=== PATIENT | female | born 1995 | race Hispanic/Latino ===

== ENCOUNTER 2020-10-30 10:54 | Outpatient (CLI) | payer OTHER, SELFPAY ==
--- NOTE | ~2020-10-30 | US_ITS ---
US OB <= 14 weeks fetus DATE: 10/30/2020 11:35 INDICATION: Gestational age determination TECHNIQUE: Real-time imaging and Doppler analysis COMPARISON: None FINDINGS: Uterus measures 9.8 cm height, 8.9 cm anteroposterior 9.4 cm transverse dimension. Intrauterine gestational sac is identified. pole is detected. There is movement. he art rate of 144 bpm. [place]-rump length averages 5.65 cm, consistent with 12 weeks 2 days +/- 1 week 1 day estimated gestat ional age; KASSANDRA: 05/12/2021, compared to 05/13/2021 by LMP. There are 2 fluid collections subjacent to the gestational sac, measuring up to 5 x 3.5 x 9 mm and 4 mm x 19 x 23 mm maximal dimension, consistent with subchorionic hematomas. Posterior placenta. Right ovary 2.4 x 1.0 x 2.4 cm. Left ovary 4.8 x 2.5 x 3.9 cm, with a 3.1 cm left ovarian cyst. No pelvic mass or abnormal pelvic fluid collection is evident. IMPRESSION: 2 subchorionic hematomas Estimated gestational age is 12 weeks 2 days +/- 1 week 1 day; KASSANDRA: 05/12/2021 Reviewed, dictated and finalized at [facility]. Reviewed, dictated and finalized at [facility].
== END 2020-10-30 10:55 | disposition home or self-care (01) ==
LOC: ANHIMG 11:03
PROVIDERS: PCP Obstetrics & Gynecology; Visit Provider Obstetrics & Gynecology
DX: Z34.91 Encounter for supervision of normal pregnancy, unspecified, first trimester (principal); Z3A.12 12 weeks gestation of pregnancy
CPT/HCPCS: 76801

== ENCOUNTER 2020-12-05 15:32 | Outpatient (CLI) | payer OTHER, SELFPAY ==
--- NOTE | ~2020-12-05 | US_ITS ---
EXAMINATION: US OB follow up DATE: 12/05/2020 16:03 INDICATION: Supervision of normal . Evaluate growth. TECHNIQUE: Real-time transabdominal obstetric ultrasound. FINDINGS: Comparison ultrasound dated 10/30/2020 There is a single living fetus in vertex presentation. The placenta is fundal without placenta previ a. Along the posterior margin of the placenta there is a heterogeneous hypoechoic area with internal vascularity. cardiac activity and movement is noted with a heart rate of 161 beats per minute. T he amniotic fluid volume is subjectively normal. The following biometric data were obtained: BPD: 36mm corresponds to gestational age 17 weeks 0 days. Head circumference: 135mm corresponds to gestational age 17 weeks 0 days. Abdominal circumference: 112mm corresponds to gestational age 17 weeks 0 days. Femur length: 22mm corresponds to gestational age 16 weeks 5 days. Estimated weight: 172grams +/- 26grams, 20th percentile IMPRESSION: 1. Single living intrauterine in vertex presentation with an estimated gestational age of 17 weeks 3 days by inititial ultrasound. Appropriate interval growth. 2. Heterogeneous hypoechoic area along the posterior margin of the placenta with associated vasculari ty. Considerations include focal myometrial contraction and chorioangioma. Recommend attention to thi s structure on follow-up examination. Reviewed, dictated and finalized at location [facility]. IMPRESSION: 1. Single living intrauterine in vertex presentation with an estimat ed gestational age of 17 weeks 3 days by inititial ultrasound. Appropriate int erval growth. 2. Heterogeneous hypoechoic area along the posterior margin of the placenta wit h associated vascularity. Considerations include focal myometrial contraction a nd chorioangioma. Recommend attention to this structure on follow-up examdanyel farnsworth
== END 2020-12-05 15:33 | disposition home or self-care (01) ==
PROVIDERS: PCP Obstetrics & Gynecology; Visit Provider Obstetrics & Gynecology
DX: Z36.89 Encounter for other specified antenatal screening (principal); Z3A.17 17 weeks gestation of pregnancy
CPT/HCPCS: 76816

== ENCOUNTER 2021-01-11 11:08 | Outpatient (CLI) | payer OTHER, SELFPAY ==
--- NOTE | ~2021-01-11 | US_ITS ---
EXAMINATION: US OB follow up DATE: 01/11/2021 11:46 INDICATION: Routine care, second trimester TECHNIQUE: Real-time ultrasound of the pelvis was performed. The interpreting radiologist was not pre sent for the study. COMPARISON: 12/05/2020 FINDINGS: There is a single living fetus in breech presentation. The placenta is posterior. car diac activity and movement are noted. heart rate is 144 beats per minute (bpm). The amnio tic fluid index is subjectively normal. The following biometric data were obtained: Biparietal diameter (BPD): 5.2 cm; head circumference (HC): 19.4 cm; abdominal circumference (AC): 16 .8 cm; femur length (FL): 3.5 cm. These measurements are concordant. Estimated weight is 437 g +/- 65 g, which correlates with the 9th percentile when 05/13/2021 is u sed as estimated date of delivery. As single measurements, these parameters are each equal to the following estimated gestational ages w ith ranges of +/- 2 standard deviations: BPD: 31 weeks 6 days +/- 1 weeks 5 days. HC: 21 weeks 4 days +/- 1 weeks 3 days. AC: 21 weeks 6 days +/- 2 weeks 0 days. FL: 21 weeks 2 days +/- 1 weeks 6 days. estimated gestational age based solely on measurements from this exam is 21 weeks 5 days +/- 1 weeks 4 days. IMPRESSION: 1. Single living fetus in breech presentation. 2. Estimated weight is 437 g +/- 65 g, which correlates with the 9th percentile when 05/13/2021 i s used as estimated date of delivery. Reviewed, dictated and finalized at location [facility]. IMPRESSION: 1. Single living fetus in breech presentation. 2. Estimated weight is 437 g +/- 65 g, which correlates with the 9th perc entile when 05/13/2021 is used as estimated date of delivery.
== END 2021-01-11 11:09 | disposition home or self-care (01) ==
LOC: ANHIMG 11:09
PROVIDERS: PCP Obstetrics & Gynecology; Visit Provider Obstetrics & Gynecology
DX: O41.92X1 Disorder of amniotic fluid and membranes, unspecified, second trimester, fetus 1 (principal); Z3A.21 21 weeks gestation of pregnancy
CPT/HCPCS: 76816

== ENCOUNTER 2021-04-01 08:34 | Outpatient (RCR) | payer OTHER, SELFPAY ==
[2021-03-25 09:28] VITALS: BP 108/72; PULSE 100
[2021-03-28 09:44] VITALS: BP 100/64; PULSE 91
--- NOTE | ~2021-04-01 | US_ITS ---
EXAMINATION: US OB BPP wo non-stress EXAM DATE: 04/01/2021 09:34 INDICATION: IUGR. 3rd trimester. TECHNIQUE: Pelvic obstetrical transabdominal sonogram was performed by a technologist. There are mu ltiple grayscale and Doppler images available for interpretation. Comparison is made to prior examina tion from 03/25/2021. FINDINGS: There is a single fetus identified in vertex presentation with a heart rate of 152 beats pe r minute. The placenta is located in the posterior position. There is no sonographic evidence of ret roplacental hemorrhage identified. BIOPHYSICAL PROFILE (performed by the technologist) breathing (30 sec sustained breathing in 30 minutes): 2 out of 2 movement (3 gross body movements in 30 minutes): 2 out of 2 tone (one episode of xfnmajz-stxwvrhkv-hptwzom limb movement): 2 out of 2 Amniotic fluid pocket (2 cm): 2 out of 2 Total score: 8 out of 8 IMPRESSION: 1. Single fetus with heart rate of 152 bpm. 2. Normal biophysical profile score of 8 out of 8. Reviewed, dictated and finalized at location [facility]. MILLER OPERATOR
--- NOTE | ~2021-04-01 | US_ITS ---
EXAMINATION: 1. US OB BPP wo non-stress 2. US umbilical doppler DATE: 03/25/2021 10:22 INDICATION: growth restriction. Third trimester. TECHNIQUE: Real-time pelvic ultrasound was performed. COMPARISON: Ultrasound 01/11/2021 FINDINGS: There is a single living fetus in vertex presentation. The placenta is posterior. heart rate i s 159 beats per minute (bpm). The amniotic fluid volume is subjectively normal. Biophysical profile performed by the technologist: breathing (30 sec sustained breathing in 30 minutes): 2 out of 2 movement (3 gross body movements in 30 minutes): 2 out of 2 tone (one episode of qimlafw-dtfzxtlty-ohwvsqu limb movement): 2 out of 2 Amniotic fluid pocket (2 cm): 2 out of 2 Total score: 8 out of 8 Umbilical artery pulsed Doppler demonstrates a peak systolic to end-diastolic velocity ratio (S/D rat io) of 3.4 (5th percentile = 2.11, 95th percentile = 3.67). IMPRESSION: 1. Single living fetus in vertex presentation. 2. Biophysical profile 8 out of 8. 3. Normal umbilical artery Doppler. Reviewed, dictated and finalized at location A. NEERING AND OPERATIONS DIRECTOR IMPRESSION: 1. Single living fetus in vertex presentation. 2. Biophysical profile 8 out of 8. 3. Normal umbilical artery Doppler.
[2021-04-01 09:53] VITALS: BP 99/63; PULSE 89
== END 2021-06-16 20:39 | disposition home or self-care (01) ==
LOC: ANHOBOP 08:34
PROVIDERS: Visit Provider Obstetrics & Gynecology
DX: O36.5990 Maternal care for other known or suspected poor fetal growth, unspecified trimester, not applicable or unspecified (principal); Z3A.33 33 weeks gestation of pregnancy; Z3A.34 34 weeks gestation of pregnancy
CPT/HCPCS: 59025; 76819; 76820

== ENCOUNTER 2025-02-27 13:16 | Observation (INO) | payer OTHER, SELFPAY ==
[2025-02-27] VITALS (13 sets, daily range): BP systolic 113–124; BP diastolic 72–87; PULSE 79–92; RESP 13–22; TEMP 36.2–36.4; O2SAT 98–100; BMI 32.1
--- NOTE | ~2025-02-27 | XR_ITS ---
EXAMINATION: XR chest 2V, 02/27/2025 15:25 CDT HISTORY: chest pain COMPARISON: No comparisons available. Technique: 2 views obtained. Findings: The lungs are clear, no effusion. No pneumothorax. Heart is normal size. Mediastinal and hilar contours are within normal limits. Bony thorax no acute abnormality. Impression: No acute cardiopulmonary abnormality. Reviewed, dictated and finalized at location P. Impression: No acute cardiopulmonary abnormality.
--- NOTE | ~2025-02-27 | MR_ITS ---
EXAMINATION: MR MRCP wo/w con/w 3D wo ind DATE: 02/28/2025 16:26 INDICATION: Choledocholithiasis. Abdominal pain. TECHNIQUE: Magnetic resonance imaging (MRI) of the abdomen was performed with 14 mL MultiHance intravenous contrast. Sequences included coronal T2-weighted FS FSE, coronal T2-weighted FSE, axial T1-weighted LAVA, coronal FS FIESTA, axial dual-echo T1-weighted SPGR, coronal lava-FLEX, sagittal T2-weighted FSE, axial T2-weighted FSE, and axial DWI. Thick-slab T2-weighted FSE images were obtained for magnetic resonance cholangiopancreatography (MRCP). Maximum intensity projection 3-D reconstructions of the volumetric data were created by the technologist. Postcontrast sequences included coronal LAVA-flex and time course of axial T1-weighted LAVA. COMPARISON: CT 02/27/2025 FINDINGS: ABDOMEN MRI: There is mild intrahepatic biliary duct dilatation. There are gallstones in the gallbladder, which is normal in size. The spleen, pancreas, adrenal glands, and kidneys are normal. There are no dilated loops of bowel. There are no pathologically enlarged lymph nodes. There is no free intrap eritoneal fluid. ABDOMEN MRCP: The common duct is dilated to 9 mm. There are stones and sludge in the common duct. IMPRESSION: 1. Choledocholithiasis with mild intrahepatic and extrahepatic biliary duct dilatation. 2. Cholelithiasis. Reviewed, dictated and finalized at location E. IMPRESSION: 1. Choledocholithiasis with mild intrahepatic and extrahepatic biliary duct dil atation. 2. Cholelithiasis.
--- NOTE | ~2025-02-27 | CT_ITS ---
Dianelys Dueñas EXAMINATION: CT abdomen pelvis w con COMPARISON: None HISTORY: chest/epigastric abd pain, elevated LFTs TECHNIQUE: Axial images were obtained through the abdomen, pelvis post administration of IV contrast. Oral contrast was also administered. Coronal reconstruction images were obtained from the axial views. CT scan performed using dose optimization techniques including the following automated exposure control; adjustment of mA and/or kV; use of iterative reconstruction technique. Automatic exposure control was used to reduce radiation dose. Permanent radiation dose record is archived to PACS. FINDINGS: CT abdomen: LUNG BASES: The lung bases are clear. The visualized portions of the heart and pericardium are unremarkable. LIVER: Mild hepatic steatosis. Portal vein patent. No intrahepatic biliary duct dilatation. SPLEEN: Unremarkable. KIDNEYS: Right Kidney: Unremarkable. No calculi. No hydronephrosis. Left Kidney: Unremarkable. No calculi. No hydronephrosis ADRENAL GLANDS: Unremarkable. PANCREAS: Unremarkable. GALLBLADDER/BILIARY: Cholelithiasis. STOMACH AND ESOPHAGUS: Visualized stomach and esophagus within normal limits. BOWEL/MESENTERY: No colitis or diverticulitis. Moderate fecal content large bowel. Appendix normal. Mesentery normal. No dilated small bowel loops. ADENOPATHY/RETROPERITONEUM: No lymphadenopathy. AORTA/VASCULATURE: Normal caliber aorta. FREE FLUID OR FREE AIR: No free fluid.. CT pelvis: SOLID ORGANS/REPRODUCTIVE: Unremarkable. BLADDER: Circumferential thickening of the bladder wall consistent with mild probable cystitis. OSSEOUS STRUCTURES: No acute osseous abnormality.No suspicious lesions. OVERLYING SOFT TISSUES: Unremarkable. IMPRESSION: 1. Cholelithiasis. 2. Mild cystitis. Reviewed, dictated and finalized at location P.
--- NOTE | ~2025-02-27 | US_ITS ---
US abdomen limited Indication: epigastric abd pain/chest pain, elevated LFTs Comparison: None Technique: Biswas-scale and color Doppler images were obtained. Findings: LIVER: Liver measures 14.9 cm. . GALLBLADDER/BILIARY: There is cholelithiasis with wall thickening CBD 8 mm. Butler sign negative. PANCREAS: Pancreas and duodenum bowel gas. Right Kidney: Right kidney 10.5 x 4.9 x 4.6 cm, normal. Impression: 1. Dilated CBD. Correlate with LFTs. MRCP suggested to further evaluate. 2. Cholelithiasis. No evidence of acute cholecystitis Reviewed, dictated and finalized at location P. Impression: 1. Dilated CBD. Correlate with LFTs. MRCP suggested to further evaluate. 2. Cholelithiasis. No evidence of acute cholecystitis
--- NOTE | ~2025-02-27 | XR_ITS ---
EXAMINATION: XR ERCP DATE: 03/01/2025 12:34 INDICATION: Unsuccessful ERCP TECHNIQUE: 3 fluoroscopic spot fluoroscopic images of the right upper quadrant were obtained during attempted endoscopic retrograde cholangiopancreatography (ERCP) performed by Dr. Hernandez. Radiologist was not present for the imaging or procedure. The amount of fluoroscopy time used during this procedure was 1.2 minutes. Total DAP was 3.124 mGycm^2. COMPARISON: MRI/MRCP dated 02/28/2025 FINDINGS: Images demonstrate tiny cannula extending medially from the distal tip of an endoscope projecting over the right upper quadrant in the expected region of the ampulla. IMPRESSION: 1. Fluoroscopy utilized during reported unsuccessful attempted ERCP. See procedure note note for additional details. Reviewed, dictated and finalized at location A. IMPRESSION: 1. Fluoroscopy utilized during reported unsuccessful attempted ERCP. See proced ure note note for additional details.
--- OUTSIDE RECORDS SUMMARY | 2025-02-27 13:18 | XMS_ITS | Clinical Summary ---
Author Organization [facility] Address [address] [place] [address] Care Team Providers Care Esol Instructor Name Role Phone Candelario Walsham Primary Care Provid er Allergies No known active allergies Medications vit [id number] weiss 27mg iron- 800 mcg-250 mg capsule Take 1 tablet by mouth daily Active docusate sodium (COLACE) 100 mg capsuleIndicati ons:constipatio n,Stool Softener Take 1 capsule (100 mg total) by mouth 2 (two) times a day as needed for constipation 20 capsule 1 Active ibuprofen (ADVIL,MOTRIN) 600 mg tabletIndicatio ns:Cramps Take 1 tablet (600 mg total) by mouth every 6 (six) hours as needed for pain 60 tablet 1 Active acetaminophen (TYLENOL) 500 mg tablet Take 1 tablet (500 mg total) by mouth every 6 (six) hours as needed for pain 30 tablet 1 Active Active Problems Problem Noted Date Diagnosed Date Term 05/05/2021 Social History Tobacco Use Types Packs/Day Years Used Date Smoking Tobacco: Never Smokeless Tobacco: Never AUDIT-C Answer Date Recorded Q1: How often do you have a drink containing alc ohol? Never 05/05/2021 Q2: How many drinks containi ng alcohol do you have on a typical day when you are drinking? Patient declined 05/05/2021 Q3: How often do you have si x or more drinks on one occasion? Never 05/05/2021 [place] Depression Scale Answer Date Recorded [place] Depression Scale Total 4 05/06/2021 The thought of harming myself has occurred to me . Never 05/06/2021 Personal Safety Answer Date Recorded Getting School Help Needed Not on file 07/13 Comments No Sex and Gender Information Value Date Recorded Sex Assigned at Not on file Legal Sex Female 7:54 AM OUTLET MANAGER Gender Identity Not on file Sexual Orientation Not on file Obstetrics History Para Term AB IAB SAB Ectopic Multiple Livin g Live Births 5 4 4 1 1 0 4 1 Date Outcome GA Total Labor Labor/2nd/3rd Weight Sex Type Anes PTL Windy A1 A5 Name Clin Term Term Term SAB 021 Term 39w 0d 0h 46m 0h 42m/0h 01m/0h 03m 2.7 kg (5 lb 15.2 oz) F Vag-S pont Epidur al N Livin g 9 9 JOSEPH NTERA MIREZ ,GIRL MATTHEW IA Iam forbes ck, Candelario armas, DO Complications:Other (Comment ) Delivery Location:[facility] Main [facility] ([facility]) Last Filed Vital Signs Vital Sign Reading Time Taken Comments Blood Pressure 118/80 05/06/2021 4:14 PM OUTLET MANAGER Pulse 78 05/06/2021 4:14 PM OUTLET MANAGER Temperature 36.9 C (98.4 F) 05/06/2021 4:14 PM OUTLET MANAGER Respiratory Rate 18 05/06/2021 4:14 PM OUTLET MANAGER Oxygen Saturation 97% 05/06/2021 4:14 PM OUTLET MANAGER Inhaled Oxygen Concentration - - Weight 60.8 kg (134 lb) 05/05/2021 8:38 AM OUTLET MANAGER Height - - Body Mass Index - - Plan of Treatment Not on file Insurance [facility] Advance Directives For more information, please contact: [phone] * Full Code (Latest Code Status on File) Date Activated Date Inactivated Comments 05/05/2021 7:30 PM 05/06/2021 9:11 PM * Full Code Date Activated Date Inactivated Comments 05/05/2021 8:22 AM 05/05/2021 7:30 PM Full CPR i n case of cardiopulmonary arrest Care Teams Esol Instructor Relationship Specialty Start Date End Date Candelario Walsh DO [address] [place] [id number] PCP - General Obstetrics and Gynecology 05/05/21
--- OUTSIDE RECORDS SUMMARY | 2025-02-27 13:19 | XMS_ITS | Data Portability ---
Author Organization [facility]ER[facility] Address [address] [facility] [place] [address] Care Team Providers Care Guest Experience Manager Name Role Phone FLORENCE WATKINS Tail Puller Assessment No assessment recorded. Plan of Treatment Reminders Order Date Submit Date Provider Last Modified By Organization Details Last Modified Time Details Appointments None recorded. Lab test, urine 2024 025 [email or web address] In-Office Order, Internal Use Only DO Not Attach Compendium DO Not Attach Compendium, Do Not Delete/merge, [id number] 10:41:58 CBC w/ auto diff 2024 025 [email or web address] [facility], [address] [place] [address], [facility] [address], [place], [address], 5 14:40:18 culture, urine 2024 025 GENESIS [facility], [address] [place] [address], [facility] [address], [place], [address], 5 15:11:20 hemoglobi n (Hb) electroph oresis, blood 2024 025 [email or web address] [facility], [address] [place] [address], [address], [place], [address], 14:40:38 HIV 1 + 2, meaningfu l use set 2024 025 [email or web address] [facility], [address], [place], [address], 5 14:41:07 CFTR mutation, blood or tissue 2024 025 GENESIS [facility], [address], [address], [place], [address], 5 19:10:20 aneuploid y risk and X & Y analysis, chromosom e specific circulati ng cell free (CCF) DNA, maternal serum 2024 025 GENESIS Samaniego, [address], [address], [place], [address], 5 19:08:43 abo group + rh type, blood 2024 025 mio [facility], [address], [address], [place], [address], 5 14:40:51 drug screen, 5 drugs, urine 2024 025 [facility], [address] [place] [address], [address], [address], 5 14:39:57 rubella IgG Ab, quant immunoass ay, serum or plasma 2024 025 mio [facility]hncol[facility], [address], [place], [address], 5 14:40:58 RPR (rapid plasma reagin), serum 2024 025 mio [facility], [address], [place], [address], 5 14:41:22 varicella zoster virus IgG Ab, QL, IA, serum 2024 025 [email or web address] [facility], [address], [place], [address], 5 14:41:16 vaginal pathogens panel, RAJAN+probe , vaginal fluid 2024 025 [facility], [address], [place], [address], 5 14:40:09 hepatitis panel (A+B+C), acute, serum 2024 025 [email or web address] [facility], [address], [place], [address], 5 14:40:46 cytology report, thin prep, smear or scraping, cervical or vaginal 2024 025 [facility], [address] [facility], [address], [place], [address], 5 15:22:20 urinalysi s, dipstick 2024 025 In-Office Order, Internal Use Only DO Not Attach Compendium DO Not Attach Compendium, Do Not Delete/merge, [id number] 15:30:57 Referral maternal & medicine referral - Trisomy 18 2024 025 [email or web address] [facility], [address], [address], [place], [address], 5 09:24:44 Procedures None recorded. Surgeries None recorded. Imaging US, obstetric , 1st trimester 2024 025 Kenny Hunt (Radiology), [address], [place], [address], 5 16:33:38 Medication Orders Nexplanon 68 mg subdermal implant 2024 025 [email or web address] [facility], [address] [facility], [address], 11:59:33 Patient TargetsNo targets recorded. Patient Instructions Encounter Date Encounter Id Patient Instructions Last Modified By Organization Details Last Modified Time 06/09/2024 [id number] A healthy lifestyle: care instructions Not available 06/09/2024 15:25:07 06/16/2024 [id number] A healthy lifestyle: care instructions [email or web address] Not available 06/16/2024 09:44:57 --Discussed with Dr. Sonya beal Not available 06/16/2024 16:08:20 12/01/2024 [id number] grief (actual/anticipat ed): care instructions [email or web address] Not available 12/01/2024 11:59:33 12/14/2024 [id number] A healthy lifestyle: care instructions [email or web address] Not available 12/14/2024 10:41:58 --Discussed with Dr. Sonya beal Not available 12/14/2024 12:00:54 01/19/2025 [id number] grief (actual/anticipat ed): care instructions [email or web address] Not available 01/19/2025 16:18:00 A healthy lifestyle: care instructions [email or web address] Not available 01/19/2025 16:18:[address] Sonya beal Not available 01/20/2025 12:22:55 Reason for Referral Maternal & Medicine [facility] for Chromosome abnormality screening Trisomy 18 Referring Physician: Aleksandr Garcia, Family Medicine, Encounter Date: 06/16/2024 Results Created Date Observation Date Name Description Value Unit Range Abnormal Flag Note LastModifiedBy Organization Detail LastModifiedTime 05/19/1905/19/2024 pregn augustus test, urine HCG positi ve Not Available In-Office Order Internal Use Only DO Not Attach Compendium DO Not Attach Compendium, Do Not Delete/merge, [id number] 05/19/2024 11:54:38 06/09/19 25 06/11/2024 URINE CULTU RE, ROUTI NE urine culture, routine FINAL REPORT Not Available [facility] ([facility]) [address] [facility], [place], [address], 06/11/2024 15:11:20 06/09/19 25 06/11/2024 URINE CULTU RE, ROUTI NE result 1 GERMAN Motta Mixed uroge nital lise 10,00 0-25, 000 colon y formi ng units per mL Not Available [facility] ([facility]) [address] [place], [address], 06/11/2024 15:11:20 06/09/19 25 06/12/2024 IGP, RFX APTIM A HPV ASCU diagnosis: GERMAN Motta NEGAT PEYTON FOR INTRA EPITH ELIAL LESIO N OR LESLEY MNEDEZ . Not Available [facility] ([facility]) [address] [place], [address], 06/12/2024 15:22:20 06/09/19 25 06/12/2024 IGP, RFX APTIM A HPV ASCU specimen adequacy: GERMAN Motta Satis facto ry for evalu ation . Endoc ervic al and/o r squam ous metap lasti c cells (endo cervi ayden compo nent) are prese nt. Not Available [facility] ([facility]) [address] [place], [address], 06/12/2024 15:22:20 06/09/19 25 06/12/2024 IGP, RFX APTIM A HPV ASCU clinician provided ICD10: GERMAN Motta Z34.9 1 Not Available [facility] ([facility]) [address] [place], [address], 06/12/2024 15:22:20 06/09/19 25 06/12/2024 IGP, RFX APTIM A HPV ASCU performed by: GERMAN James er, Cytot karen motta (ASCP ) Not Available [facility] ([facility]) [address] [place], [address], 06/12/2024 15:22:20 06/09/19 25 06/12/2024 IGP, RFX APTIM A HPV ASCU . . Not Available [facility] ([facility]) [address] [place], [address], 06/12/2024 15:22:20 06/09/19 25 06/12/2024 IGP, RFX APTIM A HPV ASCU note: COMMEN T The Pap smear is a scree hetal test desig kyler to aid in the detec tion of adelita ligna nt and malig nant condi tions of the uteri ne cervi x. It is not a diagn ostic proce dure and shoul d not be used as the sole means of detec ting cervi ayden cance r. Both false -posi tive and false -nega tive repor ts do occur . Not Available [facility] ([facility]) [address] [facility], [place], [address], 06/12/2024 15:22:20 06/09/19 25 06/12/2024 IGP, RFX APTIM A HPV ASCU test methodology: COMMEN T This liqui d based ThinP rep(R ) pap test was scree kyler with the use of an image guide odalis armas. Not Available [facility] ([facility]) [address] [place], [address], 06/12/2024 15:22:20 06/09/19 25 06/12/2024 IGP, RFX APTIM A HPV ASCU . COMMEN T The HPV DNA refle x crite reagan were not met with this speci men resul t there fore, no HPV testi ng was perfo rmed. Not Available [facility] ([facility]) [address] [place], [address], 06/12/2024 15:22:20 06/09/19 25 06/13/2024 MATER NIT21 PLUS CORE gestation SINGLE TON Not Available [facility] ([facility]) [address] [place], [address], 06/13/2024 19:08:42 06/09/19 25 06/13/2024 MATER NIT21 PLUS CORE fraction 13% Not Available [facility] ([facility]) [address] [place], [address], 06/13/2024 19:08:42 06/09/19 25 06/13/2024 MATER NIT21 PLUS CORE gestational age > or = 9W: YES Not Available [facility] ([facility]) [address] [place], [address], 06/13/2024 19:08:42 06/09/19 25 06/13/2024 MATER NIT21 PLUS CORE test result POSITI VE abnormal Triso my 18 Not Available [facility] ([facility]) [address] [place], [address], 06/13/2024 19:08:42 06/09/19 25 06/13/2024 MATER NIT21 PLUS 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 Randy ic couns eling , confi rmato ry diagn ostic testi ng, and clini ayden corre latio n are recom puma d. Not Available [facility] ([facility]) [address] [place], [address], 06/13/2024 19:08:42 06/09/19 25 06/13/2024 MATER NIT21 PLUS CORE approved by GERMAN ruano MD, Direc tor, Seque nom Labor atori es Not Available [facility] ([facility]) [address] [place], [address], 06/13/2024 19:08:42 06/09/19 25 06/13/2024 MATER NIT21 PLUS CORE trisomy 21 (down syndrome) NEGATI VE Not Available [facility] ([facility]) [address] [facility] [place], [address], 06/13/2024 19:08:42 06/09/19 25 06/13/2024 MATER NIT21 PLUS CORE trisomy 18 (padilla syndrome) SEE BELOW: abnormal Posit peyton T18 PPV*: 14.7% Not Available [facility] ([facility]) [address] [place], [address], 06/13/2024 19:08:42 06/09/19 25 06/13/2024 MATER NIT21 PLUS CORE trisomy 13 (patau syndrome) NEGATI VE Not Available [facility] ([facility]) [address] [place], [address], 06/13/2024 19:08:42 06/09/19 25 06/13/2024 MATER NIT21 PLUS CORE sex COMMEN T Consi stent with Femal e Not Available [facility] ([facility]) [address] [facility], [place], [address], 06/13/2024 19:08:42 06/09/19 25 06/13/2024 MATER NIT21 PLUS CORE negative predictive value NOTE The Negat peyton Predi ctive Value (NPV) for triso my 21, 18, and 13 is great er than 99%. The NPV for SCA and ESS canno t be calcu lated as SCA and ESS are only repor marie when an abnor malit y is detec marie. Not Available [facility] ([facility]) [address] [facility], [place], [address], 06/13/2024 19:08:42 06/09/19 25 06/13/2024 MATER NIT21 PLUS CORE positive predictive value NOTE * Posit peyton Predi ctive Value (PPV) estim ates the proba bilit y that a pregn augustus with a posit peyton test resul t is in fact an affec marie pregn augustus. The PPV for this patie nt was calcu lated only using mater nal age and gesta jami l age[1 ], test perfo rmanc e[2] and the stand ken PPV formu la. For a more accur ate and indiv idual ized PPV calcu latio n, inclu de addit ional clini ayden infor matio n from the patie nt's clini ayden histo ry (whic h may inclu de serum scree n resul ts, perso nal/f amily histo ry, ultra sound findi ngs, etc.) , and refer to the table below . A Prior i Risk (1:10 ); PPV (96.5 %) TRISO MY 18 A Prior i Risk (1:20 ); PPV (92.9 %) TRISO MY 18 A Prior i Risk (1:30 ); PPV (89.6 %) TRISO MY 18 A Prior i Risk (1:40 ); PPV (86.5 %) TRISO MY 18 A Prior i Risk (1:50 ); PPV (83.6 %) TRISO MY 18 A Prior i Risk (1:10 0); PPV (71.6 %) TRISO MY 18 A Prior i Risk (1:20 0); PPV (55.7 %) TRISO MY 18 A Prior i Risk (1:30 0); PPV (45.5 %) TRISO MY 18 A Prior i Risk (1:40 0); PPV (38.5 %) TRISO MY 18 A Prior i Risk (1:50 0); PPV (33.4 %) TRISO MY 18 A Prior i Risk (1:10 00); PPV (20.0 %) TRISO MY 18 A Prior i Risk (1:15 00); PPV (14.3 %) TRISO MY 18 A Prior i Risk (1:20 00); PPV (11.1 %) TRISO MY 18 A Prior i Risk (1:25 00); PPV (9.1% ) TRISO MY 18 A Prior i Risk (1:30 00); PPV (7.7% ) TRISO MY 18 A Prior i Risk (1:50 00); PPV (4.8% ) TRISO MY 18 Not Available [facility] ([facility]) [address] [facility], [place], [address], 06/13/2024 19:08:42 06/09/1906/13/2024 MATER NIT21 PLUS CORE about the test COMMEN T The Mater niT(R ) 21 PLUS labor atory -deve loped test (LDT) rose zes circu latin g cell- free DNA from a mater nal blood sampl e. This test is used for scree hetal purpo ses and not diagn ostic . Clini ayden corre latio n is recom puma d. Valid ation data on twin pregn ancie s is limit ed and the abili ty of this test to detec t aneup loidy in highe r multi ple gesta tions has not yet been valid ated. Not Available [facility] ([facility]) [address] [facility], [place], [address], 06/13/2024 19:08:42 06/09/1906/13/2024 MATER NIT21 PLUS CORE test method COMMEN T See Notes Circu latin g cell- free DNA was purif ied from the plasm a compo nent of mater nal blood . The extra cted DNA was then conve rted into a [employer] DNA jaky ry for aneup loidy rose sis of chrom osome s 21, 18, and 13 via next gener ation seque ncing .[3] Optio nal findi ngs based on the test order inclu de sex chrom osome aneup loidy (SCA) [2], and enhan trista seque ncing serie s (ESS) [4], which will only be repor marie on as an addit ional findi ng when an abnor malit y is detec marie. SCA testi ng inclu jackie infor matio n on X and Y repre senta tion, while ESS testi ng inclu jackie delet ions in selec marie regio ns (22q, 15q, 11q, 8q, 5p, 4p, 1p) and triso my of chrom osome s 16 and 22. Not Available [facility] ([facility]) [address] [facility], [place], [address], 06/13/2024 19:08:42 06/09/19 25 06/13/2024 MATER NIT21 PLUS CORE performance COMMEN T The perfo rmanc e zee cteri stics of the Mater niT(R ) 21 PLUS labor atory -deve loped test (LDT) have been deter mined in a clini ayden valid ation study with pregn ant women at incre ased risk for chrom osoma l aneup loidy .[2-5 ] Not Available [facility] ([facility]) [address] [facility], [place], [address], 06/13/2024 19:08:42 06/09/19 25 06/13/2024 MATER NIT21 PLUS CORE performance characterist ics NOTE ----- ----- ----- ----- ----- ----- ----- ----- ----- ----- ----- ---- ! Sex ! Accur acy: 99.4% ! !---- ----- ----- ----- ----- ----- ----- ----- ----- ----- ----- ---! ! Gabriela n (radha young d syndr ome) ! Est. Sens# ! Est. Spec ! !---- ----- ----- ----- ----- ----- ----- ----- ----- ----- ----- ---! ! Sabrina pleitez 21 (Estela Syndr ome) ! 99.1% ! 99.9% ! !---- ----- ----- ----- ----- ----- ----- ----- ----- ----- ----- ---! ! Sabrina pleitez 18 (Mateo martinez Syndr ome) ! >99.9 % ! 99.6% ! !---- ----- ----- ----- ----- ----- ----- ----- ----- ----- ----- ---! ! Triso my 13 (Pata u Syndr ome) ! 91.7% ! 99.7% ! !---- ----- ----- ----- ----- ----- ----- ----- ----- ----- ----- ---! ! Sex Chrom osome Aneup mare es## ! 96.2% ! 99.7% ! !---- ----- ----- ----- ----- ----- ----- ----- ----- ----- ----- ---! * As repor marie in ISCA datab ase nstd3 7 [http [email or web address] [email or web address].nc [email or web address] .[email or web address] .gov/ dbvar /stud ies/n std37 / ] # Estim ated Sensi tivit y. Sensi tivit y estim ated acros s the obser heriberto size distr ibuti on of each syndr ome [per ISCA datab ase nstd3 7] and acros s the range of fract ions obser heriberto in routi ne clini ayden NIPT. Actua l sensi tivit y can also be influ enced by other facto rs such as the size of the event , total seque nce count s, ampli ficat ion bias, or seque nce bias. ## Singl eton gesta tion only. Not Available [facility] ([facility]) [address] [facility], [place], [address], 06/13/2024 19:08:42 06/09/19 25 06/13/2024 MATER NIT21 PLUS CORE limitations of the test COMMEN T While the resul ts of these tests are highl y relia ble, disco rdant resul ts, inclu ding inacc urate sex predi ction , may occur due to place ntal, mater nal, or mosai cism or neopl asm; vanis desirae twin; prior mater nal organ trans plant ; or other cause s. These tests are scree hetal tests and not diagn ostic ; they do not repla ce the accur acy and preci katy of prena bob diagn osis with CVS or amnio cente sis. A patie nt with a posit peyton test resul t shoul d be refer red for randy ic couns eling and offer ed invas peyton prena bob diagn osis for confi rmati on of test resul ts.[6 ] The resul ts of this testi ng, inclu ding the benef its and limit ation s, shoul d be discu ssed with a quali fied healt hcare provi marla. Pregn augustus manag ement decis ions, inclu ding termi natio n of the pregn augustus, shoul d not be based on the resul ts of these tests alone . The healt hcare provi marla is respo nsibl e for the use of this infor matio n in the manag ement of their patie nt. Sex chrom osoma l aneup loidi es are not repor table for known multi ple gesta tions . A negat peyton resul t does not ensur e an unaff ected pregn augustus nor does it exclu de the possi bilit y of other chrom osoma l abnor malit ies or defec ts which are not a part of these tests . An uninf ormat peyton resul t may be repor marie, the cause s of which may inclu de, but are not limit ed to, insuf ficie nt seque ncing cover age, noise or artif acts in the regio n, ampli ficat ion or seque ncing bias, or insuf ficie nt fract ion. These tests are not inten ded to ident radha pregn ancie s at risk for neura l tube defec ts or ventr al wall defec ts. Testi ng for whole chrom osome abnor malit ies (incl uding sex chrom osome s) and for subch romos omal abnor malit ies could lead to the poten tial disco very of both and mater nal genom ic abnor malit ies that could have major , minor , or no, clini ayden signi fican ce. Evalu ating the signi fican ce of a posit peyton or a non-r eport able resul t may invol ve both invas peyton testi ng and addit ional studi es on the mothe r. Such inves tigat ions may lead to a diagn osis of mater nal chrom osoma l or subch romos omal abnor malit ies, which on occas ion may be assoc iated with benig n or malig nant mater nal neopl asms. These tests may not accur ately ident radha tripl oidy, christina trista rearr angem ents, or the preci se locat ion of subch romos omal dupli catio ns or delet ions; these may be detec marie by prena bob diagn osis with CVS or amnio cente sis. The abili ty to repor t resul ts may be impac marie by mater nal BMI, mater nal weigh t, mater nal syste andreina lupus eryth emato cuca (SLE) and/o r by certa in pharm aceut ical agent s such as low molec ular weigh t hepar in (for examp le: Loven ox(R) , Xapar in(R) , Clexa ne(R) and Fragm in(R) ). Not Available [facility] ([facility]) [address] [facility], [place], [address], 06/13/2024 19:08:42 06/09/19 25 06/13/2024 MATER NIT21 PLUS CORE note COMMEN T See Notes [facility] is a subsi diary of Labor atory Corpo ratio n of Emil Chowi ngs, using the brand AlertMe. This test was devel oped and its perfo rmanc e zee cteri stics deter mined by [employer]. It has not been clear ed or appro heriberto by the Food and Drug Admin istra tion. This labor atory is certi fied under the Clini ayden Labor atory Impro vemen t Amend ments (CLIA ) as quali fied to perfo rm high compl exity clini ayden labor atory testi ng and accre dited by the Colle ge of [employer] can Patho logis ts (CAP) . Not Available [facility] ([facility]) [address] [facility], [place], [address], 06/13/2024 19:08:42 06/09/1906/13/2024 MATER NIT21 PLUS CORE references COMMEN T 1. Ofelia GRIFFIN, et al. Diag. 1994; 10(6) :356- 367. 2. Mae kaur AR, et al. Prena t Diag. 2013; 33(6) :591- 597. 3. Aubrey MEDINA, et al. Randy Med. 2012; 14(3) :296- 305. 4. Byron C, et al. Clin Chem. 2015 Aug;6 1(4): 608-6 16. 5. Aubrey MEDINA, et al. Randy Med. 2011; 13(11 ):913 -920. 6. [facility]G/ [facility] Pract ice Bulle tin No. 226, Feb 2020. Not Available [facility] ([facility]) [address] [place], [address], 06/13/2024 19:08:42 06/09/1906/13/2024 MATER NIT21 PLUS CORE pdf . Not Available [facility] ([facility]) [address] [place], [address], 06/13/2024 19:08:42 06/09/1906/10/2024 HGB FRACT IONAT ION CASCA DE HGB F 0.0 % 0.0-2. 0 Not Available [facility] ([facility]) [address] [facility], [place], [address], 06/19/2024 19:10:16 06/09/1906/10/2024 HGB FRACT IONAT ION CASCA DE HGB A 97.4 % 96.4-9 8.8 Not Available [facility] ([facility]) [address] [place], [address], 06/19/2024 19:10:16 06/09/19 25 06/10/2024 HGB FRACT IONAT ION CASCA DE HGB A2 2.6 % 1.8-3. 2 Not Available [facility] ([facility]) [address] [facility], [place], [address], 06/19/2024 19:10:16 06/09/1906/10/2024 HGB FRACT IONAT ION CASCA DE HGB S 0.0 % 0.0 Not Available [facility] ([facility]) [address] [facility], [place], [address], 06/19/2024 19:10:16 06/09/1906/10/2024 HGB FRACT IONAT ION CASCA DE interpretati on: COMMEN T Portia l hemog lobin prese nt; no hemog lobin varia nt or beta thala ssemi a ident ified . Note: Alpha thala ssemi a may not be detec marie by the Hgb Fract ionat ion [place] panel . If alpha thala ssemi a is suspe cted, [facility] offer s Alpha -Thal assem ia DNA Rose sis (#[id number]). Not Available [facility] ([facility]) [address] [facility], [place], [address], 06/19/2024 19:10:16 06/09/1906/10/2024 ACUTE HEPAT ITIS hep A Ab, IgM NEGATI VE negati ve A negat peyton anti- HAV IgM resul t sugge sts no recen t or curre nt HAV infec tion. Not Available [facility] ([facility]) [address] [facility], [place], [address], 06/19/2024 19:10:17 06/09/1906/10/2024 ACUTE HEPAT ITIS HBsAg screen NEGATI VE negati ve Not Available [facility] ([facility]) [address] [facility], [place], [address], 06/19/2024 19:10:17 06/09/1906/10/2024 ACUTE HEPAT ITIS hep B core Ab, IgM NEGATI VE negati ve Not Available [facility] ([facility]) [address] [facility], [place], [address], 06/19/2024 19:10:17 06/09/19 25 06/10/2024 ACUTE HEPAT ITIS HCV Ab NON REACTI VE nonrea ctive Not Available [facility] ([facility]) [address] [facility], [place], [address], 06/19/2024 19:10:17 06/09/19 25 06/10/2024 INTER PRETA TION: interpretati on: Commen t Not infec marie with HCV unles s early or acute infec tion is suspe cted (whic h may be delay ed in an immun ocomp romis ed indiv idual ), or other evide nce exist s to indic ate HCV infec tion. Not Available [facility] ([facility]) [address] [facility], [place], [address], 06/19/2024 19:10:18 06/09/19 25 06/11/2024 NUSWA B VAGIN ITIS PLUS (VG+) atopobium vaginae LOW - 0 score Not Available [facility] ([facility]) [address] [facility], [place], [address], 06/19/2024 19:10:19 06/09/19 25 06/11/2024 NUSWA B VAGIN ITIS PLUS (VG+) bvab 2 LOW - 0 score Not Available [facility] ([facility]) [address] [place], [address], 06/19/2024 19:10:19 06/09/19 25 06/11/2024 NUSWA B VAGIN ITIS PLUS (VG+) megasphaera 1 LOW - 0 score Calcu late total score by candace g the 3 indiv idual bacte rial vagin osis (BV) marke r score s toget her. Total score is inter prete d as follo ws: Total score 0-1: Indic ates the absen ce of BV. Total score 2: Indet ermin ate for BV. Addit ional clini ayden data shoul d be evalu ated to estab luis a diagn osis. Total score 3-6: Indic ates the prese nce of BV. Not Available [facility] ([facility]) [address] [facility], [place], [address], 06/19/2024 19:10:19 06/09/19 25 06/12/2024 NUA B VAGIN ITIS PLUS (VG+) vale albicans, RAJAN NEGATI VE negati ve Not Available [facility] ([facility]) [address] [facility], [place], [address], 06/19/2024 19:10:19 06/09/1906/12/2024 NUA B VAGIN ITIS PLUS (VG+) vale glabrata, RAJAN POSITI VE negati ve abnormal Publi shed data demon strat e that up to 65% of Devi da glabr emanuel ident ified in cases of vagin al devi diasi s have decre ased susce ptibi lity to fluco nazol e. Not Available [facility] ([facility]) [address] [facility], [place], [address], 06/19/2024 19:10:19 06/09/1906/12/2024 NUA B VAGIN ITIS PLUS (VG+) trich vag by RAJAN NEGATI VE negati ve Not Available [facility] ([facility]) [address] [place], [address], 06/19/2024 19:10:19 06/09/1906/12/2024 NUSWA B VAGIN ITIS PLUS (VG+) chlamydia trachomatis, RAJAN NEGATI VE negati ve Not Available [facility] ([facility]) [address] [place], [address], 06/19/2024 19:10:19 06/09/19 25 06/12/2024 NUSWA B VAGIN ITIS PLUS (VG+) neisseria gonorrhoeae, RAJAN NEGATI VE negati ve Not Available [facility] ([facility]) [address] [facility], [place], [address], 06/19/2024 19:10:19 06/09/19 25 06/19/2024 CYSTI C FIBRO SIS, 97 VARIA NTS ethnicity COMMEN T Not Provi ded Not Available [facility] ([facility]) [address] [facility], [place], [address], 06/19/2024 19:10:20 06/09/19 25 06/19/2024 CYSTI C FIBRO SIS, 97 VARIA NTS specimen type COMMEN T Whole Blood Not Available [facility] ([facility]) [address] [facility], [place], [address], 06/19/2024 19:10:20 06/09/19 25 06/19/2024 CYSTI C FIBRO SIS, 97 VARIA NTS indication COMMEN T Kym er Test / Scree hetal Not Available [facility] ([facility]) [address] [facility], [place], [address], 06/19/2024 19:10:20 06/09/19 25 06/19/2024 CYSTI C FIBRO SIS, 97 VARIA NTS result: COMMEN T NEGAT PEYTON Not Available [facility] ([facility]) [address] [facility], [place], [address], 06/19/2024 19:10:20 06/09/19 25 06/19/2024 CYSTI C FIBRO SIS, 97 VARIA NTS interpretati on COMMEN T Negat peyton Resul ts Disor ders (Gene ) Resul t Inter preta tion Cysti c fibro sis NEGAT PEYTON This resul t reduc es, (CFTR ) but does not NM_00 0492. 4 elimi toro, the risk to be a kym er. Risk: At reduc ed risk for an affec marie pregn augustus. For ethni c-spe cific risk ignacio ions see Infor su n Table . Not Available [facility] ([facility]) [address] [facility], [place], [address], 06/19/2024 19:10:20 06/09/1906/19/2024 CYSTI C FIBRO SIS, 97 VARIA NTS recommendati ons COMMEN T If the above resul t is posit peyton, randy ic couns germánng is recom puma d to discu ss the poten tial clini ayden and/o r repro ducti ve impli catio ns, as well as recom menda tions for testi ng famil y membe rs and, when appli cable , this indiv idual 's partn er. Randy ic couns elinarendra servi lance are avail able. To acces s [facility] Randy ic Couns darvin murray e visit [email or web address] :[email or web address] orp.c om/ge netic -coun juan g or call [phone] -CA LLS ([phone]). Not Available [facility] ([facility]) [address] [facility], [place], [address], 06/19/2024 19:10:20 06/09/19 25 06/19/2024 CYSTI C FIBRO SIS, 97 VARIA NTS additional clinicalinfo rmation COMMEN T Cysti c fibro sis (CF) is an autos omal reces sive disor marla with varia ble sever ity and age at onset . Signs and sympt oms of class ic CF may inclu de eleva marie sweat chlor mattie level s, progr essiv e lung disea se, pancr eatic insuf ficie ncy, and male infer tilit y. Sympt oms of mild CF may inclu de pancr eatic suffi cienc y. Sympt oms of CFTR- relat ed disor ders may inclu de pancr eatit is, bronc hiect asis, and isola marie male infer tilit y due to conge nital absen ce of the vas defer ens (CBAV D). Treat ment is dieta ry and suppo rtive . Genot ype-t arget ed thera pies may be avail able for some indiv idual s. In sever ronaldo affec marie indiv idual s, lung trans plant ation may be indic ated. (PMID :[id number]) . Not Available [facility] ([facility]) [address] [facility], [place], [address], 06/19/2024 19:10:20 06/09/19 25 06/19/2024 CYSTI C FIBRO SIS, 97 VARIA NTS comments COMMEN T This inter preta tion is based on the clini ayden infor matio n provi ded and the curre nt under stand ing of the molec ular randy ics of the disor marla(s ) teste d. Infor matio n about the disor marla(s ) teste d is avail able at [email or web address] :[email or web address] om. Not Available [facility] ([facility]) [address] [facility], [place], [address], 06/19/2024 19:10:20 06/09/19 25 06/19/2024 CYSTI C FIBRO SIS, 97 VARIA NTS methods/limi tations COMMEN T Next- gener ation Seque ncing (NGS) : Genom ic regio ns of inter est in the CFTR gene are selec marie using the [employer] ience (R) hybri dizat ion captu re metho d and seque nced via the [employer](R ) NGS platf orm. Seque ncing reads are align ed to the human genom e refer ence GRCh3 7/hg1 9 build . Regio ns of inter est inclu de genom ic regio ns encom passi ng targe marie varia nts. Rose tical sensi tivit y is estim ated to be >99% for singl e nucle otide varia nts and small inser tions /walker tions . Varia nt detec tion is perfo rmed by TERRY Sanderson [facility] [employer] and in-ho use algor ithms . Confi rmato ry testi ng is done by Andrew bacon seque ncing . Varia nts are speci fied using the numbe ring and nomen clatu re recom puma d by the Human Genom e Varia tion Socie ty (HGVS , http: //www .hgvs .org/ ). Varia nt class ifica tion and confi rmati on are consi stent with ACMG stand ards and guide lines (Rich ards, PMID: [id number] 868; Elsy, PMID: 48103 774). Rose sis is restr icted to 97 targe marie CF varia nts, liste d below . c.54- 5940_ 273+1 0250d el21k b, c.178 G>T (p.Gl u60*) , c.223 C> T (p.Ar g75*) , c.254 G>A (p.Gl y85Gl u), c.262 _263d elTT (p.Le u88Il efs*2 2), c.273 +1G>A , c.273 +3A>C , c.274 -1G>A , c.274 G>T (p.Gl u92*) , c.313 Shyam (p.Il e105S erfs* 2), c.325 _327d elins G (p.Ty r109G lyfs* 4), c.349 C>T (p.Ar g117C ys), c.350 G>A (p.Ar g117H is), c.366 T>A (p.Ty r122* ), c.442 Shyam (p.Il e148L eufs* 5), c.489 +1G>T , c.531 delT (p.Il e177M etfs* 12), c.532 G>A (p.Gl y178A rg), c.579 +1G&g t;T, c.579 +5G>A , c.580 -1G>T , c.617 T>G (p.Le u206T rp), c.803 Shyam (p.As n268I lefs* 17), c.805 _806d elAT (p.Il e269P rofs* 4), c.935 _937d elTCT (p.Ph e312d el), c.948 delT (p.Ph e316L eufs* 12), c.988 G>T (p.Gl y330* ), c.100 0C>T (p.Ar g334T rp), c.101 3C>T (p.Th r338I le), c.104 0G>A (p.Ar g347H is), c.104 0G>C (p.Ar g347P ro), c.105 5G>A (p.Ar g352G ln), c.[10 75C>A ;1079 C>A] (p.[G ln359 Brenda;T hr360 Brenda]) , c.115 5_115 6dupT A (p.As n386I lefs* 3), c.136 4C>A (p.Al a455G shade), c.143 8G>T (p.Gl y480C ys), c.147 7C>T (p.Gl n493* ), c.151 9_152 1delA TC (p.Il e507d el), c.152 1_152 3delC TT (p.Ph e508d el), c.154 5_154 6delT A (p.Ty r515* ), c.155 8G>T (p.Va l520P he), c.157 2C>A (p.Cy s524* ), c.158 5-1G> A, c.162 4G>T (p.Gl y542* ), c.164 6G>A (p.Se r549A sn), c.164 7T>G (p.Se r549A rg), c.165 2G>A (p.Gl y551A sp), c.165 4C>T (p.Gl n552* ), c.165 7C>T (p.Ar g553* ), c.167 5G>A (p.Al a559T hr), c.167 9G>C (p.Ar g560T hr), c.168 0-1G> A, c.172 1C>A (p.Pr o574H is), c.176 6+1G> A, c.176 6+5G> T, c.182 0_190 3del8 4 (p.Me t607_ Gln63 4del) , c.191 1delG (p.Gl n637H isfs* 26), c.192 3_193 1deli nsA (p.Se r641A rgfs* 5), c.197 3_198 5deli nsAGA AA (p.Ar g658L ysfs* 4), c.197 6delA (p.As n659I lefs* 4), c.201 2delT (p.Le u671* ), c.205 1_205 2deli nsG (p.Ly s684S erfs* 38), c.205 2delA (p.Ly s684A snfs* 38), c.205 2dupA (p.Gl n685T hrfs* 4), c.212 5C>T (p.Ar g709* ), c.212 8A>T (p.Ly s710* ), c.217 5dupA (p.Gl u726A rgfs* 4), c.229 0C>T (p.Ar g764* ), c.265 7+5G> A, c.266 8C>T (p.Gl n890* ), c.273 7_273 8insG (p.Ty r913* ), c.298 8G>A (p.Gl n996= ), c.298 8+1G> A, c.303 9delC (p.Ty r1014 Thrfs *9), c.306 7_307 2delA TAGTG (p.Il e1023 _Val1 024de l), c.319 6C>T (p.Ar g1066 Cys), c.326 6G>A (p.Tr p1089 *), c.327 6C>A (p.Ty r1092 *), c.327 6C>G (p.Ty r1092 *), c.330 2T>A (p.Me t1101 Brenda), c.345 4G>C (p.As p1152 His), c.347 2C>T (p.Ar g1158 *), c.348 4C>T (p.Ar g1162 *), c.352 8delC (p.Ly s1177 Serfs *15), c.353 6_353 9delC CAA (p.Th r1179 Asnfs *12), c.358 7C>G (p.Se r1196 *), c.361 1G>A (p.Tr p1204 *), c.365 9delC (p.Th r1220 Lysfs *8), c.371 2C>T (p.Gl n1238 *), c.371 8-247 7C>T, c.374 4delA (p.Ly s1250 Argfs *9), c.375 2G>A (p.Se r1251 Asn), c.376 4C>A (p.Se r1255 *), c.377 3dupT (p.Le u1258 Phefs *7), c.384 6G>A (p.Tr p1282 *), c.388 9dupT (p.Se r1297 Phefs *5), c.390 9C>G (p.As n1303 Brenda) Limit ation s: Techn ologi es used do not detec t germl ine mosai cism and do not rule out the prese nce of large chrom osoma l aberr ation s inclu ding rearr angem ents and gene fusio ns, or varia nts in regio ns or genes not inclu ded in this test, or possi ble inter /intr ageni c inter actio ns betwe en varia nts, or repea t expan sions . Varia nt class ifica tion and/o r inter preta tion may more e over time if more infor matio n becom es avail able. False posit peyton or false negat peyton resul ts may occur for reaso ns that inclu de: rare randy ic varia nts, sex chrom osome abnor malit ies, pseud ogene inter feren ce, blood trans fusio ns, bone marro w trans plant ation , somat ic or tissu e-spe cific mosai cism, misla beled sampl es, or laurie eous repre senta tion of famil y relat ionsh ips. This test was devel oped and its perfo rmanc e zee cteri stics deter mined by [employer]. It has not been clear ed or appro heriberto by the Food and Drug Admin istra tion. Not Available [facility] ([facility]) [address] [facility], [place], [address], 06/19/2024 19:10:20 06/09/1906/19/2024 CYSTI C FIBRO SIS, 97 VARIA NTS information table COMMEN T Cysti c fibro sis, 97 varia nts, risk reduc tions for indiv idual s with no famil y histo ry Popul ation Detec tion rate Pre-t est Post- test kym er kym er risk risk with negat peyton resul t Ashke nazi 97% 1 in 24 1 in 767 Jewis h 55% 1 in 94 1 in 208 Ameri can Black 81% 1 in 61 1 in 316 Hispa shital 78% 1 in 58 1 in 260 White 93% 1 in 25 1 in 343 Mixed or For couns eling other ethni c purpo ses, backg round consi marla using the ethni c backg round with the most conse rvati ve risk estim ates. Not Available [facility] ([facility]) [address] [facility], [place], [address], 06/19/2024 19:10:20 06/09/1906/19/2024 CYSTI C FIBRO SIS, 97 VARIA NTS references COMMEN T Sherry baker JL, Astazar ry C, Cutti ng GR et al. CFTR varia nt testi ng: a techn ical stand ken of the [employer] Medic al Randy ics and Genom ics ([employer] ). Randy Med 22, 5868 (2020 ). PMID: 45843 922 Jim T, Balta milton SG, Inocente spence BA, et al. Cysti c Fibro sis and Conge nital Absen ce of the Vas Defer ens. 2000 [Upda marie 2016Jun 14]. In: Jamie MP, Justin wade HH, Viky RA, et al., nina vásquez. Aleida villafuerte(R) [Inte rnet] . PMID: 43624 428 Not Available [facility] ([facility]) [address] [facility], [place], [address], 06/19/2024 19:10:20 06/09/19 25 06/19/2024 CYSTI C FIBRO SIS, 97 VARIA NTS director review/relea se COMMEN T [place] nent Type Perfo rmed At Labor atory Direc tor Techn ical Labor atory Ester Barrettnavdeep , compo nent, Corpo ratio n of , PhD proce ssing [facility], [address] [employer] [employer] , [place], [address] Techn ical Labor atory Miryamnavdeep Nenanavdeep , compo nent, Corpo ratio n of , PhD rose sis eri vt, [address] [employer] , [place], [address] Profphyllis sims al Labor atory Osman zhang compo nent Corpo ratio n of Vandana ferguson, , [facility], [address] [facility] , [place], [place], Elect jacintadinora oconnor relea sed by Osman Navarro, PhD, [facility] Not Available [facility] ([facility]) [address] [facility], [place], [address], 06/19/2024 19:10:20 06/09/19 25 06/19/2024 CYSTI C FIBRO SIS, 97 VARIA NTS pdf . Not Available [facility] ([facility]) [address] [facility], [place], [address], 06/19/2024 19:10:20 06/09/19 25 06/09/2024 [id number] 2 5 DRUG- SCR drug screen comment: COMMEN T This rose sis is perfo rmed by immun oassa y. Posit peyton findi ngs are uncon firme d rose tical test resul ts; if resul ts do not suppo rt expec marie clini ayden findi ng, confi rmati on by an alter toro fernandez y is recom puma dRenetta Patie nt metab olic varia bles, speci fic drug chemi stry, and speci men zee cteri stics can affec t test outco me. Techn ical consu ltati on is avail able at elissa mora @[facility] orp.c om, or call toll free [phone]. Not Available [facility] ([facility]) [address] [place], [address], 06/19/2024 19:10:22 06/09/19 25 06/10/2024 [id number] 2 5 DRUG- SCR amphetamines , urine NEGATI VE NG/mL cutoff =1000 Amphe tamin e test inclu jackie Amphe tamin e and Metha mphet amine . Not Available [facility] ([facility]) [address] [place], [address], 06/19/2024 19:10:22 06/09/19 25 06/10/2024 [id number] 2 5 DRUG- SCR cannabinoid NEGATI VE NG/mL cutoff =50 Not Available [facility] ([facility]) [address] [place], [address], 06/19/2024 19:10:22 06/09/19 25 06/10/2024 [id number] 2 5 DRUG- SCR cocaine (metab.) NEGATI VE NG/mL cutoff =300 Not Available [facility] ([facility]) [address] [place], [address], 06/19/2024 19:10:22 06/09/19 25 06/10/2024 11055 2 5 DRUG- SCR opiates NEGATI VE NG/mL cutoff =300 Opiat e test inclu jackie Codei ne, Morph ine, Wikieup morph one, Wikieup codon e. Not Available [facility] ([facility]) [address] [place], [address], 06/19/2024 19:10:22 06/09/19 25 06/10/2024 [id number] 2 5 DRUG- SCR phencyclidin e NEGATI VE NG/mL cutoff =25 Not Available [facility] ([facility]) [address] [facility], [place], [address], 06/19/2024 19:10:22 06/09/19 25 06/10/2024 CBC WITH DIFFE RENTI AL/PL ATELE T WBC 8.1 x10e3 /uL 3.4-10 .8 Not Available [facility] ([facility]) [address] [facility], [place], [address], 06/19/2024 19:10:23 06/09/19 25 06/10/2024 CBC WITH DIFFE RENTI AL/PL ATELE T RBC 3.91 x10e6 /uL 3.77-5 .28 Not Available [facility] ([facility]) [address] [facility], [place], [address], 06/19/2024 19:10:23 06/09/1906/10/2024 CBC WITH DIFFE RENTI AL/PL ATELE T hemoglobin 12.7 g/dL 11.1-1 5.9 Not Available [facility] ([facility]) [address] [facility], [place], [address], 06/19/2024 19:10:23 06/09/19 25 06/10/2024 CBC WITH DIFFE RENTI AL/PL ATELE T hematocrit 37.6 % 34.0-4 6.6 Not Available [facility] ([facility]) [address] [facility], [place], [address], 06/19/2024 19:10:23 06/09/1906/10/2024 CBC WITH DIFFE RENTI AL/PL ATELE T MCV 96 fL 79-97 Not Available [facility] ([facility]) [address] [facility], [place], [address], 06/19/2024 19:10:23 06/09/1906/10/2024 CBC WITH DIFFE RENTI AL/PL ATELE T MCH 32.5 pg 26.6-3 3.0 Not Available [facility] ([facility]) [address] [place], [address], 06/19/2024 19:10:23 06/09/19 25 06/10/2024 CBC WITH DIFFE RENTI AL/PL ATELE T MCHC 33.8 g/dL 31.5-3 5.7 Not Available [facility] ([facility]) [address] [facility], [place], [address], 06/19/2024 19:10:23 06/09/19 25 06/10/2024 CBC WITH DIFFE RENTI AL/PL ATELE T RDW 12.9 % 11.7-1 5.4 Not Available [facility] ([facility]) [address] [facility], [place], [address], 06/19/2024 19:10:23 06/09/19 25 06/10/2024 CBC WITH DIFFE RENTI AL/PL ATELE T platelets 300 x10e3 /uL 150-45 0 Not Available [facility] ([facility]) [address] [facility], [place], [address], 06/19/2024 19:10:23 06/09/19 25 06/10/2024 CBC WITH DIFFE RENTI AL/PL ATELE T neutrophils 62 % notest ab. Not Available [facility] ([facility]) [address] [facility], [place], [address], 06/19/2024 19:10:23 06/09/19 25 06/10/2024 CBC WITH DIFFE RENTI AL/PL ATELE T lymphs 28 % notest ab. Not Available [facility] ([facility]) [address] [facility], [place], [address], 06/19/2024 19:10:23 06/09/19 25 06/10/2024 CBC WITH DIFFE RENTI AL/PL ATELE T monocytes 8 % notest ab. Not Available [facility] ([facility]) [address] [facility], [place], [address], 06/19/2024 19:10:23 06/09/19 25 06/10/2024 CBC WITH DIFFE RENTI AL/PL ATELE T eos 2 % notest ab. Not Available [facility] ([facility]) [address] [facility], [place], [address], 06/19/2024 19:10:23 06/09/1906/10/2024 CBC WITH DIFFE RENTI AL/PL ATELE T basos 0 % notest ab. Not Available [facility] ([facility]) [address] [facility], [place], [address], 06/19/2024 19:10:23 06/09/1906/10/2024 CBC WITH DIFFE RENTI AL/PL ATELE T neutrophils (absolute) 5.0 x10e3 /uL 1.4-7. 0 Not Available [facility] ([facility]) [address] [facility], [place], [address], 06/19/2024 19:10:23 06/09/1906/10/2024 CBC WITH DIFFE RENTI AL/PL ATELE T lymphs (absolute) 2.3 x10e3 /uL 0.7-3. 1 Not Available [facility] ([facility]) [address] [place], [address], 06/19/2024 19:10:23 06/09/1906/10/2024 CBC WITH DIFFE RENTI AL/PL ATELE T monocytes(ab solute) 0.6 x10e3 /uL 0.1-0. 9 Not Available [facility] ([facility]) [address] [place], [address], 06/19/2024 19:10:23 06/09/1906/10/2024 CBC WITH DIFFE RENTI AL/PL ATELE T eos (absolute) 0.2 x10e3 /uL 0.0-0. 4 Not Available [facility] ([facility]) [address] [facility], [place], [address], 06/19/2024 19:10:23 06/09/1906/10/2024 CBC WITH DIFFE RENTI AL/PL ATELE T baso (absolute) 0.0 x10e3 /uL 0.0-0. 2 Not Available [facility] ([facility]) [address] [facility], [place], [address], 06/19/2024 19:10:23 06/09/19 25 06/10/2024 CBC WITH DIFFE RENTI AL/PL ATELE T immature granulocytes 0 % notest ab. Not Available [facility] ([facility]) [address] [facility], [place], [address], 06/19/2024 19:10:23 06/09/1906/10/2024 CBC WITH DIFFE RENTI AL/PL ATELE T immature grans (abs) 0.0 x10e3 /uL 0.0-0. 1 Not Available [facility] ([facility]) [address] [facility], [place], [address], 06/19/2024 19:10:23 06/09/1906/10/2024 ABO GROUP ING AND RHO(D ) TYPIN G ABO grouping O Not Available [facility] ([facility]) [address] [facility], [place], [address], 06/19/2024 19:10:24 06/09/19 25 06/10/2024 ABO GROUP ING AND RHO(D ) TYPIN G Rh factor POSITI VE Pleas e note: Prior recor ds for this patie nt's ABO / Rh type are not avail able for addit ional verif icati on. Not Available [facility] ([facility]) [address] [facility], [place], [address], 06/19/2024 19:10:24 06/09/1906/10/2024 RPR RPR NON REACTI VE nonrea ctive Not Available [facility] ([facility]) [address] [facility], [place], [address], 06/19/2024 19:10:25 06/09/19 25 06/10/2024 RUBEL LA ANTIB ODIES , IGG rubella antibodies, IgG 7.25 index immune >0.99 Non-i mmune <0.90 Equiv ocal 0.90 - 0.99 Immun e >0.99 Not Available [facility] ([facility]) [address] [facility], [place], [address], 06/19/2024 19:10:26 06/09/1906/10/2024 HIV AB/P2 4 AG WITH REFLE X HIV Ab/P24 Ag screen NON REACTI VE nonrea ctive HIV-1 /HIV- 2 antib odies and HIV-1 p24 antig en were NOT detec marie. There is no labor atory evide nce of HIV infec tion. HIV Negat peyton Not Available [facility] ([facility]) [address] [facility], [place], [address], 06/19/2024 19:10:27 06/09/19 25 06/10/2024 VARIC JESUS- ZOSTE R V AB, IGG varicella zoster IgG REACTI VE nonrea ctive Ple ase note refer ence inter tarsha more e A React peyton resul t is consi dered evide nce of immun ity to VZV. React peyton indic ates that VZV IgG was detec marie consi stent with previ ous infec tion and/o r vacci natio n. A Non React peyton resul t indic ates that VZV IgG was not detec marie sugge sting that immun ity has not been acqui red. Not Available [facility] ([facility]) [address] [facility], [place], [address], 06/19/2024 19:10:28 06/09/1906/09/2024 urina lysis , dipst ick Leukocytes Negati ve Not Available In-Office Order Internal Use Only DO Not Attach Compendium DO Not Attach Compendium, Do Not Delete/merge, [id number] 06/09/2024 15:14:36 06/09/1906/09/2024 urina lysis , dipst ick Nitrite negati ve Not Available In-Office Order Internal Use Only DO Not Attach Compendium DO Not Attach Compendium, Do Not Delete/merge, 06/09/2024 15:14:36 06/09/1906/09/2024 urina lysis , dipst ick Urobilinogen .2 Not Available In-Of fice Order Internal Use Only DO Not Attach Compendium DO Not Attach Compendium, Do Not Delete/merge, 06/09/2024 15:14:36 06/09/1906/09/2024 urina lysis , dipst ick Protein Negati ve Not Available In-Office Order Internal Use Only DO Not Attach Compendium DO Not Attach Compendium, Do Not Delete/merge, 06/09/2024 15:14:36 06/09/1906/09/2024 urina lysis , dipst ick pH 6.0 Not Available In-Office Order Internal Use Only DO Not Attach Compendium DO Not Attach Compendium, Do Not Delete/merge, 06/09/2024 15:14:36 06/09/1906/09/2024 urina lysis , dipst ick Blood Negati ve Not Available In-Office Order Internal Use Only DO Not Attach Compendium DO Not Attach Compendium, Do Not Delete/merge, 06/09/2024 15:14:36 06/09/1906/09/2024 urina lysis , dipst ick Specific [place] 1.020 Not Available In-Off ice Order Internal Use Only DO Not Attach Compendium DO Not Attach Compendium, Do Not Delete/merge, 06/09/2024 15:14:36 06/09/1906/09/2024 urina lysis , dipst ick Ketone Negati ve Not Available In-Office Order Internal Use Only DO Not Attach Compendium DO Not Attach Compendium, Do Not Delete/merge, 06/09/2024 15:14:36 06/09/1906/09/2024 urina lysis , dipst ick Bilirubin Negati ve Not Available In-Office Order Internal Use Only DO Not Attach Compendium DO Not Attach Compendium, Do Not Delete/merge, 06/09/2025 15:14:36 06/09/19 25 06/09/2024 urina lysis , dipst ick Glucose Negati ve Not Available In-Office Order Internal Use Only DO Not Attach Compendium DO Not Attach Compendium, Do Not Delete/merge, [id number] 06/09/2024 15:14:36 06/09/19 25 06/09/2024 urina lysis , dipst ick Appearance Clear Not Available In-Offi ce Order Internal Use Only DO Not Attach Compendium DO Not Attach Compendium, Do Not Delete/merge, [id number] 06/09/2024 15:14:36 06/09/1906/09/2024 urina lysis , dipst ick Color Yellow Not Available In-Office Order Internal Use Only DO Not Attach Compendium DO Not Attach Compendium, Do Not Delete/merge, [id number] 06/09/2024 15:14:36 08/04/1908/03/2024 Urina lysis dipst ick panel - Urine by Autom ated test strip color of urine Yellow text: straw, yellow , dark yellow , light yellow Not Available Not Available 12/01/2024 04:22:12 08/04/19 25 08/03/2024 Urina lysis dipst ick panel - Urine by Autom ated test strip clarity of urine Clear text: clear Not Available Not Available 12/01/2024 04:22:12 08/04/19 25 08/03/2024 Urina lysis dipst ick panel - Urine by Autom ated test strip pH of urine by test strip 7 pH low: 5pHhig h: 8pH Not Available Not Available 12/01/2024 04:22:12 08/04/19 25 08/03/2024 Urina lysis dipst ick panel - Urine by Autom ated test strip protein [presence] in urine by test strip Negati ve text: negati ve Not Available Not Available 12/01/2024 04:22:12 08/04/19 25 08/03/2024 Urina lysis dipst ick panel - Urine by Autom ated test strip hemoglobin [presence] in urine by test strip Negati ve text: negati ve Not Available Not Available 12/01/2024 04:22:12 08/04/1908/03/2024 Urina lysis dipst ick panel - Urine by Autom ated test strip leukocyte esterase [presence] in urine by test strip Negati ve text: negati ve Not Available Not Available 12/01/2024 04:22:12 08/04/19 25 08/03/2024 Urina lysis dipst ick panel - Urine by Autom ated test strip nitrite [presence] in urine by test strip Negati ve text: negati ve Not Available Not Available 12/01/2024 04:22:12 08/04/19 25 08/03/2024 Urina lysis dipst ick panel - Urine by Autom ated test strip glucose [presence] in urine by test strip Negati ve text: negati ve Not Available Not Available 12/01/2024 04:22:12 08/04/1908/03/2024 Urina lysis dipst ick panel - Urine by Autom ated test strip ketones [presence] in urine by test strip Negati ve text: negati ve Not Available Not Available 12/01/2024 04:22:12 08/04/1908/03/2024 Urina lysis dipst ick panel - Urine by Autom ated test strip bilirubin.to bob [presence] in urine by test strip Negati ve text: negati ve Not Available Not Available 12/01/2024 04:22:12 08/04/1908/03/2024 Urina lysis dipst ick panel - Urine by Autom ated test strip urobilinogen [units/volum e] in urine by test strip 0.2 eu/dL low: 0.1eu/ dLhigh : 1eu/dL Not Available Not Available 12/01/2024 04:22:12 08/04/19 25 08/03/2024 Urina lysis dipst ick panel - Urine by Autom ated test strip interpretati on and review of laboratory results Normal Not Available Not Available 11/11 04:22:12 08/04/19 25 08/03/2024 Urina lysis dipst ick panel - Urine by Autom ated test strip color of urine Yellow text: straw, yellow , dark yellow , light yellow Color UA POCT Yello w Straw , Yello w, Dark Yello w, Light Yello w 08/03 12:03 PM CDT [facility] Not Available Not Available 08/10/2024 12:33:10 08/04/19 25 08/03/2024 Urina lysis dipst ick panel - Urine by Autom ated test strip clarity of urine Clear text: clear Senait ty UA POCT Clear Clear 08/03 12:03 PM CDT [facility] Not Available Not Available 08/10/2024 12:33:10 08/04/19 25 08/03/2024 Urina lysis dipst ick panel - Urine by Autom ated test strip urinalysis dipstick panel - urine by automated test strip 1.015 low: 1.005h igh: 1.03 Speci fic Gravi ty UA POCT 1.015 1.005 - 1.030 08/03 12:03 PM CDT [facility] Not Available Not Available 08/10/2024 12:33:10 08/04/19 25 08/03/2024 Urina lysis dipst ick panel - Urine by Autom ated test strip pH of urine by test strip 7 pH low: 5pHhig h: 8pH pH UA POCT 7.0 5.0 - 8.0 pH 08/03 12:03 PM CDT [facility] Not Available Not Available 08/10/2024 12:33:10 08/04/19 25 08/03/2024 Urina lysis dipst ick panel - Urine by Autom ated test strip protein [presence] in urine by test strip Negati ve text: negati ve Prote in UA POCT Negat [place] Negat [place] 08/03 12:03 PM CDT [facility] Not Available Not Available 08/10/2024 12:33:10 08/04/19 25 08/03/2024 Urina lysis dipst ick panel - Urine by Autom ated test strip hemoglobin [presence] in urine by test strip Negati ve text: negati ve Blood UA POCT Negat [place] Negat [place] 08/03 12:03 PM CDT [facility] Not Available Not Available 08/10/2024 12:33:10 08/04/19 25 08/03/2024 Urina lysis dipst ick panel - Urine by Autom ated test strip leukocyte esterase [presence] in urine by test strip Negati ve text: negati ve Leuko cyte UA POCT Negat [place] Negat [place] 08/03 12:03 PM CDT [facility] Not Available Not Available 08/10/2024 12:33:10 08/04/19 25 08/03/2024 Urina lysis dipst ick panel - Urine by Autom ated test strip nitrite [presence] in urine by test strip Negati ve text: negati ve Nitri te UA POCT Negat [place] Negat [place] 08/03 12:03 PM CDT [facility] Not Available Not Available 08/10/2024 12:33:10 08/04/19 25 08/03/2024 Urina lysis dipst ick panel - Urine by Autom ated test strip glucose [presence] in urine by test strip Negati ve text: negati ve Gluco se UA POCT Negat [place] Negat [place] 08/03 12:03 PM CDT [facility] Not Available Not Available 08/10/2024 12:33:10 08/04/19 25 08/03/2024 Urina lysis dipst ick panel - Urine by Autom ated test strip ketones [presence] in urine by test strip Negati ve text: negati ve [place] e UA POCT Negat [place] Negat [place] 08/03 12:03 PM CDT [facility] Not Available Not Available 08/10/2024 12:33:10 08/04/19 25 08/03/2024 Urina lysis dipst ick panel - Urine by Autom ated test strip bilirubin.to bob [presence] in urine by test strip Negati ve text: negati ve Bilir ubin UA POCT Negat [place] Negat [place] 08/03 12:03 PM CDT [facility] Not Available Not Available 08/10/2024 12:33:10 08/04/19 25 08/03/2024 Urina lysis dipst ick panel - Urine by Autom ated test strip urobilinogen [units/volum e] in urine by test strip 0.2 eu/dL low: 0.1eu/ dLhigh : 1eu/dL Urobi linog en UA POCT 0.2 0.1 - 1.0 EU/dL 08/03 12:03 PM CDT [facility] Not Available Not Available 08/10/2024 12:33:10 08/04/19 25 08/03/2024 Urina lysis dipst ick panel - Urine by Autom ated test strip interpretati on and review of laboratory results Normal Not Available Not Available 07/13 12:33:10 08/25/19 25 08/24/2024 CBC W Auto Diffe renti al panel - Blood leukocytes [#/volume] in blood by automated count 8.3 text: 4.0 - 10.7 x10e9/ L Not Available Not Available 10/12/2024 15:22:31 08/25/19 25 08/24/2024 CBC W Auto Diffe renti al panel - Blood erythrocytes [#/volume] in blood by automated count 3.95 text: 3.90 - 5.20 x10e12 /L Not Available Not Available 10/12/2024 15:22:31 08/25/19 25 08/24/2024 CBC W Auto Diffe renti al panel - Blood hemoglobin [mass/volume ] in blood 13.1 g/dL low: 11.9g/ dLhigh : 15.8g/ dL Not Available Not Available 10/12/2024 15:22:31 08/25/19 25 08/24/2024 CBC W Auto Diffe renti al panel - Blood hematocrit [volume fraction] of blood by automated count 38.8 % low: 34.8%h igh: 46.1% Not Available Not Available 10/12/2024 15:22:31 08/25/19 25 08/24/2024 CBC W Auto Diffe renti al panel - Blood MCV [entitic mean volume] in red blood cells by automated count 98.2 fL low: 80fLhi gh: 98fL high Not Available Not Available 10/12/2024 15:22:31 08/25/19 25 08/24/2024 CBC W Auto Diffe renti al panel - Blood MCH [entitic mass] by automated count 33.2 pg low: 26.7pg high: 33.6pg Not Available Not Available 10/12/2024 15:22:31 08/25/19 25 08/24/2024 CBC W Auto Diffe renti al panel - Blood MCHC [entitic mass/volume] in red blood cells by automated count 33.8 g/dL low: 31.7g/ dLhigh : 36.3g/ dL Not Available Not Available 10/12/2024 15:22:31 08/25/19 25 08/24/2024 CBC W Auto Diffe renti al panel - Blood erythrocyte [distwidth] in red blood cells by automated count 12.5 % low: 11.3%h igh: 14.8% Not Available Not Available 10/12/2024 15:22:31 08/25/19 25 08/24/2024 CBC W Auto Diffe renti al panel - Blood platelets [#/volume] in blood by automated count 258 text: 150 - 420 x10e9/ L Not Available Not Available 10/12/2024 15:22:31 08/25/19 25 08/24/2024 CBC W Auto Diffe renti al panel - Blood platelet [entitic mean volume] in blood by automated count 10.5 fL low: 7.8fLh igh: 11.4fL Not Available Not Available 10/12/2024 15:22:31 08/25/19 25 08/24/2024 CBC W Auto Diffe renti al panel - Blood neutrophils/ leukocytes in blood by automated count 48.7 % low: 41%hig h: 74% Not Available Not Available 10/12/2024 15:22:31 08/25/19 25 08/24/2024 CBC W Auto Diffe renti al panel - Blood lymphocytes/ leukocytes in blood by automated count 39.9 % low: 17%hig h: 47% Not Available Not Available 10/12/2024 15:22:31 08/25/19 25 08/24/2024 CBC W Auto Diffe renti al panel - Blood monocytes/le ukocytes in blood by automated count 8.7 % low: 3%high : 11% Not Available Not Available 10/12/2024 15:22:31 08/25/19 25 08/24/2024 CBC W Auto Diffe renti al panel - Blood eosinophils/ leukocytes in blood by automated count 2.1 % low: 0%high : 7% Not Available Not Available 10/12/2024 15:22:31 08/25/19 25 08/24/2024 CBC W Auto Diffe renti al panel - Blood basophils/le ukocytes in blood by automated count 0.2 % low: 0%high : 1.6% Not Available Not Available 10/12/2024 15:22:31 08/25/19 25 08/24/2024 CBC W Auto Diffe renti al panel - Blood immature granulocytes /leukocytes in blood by automated count 0.4 % low: 0%high : 1% Not Available Not Available 10/12/2024 15:22:31 08/25/19 25 08/24/2024 CBC W Auto Diffe renti al panel - Blood neutrophils [#/volume] in blood by automated count 4.04 text: 1.60 - 7.50 x10e9/ L Not Available Not Available 10/12/2024 15:22:31 08/25/19 25 08/24/2024 CBC W Auto Diffe renti al panel - Blood lymphocytes [#/volume] in blood by automated count 3.31 text: 1.00 - 4.40 x10e9/ L Not Available Not Available 10/12/2024 15:22:31 08/25/19 25 08/24/2024 CBC W Auto Diffe renti al panel - Blood monocytes [#/volume] in blood by automated count 0.72 text: 0.15 - 1.00 x10e9/ L Not Available Not Available 10/12/2024 15:22:31 08/25/19 25 08/24/2024 CBC W Auto Diffe renti al panel - Blood eosinophils [#/volume] in blood 0.17 text: 0.00 - 0.60 x10e9/ L Not Available Not Available 10/12/2024 15:22:31 08/25/19 25 08/24/2024 CBC W Auto Diffe renti al panel - Blood basophils [#/volume] in blood by automated count 0.02 text: 0.00 - 0.13 x10e9/ L Not Available Not Available 10/12/2024 15:22:31 08/25/19 25 08/24/2024 CBC W Auto Diffe renti al panel - Blood interpretati on and review of laboratory results Abnorm al Not Available Not Available 15:22:31 08/25/19 25 08/24/2024 Prote in/Cr eatin ine [Mass Ratio ] in Urine protein [mass/volume ] in 24 hour urine 11.7 mg/dL high: 11.9mg /dL Not Available Not Available 10/12/2024 15:22:31 08/25/19 25 08/24/2024 Prote in/Cr eatin ine [Mass Ratio ] in Urine creatinine [mass/volume ] in urine 50.4 mg/dL Not Available Not Available 0 10/12/2024 15:22:31 08/25/19 25 08/24/2024 Prote in/Cr eatin ine [Mass Ratio ] in Urine protein/crea tinine [mass ratio] in urine 0.23 Not Available Not Available 06/2024 15:22:31 08/25/19 25 08/24/2024 [facility] [place] metab olic 1999 panel - Serum or Plasm a glucose [mass/volume ] in serum or plasma 81 mg/dL low: 70mg/d Lhigh: 99mg/d L Not Available Not Available 10/12/2024 15:22:31 08/25/19 25 08/24/2024 [facility] [place] metab olic 1999 panel - Serum or Plasm a sodium [moles/volum e] in serum or plasma 136 mmol/ L low: 136mmo l/Lhig h: 145mmo l/L Not Available Not Available 10/12/2024 15:22:31 08/25/19 25 08/24/2024 [facility] [place] metab olic 1999 panel - Serum or Plasm a potassium [moles/volum e] in serum or plasma 3.7 mmol/ L low: 3.5mmo l/Lhig h: 5.1mmo l/L Not Available Not Available 10/12/2024 15:22:31 08/25/19 25 08/24/2024 [facility] [place] metab olic 1999 panel - Serum or Plasm a chloride [moles/volum e] in serum or plasma 109 mmol/ L low: 98mmol /Lhigh : 107mmo l/L high Not Available Not Available 10/12/2024 15:22:31 08/25/19 25 08/24/2024 [facility] [place] [employer] [facility] 1999 panel - Serum or Plasm a carbon dioxide, total [moles/volum e] in serum or plasma 20 mmol/ L low: 22mmol /Lhigh : 29mmol /L low Not Available Not Available 10/12/2024 15:22:31 08/25/19 25 08/24/2024 [facility] [place] [facility] 1999 panel - Serum or Plasm a calcium [mass/volume ] in serum or plasma 9.1 mg/dL low: 8.4mg/ dLhigh : 10.4mg /dL Not Available Not Available 10/12/2024 15:22:31 08/25/19 25 08/24/2024 [facility] [place] [facility] panel - Serum or Plasm a anion gap in blood by calculation 7 mmol/ L low: 6mmol/ Lhigh: 16mmol /L Not Available Not Available 10/12/2024 15:22:31 08/25/19 25 08/24/2024 [facility] [place] [facility] 1999 panel - Serum or Plasm a urea nitrogen [mass/volume ] in serum or plasma 7 mg/dL low: 5.3mg/ dLhigh : 18.7mg /dL Not Available Not Available 10/12/2024 15:22:31 08/25/19 25 08/24/2024 [facility] [place] [id number] panel - Serum or Plasm a creatinine [mass/volume ] in serum or plasma 0.54 mg/dL low: 0.57mg /dLhig h: 1.11mg /dL low Not Available Not Available 10/12/2024 15:22:31 08/25/19 25 08/24/2024 [facility] [place] [facility] 1999 panel - Serum or Plasm a alkaline phosphatase [enzymatic activity/vol ume] in serum or plasma 141 U/L low: 40U/Lh igh: 150U/L Not Available Not Available 10/12/2024 15:22:31 08/25/19 25 08/24/2024 [facility] [place] [address] panel - Serum or Plasm a alanine aminotransfe rase [enzymatic activity/vol ume] in serum or plasma 64 U/L low: 6U/Lhi gh: 57U/L high Not Available Not Available 10/12/2024 15:22:31 08/25/19 25 08/24/2024 [facility] [place] metab olic 1999 panel - Serum or Plasm a aspartate aminotransfe rase [enzymatic activity/vol ume] in serum or plasma 47 U/L low: 10U/Lh igh: 48U/L Not Available Not Available 10/12/2024 15:22:31 08/25/19 25 08/24/2024 [facility] [place] metab olic 1999 panel - Serum or Plasm a protein [mass/volume ] in serum or plasma 7.4 text: 6.4 - 8.3 gm/dL Not Available Not Available 10/12/2024 15:22:31 08/25/19 25 08/24/2024 [facility] [place] metab olic 2000 panel - Serum or Plasm a albumin [mass/volume ] in serum or plasma 3.1 text: 3.4 - 5.0 gm/dL low Not Available Not Available 10/12/2024 15:22:31 08/25/19 25 08/24/2024 [facility] [place] metab [facility]lic 2000 panel - Serum or Plasm a bilirubin.to bob [mass/volume ] in serum or plasma 0.3 mg/dL low: 0.2mg/ dLhigh : 1.2mg/ dL Not Available Not Available 10/12/2024 15:22:31 08/25/19 25 08/24/2024 [facility] [place] metab olic 2000 panel - Serum or Plasm a glomerular filtration rate [volume rate/area] in serum, plasma or blood by creatinine-b ased formula (CKD-epi 2020)/1.73 sq M text: >=90 mL/min /1.73 m2 Not Available Not Available 10/12/2024 15:22:31 08/25/19 25 08/24/2024 [facility] [place] metab olic 2000 panel - Serum or Plasm a interpretati on and review of laboratory results Abnorm al Not Available Not Available 15:22:31 08/25/19 25 08/24/2024 Urina lysis dipst ick panel - Urine by Autom ated test strip color of urine Yellow text: straw, yellow , dark yellow , light yellow Not Available Not Available 12/01/2024 04:22:12 08/25/19 25 08/24/2024 Urina lysis dipst ick panel - Urine by Autom ated test strip clarity of urine Clear text: clear Not Available Not Available 12/01/2024 04:22:12 08/25/19 25 08/24/2024 Urina lysis dipst ick panel - Urine by Autom ated test strip pH of urine by test strip 6.5 pH low: 5pHhig h: 8pH Not Available Not Available 12/01/2024 04:22:12 08/25/19 25 08/24/2024 Urina lysis dipst ick panel - Urine by Autom ated test strip protein [presence] in urine by test strip Negati ve text: negati ve Not Available Not Available 12/01/2024 04:22:12 08/25/19 25 08/24/2024 Urina lysis dipst ick panel - Urine by Autom ated test strip hemoglobin [presence] in urine by test strip Negati ve text: negati ve Not Available Not Available 12/01/2024 04:22:12 08/25/19 25 08/24/2024 Urina lysis dipst ick panel - Urine by Autom ated test strip leukocyte esterase [presence] in urine by test strip Negati ve text: negati ve Not Available Not Available 12/01/2024 04:22:12 08/25/19 25 08/24/2024 Urina lysis dipst ick panel - Urine by Autom ated test strip nitrite [presence] in urine by test strip Negati ve text: negati ve Not Available Not Available 12/01/2024 04:22:12 08/25/19 25 08/24/2024 Urina lysis dipst ick panel - Urine by Autom ated test strip glucose [presence] in urine by test strip Negati ve text: negati ve Not Available Not Available 12/01/2024 04:22:12 08/25/19 25 08/24/2024 Urina lysis dipst ick panel - Urine by Autom ated test strip ketones [presence] in urine by test strip Negati ve text: negati ve Not Available Not Available 12/01/2024 04:22:12 08/25/19 25 08/24/2024 Urina lysis dipst ick panel - Urine by Autom ated test strip bilirubin.to bob [presence] in urine by test strip Negati ve text: negati ve Not Available Not Available 12/01/2024 04:22:12 08/25/1908/24/2024 Urina lysis dipst ick panel - Urine by Autom ated test strip urobilinogen [units/volum e] in urine by test strip 0.2 eu/dL low: 0.1eu/ dLhigh : 1eu/dL Not Available Not Available 12/01/2024 04:22:12 08/25/19 25 08/24/2024 Urina lysis dipst ick panel - Urine by Autom ated test strip interpretati on and review of laboratory results Normal Not Available Not Available 11/11 04:22:12 08/25/1908/24/2024 Urina lysis dipst ick panel - Urine by Autom ated test strip color of urine Yellow text: straw, yellow , dark yellow , light yellow Not Available Not Available 10/12/2024 15:22:31 08/25/1908/24/2024 Urina lysis dipst ick panel - Urine by Autom ated test strip clarity of urine Clear text: clear Not Available Not Available 10/12/2024 15:22:31 08/25/1908/24/2024 Urina lysis dipst ick panel - Urine by Autom ated test strip urinalysis dipstick panel - urine by automated test strip 1.02 low: 1.005h igh: 1.03 Not Available Not Available 10/12/2024 15:22:31 08/25/1908/24/2024 Urina lysis dipst ick panel - Urine by Autom ated test strip pH of urine by test strip 6.5 pH low: 5pHhig h: 8pH Not Available Not Available 10/12/2024 15:22:31 08/25/19 25 08/24/2024 Urina lysis dipst ick panel - Urine by Autom ated test strip protein [presence] in urine by test strip Negati ve text: negati ve Not Available Not Available 10/12/2024 15:22:31 08/25/19 25 08/24/2024 Urina lysis dipst ick panel - Urine by Autom ated test strip hemoglobin [presence] in urine by test strip Negati ve text: negati ve Not Available Not Available 10/12/2024 15:22:31 08/25/19 25 08/24/2024 Urina lysis dipst ick panel - Urine by Autom ated test strip leukocyte esterase [presence] in urine by test strip Negati ve text: negati ve Not Available Not Available 10/12/2024 15:22:31 08/25/19 25 08/24/2024 Urina lysis dipst ick panel - Urine by Autom ated test strip nitrite [presence] in urine by test strip Negati ve text: negati ve Not Available Not Available 10/12/2024 15:22:31 08/25/19 25 08/24/2024 Urina lysis dipst ick panel - Urine by Autom ated test strip glucose [presence] in urine by test strip Negati ve text: negati ve Not Available Not Available 10/12/2024 15:22:31 08/25/19 25 08/24/2024 Urina lysis dipst ick panel - Urine by Autom ated test strip ketones [presence] in urine by test strip Negati ve text: negati ve Not Available Not Available 10/12/2024 15:22:31 08/25/19 25 08/24/2024 Urina lysis dipst ick panel - Urine by Autom ated test strip bilirubin.to bob [presence] in urine by test strip Negati ve text: negati ve Not Available Not Available 10/12/2024 15:22:31 08/25/19 25 08/24/2024 Urina lysis dipst ick panel - Urine by Autom ated test strip urobilinogen [units/volum e] in urine by test strip 0.2 eu/dL low: 0.1eu/ dLhigh : 1eu/dL Not Available Not Available 10/12/2024 15:22:31 08/25/19 25 08/24/2024 Urina lysis dipst ick panel - Urine by Autom ated test strip interpretati on and review of laboratory results Normal Not Available Not Available 06/2024 15:22:31 09/08/19 25 09/07/2024 [facility] [place] [facility] 2000 panel - Serum or Plasm a glucose [mass/volume ] in serum or plasma 82 mg/dL low: 70mg/d Lhigh: 99mg/d L Not Available Not Available 10/12/2024 15:22:58 09/08/19 25 09/07/2024 [facility] [employer] [place] [employer] olic 1999 panel - Serum or Plasm a sodium [moles/volum e] in serum or plasma 136 mmol/ L low: 136mmo l/Lhig h: 145mmo l/L Not Available Not Available 10/12/2024 15:22:58 09/08/19 25 09/07/2024 [facility] [place] [facility] panel - Serum or Plasm a potassium [moles/volum e] in serum or plasma 4 mmol/ L low: 3.5mmo l/Lhig h: 5.1mmo l/L Not Available Not Available 10/12/2024 15:22:58 09/08/19 25 09/07/2024 [facility] [employer] [place] metab olic 1999 panel - Serum or Plasm a chloride [moles/volum e] in serum or plasma 111 mmol/ L low: 98mmol /Lhigh : 107mmo l/L high Not Available Not Available 10/12/2024 15:22:58 09/08/19 25 09/07/2024 [facility] [employer] [place] [employer] ic 1999 panel - Serum or Plasm a carbon dioxide, total [moles/volum e] in serum or plasma 19 mmol/ L low: 22mmol /Lhigh : 29mmol /L low Not Available Not Available 10/12/2024 15:22:58 09/08/19 25 09/07/2024 [facility] [place] [employer] olic 1999 panel - Serum or Plasm a calcium [mass/volume ] in serum or plasma 8.7 mg/dL low: 8.4mg/ dLhigh : 10.4mg /dL Not Available Not Available 10/12/2024 15:22:58 09/08/19 25 09/07/2024 [facility] [employer] [place] [employer] olic 1999 panel - Serum or Plasm a anion gap in blood by calculation 6 mmol/ L low: 6mmol/ Lhigh: 16mmol /L Not Available Not Available 10/12/2024 15:22:58 09/08/19 25 09/07/2024 [facility] [employer] [place] [employer] olic 1999 panel - Serum or Plasm a urea nitrogen [mass/volume ] in serum or plasma 9 mg/dL low: 5.3mg/ dLhigh : 18.7mg /dL Not Available Not Available 10/12/2024 15:22:58 09/08/19 25 09/07/2024 [facility] [place] [facility] 1999 panel - Serum or Plasm a creatinine [mass/volume ] in serum or plasma 0.57 mg/dL low: 0.57mg /dLhig h: 1.11mg /dL Not Available Not Available 10/12/2024 15:22:58 09/08/19 25 09/07/2024 [facility] [place] [facility] 1999 panel - Serum or Plasm a alkaline phosphatase [enzymatic activity/vol ume] in serum or plasma 176 U/L low: 40U/Lh igh: 150U/L high Not Available Not Available 10/12/2024 15:22:58 09/08/19 25 09/07/2024 [facility] - Serum or Plasm a alanine aminotransfe rase [enzymatic activity/vol ume] in serum or plasma 51 U/L low: 6U/Lhi gh: 57U/L Not Available Not Available 10/12/2024 15:22:58 09/08/19 25 09/07/2024 [facility] [place] [facility] 1999 panel - Serum or Plasm a aspartate aminotransfe rase [enzymatic activity/vol ume] in serum or plasma 36 U/L low: 10U/Lh igh: 48U/L Not Available Not Available 10/12/2024 15:22:58 09/08/19 25 09/07/2024 [facility] [place] [facility] 1999 panel - Serum or Plasm a protein [mass/volume ] in serum or plasma 7.2 text: 6.4 - 8.3 gm/dL Not Available Not Available 10/12/2024 15:22:58 09/08/19 25 09/07/2024 [facility] [place] [facility] 1999 panel - Serum or Plasm a albumin [mass/volume ] in serum or plasma 2.9 text: 3.4 - 5.0 gm/dL low Not Available Not Available 10/12/2024 15:22:58 09/08/19 25 09/07/2024 [facility] [place] metab olic 2000 panel - Serum or Plasm a bilirubin.to bob [mass/volume ] in serum or plasma 0.3 mg/dL low: 0.2mg/ dLhigh : 1.2mg/ dL Not Available Not Available 10/12/2024 15:22:58 09/08/19 25 09/07/2024 [facility] [place] metab olic 2000 panel - Serum or Plasm a glomerular filtration rate [volume rate/area] in serum, plasma or blood by creatinine-b ased formula (CKD-epi 2020)/1.73 sq M text: >=90 mL/min /1.73 m2 Not Available Not Available 10/12/2024 15:22:58 09/08/19 25 09/07/2024 [facility] [employer] [place] metab olic 2000 panel - Serum or Plasm a interpretati on and review of laboratory results Abnorm al Not Available Not Available 15:22:58 09/08/19 25 09/07/2024 CBC panel - Blood by Autom ated count leukocytes [#/volume] in blood by automated count 7.6 text: 4.0 - 10.7 x10e9/ L Not Available Not Available 10/12/2024 15:22:58 09/08/19 25 09/07/2024 CBC panel - Blood by Autom ated count erythrocytes [#/volume] in blood by automated count 3.92 text: 3.90 - 5.20 x10e12 /L Not Available Not Available 10/12/2024 15:22:58 09/08/19 25 09/07/2024 CBC panel - Blood by Autom ated count hemoglobin [mass/volume ] in blood 13 g/dL low: 11.9g/ dLhigh : 15.8g/ dL Not Available Not Available 10/12/2024 15:22:58 09/08/19 25 09/07/2024 CBC panel - Blood by Autom ated count hematocrit [volume fraction] of blood by automated count 38 % low: 34.8%h igh: 46.1% Not Available Not Available 10/12/2024 15:22:58 09/08/19 25 09/07/2024 CBC panel - Blood by Autom ated count MCV [entitic mean volume] in red blood cells by automated count 96.9 fL low: 80fLhi gh: 98fL Not Available Not Available 10/12/2024 15:22:58 09/08/19 25 09/07/2024 CBC panel - Blood by Autom ated count MCH [entitic mass] by automated count 33.2 pg low: 26.7pg high: 33.6pg Not Available Not Available 10/12/2024 15:22:58 09/08/19 25 09/07/2024 CBC panel - Blood by Autom ated count MCHC [entitic mass/volume] in red blood cells by automated count 34.2 g/dL low: 31.7g/ dLhigh : 36.3g/ dL Not Available Not Available 10/12/2024 15:22:58 09/08/19 25 09/07/2024 CBC panel - Blood by Autom ated count erythrocyte [distwidth] in red blood cells by automated count 12.9 % low: 11.3%h igh: 14.8% Not Available Not Available 10/12/2024 15:22:58 09/08/19 25 09/07/2024 CBC panel - Blood by Autom ated count platelets [#/volume] in blood by automated count 237 text: 150 - 420 x10e9/ L Not Available Not Available 10/12/2024 15:22:58 09/08/1909/07/2024 CBC panel - Blood by Autom ated count platelet [entitic mean volume] in blood by automated count 10.1 fL low: 7.8fLh igh: 11.4fL Not Available Not Available 10/12/2024 15:22:58 09/08/19 25 09/07/2024 CBC panel - Blood by Autom ated count interpretati on and review of laboratory results Normal Not Available Not Available 06/2024 15:22:58 09/08/19 25 09/07/2024 Prote in/Cr eatin ine [Mass Ratio ] in Urine protein [mass/volume ] in 24 hour urine high: 11.9mg /dL Not Available Not Available 10/12/2024 15:22:57 09/08/19 25 09/07/2024 Prote in/Cr eatin ine [Mass Ratio ] in Urine creatinine [mass/volume ] in urine 27.86 mg/dL Not Available Not Available 0 10/12/2024 15:22:57 04/28/20 25 09/07/2024 Prote in/Cr eatin ine [Mass Ratio ] in Urine protein/crea tinine [mass ratio] in urine Unabl e to calcu late due to limit ed level s of measu rable prote in. Not Available Not Available 10/12/2024 15:22:57 09/08/19 25 09/07/2024 Urina lysis panel - Urine by Autom ated color of urine by auto Colorl ess text: yellow , straw abnormal Not Available Not Available 10/12/2024 15:22:57 09/08/19 25 09/07/2024 Urina lysis panel - Urine by Autom ated clarity in urine by refractometr y automated Clear text: clear Not Available Not Available 10/12/2024 15:22:57 09/08/19 25 09/07/2024 Urina lysis panel - Urine by Autom ated glucose [presence] in urine by test strip Normal text: normal Not Available Not Available 10/12/2024 15:22:57 09/08/19 25 09/07/2024 Urina lysis panel - Urine by Autom ated bilirubin.to bob [presence] in urine by test strip Negati ve text: negati ve Not Available Not Available 10/12/2024 15:22:57 09/08/19 25 09/07/2024 Urina lysis panel - Urine by Autom ated ketones [presence] in urine by automated test strip Negati ve text: negati ve Not Available Not Available 10/12/2024 15:22:57 09/08/19 25 09/07/2024 Urina lysis panel - Urine by Autom ated specific gravity of urine by test strip 1.009 low: 1.005h igh: 1.03 Not Available Not Available 10/12/2024 15:22:57 09/08/19 25 09/07/2024 Urina lysis panel - Urine by Autom ated hemoglobin [presence] in urine by test strip Negati ve text: negati ve Not Available Not Available 10/12/2024 15:22:57 09/08/19 25 09/07/2024 Urina lysis panel - Urine by Autom ated pH of urine by test strip 8 pH low: 5pHhig h: 9pH Not Available Not Available 10/12/2024 15:22:57 09/08/19 25 09/07/2024 Urina lysis panel - Urine by Autom ated protein [presence] in urine by test strip Negati ve text: negati ve Not Available Not Available 10/12/2024 15:22:57 09/08/19 25 09/07/2024 Urina lysis panel - Urine by Autom ated urobilinogen [mass/volume ] in urine by automated test strip Normal text: normal mg/dL Not Available Not Available 10/12/2024 15:22:57 09/08/19 25 09/07/2024 Urina lysis panel - Urine by Autom ated nitrite [presence] in urine by test strip Negati ve text: negati ve Not Available Not Available 10/12/2024 15:22:57 09/08/19 25 09/07/2024 Urina lysis panel - Urine by Autom ated leukocyte esterase [presence] in urine by test strip Negati ve text: negati ve Not Available Not Available 10/12/2024 15:22:57 09/08/19 25 09/07/2024 Urina lysis panel - Urine by Autom ated Unknown Analyte Not Available Not Available 06/2024 15:22:57 09/08/19 25 09/07/2024 Urina lysis panel - Urine by Autom ated interpretati on and review of laboratory results Abnorm al Not Available Not Available 15:22:57 09/08/19 25 09/07/2024 Urina lysis dipst ick panel - Urine by Autom ated test strip color of urine Yellow text: straw, yellow , dark yellow , light yellow Not Available Not Available 12/01/2024 04:22:12 09/08/19 25 09/07/2024 Urina lysis dipst ick panel - Urine by Autom ated test strip clarity of urine Clear text: clear Not Available Not Available 12/01/2024 04:22:12 09/08/19 25 09/07/2024 Urina lysis dipst ick panel - Urine by Autom ated test strip pH of urine by test strip 8.5 pH low: 5pHhig h: 8pH high Not Available Not Available 12/01/2024 04:22:12 09/08/19 25 09/07/2024 Urina lysis dipst ick panel - Urine by Autom ated test strip protein [presence] in urine by test strip Negati ve text: negati ve Not Available Not Available 12/01/2024 04:22:12 09/08/19 25 09/07/2024 Urina lysis dipst ick panel - Urine by Autom ated test strip hemoglobin [presence] in urine by test strip Negati ve text: negati ve Not Available Not Available 12/01/2024 04:22:12 09/08/19 25 09/07/2024 Urina lysis dipst ick panel - Urine by Autom ated test strip leukocyte esterase [presence] in urine by test strip Negati ve text: negati ve Not Available Not Available 12/01/2024 04:22:12 09/08/19 25 09/07/2024 Urina lysis dipst ick panel - Urine by Autom ated test strip nitrite [presence] in urine by test strip Negati ve text: negati ve Not Available Not Available 12/01/2024 04:22:12 09/08/19 25 09/07/2024 Urina lysis dipst ick panel - Urine by Autom ated test strip glucose [presence] in urine by test strip Negati ve text: negati ve Not Available Not Available 12/01/2024 04:22:12 09/08/1909/07/2024 Urina lysis dipst ick panel - Urine by Autom ated test strip ketones [presence] in urine by test strip Negati ve text: negati ve Not Available Not Available 12/01/2024 04:22:12 09/08/1909/07/2024 Urina lysis dipst ick panel - Urine by Autom ated test strip bilirubin.to bbo [presence] in urine by test strip Negati ve text: negati ve Not Available Not Available 12/01/2024 04:22:12 09/08/19 25 09/07/2024 Urina lysis dipst ick panel - Urine by Autom ated test strip urobilinogen [units/volum e] in urine by test strip 0.2 eu/dL low: 0.1eu/ dLhigh : 1eu/dL Not Available Not Available 12/01/2024 04:22:12 09/08/19 25 09/07/2024 Urina lysis dipst ick panel - Urine by Autom ated test strip interpretati on and review of laboratory results Abnorm al Not Available Not Available 04:22:12 09/08/19 25 09/07/2024 Urina lysis dipst ick panel - Urine by Autom ated test strip color of urine Yellow text: straw, yellow , dark yellow , light yellow Not Available Not Available 10/12/2024 15:19:51 09/08/19 25 09/07/2024 Urina lysis dipst ick panel - Urine by Autom ated test strip clarity of urine Clear text: clear Not Available Not Available 10/12/2024 15:19:51 09/08/19 25 09/07/2024 Urina lysis dipst ick panel - Urine by Autom ated test strip urinalysis dipstick panel - urine by automated test strip 1.015 low: 1.005h igh: 1.03 Not Available Not Available 10/12/2024 15:19:51 09/08/19 25 09/07/2024 Urina lysis dipst ick panel - Urine by Autom ated test strip pH of urine by test strip 8.5 pH low: 5pHhig h: 8pH high Not Available Not Available 10/12/2024 15:19:51 09/08/19 25 09/07/2024 Urina lysis dipst ick panel - Urine by Autom ated test strip protein [presence] in urine by test strip Negati ve text: negati ve Not Available Not Available 10/12/2024 15:19:51 09/08/19 25 09/07/2024 Urina lysis dipst ick panel - Urine by Autom ated test strip hemoglobin [presence] in urine by test strip Negati ve text: negati ve Not Available Not Available 10/12/2024 15:19:51 09/08/19 25 09/07/2024 Urina lysis dipst ick panel - Urine by Autom ated test strip leukocyte esterase [presence] in urine by test strip Negati ve text: negati ve Not Available Not Available 10/12/2024 15:19:51 09/08/19 25 09/07/2024 Urina lysis dipst ick panel - Urine by Autom ated test strip nitrite [presence] in urine by test strip Negati ve text: negati ve Not Available Not Available 10/12/2024 15:19:51 09/08/19 25 09/07/2024 Urina lysis dipst ick panel - Urine by Autom ated test strip glucose [presence] in urine by test strip Negati ve text: negati ve Not Available Not Available 10/12/2024 15:19:51 09/08/19 25 09/07/2024 Urina lysis dipst ick panel - Urine by Autom ated test strip ketones [presence] in urine by test strip Negati ve text: negati ve Not Available Not Available 10/12/2024 15:19:51 09/08/19 25 09/07/2024 Urina lysis dipst ick panel - Urine by Autom ated test strip bilirubin.to bob [presence] in urine by test strip Negati ve text: negati ve Not Available Not Available 10/12/2024 15:19:51 09/08/19 25 09/07/2024 Urina lysis dipst ick panel - Urine by Autom ated test strip urobilinogen [units/volum e] in urine by test strip 0.2 eu/dL low: 0.1eu/ dLhigh : 1eu/dL Not Available Not Available 10/12/2024 15:19:51 09/08/19 25 09/07/2024 Urina lysis dipst ick panel - Urine by Autom ated test strip interpretati on and review of laboratory results Abnorm al Not Available Not Available 15:19:51 09/15/19 25 09/14/2024 Prote in/Cr eatin ine [Mass Ratio ] in Urine protein [mass/volume ] in 24 hour urine 12.5 mg/dL high: 11.9mg /dL high Not Available Not Available 10/12/2024 15:24:48 09/15/19 25 09/14/2024 Prote in/Cr eatin ine [Mass Ratio ] in Urine creatinine [mass/volume ] in urine 78.16 mg/dL Not Available Not Available 0 10/12/2024 15:24:48 09/15/19 25 09/14/2024 Prote in/Cr eatin ine [Mass Ratio ] in Urine protein/crea tinine [mass ratio] in urine 0.16 Not Available Not Available 06/2024 15:24:48 09/15/19 25 09/14/2024 Prote in/Cr eatin ine [Mass Ratio ] in Urine interpretati on and review of laboratory results Abnorm al Not Available Not Available 15:24:48 09/15/19 25 09/14/2024 [facility]pr [facility] [employer] [place] [facility] 1999 panel - Serum or Plasm a glucose [mass/volume ] in serum or plasma 105 mg/dL low: 70mg/d Lhigh: 99mg/d L high Not Available Not Available 10/12/2024 15:24:48 09/15/19 25 09/14/2024 Compr [facility] [place] [facility] 1999 panel - Serum or Plasm a sodium [moles/volum e] in serum or plasma 138 mmol/ L low: 136mmo l/Lhig h: 145mmo l/L Not Available Not Available 10/12/2024 15:24:48 09/15/19 25 09/14/2024 [facility]pr [facility] [place] [facility] 1999 panel - Serum or Plasm a potassium [moles/volum e] in serum or plasma 4 mmol/ L low: 3.5mmo l/Lhig h: 5.1mmo l/L Not Available Not Available 10/12/2024 15:24:48 09/15/19 25 09/14/2024 Compr [facility] [place] [facility] 2000 panel - Serum or Plasm a chloride [moles/volum e] in serum or plasma 109 mmol/ L low: 98mmol /Lhigh : 107mmo l/L high Not Available Not Available 10/12/2024 15:24:48 09/15/19 25 09/14/2024 Compr [facility] [place] [facility] 1999 panel - Serum or Plasm a carbon dioxide, total [moles/volum e] in serum or plasma 23 mmol/ L low: 22mmol /Lhigh : 29mmol /L Not Available Not Available 10/12/2024 15:24:48 09/15/19 25 09/14/2024 Compr [facility] [place] [facility] 1999 panel - Serum or Plasm a calcium [mass/volume ] in serum or plasma 9.3 mg/dL low: 8.4mg/ dLhigh : 10.4mg /dL Not Available Not Available 10/12/2024 15:24:48 09/15/19 25 09/14/2024 [facility] [place] [facility] - Serum or Plasm a anion gap in blood by calculation 6 mmol/ L low: 6mmol/ Lhigh: 16mmol /L Not Available Not Available 10/12/2024 15:24:48 09/15/19 25 09/14/2024 [facility] [place] [facility] 1999 panel - Serum or Plasm a urea nitrogen [mass/volume ] in serum or plasma 7 mg/dL low: 5.3mg/ dLhigh : 18.7mg /dL Not Available Not Available 10/12/2024 15:24:48 09/15/19 25 09/14/2024 [facility] [place] [facility] panel - Serum or Plasm a creatinine [mass/volume ] in serum or plasma 0.58 mg/dL low: 0.57mg /dLhig h: 1.11mg /dL Not Available Not Available 10/12/2024 15:24:48 09/15/19 25 09/14/2024 [facility] [place] [facility] 1999 panel - Serum or Plasm a alkaline phosphatase [enzymatic activity/vol ume] in serum or plasma 179 U/L low: 40U/Lh igh: 150U/L high Not Available Not Available 10/12/2024 15:24:48 09/15/19 25 09/14/2024 [facility] [place] [facility] 1999 panel - Serum or Plasm a alanine aminotransfe rase [enzymatic activity/vol ume] in serum or plasma 46 U/L low: 6U/Lhi gh: 57U/L Not Available Not Available 10/12/2024 15:24:48 09/15/19 25 09/14/2024 [facility] [place] [employer] [facility] 1999 panel - Serum or Plasm a aspartate aminotransfe rase [enzymatic activity/vol ume] in serum or plasma 39 U/L low: 10U/Lh igh: 48U/L Not Available Not Available 10/12/2024 15:24:48 09/15/19 25 09/14/2024 [facility] [place] [facility] 1999 panel - Serum or Plasm a protein [mass/volume ] in serum or plasma 7.1 text: 6.4 - 8.3 gm/dL Not Available Not Available 10/12/2024 15:24:48 09/15/19 25 09/14/2024 [facility]pr [facility] [place] [facility] 2000 panel - Serum or Plasm a albumin [mass/volume ] in serum or plasma 2.8 text: 3.4 - 5.0 gm/dL low Not Available Not Available 10/12/2024 15:24:48 09/15/19 25 09/14/2024 [facility]pr [facility] [place] [facility] 2000 panel - Serum or Plasm a bilirubin.to bob [mass/volume ] in serum or plasma 0.4 mg/dL low: 0.2mg/ dLhigh : 1.2mg/ dL Not Available Not Available 10/12/2024 15:24:48 09/15/19 25 09/14/2024 Compr [facility] [place] [facility] 2000 panel - Serum or Plasm a glomerular filtration rate [volume rate/area] in serum, plasma or blood by creatinine-b ased formula (CKD-epi 2020)/1.73 sq M text: >=90 mL/min /1.73 m2 Not Available Not Available 10/12/2024 15:24:48 09/15/19 25 09/14/2024 Compr [facility] [place] [facility] 2000 panel - Serum or Plasm a interpretati on and review of laboratory results Abnorm al Not Available Not Available 15:24:48 09/15/19 25 09/14/2024 CBC W Auto Diffe renti al panel - Blood leukocytes [#/volume] in blood by automated count 7.2 text: 4.0 - 10.7 x10e9/ L Not Available Not Available 10/12/2024 15:24:48 09/15/19 25 09/14/2024 CBC W Auto Diffe renti al panel - Blood erythrocytes [#/volume] in blood by automated count 4.07 text: 3.90 - 5.20 x10e12 /L Not Available Not Available 10/12/2024 15:24:48 09/15/19 25 09/14/2024 CBC W Auto Diffe renti al panel - Blood hemoglobin [mass/volume ] in blood 13.9 g/dL low: 11.9g/ dLhigh : 15.8g/ dL Not Available Not Available 10/12/2024 15:24:48 09/15/19 25 09/14/2024 CBC W Auto Diffe renti al panel - Blood hematocrit [volume fraction] of blood by automated count 40.3 % low: 34.8%h igh: 46.1% Not Available Not Available 10/12/2024 15:24:48 09/15/19 25 09/14/2024 CBC W Auto Diffe renti al panel - Blood MCV [entitic mean volume] in red blood cells by automated count 99 fL low: 80fLhi gh: 98fL high Not Available Not Available 10/12/2024 15:24:48 09/15/19 25 09/14/2024 CBC W Auto Diffe renti al panel - Blood MCH [entitic mass] by automated count 34.2 pg low: 26.7pg high: 33.6pg high Not Available Not Available 10/12/2024 15:24:48 09/15/19 25 09/14/2024 CBC W Auto Diffe renti al panel - Blood MCHC [entitic mass/volume] in red blood cells by automated count 34.5 g/dL low: 31.7g/ dLhigh : 36.3g/ dL Not Available Not Available 10/12/2024 15:24:48 09/15/19 25 09/14/2024 CBC W Auto Diffe renti al panel - Blood erythrocyte [distwidth] in red blood cells by automated count 12.8 % low: 11.3%h igh: 14.8% Not Available Not Available 10/12/2024 15:24:48 09/15/19 25 09/14/2024 CBC W Auto Diffe renti al panel - Blood platelets [#/volume] in blood by automated count 255 text: 150 - 420 x10e9/ L Not Available Not Available 10/12/2024 15:24:48 09/15/19 25 09/14/2024 CBC W Auto Diffe renti al panel - Blood platelet [entitic mean volume] in blood by automated count 10.3 fL low: 7.8fLh igh: 11.4fL Not Available Not Available 10/12/2024 15:24:48 09/15/19 25 09/14/2024 CBC W Auto Diffe renti al panel - Blood neutrophils/ leukocytes in blood by automated count 56.9 % low: 41%hig h: 74% Not Available Not Available 10/12/2024 15:24:48 09/15/19 25 09/14/2024 CBC W Auto Diffe renti al panel - Blood lymphocytes/ leukocytes in blood by automated count 33.3 % low: 17%hig h: 47% Not Available Not Available 10/12/2024 15:24:48 09/15/19 25 09/14/2024 CBC W Auto Diffe renti al panel - Blood monocytes/le ukocytes in blood by automated count 7.7 % low: 3%high : 11% Not Available Not Available 10/12/2024 15:24:48 09/15/19 25 09/14/2024 CBC W Auto Diffe renti al panel - Blood eosinophils/ leukocytes in blood by automated count 1.7 % low: 0%high : 7% Not Available Not Available 10/12/2024 15:24:48 09/15/19 25 09/14/2024 CBC W Auto Diffe renti al panel - Blood basophils/le ukocytes in blood by automated count 0.1 % low: 0%high : 1.6% Not Available Not Available 10/12/2024 15:24:48 09/15/19 25 09/14/2024 CBC W Auto Diffe renti al panel - Blood immature granulocytes /leukocytes in blood by automated count 0.3 % low: 0%high : 1% Not Available Not Available 10/12/2024 15:24:48 09/15/19 25 09/14/2024 CBC W Auto Diffe renti al panel - Blood neutrophils [#/volume] in blood by automated count 4.09 text: 1.60 - 7.50 x10e9/ L Not Available Not Available 10/12/2024 15:24:48 09/15/19 25 09/14/2024 CBC W Auto Diffe renti al panel - Blood lymphocytes [#/volume] in blood by automated count 2.39 text: 1.00 - 4.40 x10e9/ L Not Available Not Available 10/12/2024 15:24:48 09/15/19 25 09/14/2024 CBC W Auto Diffe renti al panel - Blood monocytes [#/volume] in blood by automated count 0.55 text: 0.15 - 1.00 x10e9/ L Not Available Not Available 10/12/2024 15:24:48 09/15/19 25 09/14/2024 CBC W Auto Diffe renti al panel - Blood eosinophils [#/volume] in blood 0.12 text: 0.00 - 0.60 x10e9/ L Not Available Not Available 10/12/2024 15:24:48 09/15/19 25 09/14/2024 CBC W Auto Diffe renti al panel - Blood basophils [#/volume] in blood by automated count 0.01 text: 0.00 - 0.13 x10e9/ L Not Available Not Available 10/12/2024 15:24:48 09/15/19 25 09/14/2024 CBC W Auto Diffe renti al panel - Blood interpretati on and review of laboratory results Abnorm al Not Available Not Available 15:24:48 09/15/19 25 09/14/2024 Urina lysis dipst ick panel - Urine by Autom ated test strip color of urine Yellow text: straw, yellow , dark yellow , light yellow Not Available Not Available 12/01/2024 04:22:12 09/15/19 25 09/14/2024 Urina lysis dipst ick panel - Urine by Autom ated test strip clarity of urine Clear text: clear Not Available Not Available 12/01/2024 04:22:12 09/15/19 25 09/14/2024 Urina lysis dipst ick panel - Urine by Autom ated test strip pH of urine by test strip 6 pH low: 5pHhig h: 8pH Not Available Not Available 12/01/2024 04:22:12 09/15/19 25 09/14/2024 Urina lysis dipst ick panel - Urine by Autom ated test strip protein [presence] in urine by test strip Negati ve text: negati ve Not Available Not Available 12/01/2024 04:22:12 09/15/19 25 09/14/2024 Urina lysis dipst ick panel - Urine by Autom ated test strip hemoglobin [presence] in urine by test strip Trace- intact text: negati ve abnormal Not Available Not Available 12/01/2024 04:22:12 09/15/1909/14/2024 Urina lysis dipst ick panel - Urine by Autom ated test strip leukocyte esterase [presence] in urine by test strip Negati ve text: negati ve Not Available Not Available 12/01/2024 04:22:12 09/15/1909/14/2024 Urina lysis dipst ick panel - Urine by Autom ated test strip nitrite [presence] in urine by test strip Negati ve text: negati ve Not Available Not Available 12/01/2024 04:22:12 09/15/1909/14/2024 Urina lysis dipst ick panel - Urine by Autom ated test strip glucose [presence] in urine by test strip Negati ve text: negati ve Not Available Not Available 12/01/2024 04:22:12 09/15/1909/14/2024 Urina lysis dipst ick panel - Urine by Autom ated test strip ketones [presence] in urine by test strip Negati ve text: negati ve Not Available Not Available 12/01/2024 04:22:12 09/15/1909/14/2024 Urina lysis dipst ick panel - Urine by Autom ated test strip bilirubin.to bob [presence] in urine by test strip Negati ve text: negati ve Not Available Not Available 12/01/2024 04:22:12 09/15/1909/14/2024 Urina lysis dipst ick panel - Urine by Autom ated test strip urobilinogen [units/volum e] in urine by test strip 0.2 eu/dL low: 0.1eu/ dLhigh : 1eu/dL Not Available Not Available 12/01/2024 04:22:12 09/15/1909/14/2024 Urina lysis dipst ick panel - Urine by Autom ated test strip interpretati on and review of laboratory results Abnorm al Not Available Not Available 04:22:12 09/15/1909/14/2024 Urina lysis dipst ick panel - Urine by Autom ated test strip color of urine Yellow text: straw, yellow , dark yellow , light yellow Not Available Not Available 10/12/2024 15:24:48 09/15/1909/14/2024 Urina lysis dipst ick panel - Urine by Autom ated test strip clarity of urine Clear text: clear Not Available Not Available 10/12/2024 15:24:48 09/15/19 25 09/14/2024 Urina lysis dipst ick panel - Urine by Autom ated test strip urinalysis dipstick panel - urine by automated test strip 1.02 low: 1.005h igh: 1.03 Not Available Not Available 10/12/2024 15:24:48 09/15/19 25 09/14/2024 Urina lysis dipst ick panel - Urine by Autom ated test strip pH of urine by test strip 6 pH low: 5pHhig h: 8pH Not Available Not Available 10/12/2024 15:24:48 09/15/19 25 09/14/2024 Urina lysis dipst ick panel - Urine by Autom ated test strip protein [presence] in urine by test strip Negati ve text: negati ve Not Available Not Available 10/12/2024 15:24:48 09/15/19 25 09/14/2024 Urina lysis dipst ick panel - Urine by Autom ated test strip hemoglobin [presence] in urine by test strip Trace- intact text: negati ve abnormal Not Available Not Available 10/12/2024 15:24:48 09/15/19 25 09/14/2024 Urina lysis dipst ick panel - Urine by Autom ated test strip leukocyte esterase [presence] in urine by test strip Negati ve text: negati ve Not Available Not Available 10/12/2024 15:24:48 09/15/19 25 09/14/2024 Urina lysis dipst ick panel - Urine by Autom ated test strip nitrite [presence] in urine by test strip Negati ve text: negati ve Not Available Not Available 10/12/2024 15:24:48 09/15/19 25 09/14/2024 Urina lysis dipst ick panel - Urine by Autom ated test strip glucose [presence] in urine by test strip Negati ve text: negati ve Not Available Not Available 10/12/2024 15:24:48 09/15/19 25 09/14/2024 Urina lysis dipst ick panel - Urine by Autom ated test strip ketones [presence] in urine by test strip Negati ve text: negati ve Not Available Not Available 10/12/2024 15:24:48 09/15/19 25 09/14/2024 Urina lysis dipst ick panel - Urine by Autom ated test strip bilirubin.to bob [presence] in urine by test strip Negati ve text: negati ve Not Available Not Available 10/12/2024 15:24:48 09/15/19 25 09/14/2024 Urina lysis dipst ick panel - Urine by Autom ated test strip urobilinogen [units/volum e] in urine by test strip 0.2 eu/dL low: 0.1eu/ dLhigh : 1eu/dL Not Available Not Available 10/12/2024 15:24:48 09/15/19 25 09/14/2024 Urina lysis dipst ick panel - Urine by Autom ated test strip interpretati on and review of laboratory results Abnorm al Not Available Not Available 15:24:48 09/22/19 25 09/21/2024 [facility]pr [facility] [place] [facility] 2000 panel - Serum or Plasm a glucose [mass/volume ] in serum or plasma 93 mg/dL low: 70mg/d Lhigh: 99mg/d L Not Available Not Available 10/12/2024 15:24:53 09/22/19 25 09/21/2024 Compr [facility] [place] [facility] 2000 panel - Serum or Plasm a sodium [moles/volum e] in serum or plasma 138 mmol/ L low: 136mmo l/Lhig h: 145mmo l/L Not Available Not Available 10/12/2024 15:24:53 09/22/19 25 09/21/2024 Compr [facility] [place] [facility] 2000 panel - Serum or Plasm a potassium [moles/volum e] in serum or plasma 4 mmol/ L low: 3.5mmo l/Lhig h: 5.1mmo l/L Not Available Not Available 10/12/2024 15:24:53 09/22/19 25 09/21/2024 [facility]pr [facility] [place] [facility] 2000 panel - Serum or Plasm a chloride [moles/volum e] in serum or plasma 110 mmol/ L low: 98mmol /Lhigh : 107mmo l/L high Not Available Not Available 10/12/2024 15:24:53 09/22/19 25 09/21/2024 [facility] [place] [facility] panel - Serum or Plasm a carbon dioxide, total [moles/volum e] in serum or plasma 21 mmol/ L low: 22mmol /Lhigh : 29mmol /L low Not Available Not Available 10/12/2024 15:24:53 09/22/19 25 09/21/2024 [facility] [place] [facility] 1999 panel - Serum or Plasm a calcium [mass/volume ] in serum or plasma 8.9 mg/dL low: 8.4mg/ dLhigh : 10.4mg /dL Not Available Not Available 10/12/2024 15:24:53 09/22/19 25 09/21/2024 [facility] [place] [employer] [facility] 1999 panel - Serum or Plasm a anion gap in blood by calculation 7 mmol/ L low: 6mmol/ Lhigh: 16mmol /L Not Available Not Available 10/12/2024 15:24:53 09/22/19 25 09/21/2024 [facility] [place] [employer] [facility] 1999 panel - Serum or Plasm a urea nitrogen [mass/volume ] in serum or plasma 7 mg/dL low: 5.3mg/ dLhigh : 18.7mg /dL Not Available Not Available 10/12/2024 15:24:53 09/22/19 25 [facility]/2024 [facility] [place] [employer] [facility] 1999 panel - Serum or Plasm a creatinine [mass/volume ] in serum or plasma 0.53 mg/dL low: 0.57mg /dLhig h: 1.11mg /dL low Not Available Not Available 10/12/2024 15:24:53 09/22/19 25 09/21/2024 [facility] [place] [facility] 1999 panel - Serum or Plasm a alkaline phosphatase [enzymatic activity/vol ume] in serum or plasma 198 U/L low: 40U/Lh igh: 150U/L high Not Available Not Available 10/12/2024 15:24:53 09/22/19 25 09/21/2024 [facility] [place] [facility] panel - Serum or Plasm a alanine aminotransfe rase [enzymatic activity/vol ume] in serum or plasma 44 U/L low: 6U/Lhi gh: 57U/L Not Available Not Available 10/12/2024 15:24:53 09/22/19 25 09/21/2024 [facility] [place] [facility] [place] 2000 panel - Serum or Plasm a aspartate aminotransfe rase [enzymatic activity/vol ume] in serum or plasma 38 U/L low: 10U/Lh igh: 48U/L Not Available Not Available 10/12/2024 15:24:53 09/22/19 25 09/21/2024 Compr [facility] [place] [facility] 1999 panel - Serum or Plasm a protein [mass/volume ] in serum or plasma 6.8 text: 6.4 - 8.3 gm/dL Not Available Not Available 10/12/2024 15:24:53 09/22/19 25 09/21/2024 [facility]pr [place] [facility] 2000 panel - Serum or Plasm a albumin [mass/volume ] in serum or plasma 2.7 text: 3.4 - 5.0 gm/dL low Not Available Not Available 10/12/2024 15:24:53 09/22/19 25 09/21/2024 [facility]pr [place] [facility] 1999 panel - Serum or Plasm a bilirubin.to bob [mass/volume ] in serum or plasma 0.3 mg/dL low: 0.2mg/ dLhigh : 1.2mg/ dL Not Available Not Available 10/12/2024 15:24:53 09/22/19 25 09/21/2024 Compr [place] [facility] 2000 panel - Serum or Plasm a glomerular filtration rate [volume rate/area] in serum, plasma or blood by creatinine-b ased formula (CKD-epi 2020)/1.73 sq M text: >=90 mL/min /1.73 m2 Not Available Not Available 10/12/2024 15:24:53 09/22/19 25 09/21/2024 [facility]pr [place] [facility] 2000 panel - Serum or Plasm a interpretati on and review of laboratory results Abnorm al Not Available Not Available 15:24:53 09/22/19 25 09/21/2024 Prote in/Cr eatin ine [Mass Ratio ] in Urine protein [mass/volume ] in 24 hour urine 9.3 mg/dL high: 11.9mg /dL Not Available Not Available 10/12/2024 15:24:53 09/22/19 25 09/21/2024 Prote in/Cr eatin ine [Mass Ratio ] in Urine creatinine [mass/volume ] in urine 67.43 mg/dL Not Available Not Available 0 10/12/2024 15:24:53 09/22/19 25 09/21/2024 Prote in/Cr eatin ine [Mass Ratio ] in Urine protein/crea tinine [mass ratio] in urine 0.14 Not Available Not Available 06/2024 15:24:53 09/22/19 25 09/21/2024 CBC panel - Blood by Autom ated count leukocytes [#/volume] in blood by automated count 8.1 text: 4.0 - 10.7 x10e9/ L Not Available Not Available 10/12/2024 15:24:53 09/22/19 25 09/21/2024 CBC panel - Blood by Autom ated count erythrocytes [#/volume] in blood by automated count 3.81 text: 3.90 - 5.20 x10e12 /L low Not Available Not Available 10/12/2024 15:24:53 09/22/19 25 09/21/2024 CBC panel - Blood by Autom ated count hemoglobin [mass/volume ] in blood 13.1 g/dL low: 11.9g/ dLhigh : 15.8g/ dL Not Available Not Available 10/12/2024 15:24:53 09/22/19 25 09/21/2024 CBC panel - Blood by Autom ated count hematocrit [volume fraction] of blood by automated count 38.1 % low: 34.8%h igh: 46.1% Not Available Not Available 10/12/2024 15:24:53 09/22/1909/21/2024 CBC panel - Blood by Autom ated count MCV [entitic mean volume] in red blood cells by automated count 100 fL low: 80fLhi gh: 98fL high Not Available Not Available 10/12/2024 15:24:53 09/22/19 25 09/21/2024 CBC panel - Blood by Autom ated count MCH [entitic mass] by automated count 34.4 pg low: 26.7pg high: 33.6pg high Not Available Not Available 10/12/2024 15:24:53 09/22/19 25 09/21/2024 CBC panel - Blood by Autom ated count MCHC [entitic mass/volume] in red blood cells by automated count 34.4 g/dL low: 31.7g/ dLhigh : 36.3g/ dL Not Available Not Available 10/12/2024 15:24:53 09/22/19 25 09/21/2024 CBC panel - Blood by Autom ated count erythrocyte [distwidth] in red blood cells by automated count 12.8 % low: 11.3%h igh: 14.8% Not Available Not Available 10/12/2024 15:24:53 09/22/19 25 09/21/2024 CBC panel - Blood by Autom ated count platelets [#/volume] in blood by automated count 230 text: 150 - 420 x10e9/ L Not Available Not Available 10/12/2024 15:24:53 09/22/19 25 09/21/2024 CBC panel - Blood by Autom ated count platelet [entitic mean volume] in blood by automated count 10.4 fL low: 7.8fLh igh: 11.4fL Not Available Not Available 10/12/2024 15:24:53 09/22/19 25 09/21/2024 CBC panel - Blood by Autom ated count nucleated erythrocytes /leukocytes [ratio] in blood by automated count 0.2 text: <=0.0 /100 WBC high Not Available Not Available 10/12/2024 15:24:53 09/22/19 25 09/21/2024 CBC panel - Blood by Autom ated count interpretati on and review of laboratory results Abnorm al Not Available Not Available 15:24:53 09/22/19 25 09/21/2024 Urina lysis panel - Urine by Autom ated color of urine by auto Yellow text: yellow , straw Not Available Not Available 10/12/2024 15:24:53 09/22/19 25 09/21/2024 Urina lysis panel - Urine by Autom ated clarity in urine by refractometr y automated Clear text: clear Not Available Not Available 10/12/2024 15:24:53 09/22/19 25 09/21/2024 Urina lysis panel - Urine by Autom ated glucose [presence] in urine by test strip Normal text: normal Not Available Not Available 10/12/2024 15:24:53 09/22/19 25 09/21/2024 Urina lysis panel - Urine by Autom ated bilirubin.to bob [presence] in urine by test strip Negati ve text: negati ve Not Available Not Available 10/12/2024 15:24:53 09/22/19 25 09/21/2024 Urina lysis panel - Urine by Autom ated ketones [presence] in urine by automated test strip Negati ve text: negati ve Not Available Not Available 10/12/2024 15:24:53 09/22/19 25 09/21/2024 Urina lysis panel - Urine by Autom ated specific gravity of urine by test strip 1.012 low: 1.005h igh: 1.03 Not Available Not Available 10/12/2024 15:24:53 09/22/19 25 09/21/2024 Urina lysis panel - Urine by Autom ated hemoglobin [presence] in urine by test strip Negati ve text: negati ve Not Available Not Available 10/12/2024 15:24:53 09/22/19 25 09/21/2024 Urina lysis panel - Urine by Autom ated pH of urine by test strip 6.5 pH low: 5pHhig h: 8pH Not Available Not Available 10/12/2024 15:24:53 09/22/19 25 09/21/2024 Urina lysis panel - Urine by Autom ated protein [presence] in urine by test strip Negati ve text: negati ve Not Available Not Available 10/12/2024 15:24:53 09/22/19 25 09/21/2024 Urina lysis panel - Urine by Autom ated urobilinogen [mass/volume ] in urine by automated test strip Normal text: normal mg/dL Not Available Not Available 10/12/2024 15:24:53 09/22/19 25 09/21/2024 Urina lysis panel - Urine by Autom ated nitrite [presence] in urine by test strip Negati ve text: negati ve Not Available Not Available 10/12/2024 15:24:53 09/22/19 25 09/21/2024 Urina lysis panel - Urine by Autom ated leukocyte esterase [presence] in urine by test strip Negati ve text: negati ve Not Available Not Available 10/12/2024 15:24:53 09/22/19 25 09/21/2024 Urina lysis panel - Urine by Autom ated service comment Cultur e not indica marie Not Available Not Available 15:24:53 09/22/19 25 09/21/2024 Urina lysis panel - Urine by Autom ated Unknown Analyte Not Available Not Available 06/2024 15:24:53 09/22/19 25 09/21/2024 Urina lysis dipst ick panel - Urine by Autom ated test strip color of urine Yellow text: straw, yellow , dark yellow , light yellow Not Available Not Available 12/01/2024 04:22:12 09/22/19 25 09/21/2024 Urina lysis dipst ick panel - Urine by Autom ated test strip clarity of urine Clear text: clear Not Available Not Available 12/01/2024 04:22:12 09/22/19 25 09/21/2024 Urina lysis dipst ick panel - Urine by Autom ated test strip pH of urine by test strip 6.5 pH low: 5pHhig h: 8pH Not Available Not Available 12/01/2024 04:22:12 09/22/19 25 09/21/2024 Urina lysis dipst ick panel - Urine by Autom ated test strip protein [presence] in urine by test strip Negati ve text: negati ve Not Available Not Available 12/01/2024 04:22:12 09/22/19 25 09/21/2024 Urina lysis dipst ick panel - Urine by Autom ated test strip hemoglobin [presence] in urine by test strip Negati ve text: negati ve Not Available Not Available 12/01/2024 04:22:12 09/22/19 25 09/21/2024 Urina lysis dipst ick panel - Urine by Autom ated test strip leukocyte esterase [presence] in urine by test strip Negati ve text: negati ve Not Available Not Available 12/01/2024 04:22:12 09/22/19 09/21/2024 Urina lysis dipst ick panel - Urine by Autom ated test strip nitrite [presence] in urine by test strip Negati ve text: negati ve Not Available Not Available 12/01/2024 04:22:12 09/22/1909/21/2024 Urina lysis dipst ick panel - Urine by Autom ated test strip glucose [presence] in urine by test strip Negati ve text: negati ve Not Available Not Available 12/01/2024 04:22:12 09/22/1909/21/2024 Urina lysis dipst ick panel - Urine by Autom ated test strip ketones [presence] in urine by test strip Negati ve text: negati ve Not Available Not Available 12/01/2024 04:22:12 09/22/1909/21/2024 Urina lysis dipst ick panel - Urine by Autom ated test strip bilirubin.to bob [presence] in urine by test strip Negati ve text: negati ve Not Available Not Available 12/01/2024 04:22:12 09/22/1909/21/2024 Urina lysis dipst ick panel - Urine by Autom ated test strip urobilinogen [units/volum e] in urine by test strip 0.2 eu/dL low: 0.1eu/ dLhigh : 1eu/dL Not Available Not Available 12/01/2024 04:22:12 09/22/1909/21/2024 Urina lysis dipst ick panel - Urine by Autom ated test strip interpretati on and review of laboratory results Normal Not Available Not Available 11/11 04:22:12 09/22/1909/21/2024 Urina lysis dipst ick panel - Urine by Autom ated test strip color of urine Yellow text: straw, yellow , dark yellow , light yellow Not Available Not Available 10/12/2024 15:24:53 09/22/19 25 09/21/2024 Urina lysis dipst ick panel - Urine by Autom ated test strip clarity of urine Clear text: clear Not Available Not Available 10/12/2024 15:24:53 09/22/19 25 09/21/2024 Urina lysis dipst ick panel - Urine by Autom ated test strip urinalysis dipstick panel - urine by automated test strip 1.015 low: 1.005h igh: 1.03 Not Available Not Available 10/12/2024 15:24:53 09/22/19 25 09/21/2024 Urina lysis dipst ick panel - Urine by Autom ated test strip pH of urine by test strip 6.5 pH low: 5pHhig h: 8pH Not Available Not Available 10/12/2024 15:24:53 09/22/19 25 09/21/2024 Urina lysis dipst ick panel - Urine by Autom ated test strip protein [presence] in urine by test strip Negati ve text: negati ve Not Available Not Available 10/12/2024 15:24:53 09/22/19 25 09/21/2024 Urina lysis dipst ick panel - Urine by Autom ated test strip hemoglobin [presence] in urine by test strip Negati ve text: negati ve Not Available Not Available 10/12/2024 15:24:53 09/22/19 25 09/21/2024 Urina lysis dipst ick panel - Urine by Autom ated test strip leukocyte esterase [presence] in urine by test strip Negati ve text: negati ve Not Available Not Available 10/12/2024 15:24:53 09/22/19 25 09/21/2024 Urina lysis dipst ick panel - Urine by Autom ated test strip nitrite [presence] in urine by test strip Negati ve text: negati ve Not Available Not Available 10/12/2024 15:24:53 09/22/19 25 09/21/2024 Urina lysis dipst ick panel - Urine by Autom ated test strip glucose [presence] in urine by test strip Negati ve text: negati ve Not Available Not Available 10/12/2024 15:24:53 09/22/19 25 09/21/2024 Urina lysis dipst ick panel - Urine by Autom ated test strip ketones [presence] in urine by test strip Negati ve text: negati ve Not Available Not Available 10/12/2024 15:24:53 09/22/19 25 09/21/2024 Urina lysis dipst ick panel - Urine by Autom ated test strip bilirubin.to bob [presence] in urine by test strip Negati ve text: negati ve Not Available Not Available 10/12/2024 15:24:53 09/22/19 25 09/21/2024 Urina lysis dipst ick panel - Urine by Autom ated test strip urobilinogen [units/volum e] in urine by test strip 0.2 eu/dL low: 0.1eu/ dLhigh : 1eu/dL Not Available Not Available 10/12/2024 15:24:53 09/22/19 25 09/21/2024 Urina lysis dipst ick panel - Urine by Autom ated test strip interpretati on and review of laboratory results Normal Not Available Not Available 06/2024 15:24:53 09/29/19 25 09/28/2024 Prote in/Cr eatin ine [Mass Ratio ] in Urine protein [mass/volume ] in 24 hour urine high: 11.9mg /dL Not Available Not Available 10/12/2024 15:22:53 09/29/19 25 09/28/2024 Prote in/Cr eatin ine [Mass Ratio ] in Urine creatinine [mass/volume ] in urine 11.64 mg/dL Not Available Not Available 0 10/12/2024 15:22:53 09/29/19 25 09/28/2024 Prote in/Cr eatin ine [Mass Ratio ] in Urine protein/crea tinine [mass ratio] in urine Unabl e to calcu late due to limit ed level s of measu rable prote in. Not Available Not Available 10/12/2024 15:22:53 09/29/19 25 09/28/2024 [facility]pr [facility] [place] [facility] 1999 panel - Serum or Plasm a glucose [mass/volume ] in serum or plasma 74 mg/dL low: 70mg/d Lhigh: 99mg/d L Not Available Not Available 10/12/2024 15:22:53 09/29/19 25 09/28/2024 [facility]pr [facility] [place] [facility] 1999 panel - Serum or Plasm a sodium [moles/volum e] in serum or plasma 135 mmol/ L low: 136mmo l/Lhig h: 145mmo l/L low Not Available Not Available 10/12/2024 15:22:53 09/29/19 25 09/28/2024 [facility] [employer] [place] [employer] 1999 panel - Serum or Plasm a potassium [moles/volum e] in serum or plasma 4 mmol/ L low: 3.5mmo l/Lhig h: 5.1mmo l/L Not Available Not Available 10/12/2024 15:22:53 09/29/19 25 09/28/2024 [facility] [place] [facility]lic 1999 panel - Serum or Plasm a chloride [moles/volum e] in serum or plasma 111 mmol/ L low: 98mmol /Lhigh : 107mmo l/L high Not Available Not Available 10/12/2024 15:22:53 09/29/19 25 09/28/2024 Compr [facility] [place] [facility] 1999 panel - Serum or Plasm a carbon dioxide, total [moles/volum e] in serum or plasma 19 mmol/ L low: 22mmol /Lhigh : 29mmol /L low Not Available Not Available 10/12/2024 15:22:53 09/29/19 25 09/28/2024 [facility] [employer] [place] [employer] olic 1999 panel - Serum or Plasm a calcium [mass/volume ] in serum or plasma 8.7 mg/dL low: 8.4mg/ dLhigh : 10.4mg /dL Not Available Not Available 10/12/2024 15:22:53 09/29/19 25 09/28/2024 [facility] [employer] [place] [employer] olic 1999 panel - Serum or Plasm a anion gap in blood by calculation 5 mmol/ L low: 6mmol/ Lhigh: 16mmol /L low Not Available Not Available 10/12/2024 15:22:53 09/29/19 25 09/28/2024 [facility] [employer] [place] [employer] olic 1999 panel - Serum or Plasm a urea nitrogen [mass/volume ] in serum or plasma 7 mg/dL low: 5.3mg/ dLhigh : 18.7mg /dL Not Available Not Available 10/12/2024 15:22:53 09/29/19 25 09/28/2024 [facility] [employer] [place] [employer] olic 1999 panel - Serum or Plasm a creatinine [mass/volume ] in serum or plasma 0.51 mg/dL low: 0.57mg /dLhig h: 1.11mg /dL low Not Available Not Available 10/12/2024 15:22:53 09/29/19 25 09/28/2024 Compr [place] [place] [facility]lic 1999 panel - Serum or Plasm a alkaline phosphatase [enzymatic activity/vol ume] in serum or plasma 217 U/L low: 40U/Lh igh: 150U/L high Not Available Not Available 10/12/2024 15:22:53 09/29/19 25 09/28/2024 Compr [place] [place] [facility]lic 1999 panel - Serum or Plasm a alanine aminotransfe rase [enzymatic activity/vol ume] in serum or plasma 45 U/L low: 6U/Lhi gh: 57U/L Not Available Not Available 10/12/2024 15:22:53 09/29/19 25 09/28/2024 Compr [place] [facility]lic 2000 panel - Serum or Plasm a aspartate aminotransfe rase [enzymatic activity/vol ume] in serum or plasma 42 U/L low: 10U/Lh igh: 48U/L Not Available Not Available 10/12/2024 15:22:53 09/29/19 25 09/28/2024 Compr [employer] [place] [employer] olic 1999 panel - Serum or Plasm a protein [mass/volume ] in serum or plasma 7 text: 6.4 - 8.3 gm/dL Not Available Not Available 10/12/2024 15:22:53 09/29/19 25 09/28/2024 Compr [employer] [place] [employer] olic 1999 panel - Serum or Plasm a albumin [mass/volume ] in serum or plasma 2.7 text: 3.4 - 5.0 gm/dL low Not Available Not Available 10/12/2024 15:22:53 09/29/19 25 09/28/2024 Compr [employer] [place] [employer] olic 1999 panel - Serum or Plasm a bilirubin.to bob [mass/volume ] in serum or plasma 0.4 mg/dL low: 0.2mg/ dLhigh : 1.2mg/ dL Not Available Not Available 10/12/2024 15:22:53 09/29/19 25 09/28/2024 Compr [place] [employer] olic 2000 panel - Serum or Plasm a glomerular filtration rate [volume rate/area] in serum, plasma or blood by creatinine-b ased formula (CKD-epi 2020)/1.73 sq M text: >=90 mL/min /1.73 m2 Not Available Not Available 10/12/2024 15:22:53 09/29/1909/28/2024 Compr [facility] [facility]lic 2000 panel - Serum or Plasm a interpretati on and review of laboratory results Abnorm al Not Available Not Available 15:22:53 09/29/19 25 09/28/2024 CBC W [employer] [facility] panel - Blood leukocytes [#/volume] in blood by automated count 8.1 text: 4.0 - 10.7 x10e9/ L Not Available Not Available 10/12/2024 15:22:52 09/29/1909/28/2024 CBC W [employer] al panel - Blood erythrocytes [#/volume] in blood by automated count 3.99 text: 3.90 - 5.20 x10e12 /L Not Available Not Available 10/12/2024 15:22:52 09/29/1909/28/2024 CBC W [employer] panel - Blood hemoglobin [mass/volume ] in blood 13.7 g/dL low: 11.9g/ dLhigh : 15.8g/ dL Not Available Not Available 10/12/2024 15:22:52 09/29/1909/28/2024 CBC W [employer] panel - Blood hematocrit [volume fraction] of blood by automated count 39.2 % low: 34.8%h igh: 46.1% Not Available Not Available 10/12/2024 15:22:52 09/29/1909/28/2024 CBC W [employer] panel - Blood MCV [entitic mean volume] in red blood cells by automated count 98.2 fL low: 80fLhi gh: 98fL high Not Available Not Available 10/12/2024 15:22:52 09/29/1909/28/2024 CBC W [employer] panel - Blood MCH [entitic mass] by automated count 34.3 pg low: 26.7pg high: 33.6pg high Not Available Not Available 10/12/2024 15:22:52 09/29/1909/28/2024 CBC W [employer] panel - Blood MCHC [entitic mass/volume] in red blood cells by automated count 34.9 g/dL low: 31.7g/ dLhigh : 36.3g/ dL Not Available Not Available 10/12/2024 15:22:52 09/29/19 25 09/28/2024 CBC W [employer] panel - Blood erythrocyte [distwidth] in red blood cells by automated count 13 % low: 11.3%h igh: 14.8% Not Available Not Available 10/12/2024 15:22:52 09/29/19 25 09/28/2024 CBC W [employer] panel - Blood platelets [#/volume] in blood by automated count 226 text: 150 - 420 x10e9/ L Not Available Not Available 10/12/2024 15:22:52 09/29/19 25 09/28/2024 CBC W [employer] panel - Blood platelet [entitic mean volume] in blood by automated count 10.1 fL low: 7.8fLh igh: 11.4fL Not Available Not Available 10/12/2024 15:22:52 09/29/19 25 09/28/2024 CBC W [employer] panel - Blood neutrophils/ leukocytes in blood by automated count 43.8 % low: 41%hig h: 74% Not Available Not Available 10/12/2024 15:22:52 09/29/19 25 09/28/2024 CBC W [employer] al panel - Blood lymphocytes/ leukocytes in blood by automated count 44.2 % low: 17%hig h: 47% Not Available Not Available 10/12/2024 15:22:52 09/29/19 25 09/28/2024 CBC W [employer] panel - Blood monocytes/le ukocytes in blood by automated count 8.6 % low: 3%high : 11% Not Available Not Available 10/12/2024 15:22:52 09/29/19 25 09/28/2024 CBC W [employer] panel - Blood eosinophils/ leukocytes in blood by automated count 2.7 % low: 0%high : 7% Not Available Not Available 10/12/2024 15:22:52 09/29/19 09/28/2024 CBC W [employer] al panel - Blood basophils/le ukocytes in blood by automated count 0.2 % low: 0%high : 1.6% Not Available Not Available 10/12/2024 15:22:52 09/29/1909/28/2024 CBC W [employer] al panel - Blood immature granulocytes /leukocytes in blood by automated count 0.5 % low: 0%high : 1% Not Available Not Available 10/12/2024 15:22:52 09/29/1909/28/2024 CBC W [employer] al panel - Blood neutrophils [#/volume] in blood by automated count 3.53 text: 1.60 - 7.50 x10e9/ L Not Available Not Available 10/12/2024 15:22:52 09/29/1909/28/2024 CBC W Auto [employer]i al panel - Blood lymphocytes [#/volume] in blood by automated count 3.56 text: 1.00 - 4.40 x10e9/ L Not Available Not Available 10/12/2024 15:22:52 09/29/1909/28/2024 CBC W Auto [employer]iffe [employer]i al panel - Blood monocytes [#/volume] in blood by automated count 0.69 text: 0.15 - 1.00 x10e9/ L Not Available Not Available 10/12/2024 15:22:52 09/29/1909/28/2024 CBC W Auto [employer]iffe [employer]i al panel - Blood eosinophils [#/volume] in blood 0.22 text: 0.00 - 0.60 x10e9/ L Not Available Not Available 10/12/2024 15:22:52 09/29/1909/28/2024 CBC W Auto [employer]iffe [employer]i al panel - Blood basophils [#/volume] in blood by automated count 0.02 text: 0.00 - 0.13 x10e9/ L Not Available Not Available 10/12/2024 15:22:52 09/29/1909/28/2024 CBC W Auto [employer]iffe [employer]i al panel - Blood nucleated erythrocytes /leukocytes [ratio] in blood by automated count 1.5 text: <=0.0 /100 WBC high Not Available Not Available 10/12/2024 15:22:52 09/29/19 25 09/28/2024 CBC W Auto Diffe renti al panel - Blood interpretati on and review of laboratory results Abnorm al Not Available Not Available 15:22:52 09/29/19 25 09/28/2024 Urina lysis dipst ick panel - Urine by Autom ated test strip color of urine Yellow text: straw, yellow , dark yellow , light yellow Not Available Not Available 12/01/2024 04:22:12 09/29/19 25 09/28/2024 Urina lysis dipst ick panel - Urine by Autom ated test strip clarity of urine Clear text: clear Not Available Not Available 12/01/2024 04:22:12 09/29/19 25 09/28/2024 Urina lysis dipst ick panel - Urine by Autom ated test strip pH of urine by test strip 7 pH low: 5pHhig h: 8pH Not Available Not Available 12/01/2024 04:22:12 09/29/19 25 09/28/2024 Urina lysis dipst ick panel - Urine by Autom ated test strip protein [presence] in urine by test strip Negati ve text: negati ve Not Available Not Available 12/01/2024 04:22:12 09/29/1909/28/2024 Urina lysis dipst ick panel - Urine by Autom ated test strip hemoglobin [presence] in urine by test strip Negati ve text: negati ve Not Available Not Available 12/01/2024 04:22:12 09/29/19 25 09/28/2024 Urina lysis dipst ick panel - Urine by Autom ated test strip leukocyte esterase [presence] in urine by test strip Negati ve text: negati ve Not Available Not Available 12/01/2024 04:22:12 09/29/19 25 09/28/2024 Urina lysis dipst ick panel - Urine by Autom ated test strip nitrite [presence] in urine by test strip Negati ve text: negati ve Not Available Not Available 12/01/2024 04:22:12 09/29/19 25 09/28/2024 Urina lysis dipst ick panel - Urine by Autom ated test strip glucose [presence] in urine by test strip Negati ve text: negati ve Not Available Not Available 12/01/2024 04:22:12 09/29/19 25 09/28/2024 Urina lysis dipst ick panel - Urine by Autom ated test strip ketones [presence] in urine by test strip Negati ve text: negati ve Not Available Not Available 12/01/2024 04:22:12 09/29/19 25 09/28/2024 Urina lysis dipst ick panel - Urine by Autom ated test strip bilirubin.to bob [presence] in urine by test strip Negati ve text: negati ve Not Available Not Available 12/01/2024 04:22:12 09/29/19 25 09/28/2024 Urina lysis dipst ick panel - Urine by Autom ated test strip urobilinogen [units/volum e] in urine by test strip 0.2 eu/dL low: 0.1eu/ dLhigh : 1eu/dL Not Available Not Available 12/01/2024 04:22:12 09/29/19 25 09/28/2024 Urina lysis dipst ick panel - Urine by Autom ated test strip interpretati on and review of laboratory results Normal Not Available Not Available 11/11 04:22:12 09/29/19 25 09/28/2024 Urina lysis dipst ick panel - Urine by Autom ated test strip color of urine Yellow text: straw, yellow , dark yellow , light yellow Not Available Not Available 10/12/2024 15:22:48 09/29/19 25 09/28/2024 Urina lysis dipst ick panel - Urine by Autom ated test strip clarity of urine Clear text: clear Not Available Not Available 10/12/2024 15:22:48 09/29/19 25 09/28/2024 Urina lysis dipst ick panel - Urine by Autom ated test strip urinalysis dipstick panel - urine by automated test strip 1.01 low: 1.005h igh: 1.03 Not Available Not Available 10/12/2024 15:22:48 09/29/19 25 09/28/2024 Urina lysis dipst ick panel - Urine by Autom ated test strip pH of urine by test strip 7 pH low: 5pHhig h: 8pH Not Available Not Available 10/12/2024 15:22:48 09/29/19 25 09/28/2024 Urina lysis dipst ick panel - Urine by Autom ated test strip protein [presence] in urine by test strip Negati ve text: negati ve Not Available Not Available 10/12/2024 15:22:48 09/29/19 25 09/28/2024 Urina lysis dipst ick panel - Urine by Autom ated test strip hemoglobin [presence] in urine by test strip Negati ve text: negati ve Not Available Not Available 10/12/2024 15:22:48 09/29/19 25 09/28/2024 Urina lysis dipst ick panel - Urine by Autom ated test strip leukocyte esterase [presence] in urine by test strip Negati ve text: negati ve Not Available Not Available 10/12/2024 15:22:48 09/29/19 25 09/28/2024 Urina lysis dipst ick panel - Urine by Autom ated test strip nitrite [presence] in urine by test strip Negati ve text: negati ve Not Available Not Available 10/12/2024 15:22:48 09/29/19 25 09/28/2024 Urina lysis dipst ick panel - Urine by Autom ated test strip glucose [presence] in urine by test strip Negati ve text: negati ve Not Available Not Available 10/12/2024 15:22:48 09/29/19 25 09/28/2024 Urina lysis dipst ick panel - Urine by Autom ated test strip ketones [presence] in urine by test strip Negati ve text: negati ve Not Available Not Available 10/12/2024 15:22:48 09/29/19 25 09/28/2024 Urina lysis dipst ick panel - Urine by Autom ated test strip bilirubin.to bob [presence] in urine by test strip Negati ve text: negati ve Not Available Not Available 10/12/2024 15:22:48 09/29/19 25 09/28/2024 Urina lysis dipst ick panel - Urine by Autom ated test strip urobilinogen [units/volum e] in urine by test strip 0.2 eu/dL low: 0.1eu/ dLhigh : 1eu/dL Not Available Not Available 10/12/2024 15:22:48 09/29/19 25 09/28/2024 Urina lysis dipst ick panel - Urine by Autom ated test strip interpretati on and review of laboratory results Normal Not Available Not Available 06/2024 15:22:48 10/09/19 25 10/08/2024 Blood type and Indir ect antib rell scree n panel - Blood ABO and Rh group [type] in blood O POS Histo ry check ed. Not Available Not Available 10/12/2024 15:20:01 10/09/19 25 10/08/2024 Blood type and Indir ect antib rell scree n panel - Blood blood group antibody screen [presence] in serum or plasma NEG Not Available Not Available 06/2024 15:20:01 10/09/19 25 10/08/2024 [facility] [place] [facility] 1999 panel - Serum or Plasm a glucose [mass/volume ] in serum or plasma 117 mg/dL low: 70mg/d Lhigh: 99mg/d L high Not Available Not Available 10/12/2024 15:21:46 10/09/19 25 10/08/2024 [facility] [place] [facility] 1999 panel - Serum or Plasm a sodium [moles/volum e] in serum or plasma 135 mmol/ L low: 136mmo l/Lhig h: 145mmo l/L low Not Available Not Available 10/12/2024 15:21:46 10/09/19 25 10/08/2024 [facility] [place] [facility] 1999 panel - Serum or Plasm a potassium [moles/volum e] in serum or plasma 3.8 mmol/ L low: 3.5mmo l/Lhig h: 5.1mmo l/L Not Available Not Available 10/12/2024 15:21:46 10/09/19 25 10/08/2024 [facility] [place] [facility] 1999 panel - Serum or Plasm a chloride [moles/volum e] in serum or plasma 110 mmol/ L low: 98mmol /Lhigh : 107mmo l/L high Not Available Not Available 10/12/2024 15:21:46 10/09/19 25 10/08/2024 [facility] [place] [facility] 1999 panel - Serum or Plasm a carbon dioxide, total [moles/volum e] in serum or plasma 20 mmol/ L low: 22mmol /Lhigh : 29mmol /L low Not Available Not Available 10/12/2024 15:21:46 10/09/19 25 10/08/2024 [facility] [place] [facility] panel - Serum or Plasm a calcium [mass/volume ] in serum or plasma 8.6 mg/dL low: 8.4mg/ dLhigh : 10.4mg /dL Not Available Not Available 10/12/2024 15:21:46 10/09/19 25 10/08/2024 [facility] panel - Serum or Plasm a anion gap in blood by calculation 5 mmol/ L low: 6mmol/ Lhigh: 16mmol /L low Not Available Not Available 10/12/2024 15:21:46 10/09/19 25 10/08/2024 [facility] 1999 panel - Serum or Plasm a urea nitrogen [mass/volume ] in serum or plasma 7 mg/dL low: 5.3mg/ dLhigh : 18.7mg /dL Not Available Not Available 10/12/2024 15:21:46 10/09/19 25 10/08/2024 [place] [id number] panel - Serum or Plasm a creatinine [mass/volume ] in serum or plasma 0.56 mg/dL low: 0.57mg /dLhig h: 1.11mg /dL low Not Available Not Available 10/12/2024 15:21:46 10/09/19 25 10/08/2024 [facility] [place] [id number] panel - Serum or Plasm a alkaline phosphatase [enzymatic activity/vol ume] in serum or plasma 208 U/L low: 40U/Lh igh: 150U/L high Not Available Not Available 10/12/2024 15:21:46 10/09/19 25 10/08/2024 [facility] [place] [id number] panel - Serum or Plasm a alanine aminotransfe rase [enzymatic activity/vol ume] in serum or plasma 32 U/L low: 6U/Lhi gh: 57U/L Not Available Not Available 10/12/2024 15:21:46 10/09/19 25 10/08/2024 [facility] [place] [facility] 1999 panel - Serum or Plasm a aspartate aminotransfe rase [enzymatic activity/vol ume] in serum or plasma 42 U/L low: 10U/Lh igh: 48U/L Not Available Not Available 10/12/2024 15:21:46 10/09/19 25 10/08/2024 [facility] [place] [facility] 1999 panel - Serum or Plasm a protein [mass/volume ] in serum or plasma 6.8 text: 6.4 - 8.3 gm/dL Not Available Not Available 10/12/2024 15:21:46 10/09/19 25 10/08/2024 [facility] [place] [facility] 2000 panel - Serum or Plasm a albumin [mass/volume ] in serum or plasma 2.9 text: 3.1 - 4.5 gm/dL low Not Available Not Available 10/12/2024 15:21:46 10/09/19 25 10/08/2024 [facility] [place] [facility] 1999 panel - Serum or Plasm a bilirubin.to bob [mass/volume ] in serum or plasma 0.3 mg/dL low: 0.2mg/ dLhigh : 1.2mg/ dL Not Available Not Available 10/12/2024 15:21:46 10/09/19 25 10/08/2024 [facility] [place] [facility] 2000 panel - Serum or Plasm a glomerular filtration rate [volume rate/area] in serum, plasma or blood by creatinine-b ased formula (CKD-epi 2020)/1.73 sq M text: >=90 mL/min /1.73 m2 Not Available Not Available 10/12/2024 15:21:46 10/09/19 25 10/08/2024 [facility] [employer] [place] [employer] [facility] 2000 panel - Serum or Plasm a interpretati on and review of laboratory results Abnorm al Not Available Not Available 15:21:46 10/09/19 25 10/08/2024 ABO and Rh group [Type ] in Blood ABO and Rh group [type] in blood O POS Not Available Not Available 06/2024 15:20:01 10/09/19 25 10/08/2024 CBC panel - Blood by Autom ated count leukocytes [#/volume] in blood by automated count 7 text: 4.0 - 10.7 x10e9/ L Not Available Not Available 10/12/2024 15:20:10/09/1910/08/2024 CBC panel - Blood by Autom ated count erythrocytes [#/volume] in blood by automated count 4.1 text: 3.90 - 5.20 x10e12 /L Not Available Not Available 10/12/2024 15:20:10/09/1910/08/2024 CBC panel - Blood by Autom ated count hemoglobin [mass/volume ] in blood 13.7 g/dL low: 11.9g/ dLhigh : 15.8g/ dL Not Available Not Available 10/12/2024 15:20:10/09/1910/08/2024 CBC panel - Blood by Autom ated count hematocrit [volume fraction] of blood by automated count 40.5 % low: 34.8%h igh: 46.1% Not Available Not Available 10/12/2024 15:20:01 10/09/1910/08/2024 CBC panel - Blood by Autom ated count MCV [entitic mean volume] in red blood cells by automated count 98.8 fL low: 80fLhi gh: 98fL high Not Available Not Available 10/12/2024 15:20:01 10/09/1910/08/2024 CBC panel - Blood by Autom ated count MCH [entitic mass] by automated count 33.4 pg low: 26.7pg high: 33.6pg Not Available Not Available 10/12/2024 15:20:01 10/09/1910/08/2024 CBC panel - Blood by Autom ated count MCHC [entitic mass/volume] in red blood cells by automated count 33.8 g/dL low: 31.7g/ dLhigh : 36.3g/ dL Not Available Not Available 10/12/2024 15:20:01 10/09/1910/08/2024 CBC panel - Blood by Autom ated count erythrocyte [distwidth] in red blood cells by automated count 13.2 % low: 11.3%h igh: 14.8% Not Available Not Available 10/12/2024 15:20:01 10/09/1910/08/2024 CBC panel - Blood by Autom ated count platelets [#/volume] in blood by automated count 222 text: 150 - 420 x10e9/ L Not Available Not Available 10/12/2024 15:20:01 10/09/1910/08/2024 CBC panel - Blood by Autom ated count platelet [entitic mean volume] in blood by automated count 10 fL low: 7.8fLh igh: 11.4fL Not Available Not Available 10/12/2024 15:20:01 10/09/1910/08/2024 CBC panel - Blood by Autom ated count interpretati on and review of laboratory results Abnorm al Not Available Not Available 15:20:10/09/1910/08/2024 Gluco se [Mass /volu me] in Serum or Plasm a glucose [mass/volume ] in serum or plasma --1st specimen post xxx challenge 116 mg/dL low: 64mg/d Lhigh: 140mg/ dL Not Available Not Available 10/12/2024 15:20:01 10/09/1910/08/2024 Gluco se [Mass /volu me] in Serum or Plasm a length of time post dose Not Available Not Available 06/2024 15:20:01 10/09/1910/08/2024 Urina lysis panel - Urine by Autom ated color of urine by auto Colorl ess text: yellow , straw abnormal Not Available Not Available 10/12/2024 15:20:01 10/09/1910/08/2024 Urina lysis panel - Urine by Autom ated clarity in urine by refractometr y automated Clear text: clear Not Available Not Available 10/12/2024 15:20:01 10/09/1910/08/2024 Urina lysis panel - Urine by Autom ated glucose [presence] in urine by test strip Normal text: normal Not Available Not Available 10/12/2024 15:20:01 10/09/1910/08/2024 Urina lysis panel - Urine by Autom ated bilirubin.to bob [presence] in urine by test strip Negati ve text: negati ve Not Available Not Available 10/12/2024 15:20:01 10/09/1910/08/2024 Urina lysis panel - Urine by Autom ated ketones [presence] in urine by automated test strip Negati ve text: negati ve Not Available Not Available 10/12/2024 15:20:01 10/09/19 25 10/08/2024 Urina lysis panel - Urine by Autom ated specific gravity of urine by test strip 1.005 low: 1.005h igh: 1.03 Not Available Not Available 10/12/2024 15:20:01 10/09/1910/08/2024 Urina lysis panel - Urine by Autom ated hemoglobin [presence] in urine by test strip Negati ve text: negati ve Not Available Not Available 10/12/2024 15:20:01 10/09/1910/08/2024 Urina lysis panel - Urine by Autom ated pH of urine by test strip 6 pH low: 5pHhig h: 8pH Not Available Not Available 10/12/2024 15:20:01 10/09/1910/08/2024 Urina lysis panel - Urine by Autom ated protein [presence] in urine by test strip Negati ve text: negati ve Not Available Not Available 10/12/2024 15:20:01 10/09/1910/08/2024 Urina lysis panel - Urine by Autom ated urobilinogen [mass/volume ] in urine by automated test strip Normal text: normal mg/dL Not Available Not Available 10/12/2024 15:20:01 10/09/1910/08/2024 Urina lysis panel - Urine by Autom ated nitrite [presence] in urine by test strip Negati ve text: negati ve Not Available Not Available 10/12/2024 15:20:01 10/09/19 25 10/08/2024 Urina lysis panel - Urine by Autom ated leukocyte esterase [presence] in urine by test strip Negati ve text: negati ve Not Available Not Available 10/12/2024 15:20:01 10/09/19 25 10/08/2024 Urina lysis panel - Urine by Autom ated service comment Cultur e not indica marie Not Available Not Available 15:20:01 10/09/19 25 10/08/2024 Urina lysis panel - Urine by Autom ated Unknown Analyte Not Available Not Available 06/2024 15:20:01 10/09/19 25 10/08/2024 Urina lysis panel - Urine by Autom ated interpretati on and review of laboratory results Abnorm al Not Available Not Available 15:20:01 10/09/19 25 10/08/2024 Prote in/Cr eatin ine [Mass Ratio ] in Urine protein [mass/volume ] in 24 hour urine 18.4 mg/dL high: 11.9mg /dL high Not Available Not Available 10/12/2024 15:20:01 10/09/19 25 10/08/2024 Prote in/Cr eatin ine [Mass Ratio ] in Urine creatinine [mass/volume ] in urine 28.5 mg/dL Not Available Not Available 0 10/12/2024 15:20:01 10/09/19 25 10/08/2024 Prote in/Cr eatin ine [Mass Ratio ] in Urine protein/crea tinine [mass ratio] in urine 0.65 Not Available Not Available 06/2024 15:20:01 10/09/19 25 10/08/2024 Prote in/Cr eatin ine [Mass Ratio ] in Urine interpretati on and review of laboratory results Abnorm al Not Available Not Available 15:20:01 10/09/1910/08/2024 Urina lysis dipst ick panel - Urine by Autom ated test strip color of urine Yellow text: straw, yellow , dark yellow , light yellow Not Available Not Available 12/01/2024 04:22:12 10/09/19 25 10/08/2024 Urina lysis dipst ick panel - Urine by Autom ated test strip clarity of urine Clear text: clear Not Available Not Available 12/01/2024 04:22:12 10/09/1910/08/2024 Urina lysis dipst ick panel - Urine by Autom ated test strip pH of urine by test strip 6 pH low: 5pHhig h: 8pH Not Available Not Available 12/01/2024 04:22:12 10/09/19 25 10/08/2024 Urina lysis dipst ick panel - Urine by Autom ated test strip protein [presence] in urine by test strip 1+ text: negati ve abnormal Not Available Not Available 12/01/2024 04:22:12 10/09/19 25 10/08/2024 Urina lysis dipst ick panel - Urine by Autom ated test strip hemoglobin [presence] in urine by test strip Negati ve text: negati ve Not Available Not Available 12/01/2024 04:22:12 10/09/19 25 10/08/2024 Urina lysis dipst ick panel - Urine by Autom ated test strip leukocyte esterase [presence] in urine by test strip Negati ve text: negati ve Not Available Not Available 12/01/2024 04:22:12 10/09/19 25 10/08/2024 Urina lysis dipst ick panel - Urine by Autom ated test strip nitrite [presence] in urine by test strip Negati ve text: negati ve Not Available Not Available 12/01/2024 04:22:12 10/09/19 25 10/08/2024 Urina lysis dipst ick panel - Urine by Autom ated test strip glucose [presence] in urine by test strip Negati ve text: negati ve Not Available Not Available 12/01/2024 04:22:12 10/09/19 25 10/08/2024 Urina lysis dipst ick panel - Urine by Autom ated test strip ketones [presence] in urine by test strip Negati ve text: negati ve Not Available Not Available 12/01/2024 04:22:12 10/09/1910/08/2024 Urina lysis dipst ick panel - Urine by Autom ated test strip bilirubin.to bob [presence] in urine by test strip Negati ve text: negati ve Not Available Not Available 12/01/2024 04:22:12 10/09/19 25 10/08/2024 Urina lysis dipst ick panel - Urine by Autom ated test strip urobilinogen [units/volum e] in urine by test strip 0.2 eu/dL low: 0.1eu/ dLhigh : 1eu/dL Not Available Not Available 12/01/2024 04:22:12 10/09/19 25 10/08/2024 Urina lysis dipst ick panel - Urine by Autom ated test strip interpretati on and review of laboratory results Abnorm al Not Available Not Available 04:22:12 10/09/1910/08/2024 Urina lysis dipst ick panel - Urine by Autom ated test strip color of urine Yellow text: straw, yellow , dark yellow , light yellow Not Available Not Available 10/12/2024 15:19:56 10/09/1910/08/2024 Urina lysis dipst ick panel - Urine by Autom ated test strip clarity of urine Clear text: clear Not Available Not Available 10/12/2024 15:19:56 10/09/19 25 10/08/2024 Urina lysis dipst ick panel - Urine by Autom ated test strip urinalysis dipstick panel - urine by automated test strip 1.015 low: 1.005h igh: 1.03 Not Available Not Available 10/12/2024 15:19:56 10/09/1910/08/2024 Urina lysis dipst ick panel - Urine by Autom ated test strip pH of urine by test strip 6 pH low: 5pHhig h: 8pH Not Available Not Available 10/12/2024 15:19:56 10/09/1910/08/2024 Urina lysis dipst ick panel - Urine by Autom ated test strip protein [presence] in urine by test strip 1+ text: negati ve abnormal Not Available Not Available 10/12/2024 15:19:56 10/09/1910/08/2024 Urina lysis dipst ick panel - Urine by Autom ated test strip hemoglobin [presence] in urine by test strip Negati ve text: negati ve Not Available Not Available 10/12/2024 15:19:56 10/09/1910/08/2024 Urina lysis dipst ick panel - Urine by Autom ated test strip leukocyte esterase [presence] in urine by test strip Negati ve text: negati ve Not Available Not Available 10/12/2024 15:19:56 10/09/19 25 10/08/2024 Urina lysis dipst ick panel - Urine by Autom ated test strip nitrite [presence] in urine by test strip Negati ve text: negati ve Not Available Not Available 10/12/2024 15:19:56 10/09/1910/08/2024 Urina lysis dipst ick panel - Urine by Autom ated test strip glucose [presence] in urine by test strip Negati ve text: negati ve Not Available Not Available 10/12/2024 15:19:56 10/09/19 25 10/08/2024 Urina lysis dipst ick panel - Urine by Autom ated test strip ketones [presence] in urine by test strip Negati ve text: negati ve Not Available Not Available 10/12/2024 15:19:56 10/09/19 25 10/08/2024 Urina lysis dipst ick panel - Urine by Autom ated test strip bilirubin.to bob [presence] in urine by test strip Negati ve text: negati ve Not Available Not Available 10/12/2024 15:19:56 10/09/1910/08/2024 Urina lysis dipst ick panel - Urine by Autom ated test strip urobilinogen [units/volum e] in urine by test strip 0.2 eu/dL low: 0.1eu/ dLhigh : 1eu/dL Not Available Not Available 10/12/2024 15:19:56 10/09/1910/08/2024 Urina lysis dipst ick panel - Urine by Autom ated test strip interpretati on and review of laboratory results Abnorm al Not Available Not Available 15:19:56 10/10/1910/09/2024 Prote in [Mass /time ] in 24 hour Urine volume of 24 hour urine 1280 mL Not Available Not Available 0 10/12/2024 15:20:01 10/10/19 25 10/09/2024 Prote in [Mass /time ] in 24 hour Urine collection duration of urine 24 text: hrs Not Available Not Available 10/12/2024 15:20:01 10/10/19 25 10/09/2024 Prote in [Mass /time ] in 24 hour Urine protein [mass/time] in 24 hour urine 385 text: <300 mg/24H R high Not Available Not Available 10/12/2024 15:20:01 10/10/19 25 10/09/2024 Prote in [Mass /time ] in 24 hour Urine protein [mass/volume ] in 24 hour urine 30.1 mg/dL high: 11.9mg /dL high Not Available Not Available 10/12/2024 15:20:10/10/1910/09/2024 Prote in [Mass /time ] in 24 hour Urine interpretati on and review of laboratory results Abnorm al Not Available Not Available 15:20:10/10/19 25 10/09/2024 CBC W Auto Diffe ana al panel - Blood leukocytes [#/volume] in blood by automated count 7.4 text: 4.0 - 10.7 x10e9/ L Not Available Not Available 10/12/2024 15:20:10/10/19 25 10/09/2024 CBC W Auto Diffe rensally al panel - Blood erythrocytes [#/volume] in blood by automated count 4.08 text: 3.90 - 5.20 x10e12 /L Not Available Not Available 10/12/2024 15:20:01 10/10/1910/09/2024 CBC W Auto Diffe ana burk panel - Blood hemoglobin [mass/volume ] in blood 13.7 g/dL low: 11.9g/ dLhigh : 15.8g/ dL Not Available Not Available 10/12/2024 15:20:10/10/1910/09/2024 CBC W Auto Diffe renti al panel - Blood hematocrit [volume fraction] of blood by automated count 40.6 % low: 34.8%h igh: 46.1% Not Available Not Available 10/12/2024 15:20:01 10/10/1910/09/2024 CBC W Auto Diffe rensally al panel - Blood MCV [entitic mean volume] in red blood cells by automated count 99.5 fL low: 80fLhi gh: 98fL high Not Available Not Available 10/12/2024 15:20:10/10/1910/09/2024 CBC W Auto Diffe renti al panel - Blood MCH [entitic mass] by automated count 33.6 pg low: 26.7pg high: 33.6pg Not Available Not Available 10/12/2024 15:20:01 10/10/1910/09/2024 CBC W Auto Diffe renti al panel - Blood MCHC [entitic mass/volume] in red blood cells by automated count 33.7 g/dL low: 31.7g/ dLhigh : 36.3g/ dL Not Available Not Available 10/12/2024 15:20:01 10/10/19 25 10/09/2024 CBC W Auto Diffe renti al panel - Blood erythrocyte [distwidth] in red blood cells by automated count 13.3 % low: 11.3%h igh: 14.8% Not Available Not Available 10/12/2024 15:20:01 10/10/19 25 10/09/2024 CBC W Auto Diffe renti al panel - Blood platelets [#/volume] in blood by automated count 239 text: 150 - 420 x10e9/ L Not Available Not Available 10/12/2024 15:20:01 10/10/19 25 10/09/2024 CBC W Auto Diffe renti al panel - Blood platelet [entitic mean volume] in blood by automated count 10.8 fL low: 7.8fLh igh: 11.4fL Not Available Not Available 10/12/2024 15:20:01 10/10/19 25 10/09/2024 CBC W Auto Diffe renti al panel - Blood neutrophils/ leukocytes in blood by automated count 43.1 % low: 41%hig h: 74% Not Available Not Available 10/12/2024 15:20:01 10/10/19 25 10/09/2024 CBC W Auto Diffe renti al panel - Blood lymphocytes/ leukocytes in blood by automated count 45.3 % low: 17%hig h: 47% Not Available Not Available 10/12/2024 15:20:01 10/10/19 25 10/09/2024 CBC W Auto Diffe renti al panel - Blood monocytes/le ukocytes in blood by automated count 8 % low: 3%high : 11% Not Available Not Available 10/12/2024 15:20:01 10/10/19 25 10/09/2024 CBC W Auto Diffe renti al panel - Blood eosinophils/ leukocytes in blood by automated count 2.8 % low: 0%high : 7% Not Available Not Available 10/12/2024 15:20:01 10/10/19 25 10/09/2024 CBC W Auto Diffe renti al panel - Blood basophils/le ukocytes in blood by automated count 0.4 % low: 0%high : 1.6% Not Available Not Available 10/12/2024 15:20:01 10/10/1910/09/2024 CBC W Auto Diffe renti al panel - Blood immature granulocytes /leukocytes in blood by automated count 0.4 % low: 0%high : 1% Not Available Not Available 10/12/2024 15:20:01 10/10/1910/09/2024 CBC W Auto Diffe renti al panel - Blood neutrophils [#/volume] in blood by automated count 3.17 text: 1.60 - 7.50 x10e9/ L Not Available Not Available 10/12/2024 15:20:10/10/1910/09/2024 CBC W Auto Diffe renti al panel - Blood lymphocytes [#/volume] in blood by automated count 3.34 text: 1.00 - 4.40 x10e9/ L Not Available Not Available 10/12/2024 15:20:01 10/10/1910/09/2024 CBC W Auto Diffe renti al panel - Blood monocytes [#/volume] in blood by automated count 0.59 text: 0.15 - 1.00 x10e9/ L Not Available Not Available 10/12/2024 15:20:01 10/10/1910/09/2024 CBC W Auto Diffe renti al panel - Blood eosinophils [#/volume] in blood 0.21 text: 0.00 - 0.60 x10e9/ L Not Available Not Available 10/12/2024 15:20:01 10/10/1910/09/2024 CBC W Auto Diffe renti al panel - Blood basophils [#/volume] in blood by automated count 0.03 text: 0.00 - 0.13 x10e9/ L Not Available Not Available 10/12/2024 15:20:01 10/10/1910/09/2024 CBC W Auto Diffe renti al panel - Blood interpretati on and review of laboratory results Abnorm al Not Available Not Available 15:20:01 10/10/1910/09/2024 Compr [facility] [place] [facility] 1999 panel - Serum or Plasm a glucose [mass/volume ] in serum or plasma 83 mg/dL low: 70mg/d Lhigh: 99mg/d L Not Available Not Available 10/12/2024 15:20:01 10/10/19 25 10/09/2024 [facility] [place] [facility] 1999 panel - Serum or Plasm a sodium [moles/volum e] in serum or plasma 135 mmol/ L low: 136mmo l/Lhig h: 145mmo l/L low Not Available Not Available 10/12/2024 15:20:01 10/10/19 25 10/09/2024 [facility] [facility] panel - Serum or Plasm a potassium [moles/volum e] in serum or plasma 4.1 mmol/ L low: 3.5mmo l/Lhig h: 5.1mmo l/L Not Available Not Available 10/12/2024 15:20:01 10/10/19 25 10/09/2024 [facility] [place] [facility] 1999 panel - Serum or Plasm a chloride [moles/volum e] in serum or plasma 111 mmol/ L low: 98mmol /Lhigh : 107mmo l/L high Not Available Not Available 10/12/2024 15:20:01 10/10/19 25 10/09/2024 [facility] [place] [facility] 1999 panel - Serum or Plasm a carbon dioxide, total [moles/volum e] in serum or plasma 20 mmol/ L low: 22mmol /Lhigh : 29mmol /L low Not Available Not Available 10/12/2024 15:20:01 10/10/19 25 10/09/2024 [facility] [place] [facility] 1999 panel - Serum or Plasm a calcium [mass/volume ] in serum or plasma 8.1 mg/dL low: 8.4mg/ dLhigh : 10.4mg /dL low Not Available Not Available 10/12/2024 15:20:01 10/10/19 25 10/09/2024 [facility] [place] [facility] 1999 panel - Serum or Plasm a anion gap in blood by calculation 4 mmol/ L low: 6mmol/ Lhigh: 16mmol /L low Not Available Not Available 10/12/2024 15:20:01 10/10/19 25 10/09/2024 [facility] [employer] [place] [employer] [facility] 1999 panel - Serum or Plasm a urea nitrogen [mass/volume ] in serum or plasma 10 mg/dL low: 5.3mg/ dLhigh : 18.7mg /dL Not Available Not Available 10/12/2024 15:20:01 10/10/19 25 10/09/2024 [facility] [employer] [facility] 1999 panel - Serum or Plasm a creatinine [mass/volume ] in serum or plasma 0.53 mg/dL low: 0.57mg /dLhig h: 1.11mg /dL low Not Available Not Available 10/12/2024 15:20:01 10/10/19 25 10/09/2024 [facility] [employer] [facility] 1999 panel - Serum or Plasm a alkaline phosphatase [enzymatic activity/vol ume] in serum or plasma 221 U/L low: 40U/Lh igh: 150U/L high Not Available Not Available 10/12/2024 15:20:01 10/10/19 25 10/09/2024 [facility] [employer] [facility] 1999 panel - Serum or Plasm a alanine aminotransfe rase [enzymatic activity/vol ume] in serum or plasma 33 U/L low: 6U/Lhi gh: 57U/L Not Available Not Available 10/12/2024 15:20:01 10/10/19 25 10/09/2024 [facility] [employer] [facility] 1999 panel - Serum or Plasm a aspartate aminotransfe rase [enzymatic activity/vol ume] in serum or plasma 36 U/L low: 10U/Lh igh: 48U/L Not Available Not Available 10/12/2024 15:20:01 10/10/19 25 10/09/2024 [facility] [employer] [facility] 1999 panel - Serum or Plasm a protein [mass/volume ] in serum or plasma 6.4 text: 6.4 - 8.3 gm/dL Not Available Not Available 10/12/2024 15:20:01 10/10/19 25 10/09/2024 [facility] [employer] [facility] 1999 panel - Serum or Plasm a albumin [mass/volume ] in serum or plasma 2.7 text: 3.1 - 4.5 gm/dL low Not Available Not Available 10/12/2024 15:20:01 10/10/19 25 10/09/2024 Compr [employer] [place] [facility] 1999 panel - Serum or Plasm a bilirubin.to bob [mass/volume ] in serum or plasma 0.3 mg/dL low: 0.2mg/ dLhigh : 1.2mg/ dL Not Available Not Available 10/12/2024 15:20:01 10/10/19 25 10/09/2024 [facility]pr [facility] [facility] 2000 panel - Serum or Plasm a glomerular filtration rate [volume rate/area] in serum, plasma or blood by creatinine-b ased formula (CKD-epi 2020)/1.73 sq M text: >=90 mL/min /1.73 m2 Not Available Not Available 10/12/2024 15:20:01 10/10/19 25 10/09/2024 Compr [employer] [place] [employer] 2000 panel - Serum or Plasm a interpretati on and review of laboratory results Abnorm al Not Available Not Available 15:20:01 10/14/19 25 10/13/2024 [facility] [employer] [place] [employer] 1999 panel - Serum or Plasm a glucose [mass/volume ] in serum or plasma 74 mg/dL low: 70mg/d Lhigh: 99mg/d L Not Available Not Available 10/28/2024 13:36:46 10/14/19 25 10/13/2024 [facility]pr [facility] [facility] 2000 panel - Serum or Plasm a sodium [moles/volum e] in serum or plasma 136 mmol/ L low: 136mmo l/Lhig h: 145mmo l/L Not Available Not Available 10/28/2024 13:36:46 10/14/19 25 10/13/2024 Compr [facility] [facility] 2000 panel - Serum or Plasm a potassium [moles/volum e] in serum or plasma 4.1 mmol/ L low: 3.5mmo l/Lhig h: 5.1mmo l/L Not Available Not Available 10/28/2024 13:36:46 10/14/19 25 10/13/2024 Compr [facility] [facility] 2000 panel - Serum or Plasm a chloride [moles/volum e] in serum or plasma 110 mmol/ L low: 98mmol /Lhigh : 107mmo l/L high Not Available Not Available 10/28/2024 13:36:46 10/14/19 25 10/13/2024 [facility] [employer] [place] [employer] [facility] 1999 panel - Serum or Plasm a carbon dioxide, total [moles/volum e] in serum or plasma 19 mmol/ L low: 22mmol /Lhigh : 29mmol /L low Not Available Not Available 10/28/2024 13:36:46 10/14/19 25 10/13/2024 [facility] [place] [facility] 1999 panel - Serum or Plasm a calcium [mass/volume ] in serum or plasma 8.4 mg/dL low: 8.4mg/ dLhigh : 10.4mg /dL Not Available Not Available 10/28/2024 13:36:46 10/14/19 25 10/13/2024 [facility] [employer] [facility] 1999 panel - Serum or Plasm a anion gap in blood by calculation 7 mmol/ L low: 6mmol/ Lhigh: 16mmol /L Not Available Not Available 10/28/2024 13:36:46 10/14/19 25 10/13/2024 [facility] [employer] [facility] 1999 panel - Serum or Plasm a urea nitrogen [mass/volume ] in serum or plasma 9 mg/dL low: 5.3mg/ dLhigh : 18.7mg /dL Not Available Not Available 10/28/2024 13:36:46 10/14/19 25 10/13/2024 [facility] [employer] [facility] 1999 panel - Serum or Plasm a creatinine [mass/volume ] in serum or plasma 0.54 mg/dL low: 0.57mg /dLhig h: 1.11mg /dL low Not Available Not Available 10/28/2024 13:36:46 10/14/19 25 10/13/2024 [facility] [employer] [facility] 1999 panel - Serum or Plasm a alkaline phosphatase [enzymatic activity/vol ume] in serum or plasma 214 U/L low: 40U/Lh igh: 150U/L high Not Available Not Available 10/28/2024 13:36:46 10/14/19 25 10/13/2024 [facility] [employer] [place] [facility] [employer] 2000 panel - Serum or Plasm a alanine aminotransfe rase [enzymatic activity/vol ume] in serum or plasma 28 U/L low: 6U/Lhi gh: 57U/L Not Available Not Available 10/28/2024 13:36:46 10/14/19 25 10/13/2024 Compr [place] metab ol 1999 panel - Serum or Plasm a aspartate aminotransfe rase [enzymatic activity/vol ume] in serum or plasma 36 U/L low: 10U/Lh igh: 48U/L Not Available Not Available 10/28/2024 13:36:46 10/14/19 25 10/13/2024 Compr [place] metab [facility] 1999 panel - Serum or Plasm a protein [mass/volume ] in serum or plasma 6.4 text: 6.4 - 8.3 gm/dL Not Available Not Available 10/28/2024 13:36:46 10/14/19 25 10/13/2024 Compr [place] [facility]lic 1999 panel - Serum or Plasm a albumin [mass/volume ] in serum or plasma 2.8 text: 3.1 - 4.5 gm/dL low Not Available Not Available 10/28/2024 13:36:46 10/14/19 25 10/13/2024 Compr [place] metab [facility] 1999 panel - Serum or Plasm a bilirubin.to bob [mass/volume ] in serum or plasma 0.4 mg/dL low: 0.2mg/ dLhigh : 1.2mg/ dL Not Available Not Available 10/28/2024 13:36:46 10/14/19 25 10/13/2024 Compr [place] metab [facility] 2000 panel - Serum or Plasm a glomerular filtration rate [volume rate/area] in serum, plasma or blood by creatinine-b ased formula (CKD-epi 2020)/1.73 sq M text: >=90 mL/min /1.73 m2 Not Available Not Available 10/28/2024 13:36:46 10/14/19 25 10/13/2024 Compr [place] metab ic 2000 panel - Serum or Plasm a interpretati on and review of laboratory results Abnorm al Not Available Not Available 13:36:46 10/14/19 25 10/13/2024 [facility] panel - Blood leukocytes [#/volume] in blood by automated count 7.4 text: 4.0 - 10.7 x10e9/ L Not Available Not Available 10/28/2024 13:36:46 10/14/19 25 10/13/2024 [facility] ana al panel - Blood erythrocytes [#/volume] in blood by automated count 3.84 text: 3.90 - 5.20 x10e12 /L low Not Available Not Available 10/28/2024 13:36:46 10/14/19 25 10/13/2024 [facility] ana al panel - Blood hemoglobin [mass/volume ] in blood 13 g/dL low: 11.9g/ dLhigh : 15.8g/ dL Not Available Not Available 10/28/2024 13:36:46 10/14/19 25 10/13/2024 [facility] ana al panel - Blood hematocrit [volume fraction] of blood by automated count 37.5 % low: 34.8%h igh: 46.1% Not Available Not Available 10/28/2024 13:36:46 10/14/19 25 10/13/2024 [facility]k panel - Blood MCV [entitic mean volume] in red blood cells by automated count 97.7 fL low: 80fLhi gh: 98fL Not Available Not Available 10/28/2024 13:36:46 10/14/19 25 10/13/2024 [facility] ana burk panel - Blood MCH [entitic mass] by automated count 33.9 pg low: 26.7pg high: 33.6pg high Not Available Not Available 10/28/2024 13:36:46 10/14/19 25 10/13/2024 [facility] ana burk panel - Blood MCHC [entitic mass/volume] in red blood cells by automated count 34.7 g/dL low: 31.7g/ dLhigh : 36.3g/ dL Not Available Not Available 10/28/2024 13:36:46 10/14/19 25 10/13/2024 [facility] ana al panel - Blood erythrocyte [distwidth] in red blood cells by automated count 13.2 % low: 11.3%h igh: 14.8% Not Available Not Available 10/28/2024 13:36:46 10/14/19 25 10/13/2024 [facility] panel - Blood platelets [#/volume] in blood by automated count 254 text: 150 - 420 x10e9/ L Not Available Not Available 10/28/2024 13:36:46 10/14/19 25 10/13/2024 [facility] panel - Blood platelet [entitic mean volume] in blood by automated count 10.1 fL low: 7.8fLh igh: 11.4fL Not Available Not Available 10/28/2024 13:36:46 10/14/19 25 10/13/2024 [facility] al panel - Blood neutrophils/ leukocytes in blood by automated count 54.4 % low: 41%hig h: 74% Not Available Not Available 10/28/2024 13:36:46 10/14/19 25 10/13/2024 [facility] al panel - Blood lymphocytes/ leukocytes in blood by automated count 36.1 % low: 17%hig h: 47% Not Available Not Available 10/28/2024 13:36:46 10/14/19 25 10/13/2024 [facility] panel - Blood monocytes/le ukocytes in blood by automated count 7.1 % low: 3%high : 11% Not Available Not Available 10/28/2024 13:36:46 10/14/19 25 10/13/2024 [facility] al panel - Blood eosinophils/ leukocytes in blood by automated count 1.9 % low: 0%high : 7% Not Available Not Available 10/28/2024 13:36:46 10/14/19 25 10/13/2024 [facility] al panel - Blood basophils/le ukocytes in blood by automated count 0.1 % low: 0%high : 1.6% Not Available Not Available 10/28/2024 13:36:46 10/14/19 25 10/13/2024 CBC W [facility] renti al panel - Blood immature granulocytes /leukocytes in blood by automated count 0.4 % low: 0%high : 1% Not Available Not Available 10/28/2024 13:36:46 10/14/19 25 10/13/2024 CBC W [facility] renti al panel - Blood neutrophils [#/volume] in blood by automated count 4.04 text: 1.60 - 7.50 x10e9/ L Not Available Not Available 10/28/2024 13:36:46 10/14/19 25 10/13/2024 CBC W [facility] renti al panel - Blood lymphocytes [#/volume] in blood by automated count 2.68 text: 1.00 - 4.40 x10e9/ L Not Available Not Available 10/28/2024 13:36:46 10/14/19 25 10/13/2024 CBC W [facility]i al panel - Blood monocytes [#/volume] in blood by automated count 0.53 text: 0.15 - 1.00 x10e9/ L Not Available Not Available 10/28/2024 13:36:46 10/14/19 25 10/13/2024 CBC W [facility] renti al panel - Blood eosinophils [#/volume] in blood 0.14 text: 0.00 - 0.60 x10e9/ L Not Available Not Available 10/28/2024 13:36:46 10/14/19 25 10/13/2024 CBC [facility]i al panel - Blood basophils [#/volume] in blood by automated count 0.01 text: 0.00 - 0.13 x10e9/ L Not Available Not Available 10/28/2024 13:36:46 10/14/19 25 10/13/2024 [facility] al panel - Blood interpretati on and review of laboratory results Abnorm al Not Available Not Available 13:36:46 10/14/19 25 10/13/2024 Blood type and Indir ect antib rell scree n panel - Blood ABO and Rh group [type] in blood O POS Histo ry check ed. Not Available Not Available 10/28/2024 13:36:46 10/14/19 25 10/13/2024 Blood type and Indir ect antib rell scree n panel - Blood blood group antibody screen [presence] in serum or plasma NEG Not Available Not Available 10/11 13:36:46 10/15/19 25 10/20/2024 Patho logy study pathology report.secti on heading Surgic al Pathol ogy Report Case: [id number] Author indira Villagomez er: Madison Philippe MD [facility] marie: 2024 11:00 AM Orderi ng Locati on: [facility]E ANTEPA RTUM/M OTHER Receiv ed: 2024 11:14 AM BABY Pathol ogist: Driss Coffman MD Specim en: Placen ta Not Available Not Available 13:36:46 10/15/19 25 10/20/2024 Patho logy study pathology report final diagnosis narrative Placen ta, delive ry - Disrup marie placen bob disc (compl etenes s cannot be confir med) - Villou s matura tion consis tent with gestat ional age, with distal villou s hypopl jac, focal acute villou s edema, and focal avascu lar termin al villi - Circul ating nuclea marie red blood cells - membra katie with no histop atholo gic abnorm ality - Single umbili ayden artery - Margin al cord insert ion Not Available Not Available 13:36:46 10/15/19 25 10/20/2024 Patho logy study pathology report addendum in specimen narrative The placen bob weight is less than 10th percen tile for gestat ional age. Not Available Not Available 13:36:46 10/15/19 25 10/20/2024 Patho logy study pathology report relevant history narrative The shane motta is a 29-yea r-old woman at 28 weeks, 3 days gestat ion. Proced ure: delive ry. Not Available Not Available 13:36:46 10/15/19 25 10/20/2024 Patho logy study pathology report gross observation narrative The specim en is identi fied with the shane motta's name and date of . Receiv ed in formal in, specim en A placen ta is a placen bob disc with attach ed umbili ayden cord and membra katie. The umbili ayden cord is insert ed margin ally at margin , measur ing 22 cm long and 1.1 cm diamet er. The cord is bivasc ular and approp riatel y coiled . The membra katie insert margin ally and are pink-p urple, mildly opaque . The surfac e is blue-p urple with normal vascul ature. The matern al surfac e is disrup marie and appear s incomp lete at the periph luanne. Minima l nonadh erent clot is presen t at the periph luanne but no with no indent ation. The placen bob disc is 105 g, 11.5 x 10.2 x 1.9 cm. Sectio hetal shows red-br own, spongy cut surfac es. Repres entati ve sectio ns submit marie as follow s: A1-umb ilical cord and membra ne roll, A2-A4- placen ta. LJ Not Available Not Available 13:36:46 10/15/19 25 10/20/2024 Patho logy study pathology report microscopic observation narrative other stain Micros copic examin ation substa ntiate s the above diagno sis. Not Available Not Available 13:36:46 10/15/19 25 10/20/2024 Patho logy study pathologist location at [facility] Not Available Not Available 13:36:46 10/15/19 25 10/20/2024 Patho logy study service comment All histoc hemica l and/or immuno histoc hemica l result s are interp reted with contro ls that demons trate approp riate staini ng reacti ons before report ing result s. Note on use of immuno cytoch emistr y reagen ts: This test was develo ped and its perfor feliz charac terist ic determ ined by [facility] , Depart ment of Labora tory Medici ne. It has not been cleare d or approv ed by the [place]. Food and Drug Admini strati on (FDA). The FDA has determ ined that such cleara nce or approv al is not necess dillon. The test is used for clinic al purpos e. It should not be regard ed as invest igatio nal or for resear ch. This labora tory is certif ied to perfor m high comple nataliia gould. The perfor feliz blake ics of the IHC/IS H assays have been valida marie on formal in-fix ed paraff in embedd ed tissue s only. The assays have not been valida marie on decalc ified tissue s. Result s should be interp reted with derrek farnsworth Not Available Not Available 13:36:46 10/15/19 25 10/20/2024 Patho logy study embedded images Not Available Not Available 10/11 13:36:46 10/16/19 25 10/15/2024 CBC W Auto Diffe renti al panel - Blood leukocytes [#/volume] in blood by automated count 8.5 text: 4.0 - 10.7 x10e9/ L Not Available Not Available 10/28/2024 13:36:47 10/16/19 25 10/15/2024 CBC W Auto Diffe renti al panel - Blood erythrocytes [#/volume] in blood by automated count 3.59 text: 3.90 - 5.20 x10e12 /L low Not Available Not Available 10/28/2024 13:36:47 10/16/19 25 10/15/2024 CBC W Auto Diffe renti al panel - Blood hemoglobin [mass/volume ] in blood 12.2 g/dL low: 11.9g/ dLhigh : 15.8g/ dL Not Available Not Available 10/28/2024 13:36:47 10/16/19 25 10/15/2024 CBC W Auto Diffe renti al panel - Blood hematocrit [volume fraction] of blood by automated count 35.8 % low: 34.8%h igh: 46.1% Not Available Not Available 10/28/2024 13:36:47 10/16/19 25 10/15/2024 CBC W Auto Diffe renti al panel - Blood MCV [entitic mean volume] in red blood cells by automated count 99.7 fL low: 80fLhi gh: 98fL high Not Available Not Available 10/28/2024 13:36:47 10/16/19 25 10/15/2024 CBC W Auto Diffe renti al panel - Blood MCH [entitic mass] by automated count 34 pg low: 26.7pg high: 33.6pg high Not Available Not Available 10/28/2024 13:36:47 10/16/19 25 10/15/2024 CBC W Auto [employer]iffe renti al panel - Blood MCHC [entitic mass/volume] in red blood cells by automated count 34.1 g/dL low: 31.7g/ dLhigh : 36.3g/ dL Not Available Not Available 10/28/2024 13:36:47 10/16/19 25 10/15/2024 CBC W Auto [facility]iffe renti al panel - Blood erythrocyte [distwidth] in red blood cells by automated count 13.2 % low: 11.3%h igh: 14.8% Not Available Not Available 10/28/2024 13:36:47 10/16/19 25 10/15/2024 CBC W Auto Diffe renti al panel - Blood platelets [#/volume] in blood by automated count 197 text: 150 - 420 x10e9/ L Not Available Not Available 10/28/2024 13:36:47 10/16/19 25 10/15/2024 CBC W Auto [employer]i al panel - Blood platelet [entitic mean volume] in blood by automated count 10.1 fL low: 7.8fLh igh: 11.4fL Not Available Not Available 10/28/2024 13:36:47 10/16/19 25 10/15/2024 CBC W Auto Diffe renti al panel - Blood neutrophils/ leukocytes in blood by automated count 63.9 % low: 41%hig h: 74% Not Available Not Available 10/28/2024 13:36:47 10/16/19 25 10/15/2024 CBC W Auto Diffe renti al panel - Blood lymphocytes/ leukocytes in blood by automated count 27.2 % low: 17%hig h: 47% Not Available Not Available 10/28/2024 13:36:47 10/16/19 25 10/15/2024 CBC W Auto Diffe renti al panel - Blood monocytes/le ukocytes in blood by automated count 7.7 % low: 3%high : 11% Not Available Not Available 10/28/2024 13:36:47 10/16/19 25 10/15/2024 CBC W Auto Diffe renti al panel - Blood eosinophils/ leukocytes in blood by automated count 0.9 % low: 0%high : 7% Not Available Not Available 10/28/2024 13:36:47 10/16/19 25 10/15/2024 CBC W Auto Diffe renti al panel - Blood basophils/le ukocytes in blood by automated count 0.1 % low: 0%high : 1.6% Not Available Not Available 10/28/2024 13:36:47 10/16/19 25 10/15/2024 CBC W Auto Diffe renti al panel - Blood immature granulocytes /leukocytes in blood by automated count 0.2 % low: 0%high : 1% Not Available Not Available 10/28/2024 13:36:47 10/16/19 25 10/15/2024 CBC W Auto Diffe renti al panel - Blood neutrophils [#/volume] in blood by automated count 5.41 text: 1.60 - 7.50 x10e9/ L Not Available Not Available 10/28/2024 13:36:47 10/16/19 25 10/15/2024 CBC W Auto Diffe renti al panel - Blood lymphocytes [#/volume] in blood by automated count 2.31 text: 1.00 - 4.40 x10e9/ L Not Available Not Available 10/28/2024 13:36:47 10/16/19 25 10/15/2024 CBC W Auto Diffe renti al panel - Blood monocytes [#/volume] in blood by automated count 0.65 text: 0.15 - 1.00 x10e9/ L Not Available Not Available 10/28/2024 13:36:47 10/16/19 25 10/15/2024 CBC W Auto Diffe renti al panel - Blood eosinophils [#/volume] in blood 0.08 text: 0.00 - 0.60 x10e9/ L Not Available Not Available 10/28/2024 13:36:47 10/16/19 25 10/15/2024 CBC W Auto Diffe renti al panel - Blood basophils [#/volume] in blood by automated count 0.01 text: 0.00 - 0.13 x10e9/ L Not Available Not Available 10/28/2024 13:36:47 10/16/19 25 10/15/2024 CBC W Auto Diffe renti al panel - Blood interpretati on and review of laboratory results Abnorm al Not Available Not Available 13:36:47 10/16/1910/15/2024 Magne sium [Mass /volu me] in Serum or Plasm a magnesium [mass/volume ] in serum or plasma 7.2 mg/dL low: 1.6mg/ dLhigh : 2.6mg/ dL critical high Not Available Not Available 10/28/2024 13:36:46 10/16/19 25 10/15/2024 Magne sium [Mass /volu me] in Serum or Plasm a interpretati on and review of laboratory results Abnorm al Not Available Not Available 13:36:46 10/21/1910/20/2024 Patho logy study pathology report final diagnosis narrative e1xydG YxXGVw aWMxMT IwMVxh bnNpXH NwbHRw Z3Bhcl xqZXhw YW5kXG 5veGxh dHRveW VuXGRl ZmYwe1 clr098 dGJse1 xmMCBB cmlhbD t9fXtc Y29sb3 J0Ymwg O31ccG FwZXJ3 MTIyND BccGFw ZXJoMT U4NDBc bWFyZ2 wxODAw XG1hcm dyMTgw MFxtYX JndDE0 NDBcbW FyZ2Ix NDQwXG hlYWRl cnk3Mj BcZm9v dGVyeT cyMFxw YXJkXH BsYWlu XGZzMj BccGFy XGIgUG xhY2Vu dGEsIG RlbGl2 ZXJ5XH BhciAt ICBEaX NydXB0 ZWQgcG xhY2Vu dGFsIG Rpc2Mg KGNvbX BsZXRl bmVzcy BjYW5u b3QgYm UgY29u ZmlybW VkKVxw YXIgLS AgVmls bG91cy BtYXR1 cmF0aW 9uIGNv bnNpc3 RlbnQg d2l0aC BnZXN0 YXRpb2 5hbCBh Z2UsIH dpdGgg ZGlzdG FsIHZp bGxvdX MgaHlw b3BsYX NpYSwg Zm9jYW wgYWN1 dGUgdm lsbG91 cyBlZG VtYSwg YW5kIG ZvY2Fs IGF2YX NjdWxh ciB0ZX JtaW5h bCB2aW xsaVxw YXIgLS AgQ2ly Y3VsYX Rpbmcg bnVjbG VhdGVk IGZldG FsIHJl ZCBibG 9vZCBj ZWxsc1 xwYXIg LSAgRm V0YWwg bWVtYn JhbmVz IHdpdG ggbm8g aGlzdG 9wYXRo b2xvZ2 ljIGFi bm9ybW FsaXR5 XHBhcl xwYXJk IC0gIF Npbmds ZSB1bW JpbGlj YWwgYX J0ZXJ5 XHBhci AtICBN YXJnaW 5hbCBj b3JkIG luc2Vy dGlvbl xwYXJc cGFyfQ == Not Available Not Available 04:22:11 10/21/19 25 10/20/2024 Patho logy study pathology report addendum in specimen narrative e1xydG YxXGVw aWMxMT IwMVxh bnNpXH NwbHRw Z3Bhcl xqZXhw YW5kXG 5veGxh dHRveW VuXGRl ZmYwe1 ccq891 dGJse1 xmMCBB cmlhbD t9fXtc Y29sb3 J0Ymwg O31ccG FwZXJ3 MTIyND BccGFw ZXJoMT U4NDBc bWFyZ2 wxODAw XG1hcm dyMTgw MFxtYX JndDE0 NDBcbW FyZ2Ix NDQwXG hlYWRl cnk3Mj BcZm9v dGVyeT cyMFxw YXJkXH BsYWlu XGZzMj AgVGhl IHBsYW NlbnRh bCB3ZW lnaHQg aXMgbG VzcyB0 aGFuID EwdGgg cGVyY2 VudGls ZSBmb3 IgZ2Vz dGF0aW 9uYWwg YWdlLl xwYXJ9 Not Available Not Available 04:22:11 10/21/19 25 10/20/2024 Patho logy study pathology report relevant history narrative e1xydG YxXGVw aWMxMT IwMVxh bnNpXH NwbHRw Z3Bhcl xqZXhw YW5kXG 5veGxh dHRveW VuXGRl ZmYwe1 woe487 dGJse1 xmMCBB cmlhbD t9fXtc Y29sb3 J0Ymwg O31ccG FwZXJ3 MTIyND BccGFw ZXJoMT U4NDBc bWFyZ2 wxODAw XG1hcm dyMTgw MFxtYX JndDE0 NDBcbW FyZ2Ix NDQwXG hlYWRl cnk3Mj BcZm9v dGVyeT cyMFxw YXJkXH BsYWlu XGZzMj AgVGhl IHBhdG llbnQg aXMgYS AzMC15 ZWFyLW 9sZCB3 b21hbi BhdCAy OCB3ZW Vrcywg MyBkYX lzIGdl c3RhdG lvbi4g IFByb2 NlZHVy ZTogZG VsaXZl cnkuXH Bhcn0= Not Available Not Available 04:22:11 10/21/19 25 10/20/2024 Patho logy study pathology report gross observation narrative e1xydG YxXGVw aWNWMT EyMDJc YW5zaV xzcGx0 cGdwYX JcamV4 cGFuZF xub3hs YXR0b3 llbiAN ClxkZW ZsYW5n MFxkZW ZsYW5n ZmUwXG RlZmYx XHBhcG VydzEy MjQwXH BhcGVy aDE1OD QwXG1h cmdsMT gwMFxt YXJncj E4MDBc bWFyZ3 QxNDQw XG1hcm diMTQ0 MCANCn tcZm9u dHRibH tcZjFc ZmNoYX JzZXQw XGZzd2 lzcyBB cmlhbD t9fQ0K XHNlY3 RkIA0K e1wqXG VwaWNz ZWN0IF xcc2cg XFxpZC A1MTAw MCBcXG RiIE9W UiAiID U2MTE1 ODcyIi A5OTk5 OSBSRV EgNTY2 NDY0MC A5OTk5 OSBcXG 5oIFxc dCAxIF xcZmwg XFxuY3 17XCpc ZXBpY3 NlY3Qg XFxzZy BcXGlk IDUxMD AyIFxc ZGIgT1 ZSICIg NTYxMT U4NzIi IDk5OT k5IE9W UyAiID ExMDkz NjAwNC IgOTk5 OTkgSE 5PIDQ0 MzM2MT Y2MTIg NTQxNj YgXFxu aCBcXH QgMiBc XHNzID MgXFxm bCBcXG 5jfVxw YXJkIA 0KXHBs YWluXG VwaWNO ZXN0RG 9jMSAN ClxsdH JwYXJc c2EzMF xlcGlj WHNhMz AgDQpc bHRyY2 hcZnMy MCBUaG Ugc3Bl Y2ltZW 4gaXMg aWRlbn RpZmll ZCB3aX RoIHRo ZSBwYX RpZW50 J3Mgbm FtZSBh bmQgZG F0ZSBv ZiBiaX J0aC4g IFJlY2 VpdmVk IGluIG Zvcm1h bGluLC BzcGVj aW1lbi BBICIg cGxhY2 VudGEi IGlzIG EgcGxh Y2VudG FsIGRp c2Mgd2 l0aCBh dHRhY2 hlZCB1 bWJpbG ljYWwg Y29yZC BhbmQg bWVtYn JhbmVz LiAgVG hlIHVt YmlsaW NhbCBj b3JkIG lzIGlu c2VydG VkIG1h cmdpbm FsbHkg YXQgbW FyZ2lu LCBtZW FzdXJp bmcgMj IgY20g bG9uZy BhbmQg MS4xIG NtIGRp YW1ldG VyLiAg VGhlIG NvcmQg aXMgYm l2YXNj dWxhci BhbmQg YXBwcm 9wcmlh dGVseS Bjb2ls ZWQuIC BUaGUg bWVtYn JhbmVz IGluc2 VydCBt YXJnaW 5hbGx5 IGFuZC BhcmUg cGluay 1wdXJw bGUsIG 1pbGRs eSBvcG FxdWUu ICBUaG UgZmV0 YWwgc3 VyZmFj ZSBpcy BibHVl LXB1cn BsZSB3 aXRoIG 5vcm1h bCB2YX NjdWxh dHVyZS 4gIFRo ZSBtYX Rlcm5h bCBzdX JmYWNl IGlzIG Rpc3J1 cHRlZC BhbmQg YXBwZW FycyBp bmNvbX BsZXRl IGF0IH RoZSBw ZXJpcG hlcnku ICBNaW 5pbWFs IG5vbm FkaGVy ZW50IG Nsb3Qg aXMgcH Jlc2Vu dCBhdC B0aGUg cGVyaX BoZXJ5 IGJ1dC BubyB3 aXRoIG 5vIGlu ZGVudG F0aW9u LiAgIC BUaGUg cGxhY2 VudGFs IGRpc2 MgaXMg MTA1IG csIDEx LjUgeC AxMC4y IHggMS 45IGNt LiAgU2 VjdGlv bmluZy BzaG93 cyByZW QtYnJv d24sIH Nwb25n eSBjdX Qgc3Vy ZmFjZX MuICBS ZXByZX NlbnRh dGl2ZS BzZWN0 aW9ucy BzdWJt aXR0ZW QgYXMg Zm9sbG 93czog QTFcdT gyMTEg XCc5Nn VtYmls aWNhbC Bjb3Jk IGFuZC BtZW1i cmFuZS Byb2xs LCBBMl x1ODIx MSBcJz k2QTRc dTgyMT EgXCc5 NnBsYW NlbnRh LiAgTE oNClxl cGljTm VzdERv YzB7XG VwaWNz ZWN0ZW 5kfXtc ZXBpY3 NlY3Rl bmR9XH BhciAN ClxwYX JkIA0K XHBsYW luIA0K fQ== Not Available Not Available 04:22:11 10/21/19 25 10/20/2024 Patho logy study pathology report microscopic observation narrative other stain e1xydG YxXGVw aWMxMT IwMVxh bnNpXH NwbHRw Z3Bhcl xqZXhw YW5kXG 5veGxh dHRveW VuXGRl ZmYwe1 uzw820 dGJse1 xmMCBB cmlhbD t9fXtc Y29sb3 J0Ymwg O31ccG FwZXJ3 MTIyND BccGFw ZXJoMT U4NDBc bWFyZ2 wxODAw XG1hcm dyMTgw MFxtYX JndDE0 NDBcbW FyZ2Ix NDQwXG hlYWRl cnk3Mj BcZm9v dGVyeT cyMFxw YXJkXH BsYWlu XGZzMj AgTWlj cm9zY2 9waWMg ZXhhbW luYXRp b24gc3 Vic3Rh bnRpYX RlcyB0 aGUgYW JvdmUg ZGlhZ2 5vc2lz LlxwYX J9 Not Available Not Available 04:22:11 10/21/19 25 10/20/2024 Patho logy study pathologist location at [facility] Not Available Not Available 04:22:11 10/21/19 25 10/20/2024 Patho logy study service comment e1xydG YxXHNz dGVjZj IyMDAw XGFuc2 lcZGVm bGFuZz EwMzNc ZnRuYm pcdWMx XGRlZm Ywe1xm b250dG Jse1xm MCBcZn N3aXNz IEFyaW OeU658 XGYxIF xmc3dp c3MgXG ZjaGFy c2V0MC BBcmlh bDt9fX tcY29s b3J0Ym wgO1xy ZWQyNT VcZ3Jl ZW4yNT VcYmx1 ZTI1NS A7XHJl ZDBcZ3 JlZW4w XGJsdW UwIDt9 e1xzdH lsZXNo ZWV0e1 xmMFxm czIyIE 5vcm1h bDt9e1 xjczEg RGVmYX VsdCBQ YXJhZ3 JhcGgg Rm9udD t9fXtc KlxyZX Z0Ymx7 VW5rbm 93bjt9 fVxwYX Blcncx MjI0MF xwYXBl cmgxNT g0MFxt YXJnbD E4MDBc bWFyZ3 IxODAw XG1hcm d0MTQ0 MFxtYX JnYjE0 NDBcaG VhZGVy eTcyMF utn234 ZXJ5Nz IwXG5v Z3Jvd2 F1dG9m aXRcZG VmdGFi NzIwXG Zvcm1z aGFkZV xub2Zl YXR1cm V0aHJv dHRsZT FcZG50 Ymxuc2 JkYlxm ZXQ0XG FlbmRu b3Rlc1 xhZnRu bnJsY1 xwZ2Jy ZHJoZW FkXHBn YnJkcm Zvb3Rc c2VjdG RccGd3 c3huMT IyNDBc cGdoc3 huMTU4 NDBcZ3 V0dGVy c3huMF xtYXJn bHN4bj E4MDBc bWFyZ3 JzeG4x ODAwXG 1hcmd0 c3huMT Q0MFxt YXJnYn N4bjE0 NDBcaG VhZGVy eTcyMF ezl657 ZXJ5Nz IwXHNi a3BhZ2 VccGdu Y29udF xwZ25k ZWNccG xhaW5c cGxhaW 5cZjBc ZnMyNF xxbFxw bGFpbl xmMVxm czE4XG xhbmcx MDMzXG hpY2hc ZjFcZG JjaFxm MVxsb2 NoXGYx XGZzMT ggQWxs IGhpc3 RvY2hl bWljYW wgYW5k L29yIG ltbXVu b2hpc3 RvY2hl bWljYW wgcmVz dWx0cy BhcmUg aW50ZX JwcmV0 ZWQgd2 l0aCBj b250cm 9scyB0 aGF0IG RlbW9u c3RyYX RlIGFw cHJvcH JpYXRl IHN0YW luaW5n IHJlYW N0aW9u cyBiZW ZvcmUg cmVwb3 J0aW5n IHJlc3 VsdHMu ICBOb3 RlIG9u IHVzZS BvZiBp bW11bm 9jeXRv Y2hlbW lzdHJ5 IHJlYW dlbnRz OiBUaG lzIHRl c3Qgd2 FzIGRl dmVsb3 BlZCBh bmQgaX RzIHBl cmZvcm 1hbmNl IGNoYX JhY3Rl cmlzdG ljIGRl dGVybW luZWQg YnkgU3 QuIE1h cnkncy BIZWFs dGggQ2 VudGVy LCBEZX BhcnRt ZW50IG 9mIExh Ym9yYX Rvcnkg TWVkaW NpbmUu IEl0IG hhcyBu b3QgYm VlbiBj bGVhcm VkIG9y IGFwcH JvdmVk IGJ5IH RoZSBV LlMuIE Zvb2Qg YW5kIE RydWcg QWRtaW 5pc3Ry YXRpb2 4gKEZE QSkuIF RoZSBG REEgaG FzIGRl dGVybW luZWQg dGhhdC BzdWNo IGNsZW FyYW5j ZSBvci BhcHBy b3ZhbC BpcyBu b3Qgbm VjZXNz YXJ5Li BUaGUg dGVzdC BpcyB1 c2VkIG ZvciBj bGluaW NhbCBw dXJwb3 NlLiBJ dCBzaG 91bGQg bm90IG JlIHJl Z2FyZG VkIGFz IGludm VzdGln YXRpb2 5hbCBv ciBmb3 IgcmVz ZWFyY2 guIFRo aXMgbG Fib3Jh dG9yeS BpcyBj ZXJ0aW ZpZWQg dG8gcG VyZm9y bSBoaW doIGNv bXBsZX hpdHkg dGVzdG luZy4g VGhlIH BlcmZv cm1hbm NlIGNo YXJhY3 Rlcmlz dGljcy BvZiB0 aGUgSU hDL0lT SCBhc3 NheXMg aGF2ZS BiZWVu IHZhbG lkYXRl ZCBvbi Bmb3Jt YWxpbi 1maXhl ZCBwYX JhZmZp biBlbW JlZGRl ZCB0aX NzdWVz IG9ubH kuIFRo ZSBhc3 NheXMg aGF2ZS Bub3Qg YmVlbi B2YWxp ZGF0ZW Qgb24g ZGVjYW xjaWZp ZWQgdG lzc3Vl cy4gUm VzdWx0 cyBzaG 91bGQg YmUgaW 50ZXJw cmV0ZW Qgd2l0 aCBjYX V0aW9u LlxwYX J9 Not Available Not Available 04:22:11 11/11/1911/10/2024 Urina lysis panel - Urine by Autom ated color of urine by auto Yellow text: yellow , straw Not Available Not Available 11/17/2024 14:53:19 11/11/19 25 11/10/2024 Urina lysis panel - Urine by Autom ated clarity in urine by refractometr y automated Clear text: clear Not Available Not Available 11/17/2024 14:53:19 11/11/19 25 11/10/2024 Urina lysis panel - Urine by Autom ated glucose [presence] in urine by test strip Normal text: normal Not Available Not Available 11/17/2024 14:53:19 11/11/19 25 11/10/2024 Urina lysis panel - Urine by Autom ated bilirubin.to bob [presence] in urine by test strip Negati ve text: negati ve Not Available Not Available 11/17/2024 14:53:19 11/11/19 25 11/10/2024 Urina lysis panel - Urine by Autom ated ketones [presence] in urine by automated test strip Negati ve text: negati ve Not Available Not Available 11/17/2024 14:53:19 11/11/19 25 11/10/2024 Urina lysis panel - Urine by Autom ated specific gravity of urine by test strip 1.021 low: 1.005h igh: 1.03 Not Available Not Available 11/17/2024 14:53:19 11/11/1911/10/2024 Urina lysis panel - Urine by Autom ated hemoglobin [presence] in urine by test strip Trace text: negati ve abnormal Not Available Not Available 11/17/2024 14:53:19 11/11/19 25 11/10/2024 Urina lysis panel - Urine by Autom ated pH of urine by test strip 5.5 low: 5high: 8 Not Available Not Available 11/17/2024 14:53:19 11/11/19 25 11/10/2024 Urina lysis panel - Urine by Autom ated protein [presence] in urine by test strip Negati ve text: negati ve Not Available Not Available 11/17/2024 14:53:19 11/11/19 25 11/10/2024 Urina lysis panel - Urine by Autom ated urobilinogen [mass/volume ] in urine by automated test strip Normal text: normal mg/dL Not Available Not Available 11/17/2024 14:53:19 11/11/19 25 11/10/2024 Urina lysis panel - Urine by Autom ated nitrite [presence] in urine by test strip Negati ve text: negati ve Not Available Not Available 11/17/2024 14:53:19 11/11/19 25 11/10/2024 Urina lysis panel - Urine by Autom ated leukocyte esterase [presence] in urine by test strip 75 HILTON/uL text: negati ve abnormal Not Available Not Available 11/17/2024 14:53:19 11/11/19 25 11/10/2024 Urina lysis panel - Urine by Autom ated erythrocytes [#/area] in urine sediment by automated count 6-10 text: 0 - 5 # /hpf abnormal Not Available Not Available 11/17/2024 14:53:19 11/11/19 25 11/10/2024 Urina lysis panel - Urine by Autom ated leukocytes [#/area] in urine sediment by automated count 6-10 text: 0 - 5 # /hpf abnormal Not Available Not Available 11/17/2024 14:53:19 11/11/19 25 11/10/2024 Urina lysis panel - Urine by Autom ated bacteria [presence] in urine by automated Trace text: none seen abnormal Not Available Not Available 11/17/2024 14:53:19 11/11/19 25 11/10/2024 Urina lysis panel - Urine by Autom ated epithelial cells.squ[place] us [presence] in urine by automated 6-10 text: 0 - 5 /hpf abnormal Not Available Not Available 11/17/2024 14:53:19 11/11/19 25 11/10/2024 Urina lysis panel - Urine by Autom ated mucus [presence] in urine by automated 1+ text: /lpf Not Available Not Available 11/17/2024 14:53:19 11/11/19 25 11/10/2024 Urina lysis panel - Urine by Autom ated Unknown Analyte Not Available Not Available 12/2024 14:53:19 11/11/19 25 11/10/2024 Urina lysis panel - Urine by Autom ated interpretati on and review of laboratory results Abnorm al Not Available Not Available 14:53:19 11/11/1911/11/2024 Bacte reagan ident ified in Urine by Cultu re bacteria identified in urine by culture 10,000 -50,00 0 CFU/mL urogen ital lise Not Available Not Available 14:53:19 11/25/19 25 11/24/2024 Micro album in/Cr eatin ine [Mass Ratio ] in Urine creatinine [mass/volume ] in urine 48.23 mg/dL Not Available Not Available 0 12/01/2024 04:19:34 11/25/1911/24/2024 Micro album in/Cr eatin ine [Mass Ratio ] in Urine microalbumin [mass/volume ] in urine 1.7 mg/dL Not Available Not Available 0 12/01/2024 04:19:34 11/25/1911/24/2024 Micro album in/Cr eatin ine [Mass Ratio ] in Urine microalbumin /creatinine [mass ratio] in urine 35 mg/g high: 30mg/g high Not Available Not Available 12/01/2024 04:19:34 11/25/19 25 11/24/2024 Micro album in/Cr eatin ine [Mass Ratio ] in Urine interpretati on and review of laboratory results Abnorm al Not Available Not Available 04:19:34 11/25/1911/24/2024 Hemog lobin A1c/H emogl obin. total in Blood hemoglobin A1C/hemoglob in.total in blood 5.1 % high: 5.7% Not Available Not Available 12/01/2024 04:19:34 11/25/19 25 11/24/2024 Hemog lobin A1c/H emogl obin. total in Blood glucose mean value [mass/volume ] in blood estimated from glycated hemoglobin 100 mg/dL Not Available Not Available 0 12/01/2024 04:19:34 11/25/1911/24/2024 Hemog lobin A1c/H emogl obin. total in Blood Unknown Analyte HbA1c Interp retati on: Normal : < 5.7% Pre-di abetes : 5.7-6. 4% Diabet es: Equal to or greate r than 6.5% Test result s diagno stic of diabet es should be repeat ed for confir mation . Treatm ent target values recomm ended by ADA and other clinic al organi zation s should be used to evalua te metabo lic contro l in patien ts. This test should not replac e glucos e testin g for patien ts with Type 1 diabet es, pediat demarcus patien ts, or pregna nt women. Falsel y low HbA1c result s may be observ ed in patien ts with clinic al condit ions that shorte n erythr ocyte life span or decrea se mean erythr ocyte age such as the presen ce of unstab le hemogl obin varian ts, elevat ed hemogl obin F level or other causes of hemoly tic anemia . HbA1c may not accura tely reflec t glycem ic contro l when clinic al condit ions that affect erythr ocyte surviv al are presen t. Severe Iron defici ency anemia may yield falsel y high result s. Hemogl obin A1c assay should not be used to diagno se or monito r diabet es in patien ts with malign augustus, recent blood transf usion, chroni c kidney or liver diseas e. This method may yield falsel y low result s when hemogl obin (HbF) exceed s 5% in the specim en. The [employer] Al[employer] y assay for the measur ement of HbA1c is a Nation al Glycoh emoglo bin Standa rdizat ion Progra m (NGSP) certif ied method . Not Available Not Available 04:19:34 11/25/19 25 11/24/2024 [facility] [place] [facility] 1999 panel - Serum or Plasm a glucose [mass/volume ] in serum or plasma 62 mg/dL low: 70mg/d Lhigh: 99mg/d L low Not Available Not Available 12/01/2024 04:19:34 11/25/19 25 11/24/2024 [facility]pr [facility] [place] [facility] 1999 panel - Serum or Plasm a sodium [moles/volum e] in serum or plasma 139 mmol/ L low: 136mmo l/Lhig h: 145mmo l/L Not Available Not Available 12/01/2024 04:19:34 11/25/19 25 11/24/2024 [facility] [place] [facility] 1999 panel - Serum or Plasm a potassium [moles/volum e] in serum or plasma 4.3 mmol/ L low: 3.5mmo l/Lhig h: 5.1mmo l/L Not Available Not Available 12/01/2024 04:19:34 11/25/19 25 11/24/2024 [facility] [place] [facility] 1999 panel - Serum or Plasm a chloride [moles/volum e] in serum or plasma 108 mmol/ L low: 98mmol /Lhigh : 107mmo l/L high Not Available Not Available 12/01/2024 04:19:34 11/25/19 25 11/24/2024 [facility]pr [facility] [place] [facility] 1999 panel - Serum or Plasm a carbon dioxide, total [moles/volum e] in serum or plasma 23 mmol/ L low: 22mmol /Lhigh : 29mmol /L Not Available Not Available 12/01/2024 04:19:34 11/25/19 25 11/24/2024 [facility]pr [facility] [place] [facility] 1999 panel - Serum or Plasm a calcium [mass/volume ] in serum or plasma 9.4 mg/dL low: 8.4mg/ dLhigh : 10.4mg /dL Not Available Not Available 12/01/2024 04:19:34 11/25/19 25 11/24/2024 [facility] [employer] [facility] 1999 panel - Serum or Plasm a anion gap in blood by calculation 8 mmol/ L low: 6mmol/ Lhigh: 16mmol /L Not Available Not Available 12/01/2024 04:19:34 11/25/19 25 11/24/2024 [facility] 1999 panel - Serum or Plasm a urea nitrogen [mass/volume ] in serum or plasma 7 mg/dL low: 5.3mg/ dLhigh : 18.7mg /dL Not Available Not Available 12/01/2024 04:19:34 11/25/19 25 11/24/2024 [facility] 1999 panel - Serum or Plasm a creatinine [mass/volume ] in serum or plasma 0.54 mg/dL low: 0.57mg /dLhig h: 1.11mg /dL low Not Available Not Available 12/01/2024 04:19:34 11/25/19 25 11/24/2024 [facility] [employer] [facility] 1999 panel - Serum or Plasm a alkaline phosphatase [enzymatic activity/vol ume] in serum or plasma 184 U/L low: 40U/Lh igh: 150U/L high Not Available Not Available 12/01/2024 04:19:34 11/25/19 25 11/24/2024 [facility] [employer] [facility] 1999 panel - Serum or Plasm a alanine aminotransfe rase [enzymatic activity/vol ume] in serum or plasma 111 U/L low: 6U/Lhi gh: 57U/L high Not Available Not Available 12/01/2024 04:19:34 11/25/19 25 11/24/2024 [facility] [employer] [facility] 1999 panel - Serum or Plasm a aspartate aminotransfe rase [enzymatic activity/vol ume] in serum or plasma 84 U/L low: 10U/Lh igh: 48U/L high Not Available Not Available 12/01/2024 04:19:34 11/25/19 25 11/24/2024 [facility] 1999 panel - Serum or Plasm a protein [mass/volume ] in serum or plasma 8.3 text: 6.4 - 8.3 gm/dL Not Available Not Available 12/01/2024 04:19:34 11/25/1911/24/2024 [facility] [place] [facility] 1999 panel - Serum or Plasm a albumin [mass/volume ] in serum or plasma 4.1 text: 3.1 - 4.5 gm/dL Not Available Not Available 12/01/2024 04:19:34 11/25/1911/24/2024 [facility] [place] [facility] 1999 panel - Serum or Plasm a bilirubin.to bob [mass/volume ] in serum or plasma 0.4 mg/dL low: 0.2mg/ dLhigh : 1.2mg/ dL Not Available Not Available 12/01/2024 04:19:34 11/25/1911/24/2024 [facility] [place] [facility] 1999 panel - Serum or Plasm a glomerular filtration rate [volume rate/area] in serum, plasma or blood by creatinine-b ased formula (CKD-epi 2020)/1.73 sq M text: >=90 mL/min /1.73 m2 Estim ated Glome rular Filtr ation Rate (eGFR ) calcu lated using the CKD-E PI Creat inine Equat ion (2020 ), per the [employer] and Ameri can Socie ty of Nephr ology recom menda tions . Not Available Not Available 12/01/2024 04:19:34 11/25/1911/24/2024 [facility] [place] [facility] 1999 panel - Serum or Plasm a interpretati on and review of laboratory results Abnorm al Not Available Not Available 04:19:34 11/25/1911/24/2024 Lipid 1996 panel - Serum or Plasm a cholesterol [mass/volume ] in serum or plasma 267 mg/dL high: 200mg/ dL high Not Available Not Available 12/01/2024 04:19:34 11/25/19 25 11/24/2024 Lipid 1996 panel - Serum or Plasm a triglyceride [mass/volume ] in serum or plasma 416 mg/dL high: 150mg/ dL high Not Available Not Available 12/01/2024 04:19:34 11/25/19 25 11/24/2024 Lipid 1996 panel - Serum or Plasm a cholesterol in HDL [mass/volume ] in serum or plasma 46 mg/dL low: 40mg/d L Not Available Not Available 12/01/2024 04:19:34 11/25/19 25 11/24/2024 Lipid 1996 panel - Serum or Plasm a cholesterol in LDL [mass/volume ] in serum or plasma by calculation Unabl e to calcu late LDL due to eleva marie Trigl yceri jackie, pleas e consi marla order ing a Direc t LDL. Not Available Not Available 12/01/2024 04:19:34 11/25/19 25 11/24/2024 Lipid 1996 panel - Serum or Plasm a cholesterol in VLDL [mass/volume ] in serum or plasma by calculation Unabl e to calcu late LDL due to eleva marie Trigl yceri jackie, pleas e consi marla order ing a Direc t LDL. Not Available Not Available 12/01/2024 04:19:34 11/25/19 25 11/24/2024 Lipid 1996 panel - Serum or Plasm a cholesterol. total/choles terol in HDL [mass ratio] in serum or plasma 5.8 high: 4.5 high Not Available Not Available 12/01/2024 04:19:34 11/25/1911/24/2024 Lipid 1996 panel - Serum or Plasm a cholesterol in LDL/choleste rol in HDL [mass ratio] in serum or plasma Unabl e to calcu late LDL due to eleva marie Trigl yceri jackie, pleas e consi marla order ing a Direc t LDL. Not Available Not Available 12/01/2024 04:19:34 11/25/19 25 11/24/2024 Lipid 1996 panel - Serum or Plasm a interpretati on and review of laboratory results Abnorm al Not Available Not Available 04:19:34 12/15/1912/14/2024 pregn augustus test, urine HCG negati ve Not Available In-Office Order Internal Use Only DO Not Attach Compendium DO Not Attach Compendium, Do Not Delete/merge, [id number] 12/14/2024 10:32:32 Result Notes None recorded. Problems Name Problem SNOMED Code Status Onset Date Resolution Date Notes Provider Name and Address Organization Details Recorded Time Vitamin D deficien cy 86589564 Completed Amalia Childs [place] null, [place] - [facility] 8 11:55:18 Candidia sis of vagina 49731377 Completed Amalia Childs [place], [place] [facility] 8 11:55:18 Vitamin D deficien cy 91324850 Completed 10/18/2020 Al Benitez [place], [place] [facility] 1 11:33:08 Candidia sis of vagina 37345560 Completed 04/30/2019 KATHY CHOUDHURY Attn: Accountrea g,[address] [facility], [place], [address], [place] - [facility] 9 10:38:27 On examinat ion - short stature Completed Fariba Pinto MD Attn: Kapil g,[address] [facility], [place], [address], [place] [facility] 2 17:20:24 growth restrict ion 79411920 Completed MFM [place] 04/10: IUGR. Reassuri ng dopplers /BPP. Continue antenata l testing. Fariba Pinto MD Attn: Kapil g,[address] [facility], [place], [address], [place] [facility] 2 17:20:24 On examinat ion - short stature Completed Amalia Childs [place], [place] [facility] 8 11:55:18 On examinat ion - short stature Active Fariba Pinto MD Attn: Ileanarea g,[address] [facility], [place], [address], [place] [facility] 2 17:20:24 Pregnanc y [id number] Completed 201604/08/2017 ALEKSANDR GARCIA PA-C Attn: Kapil g,[address] [facility], [place], [address], [place] [facility] 5 11:43:01 Nausea and vomiting 47579718 Completed 201604/30/2019 KATHY CHOUDHURY Attn: Kapil gould,[address] [facility], [place], [address], [place] [facility] 9 10:38:44 Iron deficien cy anemia of pregnanc y 262601756 Completed 201604/30/2019 KATHY CHOUDHURY Attn: Kapil gould,[address] [facility], [place], [address], [place] [facility] 9 10:38:46 Injury of lower limb 881460377 Completed 2016 Amalia Childs [place] [facility] 8 11:55:18 Injury of lower limb 352918849 Completed 201604/30/2019 KATHY CHOUDHURY Attn: Kapil gould,[address] [facility], [place], [address], [place] [facility] 9 10:38:33 Pregnanc y 37710075 Completed 201807/20/2019 ALEKSANDR GARCIA PA-C Attn: Kapil gould,[address] [facility], [place], [address], [place] [facility] 5 11:43:01 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 Selvin Schnaderb lucia [place] [facility] 1 09:11:27 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 [id number] 9109 Completed 2018 Amalia Childs [place] [facility] 1 11:06:14 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 [id number] 9109 Completed 2018 Selvin Schamyderb lucia [place] [facility] 1 10:56:21 Subchori onic hematoma 285655036 Completed 2019 Amalia Childs [place] [facility] 1 11:06:14 Subchori onic hematoma 638918648 Active 2019 Fariba Pinto MD Attn: Kapil gould,[address] [facility], [place], [address], [place] [facility] 2 17:20:24 Subchori onic hematoma 633127833 Completed 2019 Fariba Pinto MD Attn: Kapil gould,[address] [facility], [place], [address], [place] [facility] 2 17:20:24 Abnormal progeste soraida 765248612 Active 2020 Selvin Michaelb lucia [place] [facility] 1 09:11:27 Abnormal progeste soraida 183894697 Completed 2020 Selvin Michaelb lucia [place] [facility] 1 10:56:21 Pregnanc y 01464550 Completed 202010/18/2020 ALEKSANDR GARCIA PA-C Attn: Kapil gould,[address] [facility], [place], [address], [place] [facility] 5 11:43:01 Pregnanc y 33171359 Completed 202412/01/2024 ALEKSANDR GARCIA PA-C Attn: Kapil gould,[address] [facility], [place], [address], [place] [facility] 5 11:43:01 Problem Notes None recorded. Procedures Surgical History Date Name Laterality Status Provider Name and Address Organization Details Recorded Time 5 Control Implant Insertion completed ALEKSANDR GARCIA PA-C Attn: Accounting,[address] [facility], [place], [address], [place] [facility] 12/14/2024 10:32:22 4 Control Implant Removal completed Eneida Cano MD Attn: Accounting,[address] [facility], [place], [address], [place] [facility] 10/14/2023 13:35:29 4 Date of Last Pap Smear completed Amalia Childs [place] - [facility] 10/14/2023 12:26:57 3 Control Implant Insertion completed KATHY SALCEDO Attn: Accounting,[address] [facility], [place], [address], [facility] - [facility] 11/15/2022 11:57:42 Imaging Results None recorded. Procedure Notes None recorded. Medical Equipment None Reported. Allergies No known drug allergies Medications Name Sig Start Date Stop Date Status Note LastModified by Organization Details LastModified Time multivitami n tablet Take 1 tablet every day by oral route. 04/30 completed Not Available Not Available Not Available cyclobenzap rine 10 mg tablet Take 1 tablet every day by oral route at bedtime for 14 days. 07/27 completed Not Available Not Available Not Available hydrocodone 7.5 mg-ibuprofe n 200 mg tablet 08/24 completed Not Available Not Available Not Available ibuprofen 800 mg tablet 06/17 completed Not Available Not Available Not Available ondansetron HCl 4 mg tablet Take 1 tablet every 8 hours by oral route as needed for 30 days. 04/23 completed Not Available Not Available Not Available sertraline 100 mg tablet Take 1 tablet every day by oral route. 05/26 completed Not Available Not Available Not Available terconazole 0.8 % vaginal cream APPLY 1 APPLICATO RFUL VAGINALLY ONCE DAILY FOR 7 DAYS active Not Available Not Available No t Available metronidazo le 500 mg tablet Take 1 tablet twice a day by oral route for 7 days. 04/30 completed Not Available Not Available Not Available acetaminoph en 300 mg-codeine 30 mg tablet TAKE 1 TABLET BY MOUTH EVERY 6 HOURS NEEDED FOR PAIN 04/23 completed Not Available Not Available Not Available Reglan 10 mg tablet Take 1 tablet 4 times a day by oral route. 04/23 completed Not Available Not Available Not Available aspirin 81 mg tablet,shyam yed release TAKE 2 TABLETS BY MOUTH ONCE DAILY active Not Available Not Available No t Available acetaminoph en 500 mg tablet TAKE 2 TABLETS BY MOUTH EVERY 6 HOURS NEEDED FOR PAIN AND FOR FEVER active Not Available Not Available No t Available Vitamin tablet Take 1 tablet every day by oral route as directed for 90 days. 06/01 completed Not Available Not Available Not Available oxycodone-a cetaminophe n 5 mg-325 mg tablet 06/17 completed Not Available Not Available Not Available cephalexin 500 mg capsule 07/27 completed Not Available Not Available Not Available cyanocobala min (vit B-12) 1,000 mcg/mL injection solution Inject 1 mL every month by subcutane ous route. 06/01 completed Not Available Not Available Not Available progesteron e micronized 200 mg capsule Take 1 capsule twice a day by oral route. 06/01 completed Not Available Not Available Not Available docusate sodium 100 mg capsule TAKE 1 CAPSULE BY MOUTH ONCE DAILY active Not Available Not Available No t Available folic acid 1 mg tablet Take 2 tablets twice a day by oral route as directed. 06/01 completed Not Available Not Available Not Available ibuprofen 600 mg tablet TAKE 1 TABLET BY MOUTH EVERY 6 HOURS NEEDED FOR PAIN active Not Available Not Available No t Available polyethylen e glycol 3350 17 gram/dose oral powder MIX 17 GRAMS WITH AT LEAST 8 OZ OF LIQUID AND TAKE BY MOUTH ONCE DAILY active Not Available Not Available No t Available nifedipine ER 60 mg tablet,exte nded release TAKE 1 TABLET BY MOUTH ONCE DAILY active Not Available Not Available No t Available nitrofurant oin monohydrate /macrocryst als 100 mg capsule TAKE 1 CAPSULE BY MOUTH EVERY 12 HOURS FOR 7 DAYS 06/01 completed Not Available Not Available Not Available FeroSul 325 mg (65 mg iron) tablet TAKE 1 TABLET BY MOUTH ONCE DAILY WITH BREAKFAST 08/31 completed Not Available Not Available Not Available Calcium with Vitamin D3 600 mg (carbonate) -10 mcg (400 unit) capsule Take 1 capsule twice a day by oral route. 06/01 completed Not Available Not Available Not Available Calcium with Vitamin D 600 mg-10 mcg (400 unit) tablet Take 1 tablet twice a day by oral route. 04/30 completed Not Available Not Available Not Available Nexplanon 68 mg subdermal implant Inject 1 implant by subcutane ous route. 2024 active Not Available Not Available Not Avai lable 28 mg iron-800 mcg tablet one tab po q d 2024 active Not Available Not Available Not Avai lable Linzess 145 mcg capsule TAKE 1 CAPSULE BY MOUTH ONCE DAILY 08/24 completed Not Available Not Available Not Available Classic 28 mg iron-800 mcg tablet TAKE 1 TABLET BY MOUTH ONCE DAILY active Not Available Not Available No t Available Xulane 150 mcg-35 mcg/24 hr transdermal patch Apply 1 patch every week by transderm al route. 01/25 completed Not Available Not Available Not Available Jose Angel 24 Fe 1 mg-20 mcg (24)/75 mg (4) tablet TAKE 1 TABLET BY MOUTH ONCE DAILY 05/19 completed Not Available Not Available Not Available Vitals Date Recorded Body height Body mass index (BMI) Body weight Oxygen saturation Oxygen saturation in Arterial blood by Pulse oximetry Heart rate Body temperature Systolic And Diastolic Provider Name and Address Organization Details Last Updated DateTime 5 140.34 cm 30.2 kg/m2 94025.6 8 g 98 % 98 % 97 /min 98.8 [degF] 112/68 mm[Hg] Jessica Jarrell MA [facility] 5 14:44:18 Date Recorded Body height Body mass index (BMI) Body weight Body temperature Oxygen saturation Oxygen saturation in Arterial blood by Pulse oximetry Heart rate Systolic And Diastolic Provider Name and Address Organization Details Last Updated DateTime 5 140.34 cm 30 kg/m2 77430.4 5 g 98.5 [degF] 98 % 98 % 101 /min 128/78 mm[Hg] Jessica Jarrell MA [facility] 5 09:06:25 Date Recorded Body height Provider Name an d Address Organization Details Last Updated DateTime 07/06/2024 140.34 cm Jessica Cagle MA [facility] 07/06/2024 10:37:50 Date Recorded Body mass index (BMI) Body weight Body temperature Oxygen saturation Oxygen saturation in Arterial blood by Pulse oximetry Heart rate Systolic And Diastolic Provider Name and Address Organization Details Last Updated DateTime 5 30.3 kg/m2 24282.0 5 g 98.8 [degF] 98 % 98 % 88 /min 124/76 mm[Hg] Olya Loomis [facility] 5 10:47:34 Date Recorded Body height Body mass index (BMI) Body weight Oxygen saturation Oxygen saturation in Arterial blood by Pulse oximetry Heart rate Body temperature Systolic And Diastolic Provider Name and Address Organization Details Last Updated DateTime 5 140.34 cm 31.3 kg/m2 24427.5 6 g 99 % 99 % 86 /min 99.3 [degF] 128/80 mm[Hg] Haily Heredia MA [facility] 5 11:39:05 Date Recorded Body height Body mass index (BMI) Body weight Oxygen saturation Oxygen saturation in Arterial blood by Pulse oximetry Heart rate Body temperature Systolic And Diastolic Provider Name and Address Organization Details Last Updated DateTime 5 140.34 cm 31.3 kg/m2 25755.5 6 g 99 % 99 % 93 /min 98.9 [degF] 116/70 mm[Hg] Haily Heredia MA [facility] 5 10:14:43 Date Recorded Body height Body mass index (BMI) Body weight Oxygen saturation Oxygen saturation in Arterial blood by Pulse oximetry Heart rate Systolic And Diastolic Provider Name and Address Organization Details Last Updated DateTime 5 140.34 cm 31.8 kg/m2 94950.4 7 g 98 % 98 % 92 /min 128/76 mm[Hg] Jessica Jarrell MA [facility] 5 15:57:35 Social History Question Answer Notes LastModified by Organizat ion Details LastModified Time Tobacco Smoking Status Never Smoker Zee eRich MA null, [facility] 10/10/2016 15:10:07 Do You Have An Advance Directive? No Information not available 10/10/2016 If You Are , What Was Your Level Of Alcohol Consumption Prior To ? None Information not available 10/10/2016 Is Anesthesia Consult Planned? No Information not available 10/10/2016 Plan No Information no t available 10/10/2016 Is Blood Transfusion Acceptable In An Emergency? Yes Pt Don't No Information not available 10/18/2020 What Is Your Level Of Caffeine Consumption? Occasional Information not available 10/10/2016 Live With Cats/exposure To Cat Litter No Information not available 10/10/2016 How Much Tobacco Do You Chew? None Information not available 10/10/2016 What Type Of Diet Are You Following? REGULAR Information not available 10/10/2016 Which Illicit Or Recreational Drugs Have You Used? Denies [email or web address] Information not available 03/05/2017 Education Less Than 8th Grade Information not available 10/10/2016 What Is The Highest Grade Or Level Of School You Have Completed Or The Highest Degree You Have Received? [id number] Information not available 10/18/2020 Have There Been Any Changes To Your Family Or Social Situation? No Information not available 10/10/2016 Frequent Air Travel No Information not available 10/10/2016 Illicit Drugs Pre- Denies None [email or web address] Information not available 03/05/2017 How Many Years Have You Used Illicit Or Recreational Drugs? 0 Information not available 03/05/2017 Live Alone Or With Others? With Others Information not available 10/10/2016 Marital Status Informatio n not available 10/10/2016 What Was The Date Of Your Most Recent Tobacco Screening? 01/19/2025 [email or web address] Information not available 01/19/2025 How Many Children Do You Have? 3 Information not available 10/18/2020 Are There Any Occupational Health Risks Where You Work? None Information not available 10/10/2016 What Is Your Relationship Status? Information not available 10/18/2020 Do You Use Your Seat Belt Or Car Seat Routinely? Yes Information not available 10/18/2020 Seat Belts Used Routinely Yes Information not available 10/10/2016 Are You Sexually Active? Yes Information not available 10/10/2016 Do You Have Smoke And Carbon Monoxide Detectors In Your Home? Yes Information not available 10/10/2016 Are You Passively Exposed To Smoke? No Information not available 10/10/2016 How Much Tobacco Do You Smoke? No [email or web address] Information not available 03/05/2017 Smoking Pre- No Information not available 10/10/2016 General Stress Level Low Information not available 10/10/2016 Do You Use Sunscreen Routinely? No Information not available 10/10/2016 Supplements Vitamin Information not available 10/10/2016 Has Tobacco Cessation Counseling Been Provided? Yes Information not available 11/15/2022 On What Date Was Tobacco Cessation Counseling Provided? 10/14/2023 Information not available 10/14/2023 How Many Years Have You Smoked Tobacco? 0 [email or web address] Information not available 03/05/2017 Sex: Unknown Functional Status Question Answer Note LastModified by Organizat ion Details LastModified Time Do you use any illicit or recreational drugs? No Information not available 10/18/2020 Do you or have you ever used any other forms of tobacco or nicotine? No Information not available 10/18/2020 What is your level of alcohol consumption? None Information not available 10/10/2016 Do you or have you ever used smokeless tobacco? Never used smokeless tobacco Information not available 06/26/2019 Are you currently employed? 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 Never used electronic cigarettes Information not available 06/26/2019 What is your exercise level? Occasional Information not available 10/10/2016 Mental Status None recorded. Family History Relationship Description Onset Age of this Age Resolved Age Notes LastModified by Organization Details LastModified Time Father No current problems or disability Not available 10/10 15:09:49 Mother No current problems or disability Not available 10/10 15:09:49 Medical History Condition Response Other N High Blood Pressure N Breast Cancer N Thyroid Problems N Kidney or Bladder Problems N Lung Disease N Depression N Blood Clots N GI Problems N Acne N Breast Problem N Eating Disorder N Anemia N Anesthesia Complications N Headaches/Migraines N Ovarian Cancer N Diabetes N Anxiety Disorder N Muscle, Joint, or Bone Problems N Blood Transfusions N Seizures/Epilepsy N Polyps N Infertility N Acid Reflux (GERD) N Cancer N Abuse/Domestic Violence N Asthma N Endometriosis N High Cholesterol N Hepatitis N Liver Disease N Heart Disease N Pre-Eclampsia N Osteoporosis N Gynecological History Statement/Question Response Abnormal Pap N Flow Moderate Date of LMP 11/24/2024 On BCP's at Conception? N STIs/STDs N HPV Vaccine N Age at Menarche 11 Current Control Method None Age at First Child 15 Frequency of Cycle (Q days) Sexually Active? Y Menses Monthly Y Date of Last Pap Smear 10/14/2023 Sexual Problems? N LMP Definite Desired Control Method Patch Obstetrics History GPAL:G 6 P 4 0 1 4 Type Value Multiple Births 0 Full Term 4 Induced 0 Spontaneous 1 Premature 0 Living 4 Ectopics 0 Total 6 Immunizations Vaccine Type Date Status Note Provider Nam e and Address Organization Details Recorded Time Tdap 7 completed Not Available [facility] 05/30/2019 02:51:06 Influenza, split virus, quadrivalent, preservative 7 completed Not Available [facility] 05/30/2019 02:34:21 Tdap 1 completed RANDALL Nails, [facility] 02/28/2021 11:20:54 Influenza, split virus, quadrivalent, PF 1 completed Amalia Childs MA [facility], [facility] 03/14/2021 12:59:51 Past Encounters Encounter ID Performer Location Encounter Start Date Encounter Closed Date Diagnosis/Indication Diagnosis SNOMED-CT Code Diagnosis ICD10 Code Diagnosis IMO Codes Diagnosis Note [id number] MD Tiffanie Viramontes (SUPERVISOR LOCOMOT[employer]) [address] [place] [address] [phone] 0 10/10/2016 13:50:55 10/10/2016 15:46:27 Routine care 892586392 Z34.90 [id number] MD Tiffanie Viramontes (SUPERVISOR LOCOMOT[employer]) [address] [place] [address] [id number] 0 11/12/2016 11:34:31 11/12/2016 12:57:13 Routine care 732038454 Z34.90 [id number] MD Tiffanie Viramontes (SUPERVISOR LOCOMOT[employer]) [address] [place] [address] [id number] 0 12/03/2016 11:41:15 12/03/2016 13:20:24 Routine care 242484271 Z34.90 [id number] MD Tiffanie Viramontes (SUPERVISOR LOCOMOT[employer]) [address] [place] [address] [id number] 0 01/07/2017 11:58:23 01/07/2017 13:03:03 Routine care 453931921 Z34.90 Iron defic iency anemia of 192938238 O99.341 [id number] MD Tiffanie Viramontes (SUPERVISOR LOCOMOT[employer]) [address] [place] [address] [id number] 0 02/04/2017 09:52:09 02/04/2017 12:54:26 Routine care 823681626 Z34.90 screening 2437 81953 Z36 Family melanie nning education 845570518 Z30.02 [id number] [facility] [address] [place] [address] [id number] 0 02/28/2017 14:47:09 02/28/2017 17:33:14 Routine care 172678517 Z34.93 [id number] MD Tiffanie Viramontes (SUPERVISOR LOCOMOT[employer]) [address] [place] [address] [id number] 0 03/05/2017 15:13:12 03/07/2017 12:30:02 Routine care 073577480 Z34.93 Traumatic injury during 743176300 T14.90XA left lower extremity [id number] MD Tiffanie Viramontes (SUPERVISOR LOCOMOT[employer]) [address] [place] [address] [id number] 0 03/19/2017 10:17:17 03/19/2017 14:20:11 Routine care 814051861 Z34.93 Injury of lower limb 127 071613 S89.92XD Patient out of LLLE brace and has been referred to PT once weekly. [id number] MD Tiffanie Viramontes (SUPERVISOR LOCOMOT[employer]) [address] [place] [address] 79108-698 0 04/08/2017 16:13:15 04/09/2017 09:55:23 Routine care 775461133 Z34.93 Injury of lower limb 127 077309 S89.92XD Patient out of LLLE brace and has been referred to PT once weekly. [id number] MD [facility] ([facility] LOC[facility] [address] [place] [address] [id number] 0 04/23/2017 11:05:39 04/23/2017 12:45:16 Routine care 844154824 Z34.83 Urinary tr act infectious disease 90499770 N39.0 COUNSELED ABOUT IT. [id number] MD [facility] ([facility] LOC[facility]) [address] [place] [address] [id number] 0 06/17/2017 10:31:43 06/17/2017 12:44:20 care 963701681 Z39.2 ordered routine labs for postpatum pap smear Exposure t o sexually transmissible disorder 251458933 Z20.2 depression 58 024064 O99.345 educated about depression and started on sertraline 100mg [id number] MD [facility] ([facility] LOC[facility]OT[facility]) [address] [place] [address] [id number] 0 07/01/2018 10:56:42 07/01/2018 14:31:27 Family planning surveillance 808847703 Z30.09 Gynecologi c examination 84969157 Z01.419 Z11.51 Exposure t o sexually transmissible disorder 850114828 Z20.2 [id number] [facility] (SU[facility] LOCOMOTIVE) [address] [place] [address] [id number] 0 04/30/2019 09:24:59 04/30/2019 11:46:49 Routine care 672869375 Z34.90 Venereal d isease screening 400519634 Z11.3 screening 2437 60022 Z36.85 [id number] KATHY SALCEDO (SUPERVISOR LOCOMOTIVE) [address] [place] [address] [id number] 0 05/28/2019 10:01:46 05/28/2019 11:21:32 Routine care 969418169 Z34.90 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 B12 injection 05/28 [id number] KATHY SALCEDO (SUPERVISOR LOCOMOTIVE) [address] [place] [address] [id number] 0 06/26/2019 10:56:56 07/02/2019 11:48:01 heart sounds absent 829591463 O36.8399 heart tones absent on exam today. Pt sent for STAT US - results consistent with demise. thien se from miscarriage 8437450 O03.9 Per US: Intrauter ine with absence of heart tones, consistent with demise. Estimated gestationa l age is 15w4d which is 9 days behind prior US dating. Case discussed with Dr. Benitez who recommende d Cytotec induction at hospital with possible D&C. Discussed results with patient through interprete r in detail. Advised her of recommende d plan, pt agreeable. All of patients questions and concerns addressed. [facility] and Dr. Benitez contacted and aware pt is coming today from office. [id number] MD Tiffanie Viramontes (SUPERVISOR LOCOMOTIVE) [address] [place] [address] [id number] 0 07/20/2019 10:20:33 07/20/2019 11:39:05 Depressive disorder 01919059 F32.9 Gynecologi c examination 16008177 Z01.419 Z11.51 Family melanie nning surveillance 523942167 Z30.09 Irritable bowel syndrome 80227299 K58.9 [id number] KATHY VICTOR (Adult Med) [address] [place] [address] [id number] 0 08/25/2019 13:48:26 09/03/2019 15:07:13 Strain of back muscle 154852878 S39.012A Complainin g of intermitte nt left sided back pain x 2 weeks. The pain is located in the thoracic region of the back. The pain mostly occurs when she takes a big deep breath and with twisting and bending motion, denies pain at rest. Denies injury to back, heavy lifting, or more strenuous activity recently.O n PE: left paraspinal muscles in the thoracic region of back- take muscle relaxer before bed as needed, take ibuprofen PRN for pain- encouraged patient to:1. Modify your activity for 3-6 weeks. 2. Avoid heavy lifting 3. Use positions that promote comfort 4. Gradually resume activities as tolerated, which include gradually increasing low-stress aerobic exercise. 6. Apply heat for 20-30 minutes several times a day 48 hours after the pain started. 7. Healing can take up to 6 weeks 8. Strengthen ing exercises once back pain is gone. Depressive disorder 9993 0845 F32.9 She recently had a missed in 06/2019.She states she is still experienci ng sadness from the lost of her child but it is getting better everyday.S he has not picked up the anti-depre ssion medication yet that Dr. Benitez ordered for her. Plans to pick it up today.David es HI/SI.PHQ 06/21 was negative in office today (0 out of 27)- advised patient to coal picker medication and start taking as prescribed - f/u with Dr. Benitez or I regarding depression - Be physically active. Getting 30 minutes of exercise each day is good for your body and your mind. - Plan something pleasant for yourself every day. Include activities that you have enjoyed in the past. - Get enough sleep. - Eat a balanced diet. If you do not feel hungry, eat small snacks rather than large meals. - Spend time with family and friends. It may help to speak openly about your depression with people you trust. [id number] KATHY VICTOR (Adult Med) [address] [place] [address] 11/06/2019 09:42:27 11/09/2019 07:38:29 Low back pain 868307252 M54.5 Complainin g of low back pain x 6 days The pain is located bilaterall y between thoracic and lumbar region of back. The pain is constant, 7/10, and worse with certain movements. States the medication given for her back pain at last visit helped her symptoms until recently.P marla does not work, she stays at home during the day with her children.A dmits to urinary frequency and mild pelvic pain.Tricia s injury to back, heavy lifting, or more strenuous activity recently.O n PE: tenderness to the left and right paraspinal muscles between thoracic and lumbar region of back, no spinal tenderness Urine dipstick showed only trace LEPregnanc y test negativeLi gerardo MSK related- will avoid xray since no spinal tenderness on exam- will refill medication s ibuprofen and muscle relaxer- discussed starting PT to help provide her more permanent relief from muscle stiffness- continue supportive care with stretching , heat to area 3x/day, and gentle massage [id number] KATHY VICTOR (Adult Med) [address] [place] [address] 05/26/2020 12:02:44 05/27/2020 10:27:49 Low back pain 282166736 M54.5 Complainin g today of intermitte nt bilateral thoracic back pain x 9 months. The pain is located on both sides of her back, she notes where my kidneys are.I saw her for similar symptoms 08/2019 and 10/2019.The pain is intermitte nt, usually worse in the mornings when she wakes up and improves throughout the day, does not think it is due to her bed.Alvin pabon uses natural tea remedies at home, States the medication given for her back pain at last visit helped her symptoms. She never completed PT that was ordered at last visit.She is unable to tell me if back pain ever completely resolved or if the pain has been continuous since beginning. Patient does not work, she stays at home during the day with her children.A dmits to mild pelvic pain and white, thin foul smelling vaginal discharge. Denies injury to back, heavy lifting, or more strenuous activity recently.O n PE: no tenderness to the paraspinal muscles bilaterall y, no spinal tenderness , mild CVA tenderness bilaterall yUrine dipstick showed only trace LEPregnanc y test negativeMS K related vs kidney- will avoid xray since no spinal tenderness on exam- will refill medication s ibuprofen and muscle relaxer for now since helped in the past- continue supportive care with stretching , heat to area 3x/day, and gentle massage- will send urine off for culture- check labs to look at kidney function- consider US of kidneys due chronicity of pain Vaginal discharge 116162 006 N89.8 Admits to mild pelvic pain and white, thin foul smelling vaginal discharge x 3 monthsNote s she is not sexually active currently, not concerned for STDsLast pap smear was normal 07/01/18Pre gnancy test in the office was negativeUr ine dipstick showed small Conor PE: white-yell ow thin discharge noted in vaginal canal, erythema and friable tissue noted around the external cervical os, normal bimanual exam - nuswab completed to look for infection- repeat pap completed due to inflammati on of the cervix [id number] MD Tfifanie Viramontes (SUPERVISOR LOCOMOTIVE) [address] [place] [address] [id number] 0 10/18/2020 10:21:59 10/22/2020 13:56:11 Routine care 550641335 Z34.93 Venereal d isease screening 302180848 Z11.3 screening 2437 04878 Z36.85 Homozygous methylenetetrahydrofo late reductase mutation 6872823224 15098 E72.12 Abnormal progesterone 13 6329460 R94.7 On examina tion - short stature 619227389 R62.52 Subchorionic hematoma 60 4670273 O41.8X99 [id number] KATYH SALCEDO (SUPERVISOR LOCOMOTIVE) [address] [place] [address] 97423-700 0 11/01/2020 10:42:39 11/10/2020 13:54:02 Routine care 502909283 Z34.90 LORRIE and ACOG at 12w3d. complicate d by MTHFR, low progestero ne, and subchorion ic hematoma. Test results reviewed. OB educationa l packet reviewed and provided to patient. U/S 10/30/2020 showed MARIO 05/12/2021 with 2 subchorion ic hematomas. Follow-up ultrasound in 3 weeks. 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 Continue ASA, Folic acid. B12 injection at next visit. Abnormal progesterone 13 8702852 R94.7 Low on initial labs (13.7). Continue supplement . Subchorionic hematoma 60 0220513 O41.8X99 U/S 10/30/2020 showed MARIO 05/12/2021 with 2 subchorion ic hematomas. Follow-up ultrasound in 3 weeks. Continue pelvic rest. 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 Abnormal progesterone 13 5070542 R94.7 On examina tion - short stature 491427257 R62.52 [id number] MD Tiffanie Viramontes (SUPERVISOR LOCOMOTIVE) [address] [place] [address] 21880-327 0 12/14/2020 10:07:25 12/17/2020 12:50:31 Routine care 502117269 Z34.93 Homozygous methylenetetrahydrofo late reductase mutation 5363108606 95076 E72.12 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 B12 given today. On examina tion - short stature 620450112 R62.52 Abnormal progesterone 13 5275514 R94.7 [id number] MD Tiffanie Viramontes (SUPERVISOR LOCOMOTIVE) [address] [place] [address] 85178-207 0 02/13/2021 10:13:50 02/14/2021 10:33:12 Routine care 330431351 Z34.82 Z36.9 OBFU Packet given. 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 B12 given today. 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 Influenza vaccination declined 669152386 Z28.21 [id number] MD Tiffanie Viramontes (SUPERVISOR LOCOMOTIVE) [address] [place] [address] [id number] 0 03/14/2021 10:49:43 03/16/2021 07:08:19 Routine care 947141826 Z34.83 25 yo F with PMHx of recent missed and vit D deficiency presents for LORRIE at 31w4d. c/b MTHFR, FGR, and subchorion ic hematoma. No complaints . Will refer to [facility] for FGR as EFW at 9th percentile . 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 Subchorionic hematoma 60 2038307 O41.8X99 grow th restriction 28865659 O36.5999 EFW 9th percentile . Normal TANVI. Active or passive immunization 956696672 Z23 Flu shot given today. Pt not interested in COVID vaccinatio n until after delivery. [id number] DO Tiffanie CHING (SUPERVISOR LOCOMOTIVE) [address] [place] [address] [id number] 0 04/25/2021 15:05:18 05/01/2021 19:29:14 Routine care 534057086 Z34.93 No VB, VD, LOF, regular contractio ns, or decreased movement. She has not been seen in clinic for the last 6 weeks. Patient following with [facility] for IUGR. Last evaluated 04/10, she was to return for growth in 3 weeks after that visit. Vital importance of making her appointmen ts stressed to patient. Patient to see M 05/01 - will follow up on delivery rec's. RTC in 1 week. Nuswab and GBS collected today. [id number] DO Tiffanie CHING (SUPERVISOR LOCOMOTIVE) [address] [place] [address] 63434-174 0 05/04/2021 09:58:07 05/08/2021 08:09:37 Routine care 526624078 Z34.93 No VB, VD, LOF, regular contractio ns, or decreased movement. Patient following with [facility] for IUGR. She was recently evaluated and note states size is within normal limits Growth appears to in the 8th %tile on this same report which would be consistent with persistent IUGR however. Attempted to clarify while patient was in clinic but unable to get in touch with provider. Weekly testing and Doppler studies were recommende d on this same note but given evidence of IUGR, will prudently plan for mIOL tomorrow at 39w0d.Milagros ting UTI based on large LE on UA today. [id number] SELVIN PERDUE, DO Moreno (SUPERVISOR LOC[employer]) [address] [place] [address] [phone] 0 06/01/2021 10:39:41 06/09/2021 08:47:04 care [id number] Z39.2 visit. 014 who is 4 weeks s/p TSVDPregna ncy complicati ons: IUGR, UTI.EDPS reassuring Bottlefeed ingDiscuss ed R/B/I/A of multiple contracept peyton options. Educationa l materials provided and all questions and concerns were addressed. Patient desires contracept peyton patches.Kahty p - 07/01/2018 = NILM, HPV negRTC - In 1 year for well woman exam. [id number] KATHY SALCEDO (SUPERVISOR LOCOMOTIVE) [address] [place] [address] [phone] 0 07/27/2021 11:54:21 08/04/2021 11:18:14 care 883080535 Z39.2 25 yo female presenting for visit after vaginal delivery on 05/05/2021 . EPDS score of 0. She and baby are doing well. Reporting mild, intermitte nt pelvic pain that resolves spontaneou sly within 1-2 minutes. PE unremarkab le. Expectant management at this time. Advised at least 18 months between pregnancie s to allow for full recovery. Using Xulane patch for contracept ion, counseled on proper use of patch. Continue PNV. RTC in 3 months for Pap and prn. [id number] KATHY SALCEDO (SUPERVISOR LOCOMOTIVE) [address] [place] [address] [phone] 0 01/24/2022 11:21:48 01/25/2022 12:40:56 Contraception care 684026023 Z30.45 26 y/o setswana speaking female who presents for control- Currently taking Xulane patch with complaints of grace, wants to switch to cheaper OCPs- Start 24 1mg-20mcg QD, counseled on use and SE- Pt wants to start TTC in 3-4 months- Return to clinic in one year or sooner if needed [id number] KATHY SALCEDO (SUPERVISOR LOCOMOTIVE) [address] [place] [address] [phone] 0 02/13/2022 11:24:39 02/14/2022 15:46:49 Gynecologic examination 30808795 Z01.419 Cervical cancer screening: last Pap 05/26/2020 NILM; Due for next Pap 05/26/2023. Breast cancer screening: Reviewed recommenda tions for initiation at age 40 with annual screening. Discussed SBEContrac eption: pt tolerating OCPs well, advised to continue as prescribed Diet/exerc ise: Counseled regarding importance of physical activity, healthy diet and appropriat e calcium intake.RTC in 1yr Pain in pelvis 90706598 R10.2 New onset, intermitte nt x 2 weeks. No other associated symptoms. PE unremarkab le. IBU and heat prn for pain. RTC if symptoms persist. [id number] MD Tiffanie Skaggs (Adult Med) [address] [place] [address] [phone] 0 08/31/2022 11:38:24 09/11/2022 13:58:04 Urinary incontinence 378896298 R32 Female uri nary stress incontinence 66328194 N39.3 Symptoms consistent with stress incontinen ce. Educated on aggravatin g factors. Discussed factors which could contribute such as elevated BMI. Will refer her to PT to work on pelvic strengthen ing exercises as initial treatment option. Will follow up in six weeks. Discussed alternativ e options such as pessary or more invasive procedures if this is not effective. Will get urine culture to rule out infection due to trace leukocytes in UA. [id number] KATHY SALCEDO (SUPERVISOR LOCOMOTIVE) [address] [place] [address] [phone] 0 11/15/2022 11:17:24 11/16/2022 12:45:00 Implantation of subcutaneous contraceptive 924729873 Z30.9 Nexplanon inserted left upper extremity as detailed in procedure note, pt tolerated well. RTC 1 month [id number] MD Tiffanie Zamora (SUPERVISOR LOCOMOTIVE) [address] [place] [address] [phone] 0 10/14/2023 11:56:56 10/22/2023 15:52:08 Screening for malignant neoplasm of cervix 631720839 Z12.4 due for pap pt is 28 yo no need for hpv cotest at this timenexpla non insertedbr eak through bleedingr/ p Break-thro ugh bleeding 45925997 N92.1 pt had nexplanon inserted may 2023s/p 6 months with light spotting hcg urineremov e nexplanond efer starting 1 mo ocp since bleeding slight Obese 481518585 E66.9 bmi 30.9Discus sed diet at length including healthier food options, increase vegetable and fiber intake, reduce salt intake, incorporat e yoga/stret mel practices and exercise 30 min 5 x per week to improve cardiovasc ular health. Contraception care 12284 5005 Z30.40 patient tolerated junel wellwould like to restart for contracept ion Rx Removal of subcutaneous contraceptive 532278475 Z30.46 removal of nexplanon which was inserted November 2022 due to persisting breakthrou gh bleeding > 9 months [id number] MD Tiffanie Skaggs (Adult Med) [address] [place] [address] [phone] 0 05/19/2024 11:41:55 05/20/2024 10:56:07 Missed period 00346523 N92.5 patient has missed 2 menstrual cycles 20741384 Z33.1 Will refer patient to Obstetrici an and start on daily vitamins. Advised her to avoid any medication s without contacting a provider first. Spotting p er vagina in 759891840 O26.859 Patient has had some light spotting since the end of April. No pain or heavy bleeding. I reassured her that light spotting in first trimester can be normal. I advised her to seek medical attention if she develops pain or heavy bleeding. She will follow up with an obstetrici an for an exam. [id number] [facility] [address] [place] [address] [phone] 06/09/2024 14:19:40 06/10/2024 15:27:05 Routine care 586613847 Z34.91 New OB: 11.2 weeks gestationE DD 12/27/24Pap done todayNuswa b done todayNew OB labs todayDiscu ssed and labor precaution sC/W vitaminsIn itial OB U/S ordered todayRTC 4 weeks Obesity 057179457 E66.9 BMI 30.2 Depression screening 171 932588 Z13.31 PHQ9- Negative (0 out of 27) Mental hea lth screening 216291689 Z13.39 GAD7- Negative (0 out of 21) [id number] [facility] [address] [place] [address] [phone] 0 06/16/2024 08:53:42 06/23/2024 10:56:33 Chromosome abnormality screening 623851598 Z13.79 Referral to [facility] for complete transfer Obesity 151609742 E66.9 BMI 30 [id number] MD [facility] [address] [place] [address] [phone] 0 12/01/2024 11:25:03 12/02/2024 13:25:04 Depression screening 825516851 Z13.31 2629758 PHQ9- Negative (0 out of 27) Mental hea lth screening 674519450 Z13.30 5752601252 GAD7- Negative (0 out of 21) Pre-eclampsia 961470344 O14.90 177052 BP today 128/80Reso lvedRTC 6 weeks for BP check Grief finding 333883346 F43.21 Z63.4 [id number] Gave to child at 28 weeks gestation, born with trisomy 18, shortly afterGriev ing normally. Pt is doing wellPt does not want/need medication at this time Surveillan ce of subcutaneous contraceptive implant 437414625 Z30.46 01618070 Pt to schedule for nexplanon Insertion [id number] MD Tiffanie Diaz (Adult Med) [address] [place] [address] [phone] 0 12/14/2024 09:56:57 12/15/2024 12:04:28 Implantation of subcutaneous contraceptive 201272852 Z30.017 [id number] Patient desires Nexplanon insertion. After discussing the risks, limitation s, potential benefits, and alternativ es, the patient chose to proceed with the procedure. Knows contracept ion effect begins almost immediatel yKnows fertility will resume very soon after removal in 3 years, or when desired.Ne xplanon insertion site on inner, upper left arm palpated, and skin area prepped with alcohol.I nsertion point and tract of insertion infiltrate d with 2% Lidocainew ith Epinephrin e using 27G needle.The n prepped with Povodine Iodine.Imp lant identified inside insertion needle.Ins ertion trocar inserted per protocol, and Nexplanon deployed, using withdrawa l techniqueD evice not identified inside trocar after insertionP rovider was able to palpate implant after insertion. Patient was able to palpate implant after insertion. Steri strips used to close insertion site.Rollins id applied Patient tolerated procedure without incident. Discharge Instructio ns - Wound Care - You may bathe with steri strips on-You may remove bandaid in 24 hours-You may use ice to area for discomfort or bruising- Elevate to decrease pain and improve healing.- Minimize use of affected body part.- Return here or see your doctor for any sign of infection, including redness, swelling, pus or increased pain.-Take Tylenol if you have fever or pain. Return for a more severe reaction. Obese class I [id number] 90161 E66.811 E66.3 [id number] BMI 31.3 [id number] MD Tiffanie Diaz (Adult Med) [address] [place] [address] [phone] 0 01/19/2025 15:50:24 01/20/2025 15:12:03 Grief finding 214768173 F43.21 Z63.4 2069005 Gave to child at 28 weeks gestation, born with trisomy 18, shortly afterGriev ing normally. Pt is doing wellPt does not want/need medication at this time Pre-eclampsia 511936182 O14.90 690279 BP today 128/76Reso lved Depression screening 171 430976 Z13.31 5595712 PHQ9- Negative (0 out of 27) Mental hea lth screening 000156248 Z13.30 9080356551 GAD7- Negative (0 out of 21) Influenza vaccination declined 465581428 Z28.21 07254878 Obese class I [id number] 76226 E66.811 E66.3 8220226188 BMI 31.8 Health Concerns Section Related Observation LastModified by Organization Detai ls LastModified Time None Recorded Concern Status LastModified by Organization Details LastModified Time None Recorded Advance Directives Directive N: Payers Insurance Date Sequence Insurance Name Policy Number Policy Membreno Covered Member ID Membreno Member ID Guarantor Name 12/01/2024 2 [facility] (MEDICAID HMO) [id number] Dianelys Don Spenser [id number] Dianelys Don Spenser 07/15/2024 SLIDING FEE SCHEDULE - DISCOUNT Dianelys Don Spenser 11/06/2019 SLIDING FEE SCHEDULE - DISCOUNT Dianelys Don Spenser 10/18/2020 2 *SELF PAY* Ce cilia Don Spenser 12/01/2024 1 [facility] (MEDICAID HMO) [id number] Dianelys Don [id number] Dianelys Don Spenser 06/26/2019 1 [facility] [id number] Dianelys Don Spenser 12/01/2024 1 [place] [facility] Dianelys Don [id number] Dianelys Don Spenser 06/09/2024 SLIDING FEE SCHEDULE - DISCOUNT Dianelys Don Spenser 06/23/2024 2 *SELF PAY* Ce cilia Don Spenser 12/01/2024 1 [facility] (MEDICAID HMO) Dianelys Don Spenser [id number] Dianelys Don Spenser 01/17/2025 1 [facility] (MEDICAID HMO) [id number] Dianelys Ochoa [id number] Dianelys Soteloirez 11/12/2016 1 *SELF PAY* Rita Soteloirez 01/07/2017 SLIDING FEE SCHEDULE - DISCOUNT Dianelys Soteloirez 11/12/2016 1 [facility]ICAID - [facility] [place] [id number] Dianelys Soteloirez 12/01/2024 3 [place] [facility] Dianelys Ochoa [id number] Dianelys Soteloirez Notes Date Note Type Note Provider Name and Address Organization Details Recorded Time 06/09/2024 text/html ROS as noted in the HPI see OB worksheet ALEKSANDR GARCIA PA-C Attn: [address] [place], [address], [facility] 06/09/2024 15:31:45 06/16/2024 text/html ROS as noted in the HPI see OB worksheet Quan Hassan MD Attn: [address] [place], [address], [facility] 06/16/2024 16:08:24 12/01/2024 text/html ROS as noted in the HPI 29 y/o F here for IM care. Pt was transferred to [facility] for after abnormal [id number] lab test. Pt was diagnosed with HTN during and was being managed with Nifedipine. She is a [facility] patient who is being followed for preeclampsia with severe features. She delivered at 28 weeks via vaginal delivery on 10/14/24. Her baby girl Lauren was born with trisomy 18 and shortly after . Pt states she was taken off nifedipine d/t her BP being normal. Denies NAVARRO, SOB, CP, N/V/D. Pt is needing to be scheduled for nexplanon insertion as she is wanting that for control. Pt denies SI/HI. States she is still very sad about the loss of her daughter and that she will never forget her but she has a good support system and needs to be strong for her other children. ALEKSANDR GARCIA PA-C Attn: [address] [place], [address], [facility] 12/02/2024 10:08:01 12/14/2024 text/html ROS as noted in the HPI 29 y/o F here for nexplanon insertion. Pt denies any new problems or concerns at this time. Pt is not sexually active at this time. Quan Hassan MD Attn: [address] [facility], [place], [address], [facility] 12/14/2024 12:00:58 01/19/2025 text/html ROS as noted in the HPI 29-year-old female here for BP check. Patient was diagnosed preeclampsia and had high blood pressure. Patient states that she has not had any signs or symptoms of high blood pressure. Patient has been checking her blood pressure at home and says it has been n ormal . Patient denies headaches, blurry vision, chest pain. Patient does not want flu shot today. Quan Hassan MD Attn: [address] [facility], [place], [address], [facility] 01/20/2025 12:23:48 OBGyn Episode Ob Episode Information Episode Created Date Number of Fetuses Patient Bloodtype Patient rh Status Prepregnancy Weight lbs Domestic Partner Domestic Partner Phone Father Name Director Of Food And Nutrition Services Status 12/02/19 25 1 CLOSED Fetus Data First Name Last Name Admitted to NICU Weight (g) Sex Living Outcome Pediatric Complications Fetus ID Race Codes Race Delivery Type , Spontane ous [id number] Mario Calculation Initial Mario Date Initial Exam Date Initial Exam Provider Initial Ultrasound Date Last Menstrual Period Date Ultra Sound Weeks Gestation 0 Eighteen To Twenty Week Mario Update Ultra Sound Date Fundal Height At Umbil Quickening Date Ultra Sound Latest Weeks Gestation Final Mario Confirmed By Final Mario Confirmed Date Final Mario Date Ultra Sound Latest Days Gestation 0 0 Menstrual History Last Menstrual Date Menses Monthly On Bcp Conception Prior Menses Frequency Hcg Plus Date Menarche Onset Age Delivery Information Delivery Date Delivery Type Labor Anesthesia Weeks Gestation Incision Type Labor Labor Length Hrs Delivered By Post Complications Tubal Sterilization Discharge Date Comments 5 Discharge Information Feeding Method Contraceptive Method Maternal HG B and HCT Levels Ob Episode Information Episode Created Date Number of Fetuses Patient Bloodtype Patient rh Status Prepregnancy Weight lbs Domestic Partner Domestic Partner Phone Father Name Director Of Food And Nutrition Services Status 06/09/19 25 1 O Positive 131.3 Chery Johnson CLOSED Fetus Data First Name Last Name Admitted to NICU Weight (g) Sex Living Outcome Pediatric Complications Fetus ID Race Codes Race Delivery Type F [id number] Vaginal Mario Calculation Initial Mario Date Initial Exam Date Initial Exam Provider Initial Ultrasound Date Last Menstrual Period Date Ultra Sound Weeks Gestation 12/27/2024 06/09/2024 03/22/2024 0 Eighteen To Twenty Week Mario Update Ultra Sound Date Fundal Height At Umbil Quickening Date Ultra Sound Latest Weeks Gestation Final Mario Confirmed By Final Mario Confirmed Date Final Mario Date Ultra Sound Latest Days Gestation 0 0 Pre- Flowsheet Flowsheet Date 06/09/2024 Ngo Score Blood Edema Fundus Height Fundus Units Glucose Ketones Leukocytes Nitrite Labor Signs Protein Cervic Dilation Cervic Effacement Cervic Station neg none none negative neg Type Weight in lbs Pre/Post Dialysis Refused With clothes 131.142777295069 BP Diastolic BP Location Tested BP Systolic BP Type 68 R arm 112 sitting Fetus Heart Rate Present Fetus Movement A No Comments 28-year-old G6 P 5 female here for initial OB appointment. Patient denies any abdominal pain, vaginal bleeding/cramping, vaginal discharge, N/V/D at this time. New OB: 11.2 weeks gestation MARIO 12/27/24Pap done todayNuswab done todayNew OB labs todayDiscussed and labor precautionsC/W vitaminsInitial OB U/S ordered todayRTC 4 weeks Flowsheet Date 06/16/2024 Ngo Score Blood Edema Fundus Height Fundus Units Glucose Ketones Leukocytes Nitrite Labor Signs Protein Cervic Dilation Cervic Effacement Cervic Station Type Weight in lbs Pre/Post Dialysis Refused With clothes 130.583214630260 BP Diastolic BP Location Tested BP Systolic BP Type 78 R arm 128 sitting Fetus Heart Rate Present Fetus Movement Comments 28-year-old fe male here for lab results.Discussed maternity 21 results with patient and answered questions. Gave referral for MFM and informed patient about Amniocentesis procedure and what to expect. Patient v/u. Patient to call [facility] if she does not hear from them in the next week. Flowsheet Date 12/01/2024 Ngo Score Blood Edema Fundus Height Fundus Units Glucose Ketones Leukocytes Nitrite Labor Signs Protein Cervic Dilation Cervic Effacement Cervic Station Type Weight in lbs Pre/Post Dialysis Refused With clothes 136.839659105559 BP Diastolic BP Location Tested BP Systolic BP Type 80 R arm 128 sitting Fetus Heart Rate Present Fetus Movement Comments Menstrual History Last Menstrual Date Menses Monthly On Bcp Conception Prior Menses Frequency Hcg Plus Date Menarche Onset Age 1103/22/2024 true false 03/22/2024 05/19/19 2 5 12 Genetic Screening And Infection History Question Response Note Patient's Age Will Be 35 Years Or Older At Estim ated Date of Delivery false Thalassemia (American, Cymro, Mediterranean, Or Background): MCV < 80 false Neural Tube Defect (Meningomyelocele, Spina Bifi da, Or Anencephaly) false Congenital Heart Defect false Down Syndrome false Bossman-Sachs (eg, Pentecostal, Cajun, Omani-Tajik) f alse Darion Disease false Sickle Cell Disease Or Trait () false Hemophilia Or Other Blood Disorders false Muscular Dystrophy false Cystic Fibrosis false Pungoteague's Chorea false Mental Retardation/Autism false If Yes, Was Person Tested For Fragile X? false Other Inherited Genetic Or Chromosomal Disorder false Maternal Metabolic Disorder (eg, Type 1 Diabetes , PKU) false Patient Or Baby's Father Had A Child With Defects Not Listed Above false Recurrent Loss, Or A Stillbirth false Medications (including Suppl ements, Vitamins, Herbs, OTC Drugs), Illicit/Recreational Drugs, Alcohol false If Yes, Agent(s) And Strength/Dosage false Any Other Genetic History false Live With Someone With TB Or Exposed To TB false Patient Or Partner Has History Of Genital Herpes false Rash Or Viral Illness Since Last Menstrual Perio d false History Of STD, Gonorrhea, Chlamydia, HPV, Syphi lis false Other Infection History false History of HIV false History of Hepatitis false Prior GBS-infected child false Plans and Education First Trimester Discussed Date Discussion Item Discussion Note Discuss ed By 06/09/2024 Anticipated course of care 06/09/2024 Alcohol 06/09/2024 Intimate partner violence op [email or web address] 06/09/2024 Environmental/work hazards o [email or web address] 06/09/2024 Screening for aneuploidy ope rez46 06/09/2024 Nutrition counseling ; special diet; dietary precautions (mercury, listeriosis) [email or web address] 06/09/2024 Childbirth classes/hospital facilities [email or web address] 06/09/2024 HIV and other routine tests [email or web address] 06/09/2024 Risk factors identif ied by history [email or web address] 06/09/2024 Weight gain counseling opere z46 06/09/2024 Exercise [email or web address] 06/09/2024 Teratogens [email or web address] 06/09/2024 Use of any medicatio ns (including supplements, vitamins, herbs, or OTC drugs) 06/09/2024 [email or web address] 06/09/2024 Sexual activity [email or web address] 06/09/2024 Tobacco/smoking cess ation counseling (ask, advise, assess, assist, and arrange) [email or web address] 06/09/2024 Illicit/recreational drugs o [email or web address] 06/09/2024 Dental care [email or web address] 06/09/2024 Travel [email or web address] 06/09/2024 Seat belt use [email or web address] 06/09/2024 Indications for ultrasonography [id number] 06/09/2024 Avoidance of saunas or hot tubs [id number] 06/09/2024 Toxoplasmosis precautions (cats/raw meat) [email or web address] Second Trimester Discussed Date Discussion Item Discussion Note Discuss ed By Third Trimester Discussed Date Discussion Item Discussion Note Discuss ed By Delivery Information Delivery Date Delivery Type Labor Anesthesia Weeks Gestation Incision Type Labor Labor Length Hrs Delivered By Post Complications Tubal Sterilization Discharge Date Comments 5 29.3 28 weeks via vaginal delivery on 10/14/24. Trisomy 18- baby shortly after Discharge Information Feeding Method Contraceptive Method Maternal HG B and HCT Levels Ob Episode Information Episode Created Date Number of Fetuses Patient Bloodtype Patient rh Status Prepregnancy Weight lbs Domestic Partner Domestic Partner Phone Father Name Director Of Food And Nutrition Services Status 10/19/19 21 1 O Positive 112 CLOSED Fetus Data First Name Last Name Admitted to NICU Weight (g) Sex Living Outcome Pediatric Complications Fetus ID Race Codes Race Delivery Type Avis Veliz bethel-Keith ement e false 2693.20 25 F true Full Term 53916 2106-3 White Standard Vaginal Delivery Problems Problem Notes Natural CB; plans to breastf eed; not sure about circumcision. PPBC TBD Problem Name Start Date End Date Resolution Snomed Code Not e Subchorionic hematoma 06/02/2019 4307011 04 growth restriction [id number] [facility] US 04/10: I UGR. Reassuring dopplers/BPP. Continue testing. On examination - short stature 709513541 Mario Calculation Initial Mario Date Initial Exam Date Initial Exam Provider Initial Ultrasound Date Last Menstrual Period Date Ultra Sound Weeks Gestation 05/12/2021 10/18/2020 [email or web address] 10/30/2020 08/06/2020 12 Eighteen To Twenty Week Mario Update Ultra Sound Date Fundal Height At Umbil Quickening Date Ultra Sound Latest Weeks Gestation Final Mario Confirmed By Final Mario Confirmed Date Final Mario Date Ultra Sound Latest Days Gestation 0 [email or web address] 11/10/2020 05/12/20 21 0 Pre- Flowsheet Flowsheet Date 10/18/2020 Ngo Score Blood Edema Fundus Height Fundus Units Glucose Ketones Leukocytes Nitrite Labor Signs Protein Cervic Dilation Cervic Effacement Cervic Station neg none 10 wks none negative none neg Type Weight in lbs Pre/Post Dialysis Refused With clothes 112.504574111545 BP Diastolic BP Location Tested BP Systolic BP Type 70 108 sitting Fetus Heart Rate Present Fetus Movement Comments NOB visit, B12, MTHFR treatm ent Flowsheet Date 11/01/2020 Ngo Score Blood Edema Fundus Height Fundus Units Glucose Ketones Leukocytes Nitrite Labor Signs Protein Cervic Dilation Cervic Effacement Cervic Station none 12 wks none Type Weight in lbs Pre/Post Dialysis Refused With clothes 113.747907876576 BP Diastolic BP Location Tested BP Systolic BP Type 60 100 sitting Fetus Heart Rate Present Fetus Movement Comments LORRIE and ACOG at 12w3d. Test results reviewed. OB educational packet reviewed and provided to patient. U/S 10/30/2020 showed MARIO 05/12/2021 with 2 small subchorionic hematomas. Follow-up ultrasound in 3 weeks. Flowsheet Date 11/15/2020 Ngo Score Blood Edema Fundus Height Fundus Units Glucose Ketones Leukocytes Nitrite Labor Signs Protein Cervic Dilation Cervic Effacement Cervic Station neg none 14 wks none negative none neg Type Weight in lbs Pre/Post Dialysis Refused Weight 114.358862859975 BP Diastolic BP Location Tested BP Systolic BP Type 64 98 sitting Fetus Heart Rate Present A 144 Present Fetus Movement A No Comments NIPT, B12, progesterone, US Flowsheet Date 12/14/2020 Ngo Score Blood Edema Fundus Height Fundus Units Glucose Ketones Leukocytes Nitrite Labor Signs Protein Cervic Dilation Cervic Effacement Cervic Station neg none 17 cm none negative none neg Type Weight in lbs Pre/Post Dialysis Refused With clothes 0.0 BP Diastolic BP Location Tested BP Systolic BP Type 66 100 sitting Fetus Heart Rate Present A 137 Present Fetus Movement A Yes Comments AFP/US/B12 Flowsheet Date 01/17/2021 Ngo Score Blood Edema Fundus Height Fundus Units Glucose Ketones Leukocytes Nitrite Labor Signs Protein Cervic Dilation Cervic Effacement Cervic Station neg none 24 cm none negative none neg Type Weight in lbs Pre/Post Dialysis Refused With clothes 117.381893605242 BP Diastolic BP Location Tested BP Systolic BP Type 64 98 sitting Fetus Heart Rate Present A 160 Present Fetus Movement A Yes Comments OBFU packet given. B12 shot given today. Flowsheet Date 02/13/2021 Ngo Score Blood Edema Fundus Height Fundus Units Glucose Ketones Leukocytes Nitrite Labor Signs Protein Cervic Dilation Cervic Effacement Cervic Station neg none 27 wks none negative none neg Type Weight in lbs Pre/Post Dialysis Refused With clothes 120.953151257163 BP Diastolic BP Location Tested BP Systolic BP Type 58 106 sitting Fetus Heart Rate Present A 154 Fetus Movement A Yes Comments tdap, b12, gtt today. Flowsheet Date 02/28/2021 Ngo Score Blood Edema Fundus Height Fundus Units Glucose Ketones Leukocytes Nitrite Labor Signs Protein Cervic Dilation Cervic Effacement Cervic Station neg none 29 wks none negative none neg Type Weight in lbs Pre/Post Dialysis Refused With clothes 123.830088663018 BP Diastolic BP Location Tested BP Systolic BP Type 68 108 sitting Fetus Heart Rate Present A 145 Present Fetus Movement A Yes Comments return in 2 weeks Flowsheet Date 03/14/2021 Ngo Score Blood Edema Fundus Height Fundus Units Glucose Ketones Leukocytes Nitrite Labor Signs Protein Cervic Dilation Cervic Effacement Cervic Station neg none 31 wks none negative none neg Type Weight in lbs Pre/Post Dialysis Refused With clothes 0.0 BP Diastolic BP Location Tested BP Systolic BP Type Fetus Heart Rate Present A 144 Present Fetus Movement A Yes Comments LORRIE 31w4d. No complaints. Fl u shot given today. Not interested in COVID vaccine until after . EFW 9%ile, MFM referral sent. 3rd trimester US. RTC in 2 weeks. Flowsheet Date 04/25/2021 Ngo Score Blood Edema Fundus Height Fundus Units Glucose Ketones Leukocytes Nitrite Labor Signs Protein Cervic Dilation Cervic Effacement Cervic Station neg none 36 none negative none neg Type Weight in lbs Pre/Post Dialysis Refused With clothes 132.496913034697 BP Diastolic BP Location Tested BP Systolic BP Type 62 108 sitting Fetus Heart Rate Present A 145 Fetus Movement A No Comments No VB, VD, LOF, regular cont ractions, or decreased movement. She has not been seen in clinic for the last 6 weeks. Patient following with MFM for IUGR. Last evaluated 04/10, she was to return for growth in 3 weeks after that visit. Vital importance of making her appointments stressed to patient. Patient to see MFM 05/01 - will follow up on delivery rec's. RTC in 1 week. Nuswab and GBS collected today. Flowsheet Date 05/04/2021 Ngo Score Blood Edema Fundus Height Fundus Units Glucose Ketones Leukocytes Nitrite Labor Signs Protein Cervic Dilation Cervic Effacement Cervic Station neg none 38 none negative none trace Type Weight in lbs Pre/Post Dialysis Refused With clothes 133.206425186207 BP Diastolic BP Location Tested BP Systolic BP Type 66 112 sitting Fetus Heart Rate Present A 145 Fetus Movement A Yes Comments No VB, VD, LOF, regular cont ractions, or decreased movement. Patient following with MFM for IUGR. She was recently evaluated and note states size is within normal limits Growth appears to in the 8th %tile on this same report which would be consistent with persistent IUGR however. Attempted to clarify while patient was in clinic but unable to get in touch with provider. Weekly testing and Doppler studies were recommended on this same note but given evidence of IUGR, will prudently plan for mIOL tomorrow at 39w0d.Treating UTI based on large LE on UA today. Flowsheet Date 06/01/2021 Ngo Score Blood Edema Fundus Height Fundus Units Glucose Ketones Leukocytes Nitrite Labor Signs Protein Cervic Dilation Cervic Effacement Cervic Station Type Weight in lbs Pre/Post Dialysis Refused With clothes 116.034706828102 BP Diastolic BP Location Tested BP Systolic BP Type 78 R arm 108 sitting Fetus Heart Rate Present Fetus Movement Comments Menstrual History Last Menstrual Date Menses Monthly On Bcp Conception Prior Menses Frequency Hcg Plus Date Menarche Onset Age 0308/06/2020 false Genetic Screening And Infection History Question Response Note Patient's Age Will Be 35 Yea rs Or Older At Estimated Date of Delivery false Thalassemia (American, Cymro, Mediterranean, Or Background): MCV < 80 false Neural Tube Defect (Meningom yelocele, Spina Bifida, Or Anencephaly) false Congenital Heart Defect false Down Syndrome false Bossman-Sachs (eg, Pentecostal, Cajun , Omani-Tajik) false Darion Disease false Sickle Cell Disease Or Trait () false Hemophilia Or Other Blood Disorders false Muscular Dystrophy false Cystic Fibrosis false Pungoteague's Chorea false Mental Retardation/Autism false If Yes, Was Person Tested For Fragile X? false Other Inherited Genetic Or C hromosomal Disorder true MTHFR homozygous, short stat ure Maternal Metabolic Disorder (eg, Type 1 Diabetes, PKU) false Patient Or Baby's Father Had A Child With Defects Not Listed Above false Recurrent Loss, Or A Stillbirth true SAB x1 Medications (including Suppl ements, Vitamins, Herbs, OTC Drugs), Illicit/Recreational Drugs, Alcohol false If Yes, Agent(s) And Strength/Dosage false Any Other Genetic History false Live With Someone With TB Or Exposed To TB false Patient Or Partner Has Histo ry Of Genital Herpes false Rash Or Viral Illness Since Last Menstrual Period false History Of STD, Gonorrhea, C hlamydia, HPV, Syphilis false Other Infection History false History of HIV false History of Hepatitis false Prior GBS-infected child false Plans and Education First Trimester Discussed Date Discussion Item Discussion Note Discuss ed By 11/10/2020 Anticipated course of care [email or web address] 11/10/2020 Alcohol [email or web address] 11/10/2020 Intimate partner violence brittney [email or web address] 11/10/2020 Environmental/work hazards j [email or web address] 11/10/2020 Screening for aneuploidy jco [email or web address] 11/10/2020 Nutrition counseling ; special diet; dietary precautions (mercury, listeriosis) [email or web address] 11/10/2020 Childbirth classes/hospital facilities [email or web address] 11/10/2020 HIV and other routine tests [email or web address] 11/10/2020 Risk factors identif ied by history [email or web address] 11/10/2020 Weight gain counseling jcort [email or web address] 11/10/2020 Exercise [place] [address] 11/10/2020 Teratogens [place] [address] 11/10/2020 Use of any medicatio ns (including supplements, vitamins, herbs, or OTC drugs) [place] [address] 11/10/2020 [place] [address] 11/10/2020 Sexual activity [place] [address] 11/10/2020 Tobacco/smoking cess ation counseling (ask, advise, assess, assist, and arrange) [place] [address] 11/10/2020 Illicit/recreational drugs [place] [address] 11/10/2020 Dental care [place] [address] 11/10/2020 Travel [place] [address] 11/10/2020 Seat belt use [place] [address] 11/10/2020 Indications for ultrasonography [place] [address] 11/10/2020 Avoidance of saunas or hot tubs [place] [address] 11/10/2020 Toxoplasmosis precautions (cats/raw meat) [place] [address] Second Trimester Discussed Date Discussion Item Discussion Note Discuss ed By Third Trimester Discussed Date Discussion Item Discussion Note Discuss ed By Delivery Information Delivery Date Delivery Type Labor Anesthesia Weeks Gestation Incision Type Labor Labor Length Hrs Delivered By Post Complications Tubal Sterilization Discharge Date Comments 1 Induce d [facility]-Ep idural 39 false 48 Dayan ck, Selvin DO None false 06/06/2021 Discharge Information Feeding Method Contraceptive Method Maternal HG B and HCT Levels undecided Ob Episode Information Episode Created Date Number of Fetuses Patient Bloodtype Patient rh Status Prepregnancy Weight lbs Domestic Partner Domestic Partner Phone Father Name Director Of Food And Nutrition Services Status 04/30/20 19 1 O Positive CLOSED Fetus Data First Name Last Name Admitted to NICU Weight (g) Sex Living Outcome Pediatric Complications Fetus ID Race Codes Race Delivery Type [id number] Problems Problem Notes yes to epidural, no to circu mcision of boy, , buffer inflated pad unknown, PPBC Nexplanon Problem Name Start Date End Date Resolution Snomed Code Not e Subchorionic hematoma 06/02/2019 8778493 [id number] 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 [id number] Mario Calculation Initial Mario Date Initial Exam Date Initial Exam Provider Initial Ultrasound Date Last Menstrual Period Date Ultra Sound Weeks Gestation 12/05/2019 04/30/2019 [email or web address] 06/02/2019 02/19/2019 13 Eighteen To Twenty Week Mario Update Ultra Sound Date Fundal Height At Umbil Quickening Date Ultra Sound Latest Weeks Gestation Final Mario Confirmed By Final Mario Confirmed Date Final Mario Date Ultra Sound Latest Days Gestation 0 [email or web address] 06/02/2019 12/05/19 20 0 Pre- Flowsheet Flowsheet Date 04/30/2019 Ngo Score Blood Edema Fundus Height Fundus Units Glucose Ketones Leukocytes Nitrite Labor Signs Protein Cervic Dilation Cervic Effacement Cervic Station trace none 10 wks none negative neg 0cm 0% -4 Type Weight in lbs Pre/Post Dialysis Refused Weight 115.030108780574 BP Diastolic BP Location Tested BP Systolic BP Type 64 100 sitting Fetus Heart Rate Present Fetus Movement Comments NOB labs today. OB education - packet reviewed and provided to patient. Order for first trimester US given. Flowsheet Date 05/28/2019 Ngo Score Blood Edema Fundus Height Fundus Units Glucose Ketones Leukocytes Nitrite Labor Signs Protein Cervic Dilation Cervic Effacement Cervic Station neg none 14 wks none trace neg Type Weight in lbs Pre/Post Dialysis Refused Weight 115.184999393425 BP Diastolic BP Location Tested BP Systolic BP Type 62 96 sitting Fetus Heart Rate Present A 156 Present Fetus Movement Comments First US scheduled for 06/02. B12 today. Flowsheet Date 06/26/2019 Ngo Score Blood Edema Fundus Height Fundus Units Glucose Ketones Leukocytes Nitrite Labor Signs Protein Cervic Dilation Cervic Effacement Cervic Station neg none 16 wks none negative trace Type Weight in lbs Pre/Post Dialysis Refused Weight 118.413916470991 BP Diastolic BP Location Tested BP Systolic BP Type 68 120 sitting Fetus Heart Rate Present A Absent Fetus Movement Comments heart tones absent on exam today. Last US 06/02 with viable intrauterine - HR 145 and gross movement, small subchorionic hemorrhage. Pt sent for STAT US and heart tones absent consistent with demise. EGA of 15w4d. Discussed with patient through laboratory chief and case discussed with Dr. Benitez. Plan to send pt over to [facility] for Cytotec induction of labor with possible D&C. Flowsheet Date 07/20/2019 Ngo Score Blood Edema Fundus Height Fundus Units Glucose Ketones Leukocytes Nitrite Labor Signs Protein Cervic Dilation Cervic Effacement Cervic Station Type Weight in lbs Pre/Post Dialysis Refused With clothes 114.690656879068 BP Diastolic BP Location Tested BP Systolic BP Type 70 R arm 118 sitting Fetus Heart Rate Present Fetus Movement Comments Flowsheet Date 10/18/2020 Ngo Score Blood Edema Fundus Height Fundus Units Glucose Ketones Leukocytes Nitrite Labor Signs Protein Cervic Dilation Cervic Effacement Cervic Station Type Weight in lbs Pre/Post Dialysis Refused With clothes 112.679216251197 BP Diastolic BP Location Tested BP Systolic BP Type Fetus Heart Rate Present Fetus Movement Comments Menstrual History Last Menstrual Date Menses Monthly On Bcp Conception Prior Menses Frequency Hcg Plus Date Menarche Onset Age 1002/19/2019 true false Genetic Screening And Infection History Question Response Note Patient's Age Will Be 35 Years Or Older At Estim ated Date of Delivery false Thalassemia (American, Cymro, Mediterranean, Or Background): MCV < 80 false Neural Tube Defect (Meningomyelocele, Spina Bifi da, Or Anencephaly) false Congenital Heart Defect false Down Syndrome false Bossman-Sachs (eg, Pentecostal, Cajun, Omani-Tajik) f alse Darion Disease false Sickle Cell Disease Or Trait () false Hemophilia Or Other Blood Disorders false Muscular Dystrophy false Cystic Fibrosis false Bertram's Chorea false Mental Retardation/Autism false If Yes, Was Person Tested For Fragile X? false Other Inherited Genetic Or Chromosomal Disorder true MTHFR Maternal Metabolic Disorder (eg, Type 1 Diabetes , PKU) false Patient Or Baby's Father Had A Child With Defects Not Listed Above false Recurrent Loss, Or A Stillbirth false Medications (including Suppl ements, Vitamins, Herbs, OTC Drugs), Illicit/Recreational Drugs, Alcohol false If Yes, Agent(s) And Strength/Dosage false Any Other Genetic History false Live With Someone With TB Or Exposed To TB false Patient Or Partner Has History Of Genital Herpes false Rash Or Viral Illness Since Last Menstrual Perio d false History Of STD, Gonorrhea, Chlamydia, HPV, Syphi lis false Other Infection History false History of HIV false History of Hepatitis false Prior GBS-infected child false Plans and Education First Trimester Discussed Date Discussion Item Discussion Note Discuss ed By 04/30/2019 Anticipated course of care [email or web address] 04/30/2019 Alcohol [email or web address] 04/30/2019 Intimate partner violence brittney [email or web address] 04/30/2019 Environmental/work hazards j [email or web address] 04/30/2019 Screening for aneuploidy jco [email or web address] 04/30/2019 Nutrition counseling ; special diet; dietary precautions (mercury, listeriosis) [email or web address] 04/30/2019 [facility]birth classes/[facility] facilities [facility] 04/30/2019 HIV and other routine tests [facility] 04/30/2019 Risk factors ident[place] ied [place] [address] 04/30/2019 Weight gain counseling [place] [address] 04/30/2019 [place] [address] 04/30/2019 [place]atogens [place] [address] 04/30/2019 Use of any medicatio ns (including supplements, vitamins, herbs, or OTC drugs) [place] [address] 04/30/2019 [place] [address] 04/30/2019 Sexual activity [place] [address] 04/30/2019 Tobacco/smoking cess ation counseling (ask, advise, assess, assist, and arrange) [place] [address] 04/30/2019 Illicit/recreational drugs [place] [address] 04/30/2019 [place] [address] 04/30/2019 [place] [address] 04/30/2019 Seat belt use [place] [address] 04/30/2019 Indications for ultrasonography [place] [address] 04/30/2019 Avoidance of saunas or hot tubs [place] [address] 04/30/2019 Toxoplasmosis precautions (cats/raw meat) [place] [address] Second Trimester Discussed Date Discussion Item Discussion Note Discuss ed By Third Trimester Discussed Date Discussion Item Discussion Note Discuss ed By Delivery Information Delivery Date Delivery Type Labor Anesthesia Weeks Gestation Incision Type Labor Labor Length Hrs Delivered By Post Complications Tubal Sterilization Discharge Date Comments 0 Sponta neous 16.6 Discharge Information Feeding Method Contraceptive Method Maternal HG B and HCT Levels Ob Episode Information Episode Created Date Number of Fetuses Patient Bloodtype Patient rh Status Prepregnancy Weight lbs Domestic Partner Domestic Partner Phone Father Name Director Of Food And Nutrition Services Status 10/11/19 17 1 O Positive CLOSED Fetus Data First Name Last Name Admitted to NICU Weight (g) Sex Living Outcome Pediatric Complications Fetus ID Race Codes Race Delivery Type Lori Guido nte false 3118.44 5 F true Full Term 55404 2106-3 White Vaginal Problems Problem Notes girl per ultrasound, name is Codie, buffer inflated pad is going to be [facility], PPBC is going to be RankingHeroplanon. Ordered today. vaginal , ncb, gbs negative MSirolandoson RANDALL 04/23/2017 mds Problem Name Start Date End Date Resolution Snomed Code Not e On examination - short stature [id number] Vitamin D deficiency [id number] Candidiasis of vagina [id number] Injury of lower limb 03/05/2017 41944704 2 Mario Calculation Initial Mario Date Initial Exam Date Initial Exam Provider Initial Ultrasound Date Last Menstrual Period Date Ultra Sound Weeks Gestation 05/01/2017 10/10/2016 [facility] 11/12/2016 07/26/2016 15 Eighteen To Twenty Week Mario Update Ultra Sound Date Fundal Height At Umbil Quickening Date Ultra Sound Latest Weeks Gestation Final Mario Confirmed By Final Mario Confirmed Date Final Mario Date Ultra Sound Latest Days Gestation 11/13/19 17 15 [facility] 12/03/2016 017 5 Pre-bienvenido Flowsheet Flowsheet Date 10/10/2016 Ngo Score Blood Edema Fundus Height Fundus Units Glucose Ketones Leukocytes Nitrite Labor Signs Protein Cervic Dilation Cervic Effacement Cervic Station neg none 10 wks none negative neg Type Weight in lbs Pre/Post Dialysis Refused 111.278353330189 BP Diastolic BP Location Tested BP Systolic BP Type 68 110 sitting Fetus Heart Rate Present Fetus Movement Comments NOB Flowsheet Date 11/12/2016 Ngo Score Blood Edema Fundus Height Fundus Units Glucose Ketones Leukocytes Nitrite Labor Signs Protein Cervic Dilation Cervic Effacement Cervic Station neg none 15 wks none negative none neg Type Weight in lbs Pre/Post Dialysis Refused 112.748661041960 BP Diastolic BP Location Tested BP Systolic BP Type 58 100 sitting Fetus Heart Rate Present A 154 Present Fetus Movement A No Comments at 15.4 weeks, LORRIE, 2nd trimester US ordered which will also be her initial US since she did not go for her 1st trimester US; will return in 4 weeks for AFP test Flowsheet Date 12/03/2016 Ngo Score Blood Edema Fundus Height Fundus Units Glucose Ketones Leukocytes Nitrite Labor Signs Protein Cervic Dilation Cervic Effacement Cervic Station neg none 18 wks none negative none neg Type Weight in lbs Pre/Post Dialysis Refused 114.070243064655 BP Diastolic BP Location Tested BP Systolic BP Type 54 92 sitting Fetus Heart Rate Present A 147 Present Fetus Movement Comments AFP drawn today, repeat US a fter next visit Flowsheet Date 01/07/2017 Ngo Score Blood Edema Fundus Height Fundus Units Glucose Ketones Leukocytes Nitrite Labor Signs Protein Cervic Dilation Cervic Effacement Cervic Station neg none 23 cm none negative none trace Type Weight in lbs Pre/Post Dialysis Refused 120.830632801278 BP Diastolic BP Location Tested BP Systolic BP Type 58 98 sitting Fetus Heart Rate Present A 152 Present Fetus Movement A Yes Comments baby girl- Codie- U/S- anem ic- rx iron-. OB F/U Flowsheet Date 02/04/2017 Ngo Score Blood Edema Fundus Height Fundus Units Glucose Ketones Leukocytes Nitrite Labor Signs Protein Cervic Dilation Cervic Effacement Cervic Station neg none 27 cm none negative none trace Type Weight in lbs Pre/Post Dialysis Refused 127.367139304001 BP Diastolic BP Location Tested BP Systolic BP Type 62 108 sitting Fetus Heart Rate Present A 154 Present Fetus Movement A Yes Comments U/S done 01/28-32% for growth Flowsheet Date 02/28/2017 Ngo Score Blood Edema Fundus Height Fundus Units Glucose Ketones Leukocytes Nitrite Labor Signs Protein Cervic Dilation Cervic Effacement Cervic Station neg none 31 cm none negative none neg Type Weight in lbs Pre/Post Dialysis Refused 132.309411654814 BP Diastolic BP Location Tested BP Systolic BP Type 62 105 Fetus Heart Rate Present A 140 Present Fetus Movement A Yes Comments Telephone translation servic e utilized for patient to ensure proper understanding. Flowsheet Date 03/05/2017 Ngo Score Blood Edema Fundus Height Fundus Units Glucose Ketones Leukocytes Nitrite Labor Signs Protein Cervic Dilation Cervic Effacement Cervic Station neg none 31 wks none negative none neg Type Weight in lbs Pre/Post Dialysis Refused 132.004714869124 BP Diastolic BP Location Tested BP Systolic BP Type 78 106 sitting Fetus Heart Rate Present A 175 Present Fetus Movement A Yes Comments Edema - see ghislainettmonica note; sta ble on Tylenol #3, will refill total 15 tablets Flowsheet Date 03/19/2017 Ngo Score Blood Edema Fundus Height Fundus Units Glucose Ketones Leukocytes Nitrite Labor Signs Protein Cervic Dilation Cervic Effacement Cervic Station neg none 33 cm none negative none neg Type Weight in lbs Pre/Post Dialysis Refused 132.770677747015 BP Diastolic BP Location Tested BP Systolic BP Type 68 104 Fetus Heart Rate Present A 150 Present Fetus Movement A Yes Comments Flowsheet Date 04/08/2017 Ngo Score Blood Edema Fundus Height Fundus Units Glucose Ketones Leukocytes Nitrite Labor Signs Protein Cervic Dilation Cervic Effacement Cervic Station neg 2+ 36 cm none negative none neg 0cm 0% - 4 Type Weight in lbs Pre/Post Dialysis Refused 139.325000899890 BP Diastolic BP Location Tested BP Systolic BP Type 72 120 sitting Fetus Heart Rate Present A 156 Present Fetus Movement A Yes Comments WTC/WLBEdema isolated left l ower extremity 2/2 fracture Flowsheet Date 04/23/2017 Ngo Score Blood Edema Fundus Height Fundus Units Glucose Ketones Leukocytes Nitrite Labor Signs Protein Cervic Dilation Cervic Effacement Cervic Station trace none 38 cm none negative none neg 0cm 0% -4 Type Weight in lbs Pre/Post Dialysis Refused 143.596434360905 BP Diastolic BP Location Tested BP Systolic BP Type standing Fetus Heart Rate Present A 145 Present Fetus Movement A Yes Comments LABOR, PREECLAMPSIA PRECAUTI ONS AND KICK COUNTS DISCUSSED.left leg edema - no calf tenderness or tyra's signs. Patient is f/u with orthopedician. Flowsheet Date 06/17/2017 Ngo Score Blood Edema Fundus Height Fundus Units Glucose Ketones Leukocytes Nitrite Labor Signs Protein Cervic Dilation Cervic Effacement Cervic Station Type Weight in lbs Pre/Post Dialysis Refused 117.564632956355 BP Diastolic BP Location Tested BP Systolic BP Type 90 R arm 126 sitting Fetus Heart Rate Present Fetus Movement Comments Menstrual History Last Menstrual Date Menses Monthly On Bcp Conception Prior Menses Frequency Hcg Plus Date Menarche Onset Age 0307/26/2016 Genetic Screening And Infection History Question Response Note Patient's Age Will Be 35 Years Or Older At Estim ated Date of Delivery false Thalassemia (American, Cymro, Mediterranean, Or Background): MCV < 80 false Neural Tube Defect (Meningomyelocele, Spina Bifi da, Or Anencephaly) false Congenital Heart Defect false Down Syndrome false Bossman-Sachs (eg, Pentecostal, Cajun, Omani-Tajik) f alse Darion Disease false Sickle Cell Disease Or Trait () false Hemophilia Or Other Blood Disorders false Muscular Dystrophy false Cystic Fibrosis false Pungoteague's Chorea false Mental Retardation/Autism false If Yes, Was Person Tested For Fragile X? false Other Inherited Genetic Or Chromosomal Disorder false Maternal Metabolic Disorder (eg, Type 1 Diabetes , PKU) false Patient Or Baby's Father Had A Child With Defects Not Listed Above false Recurrent Loss, Or A Stillbirth false Medications (including Suppl ements, Vitamins, Herbs, OTC Drugs), Illicit/Recreational Drugs, Alcohol false If Yes, Agent(s) And Strength/Dosage false Any Other Genetic History false Live With Someone With TB Or Exposed To TB false Patient Or Partner Has History Of Genital Herpes false Rash Or Viral Illness Since Last Menstrual Perio d false History Of STD, Gonorrhea, Chlamydia, HPV, Syphi lis false Other Infection History false Plans and Education First Trimester Discussed Date Discussion Item Discussion Note Discuss ed By Second Trimester Discussed Date Discussion Item Discussion Note Discuss ed By 04/23/2017 Selecting a care provider [facility] 04/23/[address]/tubal sterilization [facility] 04/23/2017 Depression screening (when indicated) [facility] 04/23/2017 Abnormal lab values [facility] 04/23/2017 Signs and symptoms of labor [facility] 04/23/2017 [email or web address] 04/23/2017 Tobacco/smoking cess ation counseling (ask, advise, assess, assist, and arrange) [facility] Third Trimester Discussed Date Discussion Item Discussion Note Discuss ed By 04/23/2017 Intimate partner violence [facility] 04/23/2017 Anesthesia plans [facility] 04/23/2017 [place] education (n ewborn screening, jaundice, SIDS/safe sleeping position, car seat) [facility] 04/23/2017 Circumcision [facility] 04/23/2017 Postterm counseling [facility] 04/23/2017 movement monitoring [facility] 04/23/2017 [facility] 04/23/2017 Labor signs [facility] 04/23/2017 depression [facility] 04/23/2017 Family medical leave or disability forms [facility] 04/23/2017 Tobacco/smoking cess ation counseling (ask, advise, assess, assist, and arrange) [facility] 04/23/2017 Signs and symptoms of preeclampsia mahendra Delivery Information Delivery Date Delivery Type Labor Anesthesia Weeks Gestation Incision Type Labor Labor Length Hrs Delivered By Post Complications Tubal Sterilization Discharge Date Comments 7 Sponta neous Local 39 false susan None false Pediatr ic marilyn: Dr. Roselyn Everett MD Discharge Information Feeding Method Contraceptive Method Maternal HG B and HCT Levels Breast none Ob Episode Information Episode Created Date Number of Fetuses Patient Bloodtype Patient rh Status Prepregnancy Weight lbs Domestic Partner Domestic Partner Phone Father Name Director Of Food And Nutrition Services Status 10/11/19 17 1 CLOSED Fetus Data First Name Last Name Admitted to NICU Weight (g) Sex Living Outcome Pediatric Complications Fetus ID Race Codes Race Delivery Type 1814.36 8 M Full Term [id number] Standard Vaginal Delivery Mario Calculation Initial Mario Date Initial Exam Date Initial Exam Provider Initial Ultrasound Date Last Menstrual Period Date Ultra Sound Weeks Gestation 0 Eighteen To Twenty Week Mario Update Ultra Sound Date Fundal Height At Umbil Quickening Date Ultra Sound Latest Weeks Gestation Final Mario Confirmed By Final Mario Confirmed Date Final Mario Date Ultra Sound Latest Days Gestation 0 0 Menstrual History Last Menstrual Date Menses Monthly On Bcp Conception Prior Menses Frequency Hcg Plus Date Menarche Onset Age Delivery Information Delivery Date Delivery Type Labor Anesthesia Weeks Gestation Incision Type Labor Labor Length Hrs Delivered By Post Complications Tubal Sterilization Discharge Date Comments 4 None 40 false Baby was born in [place] Discharge Information Feeding Method Contraceptive Method Maternal HG B and HCT Levels Ob Episode Information Episode Created Date Number of Fetuses Patient Bloodtype Patient rh Status Prepregnancy Weight lbs Domestic Partner Domestic Partner Phone Father Name Director Of Food And Nutrition Services Status 10/11/19 17 1 CLOSED Fetus Data First Name Last Name Admitted to NICU Weight (g) Sex Living Outcome Pediatric Complications Fetus ID Race Codes Race Delivery Type 1360.77 6 M Full Term [id number] Standard Vaginal Delivery Mario Calculation Initial Mario Date Initial Exam Date Initial Exam Provider Initial Ultrasound Date Last Menstrual Period Date Ultra Sound Weeks Gestation 0 Eighteen To Twenty Week Mario Update Ultra Sound Date Fundal Height At Umbil Quickening Date Ultra Sound Latest Weeks Gestation Final Mario Confirmed By Final Mario Confirmed Date Final Mario Date Ultra Sound Latest Days Gestation 0 0 Menstrual History Last Menstrual Date Menses Monthly On Bcp Conception Prior Menses Frequency Hcg Plus Date Menarche Onset Age Delivery Information Delivery Date Delivery Type Labor Anesthesia Weeks Gestation Incision Type Labor Labor Length Hrs Delivered By Post Complications Tubal Sterilization Discharge Date Comments 2 None 40 false Baby was born in [place] Discharge Information Feeding Method Contraceptive Method Maternal HG B and HCT Levels
--- NOTE | 2025-02-27 13:20 | ECG_ITS ---
Test Date: 2025-02-27 13:26:06 Measurements Intervals [place] Rate: 85 P: 16 DE: 108 QRS: 50 QRSD: 98 T: 28 QT: 358 QTc: 428 Interpretive Statements SINUS RHYTHM WITH SHORT DE INTERVAL DELAYED PRECORDIAL R/S TRANSITION BORDERLINE T WAVE ABNORMALITY- INFERIOR LEADS BASELINE ARTIFACT- III, AVL, AVF, V2 BORDERLINE ECG No previous ECG available for comparison Electronically Signed On 02-27-2025 13:53:54 CDT by Ajay Suarez D.O.
[2025-02-27 13:37] LABS: Hematocrit 40.8 % (37.0-47.0); Hemoglobin 13.9 g/dL (12.0-15.0); Immature Granulocyte Percent A 0.3 % (0-0.5); Lymphocytes Absolute Auto 1.93 K/mm3 (0.9-3.2); Mean Corpuscular HGB Conc 34.1 g/dl (32-36); Mean Corpuscular Hemoglobin 31.6 pg (26-34); Mean Corpuscular Volume 92.7 fl (80-100); Nucleated Red Blood Cells Absolute Auto 0.000 K/mm3 (0.0-0.012); Nucleated Red Blood Cells Perc 0.0 % (0.0-0.2); Platelet Count Result 345 k/mm3 (150-375); Red Blood Count 4.40 M/mm3 (4.2-5.4); White Blood Count 6.0 K/mm3 (4.5-10.0)
[2025-02-27 13:50] LABS: INR 1.0; Prothrombin Time 13.4 Seconds (11.1-14.7)
[2025-02-27 13:51] LABS: Partial Thromboplastin Time 28.7 Seconds (22.3-36.8)
[2025-02-27 13:54] LABS: Albumin Level 4.4 g/dL (3.5-5.1); Alkaline Phosphatase 258 U/L (38-126); Anion Gap 9 mmol/L (4-12); Bilirubin,Total 4.0 mg/dL (0.2-1.3); Blood Urea Nitrogen 7 mg/dL (7-17); Calcium 8.9 mg/dL (8.4-10.2); Carbon Dioxide 23 mmol/L (22-30); Chloride 107 mmol/L (98-107); Estimated Glomerular Filt Rate > 60; Glucose 109 mg/dL (65-110); Lipase 203 U/L (23-300); Potassium 3.7 mmol/L (3.4-5.0); Sodium 139 mmol/L (137-145); Total Protein 8.6 g/dL (6.3-8.2)
[2025-02-27 14:03] LABS: Troponin I 0.022 ng/mL (0.000-0.034)
[2025-02-27 14:09] LABS: Alanine Aminotransferase 801 U/L (6-35); Aspartate Amino Transferase 907 U/L (14-36)
--- NOTE | 2025-02-27 14:19 | ED.CHESTPAIN ---
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 She had no nausea or vomiting. Denies shortness of breath. No new medications. She states that she did have a miscarriage couple months ago apparently due to hypertension but she has been doing well since then. She has had this pain previously a few years ago but this was the 1st time since then. Related Data Allergies Allergy/AdvReac Type Severity Reaction Status Date / Time No Known Allergies Allergy Verified 02/27/25 13:24 Review of Systems Review of Systems: Gen.: Denies fevers or chills Eyes: Denies eye pain or visual change ENT: Denies congestion Respiratory: Denies shortness of breath or cough CV: As per HPI GI: As per HPI denies burning, urgency, frequency or hematuria Musculoskeletal: Denies back pain or muscle pain Neuro: Denies numbness, tingling, weakness or focal weakness Skin: Denies rash Except as documented, all other systems reviewed and negative Exam Narrative: APPEARANCE: No acute distress, nontoxic, resting in bed EYES: EOMI HEENT: Normocephalic, atraumatic, OMM RESPIRATORY: No respiratory distress Clear to auscultation bilaterally with no rhonchi wheezing or rales. CARDIOVASCULAR: Regular rate and rhythm without murmurs rubs or gallops. ABDOMINAL: Soft, nontender, nondistended, no rebound or guarding MUSCULOSKELETAl: Moves all extremities. No clubbing, cyanosis or edema. NEURO: Awake and alert. Following commands, speech normal, no focal deficits SKIN:: Warm, dry. No rashes lesions or abrasions PSYCHIATRIC: Normal affect/mood, Course Vital Signs Vital signs: Vital Signs Temperature 97.2 F L 02/27/25 13:20 Pulse Rate 92 02/27/25 13:20 Respiratory Rate 19 02/27/25 13:20 Blood Pressure 121/87 02/27/25 13:20 Pulse Oximetry 99 02/27/25 13:20 Oxygen Delivery Room Air 02/27/25 13:20 Temperature 97.2 F L 02/27/25 13:20 Pulse Rate 84 02/27/25 14:48 Respiratory Rate 18 02/27/25 14:48 Blood Pressure 120/80 02/27/25 14:48 Pulse Oximetry 100 02/27/25 14:48 Oxygen Delivery Room Air 02/27/25 13:44 MDM - Chest Pain MDM Narrative Medical decision making narrative: 29-year-old female presenting for chest pain. On initial evaluation, patient was in no acute distress, afebrile, hemodynamically stable. Heart and lungs clear. Abdomen soft and nontender. CBC was without significant abnormalities. She did have a significant transaminitis with AST at 907 and ALT at 801. T bili elevated at 4. Because of this, her right upper quadrant ultrasound was obtained which did reveal a dilated common bile duct at 8 mm with cholelithiasis without cholecystitis. CT was obtained to rule out any obvious masses and showed the same. Because of this, I did consult Dr. Hernandez, GI, recommends the patient be admitted for MRCP. I discussed this extensively with the patient and she is agreeable to stay for MRCP likely on Saturday. Case was discussed with hospitalist who will admit the patient. Differential Diagnosis Differential diagnosis: Likely stable angina, unstable angina pectoris, atypical chest pain, costochondritis, chest pain and biliary colic Medical Records Data Attestation: I reviewed the patient's medical records. Lab Data Attestation: I reviewed the patient's lab results. 02/27/25 13:32 02/27/25 13:32 Labs: Lab Results 02/27/25 02/27/25 02/27/25 Range/Units 13:32 14:45 14:50 WBC 6.0 (4.5-10.0) K/mm3 RBC 4.40 (4.2-5.4) M/mm3 Hgb 13.9 (12.0-15.0) g/dL Hct 40.8 (37.0-47.0) % MCV 92.7 (80-100) fl MCH 31.6 (26-34) pg MCHC 34.1 (32-36) g/dl RDW 13.2 (11.5-14.5) % Plt Count 345 (150-375) k/mm3 MPV 9.6 (7.4-10.4) fl Immature Gran % (Auto) 0.3 (0-0.5) % Neut % (Auto) 54.4 (45.5-73.1) % Lymph % (Auto) 32.4 (18.3-44.2) % Peach % (Auto) 10.1 H (2.6-8.5) % Eos % (Auto) 2.5 (0-4.4) % Baso % (Auto) 0.3 (0.2-1.2) % Lymph # (Auto) 1.93 (0.9-3.2) K/mm3 Peach # (Auto) 0.6 (0.1-0.6) K/mm3 Eos # (Auto) 0.2 (0-0.3) K/mm3 Baso # (Auto) 0.0 (0.0-0.1) K/mm3 Abs Immat Gran (auto) 0.02 (0.00-0.031) K/mm3 Absolute Neuts (auto) 3.2 (1.3-6.7) K/mm3 Absolute Nucleated RBC 0.000 (0.0-0.012) K/mm3 Nucleated RBC % 0.0 (0.0-0.2) % PT 13.4 (11.1-14.7) Seconds INR 1.0 APTT 28.7 (22.3-36.8) Seconds Sodium 139 (137-145) mmol/L Potassium 3.7 (3.4-5.0) mmol/L Chloride 107 (98-107) mmol/L Carbon Dioxide 23 (22-30) mmol/L Anion Gap 9 (4-12) mmol/L BUN 7 (7-17) mg/dL Creatinine 0.56 L (0.7-1.0) mg/dL Estim Creat Clear Calc Not Reportable Estimated GFR > 60 (59 - ) Glucose 109 (65-110) mg/dL Calcium 8.9 (8.4-10.2) mg/dL Total Bilirubin 4.0 H (0.2-1.3) mg/dL AST 907 H (14-36) U/L ALT 801 H (6-35) U/L Alkaline Phosphatase 258 H (38-126) U/L Troponin I 0.022 (0.000-0.034) ng/mL Total Protein 8.6 H (6.3-8.2) g/dL Albumin 4.4 (3.5-5.1) g/dL Lipase 203 (23-300) U/L Urine Color Dark yellow (Yellow) Urine Appearance Clear (Clear) Urine pH 6.5 (5.0-9.0) Ur Specific [place] 1.007 (1.001-1.035) Urine Protein Negative (Negative) mg/dL Urine Glucose (UA) Negative (Negative) mg/dL Urine Ketones Negative (Negative) mg/dL Ur Blood (Man) 3+ H (Negative) Urine Nitrate Negative (Negative) Urine Bilirubin 1+ H (Negative) Urine Urobilinogen 1.0 (<2.0) mg/dL Leukocyte Esterase Rfl 1+ H (Negative) HILTON/UL Urine RBC 6-10 H (0-2) /hpf Urine WBC 6-10 H (0-3) /hpf Ur Squamous Epith Cells Occasional (Few) /hpf Urine Bacteria None seen /hpf Urine Casts 0-2 POC Urine HCG, Qual Negative (Negative) Hepatitis A IgM Ab Negative (Negative) Hep Bs Antigen Negative (Negative) Hep B Core IgM Ab Negative (Negative) Hepatitis C Ab Screen Negative (Negative) 02/27/25 Range/Units 16:54 WBC (4.5-10.0) K/mm3 RBC (4.2-5.4) M/mm3 Hgb (12.0-15.0) g/dL Hct (37.0-47.0) % MCV (80-100) fl MCH (26-34) pg MCHC (32-36) g/dl RDW (11.5-14.5) % Plt Count (150-375) k/mm3 MPV (7.4-10.4) fl Immature Gran % (Auto) (0-0.5) % Neut % (Auto) (45.5-73.1) % Lymph % (Auto) (18.3-44.2) % Peach % (Auto) (2.6-8.5) % Eos % (Auto) (0-4.4) % Baso % (Auto) (0.2-1.2) % Lymph # (Auto) (0.9-3.2) K/mm3 [place] # (Auto) (0.1-0.6) K/mm3 Eos # (Auto) (0-0.3) K/mm3 Baso # (Auto) (0.0-0.1) K/mm3 Abs Immat Gran (auto) (0.00-0.031) K/mm3 Absolute Neuts (auto) (1.3-6.7) K/mm3 Absolute Nucleated RBC (0.0-0.012) K/mm3 Nucleated RBC % (0.0-0.2) % PT (11.1-14.7) Seconds INR APTT (22.3-36.8) Seconds Sodium (137-145) mmol/L Potassium (3.4-5.0) mmol/L Chloride (98-107) mmol/L Carbon Dioxide (22-30) mmol/L Anion Gap (4-12) mmol/L BUN (7-17) mg/dL Creatinine (0.7-1.0) mg/dL Estim Creat Clear Calc Estimated GFR (59 - ) Glucose (65-110) mg/dL Calcium (8.4-10.2) mg/dL Total Bilirubin (0.2-1.3) mg/dL AST (14-36) U/L ALT (6-35) U/L Alkaline Phosphatase (38-126) U/L Troponin I 0.021 (0.000-0.034) ng/mL Total Protein (6.3-8.2) g/dL Albumin (3.5-5.1) g/dL Lipase (23-300) U/L Urine Color (Yellow) Urine Appearance (Clear) Urine pH (5.0-9.0) Ur Specific [place] (1.001-1.035) Urine Protein (Negative) mg/dL Urine Glucose (UA) (Negative) mg/dL Urine Ketones (Negative) mg/dL Ur Blood (Man) (Negative) Urine Nitrate (Negative) Urine Bilirubin (Negative) Urine Urobilinogen (<2.0) mg/dL Leukocyte Esterase Rfl (Negative) HILTON/UL Urine RBC (0-2) /hpf Urine WBC (0-3) /hpf Ur Squamous Epith Cells (Few) /hpf Urine Bacteria /hpf Urine Casts POC Urine HCG, Qual (Negative) Hepatitis A IgM Ab (Negative) Hep Bs Antigen (Negative) Hep B Core IgM Ab (Negative) Hepatitis C Ab Screen (Negative) Imaging Data Attestation: I personally reviewed and interpreted this imaging study as follows: Radiologist's impression: Impressions Chest X-Ray 02/27/25 15:41 Impression: No acute cardiopulmonary abnormality. Abdomen Ultrasound 02/27/25 16:07 Impression: 1. Dilated CBD. Correlate with LFTs. MRCP suggested to further evaluate. 2. Cholelithiasis. No evidence of acute cholecystitis Abdomen/Pelvis CT 02/27/25 16:58 IMPRESSION: 1. Cholelithiasis. 2. Mild cystitis. ECG Data EKG #1: Attestation: I personally reviewed and interpreted this ECG as follows: ECG completion date: 02/27/25 ECG completion time: 13:26 Interpretation: Normal sinus rhythm with short VT interval rate of 85, normal axis, but no acute ST or T-wave changes EKG #2: Attestation: I personally reviewed and interpreted this ECG as follows: ECG completion date: 02/27/25 ECG completion time: 16:51 Prior ECG tracings: available for review Interpretation: Normal sinus rhythm rate of 91, normal axis, normal intervals, no acute ST or T-wave changes no significant change from earlier Discharge Plan Discharge Clinical Impression: Transaminitis, Common bile duct dilatation Patient Disposition: Still a Patient Condition: Stable Patient Language: Moroccan Follow-up/Referrals: PHYSICIAN,[employer] WORKER [Primary Care Provider, Internal Medicine]
[2025-02-27] MEDS: SODIUM CHLORIDE 0.9% IV 1,000 ML 999 ML IV CONT (14:44)
[2025-02-27 14:52] LABS: BEDSIDEPREGUCG Negative (Negative)
[2025-02-27 14:58] LABS: Add Urine Microscopic? YES; Appearance Urine Clear (Clear); Glucose Urine UA Negative (Negative); Leukocyte Esterase Ur 1+ LEU/UL (Negative); Nitrate Urine Negative (Negative); Non Pathogenic Casts 0-2; Specific Grav Ur 1.007 (1.001-1.035)
[2025-02-27 15:24] LABS: Hepatitis B Surface Antigen Negative (Negative)
[2025-02-27 15:30] LABS: HAV RESULT Negative (Negative); Hepatitis B Core IgM Result Negative (Negative)
--- NOTE | 2025-02-27 16:27 | ECG_ITS ---
Test Date: 2025-02-27 16:51:40 Measurements Intervals [place] Rate: 91 P: 40 NE: 125 QRS: 62 QRSD: 104 T: 30 QT: 375 QTc: 462 Interpretive Statements SINUS RHYTHM INCOMPLETE RIGHT BUNDLE BRANCH BLOCK BORDERLINE ECG Compared to ECG 02/27/2025 13:26:06 Short NE interval no longer present Electronically Signed On 02-27-2025 18:32:46 CDT by Ajay Suarez D.O.
[2025-02-27 17:22] LABS: Troponin I 0.021 ng/mL (0.000-0.034)
--- NOTE | 2025-02-27 19:18 | P.HP_ITS ---
H&P: HPI History of Present Illness Date/Time: 02/27/25 19:18 Chief Complaint: Epigastric pain Narrative: 29-year-old female with hypertension presents the hospital for epigastric and back pain. She denies nausea or vomiting, shortness of breath. Patient states that she did have a recent miscarriage due to hypertension. Patient states that her pain is gone. She denies nausea vomiting fever chills at this time. 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 Patient reassured. CBC is within normal limits, total bili is 4.0, AST is 907, ALT 801, alkaline phos 258, 1st troponin 0.022 followed by 0.021, UA shows 1+ leukocyte esterase negative for nitrates. Hepatitis a, B, C negative.CT abdomen pelvis shows cholelithiasis with mild cystitis, abdominal ultrasound shows dilated CBD. GI has been consulted and recommends a MRCP on Saturday. Senior Accountant Analyst use. Review of Systems Review of Systems: 12 systems were reviewed and are negativ e except for as per HPI. [facility] Social History Social History Alcohol intake: never Substance use: never Substance use type: does not use Lack of Transportation: No Lack of Food: Never True Current Housing: I Have Housing Concerned About Future Housing: No Difficulty Paying Gas/Electric Bills: No Difficulty Paying for Meds: No Currently Unemployed: No Education: Decline to Answer Difficulty w/ Childcare or Family Care: No Spiritual care concerns: Yes Meds Home Medications and Allergies Allergies Allergy/AdvReac Type Severity Reaction Status Date / Time No Known Allergies Allergy Verified 02/27/25 22:19 Vital Signs Vital Signs - 24 hr 02/27/25 13:20 02/27/25 13:43 02/27/25 13:44 Temperature 97.2 F L Pulse Rate 92 88 Respiratory Rate 19 20 Blood Pressure 121/87 Pulse Oximetry 99 99 99 Oxygen Delivery Room Air Room Air 02/27/25 13:45 02/27/25 13:46 02/27/25 13:47 Temperature Pulse Rate 90 89 86 Respiratory Rate 20 21 H 16 Blood Pressure 124/80 122/82 Pulse Oximetry 99 98 99 Oxygen Delivery 02/27/25 14:00 02/27/25 14:01 02/27/25 14:15 Temperature Pulse Rate 84 90 85 Respiratory Rate 22 H 13 14 Blood Pressure 118/82 Pulse Oximetry 100 100 99 Oxygen Delivery 02/27/25 14:16 02/27/25 14:31 02/27/25 14:48 Temperature Pulse Rate 83 85 84 Respiratory Rate 17 19 18 Blood Pressure 113/76 114/75 120/80 Pulse Oximetry 99 100 100 Oxygen Delivery Exam Narrative: General: well appearing, appears stated age. HEENT: normocephalic, atraumatic. Mucous membranes moist. EOMI, PERRLA, bilateral sclera anicteric, no conjunctival injection. Neck supple without JVD, lymphadenopathy, or bruit. Respiratory: clear to ascultation bilaterally. No rales/rhonic/wheezes. Cardiovascular: Regular rate and rhythm, normal S1-S2 upon ascultation. No murmurs, rubs, or clicks. PMI is nondisplaced, capillary refill less than 3 second. Abdomen: Soft, round, no pulsatile masses, nondistended and nontender. No rebound, no guarding. No CVA tenderness, no hepatosplenomegaly. Bowel sounds present to all four quadrants. No high pitch or tinkling sounds, resonant to percussion. Extremities: No cyanosis, clubbing, or edema present. Pulses are palpable 2/2. Active ROM to all four extremities. Neuro: Alert and orientated x 4. PERRLA. Cranial nerves 2-12 intact without focal deficit. Skin: Warm, dry, and intact, without rash, erythema, or lesion. Psych: pleasant, cooperative, normal speech, normal affect, no hallucinations, no dysarthia H&P: Results Labs Labs: Short CBC 02/27/25 Range/Units 13:32 WBC 6.0 (4.5-10.0) K/mm3 Hgb 13.9 (12.0-15.0) g/dL Hct 40.8 (37.0-47.0) % Plt Count 345 (150-375) k/mm3 BMP 02/27/25 13:32 Sodium 139 Potassium 3.7 Chloride 107 Carbon Dioxide 23 BUN 7 Creatinine 0.56 L Glucose 109 Calcium 8.9 Cardiac Enzymes 02/27/25 02/27/25 Range/Units 13:32 16:54 Troponin I 0.022 0.021 (0.000-0.034) ng/mL Liver Function 02/27/25 Range/Units 13:32 Total Bilirubin 4.0 H (0.2-1.3) mg/dL AST 907 H (14-36) U/L ALT 801 H (6-35) U/L Alkaline Phosphatase 258 H (38-126) U/L Albumin 4.4 (3.5-5.1) g/dL Urine 02/27/25 Range/Units 14:45 Urine Color Dark yellow (Yellow) Urine Appearance Clear (Clear) Urine pH 6.5 (5.0-9.0) Ur Specific [place] 1.007 (1.001-1.035) Urine Protein Negative (Negative) mg/dL Urine Glucose (UA) Negative (Negative) mg/dL Assessment and Plan Assessment and plan (1) Transaminitis: Code(s): R74.01 - Elevation of levels of liver transaminase levels Status: Acute Assessment and Plan: Likely related to choledocholithiasis Common bile duct is dilated CMP in a.m. (2) Common bile duct dilatation: Code(s): K83.8 - Other specified diseases of biliary tract Status: Acute Assessment and Plan: GI consulted MRCP on Saturdayay for diet at this time as she is in no pain Patient will need to be NPO Saturday (3) UTI (urinary tract infection): Code(s): N39.0 - Urinary tract infection, site not specified Status: Acute Assessment and Plan: Rocephin IVF for hydration Culture and sensitivity pending (4) Epigastric pain: Code(s): R10.13 - Epigastric pain Status: Acute Assessment and Plan: Likely not cardiac in nature Trend troponins EKG Aspirin given Quality VTE Prophylaxis VTE prophylaxis: mechanical ordered Hospitalist MIPS Advance Care Plan I have confirmed that the patient's Advanced Care Plan is present, code status is documented, or surrogate decision maker is listed in patient medical record.: Yes Medication Reconciliation I have utilized all available resources to obtain, update and review the patients current medications (includes all prescriptions, OTC, herbals, cannabis, and nutritional supplements).: Yes
[2025-02-27] MEDS: HYDROcodone/acetaminophen (*CRX) 5-325 MG TABLET 1 TAB PO (21:53)
[2025-02-27] MEDS: cefTRIAXone 1 GM in SODIUM CHLORIDE 0.9% IV 50 ML 100 ML IVPB (21:57)
[2025-02-27] MEDS: SODIUM CHLORIDE 0.9% IV 1,000 ML 100 ML IV CONT (22:04)
--- NOTE | 2025-02-28 02:14 | ADMGEN ---
This patient, Dianelys Dueñas, was admitted to 3 [facility] Surg Room 312-01. Patient/family oriented to hospital policies and general routines including ID bracelet, bed and alarms, visiting hours, pain management, procedures, bathroom and other care routines, personal items, smoking policy, room service/diet, and visiting hours. Information on how to activate the Rapid Response Team has been discussed. Patient/Family are encouraged to report perceived risks to care and to ask questions if they do not understand what they are told or what they should do.
[2025-02-28 05:30] VITALS: BP 102/73; PULSE 77; RESP 16; TEMP 36.5; O2SAT 98
[2025-02-28 06:09] LABS: Hematocrit 38.5 % (37.0-47.0); Hemoglobin 12.7 g/dL (12.0-15.0); Immature Granulocyte Percent A 0.4 % (0-0.5); Lymphocytes Absolute Auto 2.07 K/mm3 (0.9-3.2); Mean Corpuscular HGB Conc 33.0 g/dl (32-36); Mean Corpuscular Hemoglobin 31.3 pg (26-34); Mean Corpuscular Volume 94.8 fl (80-100); Nucleated Red Blood Cells Absolute Auto 0.000 K/mm3 (0.0-0.012); Nucleated Red Blood Cells Perc 0.0 % (0.0-0.2); Platelet Count Result 312 k/mm3 (150-375); Red Blood Count 4.06 M/mm3 (4.2-5.4); White Blood Count 5.4 K/mm3 (4.5-10.0)
[2025-02-28 06:34] LABS: Albumin Level 3.7 g/dL (3.5-5.1); Alkaline Phosphatase 257 U/L (38-126); Anion Gap 7 mmol/L (4-12); Aspartate Amino Transferase 638 U/L (14-36); Bilirubin,Total 4.4 mg/dL (0.2-1.3); Blood Urea Nitrogen 5 mg/dL (7-17); Calcium 8.0 mg/dL (8.4-10.2); Carbon Dioxide 20 mmol/L (22-30); Chloride 111 mmol/L (98-107); Estimated Glomerular Filt Rate > 60; Glucose 99 mg/dL (65-110); Potassium 3.6 mmol/L (3.4-5.0); Sodium 138 mmol/L (137-145); Total Protein 7.2 g/dL (6.3-8.2)
[2025-02-28 06:47] LABS: Alanine Aminotransferase 786 U/L (6-35)
[2025-02-28] MEDS: SODIUM CHLORIDE 0.9% IV 1,000 ML 100 ML IV CONT ×2 (08:46→22:29)
[2025-02-28] MEDS: DOCUSATE SODIUM 100 MG CAPSULE PO ×2 (08:48→18:16)
--- NOTE | 2025-02-28 09:12 | P.PNIM_ITS ---
Progress Note: A&P Assessment and Plan (1) Transaminitis: Code(s): R74.01 - Elevation of levels of liver transaminase levels Status: Acute Assessment and Plan: Likely related to choledocholithiasis Common bile duct is dilated CMP in a.m. 02/28: LFTs decreased overnight, will continue to monitor (2) Common bile duct dilatation: Code(s): K83.8 - Other specified diseases of biliary tract Status: Acute Assessment and Plan: GI consulted MRCP on Saturday for diet at this time as she is in no pain Patient will need to be NPO Saturday night 02/28: Pending MRCP results. -GI consult recs/plan below: The patient has imaging evidence of cholelithiasis, demonstrated by ultrasound and CT scan. In addition, her elevated bilirubin and persistently elevated transaminases, along with a common bile duct dilatation are very suggestive of concomitant choledocholithiasis. An MRCP will be done this afternoon, and the results will help us deciding the best course of action: ERCP if CBD stone(s) is/are present versus laparoscopic cholecystectomy with intraoperative cholangiogram if not. A surgical consultation is also in progress. Since patient is afebrile, her white count is normal and there are no signs or symptoms of sepsis/cholangitis, there is no indication for antibiotics at this time. (3) UTI (urinary tract infection): Code(s): N39.0 - Urinary tract infection, site not specified Status: Acute Assessment and Plan: Rocephin IVF for hydration Culture and sensitivity pending 02/28: Denies urinary sx today -UC pending (4) Epigastric pain: Code(s): R10.13 - Epigastric pain Status: Acute Assessment and Plan: Likely not cardiac in nature Trend troponins EKG Aspirin given 02/28: Denies this pain today even with palpation -Trops all negative Plan MRCP results, trend labs, pain control Time Spent With Patient Time: Subjective Date/time seen: 02/28/25 1040 Interval history: Fleet [employer] 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 Pt lying comfortably in bed upon my arrival. Pt denies N/V/D, urinary sx, or abd pain at this time. Discussed the plan for MRCP today, all questions addressed. Review of Systems Review of Systems: 12 systems were reviewed and are negativ e except for as per HPI. Exam Narrative: General: well appearing, appears stated age. HEENT: normocephalic, atraumatic. Mucous membranes moist. EOMI, PERRLA, bilateral sclera anicteric, no conjunctival injection. Neck supple without JVD, lymphadenopathy, or bruit. Respiratory: clear to ascultation bilaterally. No rales/rhonic/wheezes. Cardiovascular: Regular rate and rhythm, normal S1-S2 upon ascultation. No murmurs, rubs, or clicks. PMI is nondisplaced, capillary refill less than 3 second. Abdomen: Soft, round, no pulsatile masses, nondistended and nontender. No rebound, no guarding. No CVA tenderness, no hepatosplenomegaly. Bowel sounds present to all four quadrants. No high pitch or tinkling sounds, resonant to percussion. Extremities: No cyanosis, clubbing, or edema present. Pulses are palpable 2/2. Active ROM to all four extremities. Neuro: Alert and orientated x 4. PERRLA. Cranial nerves 2-12 intact without focal deficit. Skin: Warm, dry, and intact, without rash, erythema, or lesion. Psych: pleasant, cooperative, normal speech, normal affect, no hallucinations, no dysarthia Objective Data Vital Signs Vital Signs: Vital Signs - 24 hr 02/27/25 13:20 02/27/25 13:43 02/27/25 13:44 Temperature 97.2 F L Pulse Rate 92 88 Respiratory Rate 19 20 Blood Pressure 121/87 Pulse Oximetry 99 99 99 Oxygen Delivery Room Air Room Air 02/27/25 13:45 02/27/25 13:46 02/27/25 13:47 Temperature Pulse Rate 90 89 86 Respiratory Rate 20 21 H 16 Blood Pressure 124/80 122/82 Pulse Oximetry 99 98 99 Oxygen Delivery 02/27/25 14:00 02/27/25 14:01 02/27/25 14:15 Temperature Pulse Rate 84 90 85 Respiratory Rate 22 H 13 14 Blood Pressure 118/82 Pulse Oximetry 100 100 99 Oxygen Delivery 02/27/25 14:16 02/27/25 14:31 02/27/25 14:48 Temperature Pulse Rate 83 85 84 Respiratory Rate 17 19 18 Blood Pressure 113/76 114/75 120/80 Pulse Oximetry 99 100 100 Oxygen Delivery 02/27/25 22:03 02/28/25 05:30 Temperature 97.6 F 97.7 F Pulse Rate 79 77 Respiratory Rate 16 16 Blood Pressure 113/72 102/73 Pulse Oximetry 99 98 Oxygen Delivery Intake/Output Intake/Output: Intake & Output 02/25/25 02/26/25 02/27/25 02/28/25 23:59 23:59 23:59 23:59 Intake Total 1000 1300 Balance 1000 1300 Meds/Results Medications: Active Medications Generic Name Dose Route Start Last Admin Trade Name Freq PRN Reason Stop Dose Admin Acetaminophen 650 mg 02/27/25 19:35 Acetaminophen 325 Mg Tablet PO Q4H PRN Mild Pain (1-3) or Fever Hydrocodone Bitart/Acetaminophen 1 tab 02/27/25 19:35 02/27/25 21:53 Hydrocodone/Acetaminophen (*Crx) 5-325 Mg Tablet PO 1 tab Q4H PRN Administration Moderate Pain (4-6) Docusate Sodium 100 mg 02/28/25 09:00 02/28/25 08:48 Docusate Sodium 100 Mg Capsule PO 100 mg BID KIRSTEN Administration Ceftriaxone Sodium 1 gm/ 50 mls @ 100 mls/hr 02/27/25 20:00 02/27/25 21:57 Sodium Chloride IVPB 100 mls/hr Q24H KIRSTEN Administration Sodium Chloride 1,000 mls @ 100 mls/hr 02/27/25 19:35 02/28/25 08:46 Normal Saline Iv IV CONT 100 mls/hr .Q10H KIRSTEN Administration Ondansetron HCl 4 mg 02/27/25 19:35 Ondansetron Inj 4 Mg/2 Ml Vial IV PUSH Q6H PRN Nausea And Vomiting Radiology Results: ITS Impressions Chest X-Ray 02/27/25 15:41 Impression: No acute cardiopulmonary abnormality. Abdomen Ultrasound 02/27/25 16:07 Impression: 1. Dilated CBD. Correlate with LFTs. MRCP suggested to further evaluate. 2. Cholelithiasis. No evidence of acute cholecystitis Abdomen/Pelvis CT 02/27/25 16:58 IMPRESSION: 1. Cholelithiasis. 2. Mild cystitis. Labs Labs: Laboratory Results - last 24 hr 02/27/25 02/27/25 02/27/25 13:32 14:45 14:50 WBC 6.0 RBC 4.40 Hgb 13.9 Hct 40.8 MCV 92.7 MCH 31.6 MCHC 34.1 RDW 13.2 Plt Count 345 MPV 9.6 Immature Gran % (Auto) 0.3 Neut % (Auto) 54.4 Lymph % (Auto) 32.4 [place] % (Auto) 10.1 H Eos % (Auto) 2.5 Baso % (Auto) 0.3 Lymph # (Auto) 1.93 [place] # (Auto) 0.6 Eos # (Auto) 0.2 Baso # (Auto) 0.0 Abs Immat Gran (auto) 0.02 Absolute Neuts (auto) 3.2 Absolute Nucleated RBC 0.000 Nucleated RBC % 0.0 PT 13.4 INR 1.0 APTT 28.7 Sodium 139 Potassium 3.7 Chloride 107 Carbon Dioxide 23 Anion Gap 9 BUN 7 Creatinine 0.56 L Estim Creat Clear Calc Not Reportable Estimated GFR > 60 Glucose 109 Calcium 8.9 Total Bilirubin 4.0 H AST 907 H ALT 801 H Alkaline Phosphatase 258 H Troponin I 0.022 Total Protein 8.6 H Albumin 4.4 Lipase 203 Urine Color Dark yellow Urine Appearance Clear Urine pH 6.5 Ur Specific [place] 1.007 Urine Protein Negative Urine Glucose (UA) Negative Urine Ketones Negative Ur Blood (Man) 3+ H Urine Nitrate Negative Urine Bilirubin 1+ H Urine Urobilinogen 1.0 Leukocyte Esterase Rfl 1+ H Urine RBC 6-10 H Urine WBC 6-10 H Ur Squamous Epith Cells Occasional Urine Bacteria None seen Urine Casts 0-2 POC Urine HCG, Qual Negative Hepatitis A IgM Ab Negative Hep Bs Antigen Negative Hep B Core IgM Ab Negative Hepatitis C Ab Screen Negative 02/27/25 02/28/25 16:54 05:43 WBC 5.4 RBC 4.06 L Hgb 12.7 Hct 38.5 MCV 94.8 MCH 31.3 MCHC 33.0 RDW 13.8 Plt Count 312 MPV 10.0 Immature Gran % (Auto) 0.4 Neut % (Auto) 47.5 Lymph % (Auto) 38.3 [place] % (Auto) 10.4 H Eos % (Auto) 3.0 Baso % (Auto) 0.4 Lymph # (Auto) 2.07 [place] # (Auto) 0.6 Eos # (Auto) 0.2 Baso # (Auto) 0.0 Abs Immat Gran (auto) 0.02 Absolute Neuts (auto) 2.6 Absolute Nucleated RBC 0.000 Nucleated RBC % 0.0 PT INR APTT Sodium 138 Potassium 3.6 Chloride 111 H Carbon Dioxide 20 L Anion Gap 7 BUN 5 L Creatinine 0.49 L Estim Creat Clear Calc Not Reportable Estimated GFR > 60 Glucose 99 Calcium 8.0 L Total Bilirubin 4.4 H AST 638 H ALT 786 H Alkaline Phosphatase 257 H Troponin I 0.021 Total Protein 7.2 Albumin 3.7 Lipase Urine Color Urine Appearance Urine pH Ur Specific [place] Urine Protein Urine Glucose (UA) Urine Ketones Ur Blood (Man) Urine Nitrate Urine Bilirubin Urine Urobilinogen Leukocyte Esterase Rfl Urine RBC Urine WBC Ur Squamous Epith Cells Urine Bacteria Urine Casts POC Urine HCG, Qual Hepatitis A IgM Ab Hep Bs Antigen Hep B Core IgM Ab Hepatitis C Ab Screen Quality VTE Prophylaxis VTE prophylaxis: mechanical ordered
--- NOTE | 2025-02-28 11:32 | WPDGICN ---
Assessment and Plan Assessment and plan (1) Cholelithiasis: Code(s): K80.20 - Calculus of gallbladder without cholecystitis without obstruction Status: Acute Assessment and Plan: The patient has imaging evidence of cholelithiasis, demonstrated by ultrasound and CT scan. In addition, her elevated bilirubin and persistently elevated transaminases, along with a common bile duct dilatation are very suggestive of concomitant choledocholithiasis. An MRCP will be done this afternoon, and the results will help us deciding the best course of action: ERCP if CBD stone(s) is/are present versus laparoscopic cholecystectomy with intraoperative cholangiogram if not. A surgical consultation is also in progress. Since patient is afebrile, her white count is normal and there are no signs or symptoms of sepsis/cholangitis, there is no indication for antibiotics at this time. GI Consult Note Consult date/time: 02/28/25 11:32 Reason for consult: Symptomatic cholelithiasis-increased transaminases HPI: Dianelys Dueñas is a 29 year old female with no significant past medical history, presented to the emergency room yesterday following two distinct, self-limited episodes of abdominal pain. The first episode was an hour of severe, crushing lower chest pain that occurred several hours post-meal, was non-radiating, and lacked associated cough or shortness of breath. After its resolution, she experienced a second, less intense episode of pain, lasting an hour and localized to the right upper quadrant , radiating to her back. Upon arrival, she was asymptomatic, but laboratory data revealed significantly elevated liver enzymes AST 907, ALT 801 T. Bili 4.0, Alk Phos 258 and a subsequent ultrasound demonstrated cholelithiasis with a thickened gallbladder and a dilated common bile duct of 8 mm Today, she feels well, though her labs continue to show AST 638 ALT 706 T. Bili 4.4 , alk phos 257. Review of Systems Review of Systems: All systems reviewed & are unremarkable except as noted in HPI and below [facility] Social History Social History Smoking status: Never smoker Alcohol intake: never Substance use: never Substance use type: does not use Lack of Transportation: No Lack of Food: Never True Current Housing: I Have Housing Concerned About Future Housing: No Difficulty Paying Gas/Electric Bills: No Difficulty Paying for Meds: No Currently Unemployed: No Education: Decline to Answer Difficulty w/ Childcare or Family Care: No Spiritual care concerns: Yes Meds Home Medications and Allergies Home Medications ?Medication ?Instructions ?Recorded ?Confirmed ?Type aspirin 81 mg tablet,delayed 81 mg PO DAILY 02/28/25 02/28/25 History release Allergies Allergy/AdvReac Type Severity Reaction Status Date / Time No Known Allergies Allergy Verified 02/27/25 22:19 Vital Signs Vital Signs - 24 hr 02/27/25 13:20 02/27/25 13:43 02/27/25 13:44 Temperature 97.2 F L Pulse Rate 92 88 Respiratory Rate 19 20 Blood Pressure 121/87 Pulse Oximetry 99 99 99 Oxygen Delivery Room Air Room Air 02/27/25 13:45 02/27/25 13:46 02/27/25 13:47 Temperature Pulse Rate 90 89 86 Respiratory Rate 20 21 H 16 Blood Pressure 124/80 122/82 Pulse Oximetry 99 98 99 Oxygen Delivery 02/27/25 14:00 02/27/25 14:01 02/27/25 14:15 Temperature Pulse Rate 84 90 85 Respiratory Rate 22 H 13 14 Blood Pressure 118/82 Pulse Oximetry 100 100 99 Oxygen Delivery 02/27/25 14:16 02/27/25 14:31 02/27/25 14:48 Temperature Pulse Rate 83 85 84 Respiratory Rate 17 19 18 Blood Pressure 113/76 114/75 120/80 Pulse Oximetry 99 100 100 Oxygen Delivery 02/27/25 22:03 02/28/25 05:30 Temperature 97.6 F 97.7 F Pulse Rate 79 77 Respiratory Rate 16 16 Blood Pressure 113/72 102/73 Pulse Oximetry 99 98 Oxygen Delivery Exam Narrative: Mild scleral jaundice Const: General: cooperative and healthy appearing Resp: Effort & Inspection: normal respiratory effort and able to speak in complete sentences Auscultation: clear to auscultation bilaterally Cardio: Rate: regular rate Rhythm: regular rhythm GI: Inspection: normal to inspection GI Palp: No No hepatosplenomegaly present Auscultation: normal bowel sounds Rectal Exam: deferred Skin: General skin exam: normal color Psych: Appearance: grossly normal Mental Status: mental status grossly normal Results Labs 02/28/25 05:43 02/28/25 05:43 Labs: Short CBC 02/27/25 02/28/25 Range/Units 13:32 05:43 WBC 6.0 5.4 (4.5-10.0) K/mm3 Hgb 13.9 12.7 (12.0-15.0) g/dL Hct 40.8 38.5 (37.0-47.0) % Plt Count 345 312 (150-375) k/mm3 BMP 02/27/25 02/28/25 13:32 05:43 Sodium 139 138 Potassium 3.7 3.6 Chloride 107 111 H Carbon Dioxide 23 20 L BUN 7 5 L Creatinine 0.56 L 0.49 L Glucose 109 99 Calcium 8.9 8.0 L Cardiac Enzymes 02/27/25 02/27/25 Range/Units 13:32 16:54 Troponin I 0.022 0.021 (0.000-0.034) ng/mL Liver Function 02/27/25 02/28/25 Range/Units 13:32 05:43 Total Bilirubin 4.0 H 4.4 H (0.2-1.3) mg/dL AST 907 H 638 H (14-36) U/L ALT 801 H 786 H (6-35) U/L Alkaline Phosphatase 258 H 257 H (38-126) U/L Albumin 4.4 3.7 (3.5-5.1) g/dL Urine 02/27/25 Range/Units 14:45 Urine Color Dark yellow (Yellow) Urine Appearance Clear (Clear) Urine pH 6.5 (5.0-9.0) Ur Specific [place] 1.007 (1.001-1.035) Urine Protein Negative (Negative) mg/dL Urine Glucose (UA) Negative (Negative) mg/dL
[2025-02-28] MEDS: HYDROcodone/acetaminophen (*CRX) 5-325 MG TABLET 1 TAB PO ×2 (15:06→23:54)
[2025-02-28 20:19] VITALS: BP 117/82; PULSE 71; RESP 18; TEMP 36.6; O2SAT 100
[2025-03-01] VITALS (10 sets, daily range): BP systolic 117–142; BP diastolic 83–104; PULSE 73–119; RESP 15–20; TEMP 35.8–36.5; O2SAT 99–100
[2025-03-01] MEDS: ACETAMINOPHEN 325 MG TABLET 650 MG PO (01:51)
[2025-03-01 06:05] LABS: Hematocrit 39.5 % (37.0-47.0); Hemoglobin 13.2 g/dL (12.0-15.0); Immature Granulocyte Percent A 0.2 % (0-0.5); Lymphocytes Absolute Auto 2.11 K/mm3 (0.9-3.2); Mean Corpuscular HGB Conc 33.4 g/dl (32-36); Mean Corpuscular Hemoglobin 31.4 pg (26-34); Mean Corpuscular Volume 93.8 fl (80-100); Nucleated Red Blood Cells Absolute Auto 0.000 K/mm3 (0.0-0.012); Nucleated Red Blood Cells Perc 0.0 % (0.0-0.2); Platelet Count Result 336 k/mm3 (150-375); Red Blood Count 4.21 M/mm3 (4.2-5.4); White Blood Count 5.2 K/mm3 (4.5-10.0)
[2025-03-01 06:52] LABS: Alanine Aminotransferase 611 U/L (6-35); Albumin Level 3.8 g/dL (3.5-5.1); Alkaline Phosphatase 297 U/L (38-126); Anion Gap 8 mmol/L (4-12); Aspartate Amino Transferase 296 U/L (14-36); Bilirubin,Total 5.5 mg/dL (0.2-1.3); Blood Urea Nitrogen 6 mg/dL (7-17); Calcium 8.4 mg/dL (8.4-10.2); Carbon Dioxide 18 mmol/L (22-30); Chloride 110 mmol/L (98-107); Estimated Glomerular Filt Rate > 60; Glucose 94 mg/dL (65-110); Potassium 3.5 mmol/L (3.4-5.0); Sodium 136 mmol/L (137-145); Total Protein 7.5 g/dL (6.3-8.2)
--- NOTE | 2025-03-01 10:17 | PM.CNGS ---
Assessment and Plan Assessment and plan (1) Common bile duct dilatation: Code(s): K83.8 - Other specified diseases of biliary tract Status: Acute Assessment and Plan: Patient presented to the ED two days ago with complaints of chest/epigastric pain that has since migrated to her right upper quadrant and radiates to her back. Associated nausea, but no vomiting. Labs upon admission revealed elevated bilirubin and liver enzymes. GI team was consulted and ordered MRCP which revealed choledocholithiasis with CBD dilation and cholelithiasis. ERCP scheduled and general surgery team consulted for laparoscopic appendectomy. Patient would like to receive the surgery while she is inpatient. Once CBD stone is retrieved via ERCP, we will plan accordingly for further sirgical intervention. (2) Cholelithiasis: Code(s): K80.20 - Calculus of gallbladder without cholecystitis without obstruction Status: Acute Assessment and Plan: See above. (3) Transaminitis: Code(s): R74.01 - Elevation of levels of liver transaminase levels Status: Acute Plan Discussed patient's case and plan of care with Dr. Morrison. History of Present Illness Consult details Consult date: 03/01/25 Reason for consult: other (cholelithiasis) Requesting physician: Song Hernandez MD Narrative: Patient is a primarily Persian-speaking 29-year-old female who we have been asked to see in surgical consultation for cholelithiasis. History obtained using director of curriculum, [email or web address], via translating service ipad at bedside. Patient states that she started having which she thought was chest pain last Saturday after work. She states that she was eating some bread when the symptoms started. She felt nauseous, but never vomited. Symptoms continued throughout the night, and eventually led her to present to the ED the next day. Upon admission, labs revealed a normal white blood cell count, but elevated bilirubin and liver enzymes. GI team was consulted and an MRCP was ordered. This revealed choledocholithiasis with mild intrahepatic and extrahepatic biliary duct dilation. Also noted cholelithiasis. GI team planning ERCP. General surgery team consulted for laparoscopic appendectomy. All of this was discussed with the patient and family member at bedside. Upon my interview today, patient states that her pain is mostly to her right upper quadrant and radiates to her back. She has not had any episodes of emesis and her last bowel movement was yesterday morning. Denies any previous abdominal surgeries. Denies ever having symptoms like this before. [facility] Social History Social History Smoking status: Never smoker Alcohol intake: never Substance use: never Substance use type: does not use Lack of Transportation: No Lack of Food: Never True Current Housing: I Have Housing Concerned About Future Housing: No Difficulty Paying Gas/Electric Bills: No Difficulty Paying for Meds: No Currently Unemployed: No Education: Decline to Answer Difficulty w/ Childcare or Family Care: No Spiritual care concerns: Yes Meds Home Medications and Allergies Home Medications ?Medication ?Instructions ?Recorded ?Confirmed ?Type aspirin 81 mg tablet,delayed 81 mg PO DAILY 02/28/25 02/28/25 History release Allergies Allergy/AdvReac Type Severity Reaction Status Date / Time No Known Allergies Allergy Verified 02/27/25 22:19 Vital Signs Vital Signs - 24 hr 02/28/25 20:00 02/28/25 20:19 03/01/25 03:25 Temperature 97.8 F 97.5 F L Pulse Rate 71 86 Respiratory Rate 18 18 Blood Pressure 117/82 117/86 Pulse Oximetry 100 99 Oxygen Delivery Room Air 03/01/25 08:00 Temperature Pulse Rate Respiratory Rate Blood Pressure Pulse Oximetry Oxygen Delivery Room Air Exam Const: General: comfortable and no acute distress Eyes: General: appearance normal, both eyes and all related structures Neck: Neck: supple and no JVD Resp: Effort & Inspection: normal respiratory effort Cardio: Rate: regular rate GI: Inspection: non-distended GI Palp: Yes Soft to palpation and Yes Tenderness to palpation present (GI) (RUQ) Auscultation: Hypoactive bowel sounds present Rectal Exam: deferred Skin: General skin exam: normal color and no rashes or lesions noted Extrem: General: normal to inspection Psych: Mental Status: mental status grossly normal Results Labs 03/01/25 05:34 03/01/25 05:34 Labs: Abnormal lab results 03/01/25 Range/Units 05:34 Neut % (Auto) 44.5 L (45.5-73.1) % [place] % (Auto) 11.2 H (2.6-8.5) % Sodium 136 L (137-145) mmol/L Chloride 110 H (98-107) mmol/L Carbon Dioxide 18 L (22-30) mmol/L BUN 6 L (7-17) mg/dL Creatinine 0.55 L (0.7-1.0) mg/dL Total Bilirubin 5.5 H (0.2-1.3) mg/dL AST 296 H (14-36) U/L ALT 611 H (6-35) U/L Alkaline Phosphatase 297 H (38-126) U/L Diabetes panel 03/01/25 Range/Units 05:34 Sodium 136 L (137-145) mmol/L Potassium 3.5 (3.4-5.0) mmol/L Chloride 110 H (98-107) mmol/L Carbon Dioxide 18 L (22-30) mmol/L BUN 6 L (7-17) mg/dL Creatinine 0.55 L (0.7-1.0) mg/dL Glucose 94 (65-110) mg/dL Calcium 8.4 (8.4-10.2) mg/dL AST 296 H (14-36) U/L ALT 611 H (6-35) U/L Alkaline Phosphatase 297 H (38-126) U/L Total Protein 7.5 (6.3-8.2) g/dL Albumin 3.8 (3.5-5.1) g/dL Calcium panel 03/01/25 Range/Units 05:34 Calcium 8.4 (8.4-10.2) mg/dL Albumin 3.8 (3.5-5.1) g/dL Pituitary panel 03/01/25 Range/Units 05:34 Sodium 136 L (137-145) mmol/L Potassium 3.5 (3.4-5.0) mmol/L Chloride 110 H (98-107) mmol/L Carbon Dioxide 18 L (22-30) mmol/L BUN 6 L (7-17) mg/dL Creatinine 0.55 L (0.7-1.0) mg/dL Glucose 94 (65-110) mg/dL Calcium 8.4 (8.4-10.2) mg/dL Adrenal panel 03/01/25 Range/Units 05:34 Sodium 136 L (137-145) mmol/L Potassium 3.5 (3.4-5.0) mmol/L Chloride 110 H (98-107) mmol/L Carbon Dioxide 18 L (22-30) mmol/L BUN 6 L (7-17) mg/dL Creatinine 0.55 L (0.7-1.0) mg/dL Glucose 94 (65-110) mg/dL Calcium 8.4 (8.4-10.2) mg/dL Total Bilirubin 5.5 H (0.2-1.3) mg/dL AST 296 H (14-36) U/L ALT 611 H (6-35) U/L Alkaline Phosphatase 297 H (38-126) U/L Total Protein 7.5 (6.3-8.2) g/dL Albumin 3.8 (3.5-5.1) g/dL All other labs normal.
[2025-03-01] MEDS: INDOMETHACIN 50 MG SUPP.RECT 100 MG RECTAL (10:55)
[2025-03-01] MEDS: LACTATED RINGERS 1,000 ML 150 ML IV CONT (10:55)
--- NOTE | 2025-03-01 11:10 | P.PNAN_ITS ---
Anes - Initial Pre Proc Eval Procedure: Operation Date: 03/01/25 11:30 Proposed Procedures p Endoscopic Retro Cholangiopancreatogram - Song Hernandez MD Date/Time: 03/01/25 11:10 Surgeon: Pricilla Portillo MD Pre Op Diagnosis: Transaminitis, CBD dilation Patient Data Age: 29 Gender: F Height: 1.47 m Weight: 69.6 kg Last Vital Signs Temp 97.7 F 03/01/25 10:51 Pulse 86 03/01/25 10:51 Resp 16 03/01/25 10:51 BP 121/88 03/01/25 10:51 Pulse Ox 100 03/01/25 10:51 O2 Del Method Room Air 03/01/25 10:51 Allergies Allergy/AdvReac Type Severity Reaction Status Date / Time No Known Allergies Allergy Verified 03/01/25 10:47 Home Medications ?Medication ?Instructions ?Recorded ?Confirmed ?Type aspirin 81 mg tablet,delayed 81 mg PO DAILY 02/28/25 1 History release Laboratory Tests 03/01/25 05:34 WBC 5.2 K/mm3 (4.5-10.0) RBC 4.21 M/mm3 (4.2-5.4) Hgb 13.2 g/dL (12.0-15.0) Hct 39.5 % (37.0-47.0) MCV 93.8 fl (80-100) MCH 31.4 pg (26-34) MCHC 33.4 g/dl (32-36) RDW 14.2 % (11.5-14.5) Plt Count 336 k/mm3 (150-375) MPV 10.0 fl (7.4-10.4) Immature Gran % (Auto) 0.2 % (0-0.5) Neut % (Auto) 44.5 L % (45.5-73.1) Lymph % (Auto) 40.6 % (18.3-44.2) [place] % (Auto) 11.2 H % (2.6-8.5) Eos % (Auto) 3.1 % (0-4.4) Baso % (Auto) 0.4 % (0.2-1.2) Lymph # (Auto) 2.11 K/mm3 (0.9-3.2) [place] # (Auto) 0.6 K/mm3 (0.1-0.6) Eos # (Auto) 0.2 K/mm3 (0-0.3) Baso # (Auto) 0.0 K/mm3 (0.0-0.1) Abs Immat Gran (auto) 0.01 K/mm3 (0.00-0.031) Absolute Neuts (auto) 2.3 K/mm3 (1.3-6.7) Absolute Nucleated RBC 0.000 K/mm3 (0.0-0.012) Nucleated RBC % 0.0 % (0.0-0.2) Sodium 136 L mmol/L (137-145) Potassium 3.5 mmol/L (3.4-5.0) Chloride 110 H mmol/L (98-107) Carbon Dioxide 18 L mmol/L (22-30) Anion Gap 8 mmol/L (4-12) BUN 6 L mg/dL (7-17) Creatinine 0.55 L mg/dL (0.7-1.0) Estim Creat Clear Calc Not Reportable Estimated GFR > 60 (59 - ) Glucose 94 mg/dL (65-110) Calcium 8.4 mg/dL (8.4-10.2) Total Bilirubin 5.5 H mg/dL (0.2-1.3) AST 296 H U/L (14-36) ALT 611 H U/L (6-35) Alkaline Phosphatase 297 H U/L (38-126) Total Protein 7.5 g/dL (6.3-8.2) Albumin 3.8 g/dL (3.5-5.1) Patient hx anesthesia problems: none Family hx anesthesia problems: none Results Review: All pre-operative results and documents have been reviewed as part of the pre- operative evaluation. FORMERLY [facility], [facility]–1983 Social History Social History Smoking status: Never smoker Alcohol intake: never Substance use: never Substance use type: does not use Lack of Transportation: No Lack of Food: Never True Current Housing: I Have Housing Concerned About Future Housing: No Difficulty Paying Gas/Electric Bills: No Difficulty Paying for Meds: No Currently Unemployed: No Education: Decline to Answer Difficulty w/ Childcare or Family Care: No Spiritual care concerns: Yes Anes - Eval Final PreProcedure Day of Procedure 03/01/25 11:10 Patient weight: obese Lungs: normal air movement Airway: Mallampati scale class II Neurological: alert and oriented Last oral intake: >/= 8 hours ASA classification: II Emergent: no Anesthetic plan: proceed Anesthesia type and monitoring: general ETT and standard monitoring Results Review: All pre-operative results and documents have been reviewed as part of the pre-operative evaluation. BMi 32, overall physically active when feeling well. No cp or sob w walking 1 mile. Informed Consent: The patient's anesthetic plan and its attendant risks and benefits were discussed with the patient/family/POA. Questions were solicited and answers provided to the satisfaction of the patient/family/POA.
--- NOTE | 2025-03-01 11:18 | P.PNIM_ITS ---
Progress Note: A&P Assessment and Plan (1) Transaminitis: Code(s): R74.01 - Elevation of levels of liver transaminase levels Status: Acute Assessment and Plan: Likely related to choledocholithiasis Common bile duct is dilated CMP in a.m. 02/28: LFTs decreased overnight, will continue to monitor (2) Common bile duct dilatation: Code(s): K83.8 - Other specified diseases of biliary tract Status: Acute Assessment and Plan: GI consulted MRCP on Saturday for diet at this time as she is in no pain Patient will need to be NPO Saturday night 02/28: Pending MRCP results. -GI consult recs/plan below: The patient has imaging evidence of cholelithiasis, demonstrated by ultrasound and CT scan. In addition, her elevated bilirubin and persistently elevated transaminases, along with a common bile duct dilatation are very suggestive of concomitant choledocholithiasis. An MRCP will be done this afternoon, and the results will help us deciding the best course of action: ERCP if CBD stone(s) is/are present versus laparoscopic cholecystectomy with intraoperative cholangiogram if not. A surgical consultation is also in progress. Since patient is afebrile, her white count is normal and there are no signs or symptoms of sepsis/cholangitis, there is no indication for antibiotics at this time. (3) UTI (urinary tract infection): Code(s): N39.0 - Urinary tract infection, site not specified Status: Acute Assessment and Plan: Rocephin IVF for hydration Culture and sensitivity pending 02/28: Denies urinary sx today -UC pending (4) Epigastric pain: Code(s): R10.13 - Epigastric pain Status: Acute Assessment and Plan: Likely not cardiac in nature Trend troponins EKG Aspirin given 02/28: Denies this pain today even with palpation -Trops all negative Plan MRCP results, trend labs, pain control Time Spent With Patient Time: Subjective Date/time seen: 03/01/25 Interval history: Video Game Maker 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 Pt lying comfortably in bed upon my arrival. Pt denies N/V/D, urinary sx, or abd pain at this time. Discussed the plan for MRCP today, all questions addressed. Review of Systems Review of Systems: 12 systems were reviewed and are negativ e except for as per HPI. Exam Narrative: General: well appearing, appears stated age. HEENT: normocephalic, atraumatic. Mucous membranes moist. EOMI, PERRLA, bilateral sclera anicteric, no conjunctival injection. Neck supple without JVD, lymphadenopathy, or bruit. Respiratory: clear to ascultation bilaterally. No rales/rhonic/wheezes. Cardiovascular: Regular rate and rhythm, normal S1-S2 upon ascultation. No murmurs, rubs, or clicks. PMI is nondisplaced, capillary refill less than 3 second. Abdomen: Soft, round, no pulsatile masses, nondistended and nontender. No rebound, no guarding. No CVA tenderness, no hepatosplenomegaly. Bowel sounds present to all four quadrants. No high pitch or tinkling sounds, resonant to percussion. Extremities: No cyanosis, clubbing, or edema present. Pulses are palpable 2/2. Active ROM to all four extremities. Neuro: Alert and orientated x 4. PERRLA. Cranial nerves 2-12 intact without f ocal deficit. Skin: Warm, dry, and intact, without rash, erythema, or lesion. Psych: pleasant, cooperative, normal speech, normal affect, no hallucinations, no dysarthia Objective Data Vital Signs Vital Signs: Vital Signs - 24 hr 02/28/25 20:00 02/28/25 20:19 03/01/25 03:25 Temperature 97.8 F 97.5 F L Pulse Rate 71 86 Respiratory Rate 18 18 Blood Pressure 117/82 117/86 Pulse Oximetry 100 99 Oxygen Delivery Room Air 03/01/25 08:00 03/01/25 10:51 Temperature 97.7 F Pulse Rate 86 Respiratory Rate 16 Blood Pressure 121/88 Pulse Oximetry 100 Oxygen Delivery Room Air Room Air Intake/Output Intake/Output: Intake & Output 02/26/25 02/27/25 02/28/25 03/01/25 23:59 23:59 23:59 23:59 Intake Total 1000 2420 250 Balance 1000 2420 250 Meds/Results Medications: Active Medications Generic Name Dose Route Start Last Admin Trade Name Freq PRN Reason Stop Dose Admin Acetaminophen 650 mg 02/27/25 19:35 03/01/25 01:51 Acetaminophen 325 Mg Tablet PO 650 mg Q4H PRN Administration Mild Pain (1-3) or Fever Hydrocodone Bitart/Acetaminophen 1 tab 02/27/25 19:35 02/28/25 23:54 Hydrocodone/Acetaminophen (*Crx) 5-325 Mg Tablet PO 1 tab Q4H PRN Administration Moderate Pain (4-6) Docusate Sodium 100 mg 02/28/25 09:00 03/01/25 10:06 Docusate Sodium 100 Mg Capsule PO Not Given BID KIRSTEN Sodium Chloride 1,000 mls @ 100 mls/hr 02/27/25 19:35 02/28/25 22:29 Normal Saline Iv IV CONT 100 mls/hr .Q10H KIRSTEN Administration Lactated Ringer's 1,000 mls @ 150 mls/hr 03/01/25 08:35 Lr - Lactated Ringers Iv IV CONT .Q6H40M KIRSTEN Lactated Ringer's 1,000 mls @ 150 mls/hr 03/01/25 10:50 03/01/25 10:55 Lr - Lactated Ringers Iv IV CONT 150 mls/hr .Q6H40M KIRSTEN Administration Lactated Ringer's 1,000 mls @ 150 mls/hr 03/01/25 11:10 Lr - Lactated Ringers Iv IV CONT .Q6H40M KIRSTEN Ondansetron HCl 4 mg 02/27/25 19:35 Ondansetron Inj 4 Mg/2 Ml Vial IV PUSH Q6H PRN Nausea And Vomiting Radiology Results: ITS Impressions Chest X-Ray 02/27/25 15:41 Impression: No acute cardiopulmonary abnormality. Abdomen Ultrasound 02/27/25 16:07 Impression: 1. Dilated CBD. Correlate with LFTs. MRCP suggested to further evaluate. 2. Cholelithiasis. No evidence of acute cholecystitis Abdomen/Pelvis CT 02/27/25 16:58 IMPRESSION: 1. Cholelithiasis. 2. Mild cystitis. MRCP 03/01/25 07:50 IMPRESSION: 1. Choledocholithiasis with mild intrahepatic and extrahepatic biliary duct dilatation. 2. Cholelithiasis. Labs Labs: Laboratory Results - last 24 hr 03/01/25 05:34 WBC 5.2 RBC 4.21 Hgb 13.2 Hct 39.5 MCV 93.8 MCH 31.4 MCHC 33.4 RDW 14.2 Plt Count 336 MPV 10.0 Immature Gran % (Auto) 0.2 Neut % (Auto) 44.5 L Lymph % (Auto) 40.6 [place] % (Auto) 11.2 H Eos % (Auto) 3.1 Baso % (Auto) 0.4 Lymph # (Auto) 2.11 [place] # (Auto) 0.6 Eos # (Auto) 0.2 Baso # (Auto) 0.0 Abs Immat Gran (auto) 0.01 Absolute Neuts (auto) 2.3 Absolute Nucleated RBC 0.000 Nucleated RBC % 0.0 Sodium 136 L Potassium 3.5 Chloride 110 H Carbon Dioxide 18 L Anion Gap 8 BUN 6 L Creatinine 0.55 L Estim Creat Clear Calc Not Reportable Estimated GFR > 60 Glucose 94 Calcium 8.4 Total Bilirubin 5.5 H AST 296 H ALT 611 H Alkaline Phosphatase 297 H Total Protein 7.5 Albumin 3.8 Quality VTE Prophylaxis VTE prophylaxis: mechanical ordered
--- NOTE | 2025-03-01 14:57 | P.PNGI_ITS ---
Progress Note: A&P Assessment and Plan (1) Choledocholithiasis: Code(s): K80.50 - Calculus of bile duct without cholangitis or cholecystitis without obstruction Status: Acute Assessment and Plan: MRCP demonstrated the presence of biliary sludge and retained gallstones. Unfortunately, ERCP could not be performed due to technical difficulties in cannulation of the common bile duct. The patient will be discharged today, and coordinations were made with [facility] GI department to do an endoscopic ultrasound and possible ERCP tomorrow at noon. Instructions left to the patient to keep herself NPO after midnight. Subjective Date/time seen: 03/01/25 14:57 Objective Data Vital Signs Vital Signs: Vital Signs - 24 hr 02/28/25 20:00 02/28/25 20:19 03/01/25 03:25 Temperature 97.8 F 97.5 F L Pulse Rate 71 86 Respiratory Rate 18 18 Blood Pressure 117/82 117/86 Pulse Oximetry 100 99 Oxygen Delivery Room Air 03/01/25 08:00 03/01/25 10:51 03/01/25 12:25 Temperature 97.7 F 97 F L Pulse Rate 86 119 H Respiratory Rate 16 20 Blood Pressure 121/88 120/104 H Pulse Oximetry 100 100 Oxygen Delivery Room Air Room Air Room Air 03/01/25 12:35 03/01/25 12:45 03/01/25 12:55 Temperature Pulse Rate 83 76 81 Respiratory Rate 20 15 15 Blood Pressure 127/83 139/83 133/84 Pulse Oximetry 100 100 100 Oxygen Delivery Room Air Room Air Room Air 03/01/25 13:05 03/01/25 13:15 03/01/25 13:25 Temperature Pulse Rate 74 73 74 Respiratory Rate 15 15 15 Blood Pressure 139/88 141/88 H 142/88 H Pulse Oximetry 100 100 100 Oxygen Delivery Room Air Room Air Room Air 03/01/25 14:31 Temperature 96.5 F L Pulse Rate 77 Respiratory Rate 18 Blood Pressure 140/97 H Pulse Oximetry 100 Oxygen Delivery Intake/Output Intake/Output: Intake & Output 02/26/25 02/27/25 02/28/25 03/01/25 23:59 23:59 23:59 23:59 Intake Total 1000 2420 250 Balance 1000 2420 250 Meds/Results Medications: Active Medications Generic Name Dose Route Start Last Admin Trade Name Freq PRN Reason Stop Dose Admin Acetaminophen 650 mg 02/27/25 19:35 03/01/25 01:51 Acetaminophen 325 Mg Tablet PO 650 mg Q4H PRN Administration Mild Pain (1-3) or Fever Hydrocodone Bitart/Acetaminophen 1 tab 02/27/25 19:35 02/28/25 23:54 Hydrocodone/Acetaminophen (*Crx) 5-325 Mg Tablet PO 1 tab Q4H PRN Administration Moderate Pain (4-6) Docusate Sodium 100 mg 02/28/25 09:00 03/01/25 10:06 Docusate Sodium 100 Mg Capsule PO Not Given BID KIRSTEN Sodium Chloride 1,000 mls @ 100 mls/hr 02/27/25 19:35 02/28/25 22:29 Normal Saline Iv IV CONT 100 mls/hr .Q10H KIRSTEN Administration Ondansetron HCl 4 mg 02/27/25 19:35 Ondansetron Inj 4 Mg/2 Ml Vial IV PUSH Q6H PRN Nausea And Vomiting Radiology Results: ITS Impressions Chest X-Ray 02/27/25 15:41 Impression: No acute cardiopulmonary abnormality. Abdomen Ultrasound 02/27/25 16:07 Impression: 1. Dilated CBD. Correlate with LFTs. MRCP suggested to further evaluate. 2. Cholelithiasis. No evidence of acute cholecystitis Abdomen/Pelvis CT 02/27/25 16:58 IMPRESSION: 1. Cholelithiasis. 2. Mild cystitis. MRCP 03/01/25 07:50 IMPRESSION: 1. Choledocholithiasis with mild intrahepatic and extrahepatic biliary duct dilatation. 2. Cholelithiasis. Endo Retro Cholangiopancreatogram 03/01/25 12:46 IMPRESSION: 1. Fluoroscopy utilized during reported unsuccessful attempted ERCP. See procedure note note for additional details. Labs Labs: Laboratory Results - last 24 hr 03/01/25 05:34 WBC 5.2 RBC 4.21 Hgb 13.2 Hct 39.5 MCV 93.8 MCH 31.4 MCHC 33.4 RDW 14.2 Plt Count 336 MPV 10.0 Immature Gran % (Auto) 0.2 Neut % (Auto) 44.5 L Lymph % (Auto) 40.6 [place] % (Auto) 11.2 H Eos % (Auto) 3.1 Baso % (Auto) 0.4 Lymph # (Auto) 2.11 [place] # (Auto) 0.6 Eos # (Auto) 0.2 Baso # (Auto) 0.0 Abs Immat Gran (auto) 0.01 Absolute Neuts (auto) 2.3 Absolute Nucleated RBC 0.000 Nucleated RBC % 0.0 Sodium 136 L Potassium 3.5 Chloride 110 H Carbon Dioxide 18 L Anion Gap 8 BUN 6 L Creatinine 0.55 L Estim Creat Clear Calc Not Reportable Estimated GFR > 60 Glucose 94 Calcium 8.4 Total Bilirubin 5.5 H AST 296 H ALT 611 H Alkaline Phosphatase 297 H Total Protein 7.5 Albumin 3.8
--- NOTE | 2025-03-01 15:15 | P.DS_ITS ---
DS: Admitting Diagnosis Discharge Date 03/01/2025 Admitting Diagnosis Choledocholithiasis with CBD dilation and cholelithiasis DS: Discharge Diagnosis Discharge Diagnosis (1) Transaminitis: Code(s): R74.01 - Elevation of levels of liver transaminase levels Status: Acute Assessment and Plan: Likely related to choledocholithiasis Common bile duct is dilated CMP in a.m. 02/28: LFTs decreased overnight, will continue to monitor 03/01: Continue to decrease. Pt to report to [facility] tomorrow for endoscopic ultrasound and possible ERCP tomorrow at noon. (2) Common bile duct dilatation: Code(s): K83.8 - Other specified diseases of biliary tract Status: Acute Assessment and Plan: GI consulted MRCP on Saturday for diet at this time as she is in no pain Patient will need to be NPO Saturday night 02/28: Pending MRCP results. -GI consult recs/plan below: The patient has imaging evidence of cholelithiasis, demonstrated by ultrasound and CT scan. In addition, her elevated bilirubin and persistently elevated transaminases, along with a common bile duct dilatation are very suggestive of concomitant choledocholithiasis. An MRCP will be done this afternoon, and the results will help us deciding the best course of action: ERCP if CBD stone(s) is/are present versus laparoscopic cholecystectomy with intraoperative cholangiogram if not. A surgical consultation is also in progress. Since patient is afebrile, her white count is normal and there are no signs or symptoms of sepsis/cholangitis, there is no indication for antibiotics at this time. 03/01: ERCP attempted today, GI note below: MRCP demonstrated the presence of biliary sludge and retained gallstones. Unfortunately, ERCP could not be performed due to technical difficulties in cannulation of the common bile duct. The patient will be discharged today, and coordinations were made with [facility] GI department to do an endoscopic ultrasound and possible ERCP tomorrow at noon. Instructions left to the patient to keep herself NPO after midnight. (3) UTI (urinary tract infection): Code(s): N39.0 - Urinary tract infection, site not specified Status: Acute Assessment and Plan: Rocephin IVF for hydration Culture and sensitivity pending 02/28: Denies urinary sx today -UC pending 03/01: Pt continues to deny urinary sx. (4) Epigastric pain: Code(s): R10.13 - Epigastric pain Status: Acute Assessment and Plan: Likely not cardiac in nature Trend troponins EKG Aspirin given 02/28: Denies this pain today even with palpation -Trops all negative Plan Pt to report to [facility] tomorrow for US and potential ERCP. DS: Summary Hospital Course Reason for hospitalization: Choledocholithiasis with CBD dilation and cholelithiasis Hospital Course: 29-year-old female with HTN hx presents to the ED for epigastric and back pain on 02/27. She denies nausea or vomiting, shortness of breath. Patient states that she did have a recent miscarriage due to hypertension. Patient states that her pain is gone. She denies nausea vomiting fever chills at this time. CBC is within normal limits, total bili is 4.0, AST is 907, ALT 801, alkaline phos 258, 1st troponin 0.022 followed by 0.021, UA shows 1+ leukocyte esterase negative for nitrates. Hepatitis a, B, C negative. CT abdomen pelvis shows cholelithiasis with mild cystitis, abdominal ultrasound shows dilated CBD. Pt denies urinary sx, no abx needed. GI has been consulted and recommended an MRCP. MRCP demonstrated the presence of biliary sludge and retained gallstones. Unfortunately, ERCP could not be performed due to technical difficulties in cannulation of the common bile duct. The patient will be discharged today, and coordinations were made with [facility] GI department to do an endoscopic ultrasound and possible ERCP tomorrow at noon. Instructions left to the patient to keep herself NPO after midnight. Status at Discharge Overall status at discharge: patient is not back to baseline Time Spent with Patient Time attestation: Total time spent providing and/or coordinating discharge services: 45 Exam Narrative: General: well appearing, appears stated age. HEENT: normocephalic, atraumatic. Mucous membranes moist. EOMI, PERRLA, bilate ral sclera anicteric, no conjunctival injection. Neck supple without JVD, lymphadenopathy, or bruit. Respiratory: clear to ascultation bilaterally. No rales/rhonic/wheezes. Cardiovascular: Regular rate and rhythm, normal S1-S2 upon ascultation. No murmurs, rubs, or clicks. PMI is nondisplaced, capillary refill less than 3 second. Abdomen: Soft, round, no pulsatile masses, nondistended and nontender. No rebound, no guarding. No CVA tenderness, no hepatosplenomegaly. Bowel sounds present to all four quadrants. No high pitch or tinkling sounds, resonant to percussion. Extremities: No cyanosis, clubbing, or edema present. Pulses are palpable 2/2. Active ROM to all four extremities. Neuro: Alert and orientated x 4. PERRLA. Cranial nerves 2-12 intact without focal deficit. Skin: Warm, dry, and intact, without rash, erythema, or lesion. Psych: pleasant, cooperative, normal speech, normal affect, no hallucinations, no dysarthia DS: Data Data Completed and Pending Completed studies during hospitalization: Labs, urine, CXR, abd US, A/P/ CT, MRCP Labs on day of discharge: Labs from last 24 hours 03/01/25 05:34 WBC 5.2 RBC 4.21 Hgb 13.2 Hct 39.5 MCV 93.8 MCH 31.4 MCHC 33.4 RDW 14.2 Plt Count 336 MPV 10.0 Immature Gran % (Auto) 0.2 Neut % (Auto) 44.5 L Lymph % (Auto) 40.6 [place] % (Auto) 11.2 H Eos % (Auto) 3.1 Baso % (Auto) 0.4 Lymph # (Auto) 2.11 [place] # (Auto) 0.6 Eos # (Auto) 0.2 Baso # (Auto) 0.0 Abs Immat Gran (auto) 0.01 Absolute Neuts (auto) 2.3 Absolute Nucleated RBC 0.000 Nucleated RBC % 0.0 Sodium 136 L Potassium 3.5 Chloride 110 H Carbon Dioxide 18 L Anion Gap 8 BUN 6 L Creatinine 0.55 L Estim Creat Clear Calc Not Reportable Estimated GFR > 60 Glucose 94 Calcium 8.4 Total Bilirubin 5.5 H AST 296 H ALT 611 H Alkaline Phosphatase 297 H Total Protein 7.5 Albumin 3.8 Discharge Plan Discharge Attending physician on discharge: Pricilla Portillo Consulting providers: Rola Cortez; Dorcas Morrison Discharging Clinician: Rola Cortez Anticipated Discharge Date/Time: 03/01/25 17:00 Patient Disposition: Home Activity: may shower Diet: other - see discharge instructions Discharge Instructions: 1. Acuda ma?julianna al departamento de gastroenterolog?a del [facility] para jasiel ecograf?a endosc?pica y un posible procedimiento al mediod?a. Aseg?rese de no comer ni beber nada despu?s de la medianoche. Patient Instructions: Gallstones (DC) Patient Language: [place] Stand Alone Forms: General Discharge Information Follow-up/Referrals: Jose,KATHY Terrell [Primary Care Provider, Unknown] - 2 Weeks Discharge Medications: Held aspirin 81 mg tablet,delayed release (DR/EC) 81 mg PO DAILY Hold Instructions: Resume on 03/08/25. Date of admission: 02/27/25 18:02 Primary Care Provider: HaTariq Admitting Provider: Pricilla Portillo Attending physician on admission: Pricilla Portillo Condition: Stable Quality VTE Prophylaxis VTE prophylaxis: mechanical ordered Hospitalist MIPS Heart Failure (Exclusion) Patient has history of Heart Transplant or Left Ventricular Assistive Device?: No IF YES, STOP HERE Heart Failure (Qualifier) Patient has current or prior documentation of LVEF less than or equal to 40%, or mod/servere depressed LVSF?: No IF NO, STOP HERE
--- OUTSIDE RECORDS SUMMARY | 2025-03-02 07:57 | XMS_ITS | Clinical Summary ---
Author Organization [facility] Address [address] [place] [address] Care Team Providers Care Level Vial Grinder Name Role Phone Unavailable Primary Care Provider Unavailabl e Source Comments [facility],non-owned Affiliates and Associated Physician Practices is amultiple site organization consisting of ambulatory clinics and hospital sitesin [place], [place], [place] and [place]. This disclosure is being madepursuant to the Care Everywhere program and may not contain all information available regarding this patient. Last updated 18.[facility] Allergies No known active allergies Medications * Be aware that medications may not be up to date on this document. Alwaysverify current medications with the patient. Vit-Fe Fumarate-FA ( vitamin) 28-0.8 MG tablet Take 1 (one) tablet by mouth once daily 90 tablet 1 5 Active Blood Pressure Monitoring (Blood Pressure Cuff) MISC Use 1 Each 2 times daily 1 Each 5 Active Additional Information Patient not taking.Reason: Patient adjusted, Reported on 11/24/2024 ibuprofen (Motrin) 600 MG tablet Take 1 (one) tablet by mouth every 6 hours as needed for Pain 30 tablet 5 Active Additional Information Patient not taking.Reason: Other, Informant: Patient, Reported on 11/24/2024 polyethylene glycol 3350 (MiraLax) 17 GM/SCOOP powder Take 17 (seventeen) g by mouth once daily 238 g 1 5 Active Additional Information Patient not taking.Reason: Other, Informant: Patient, Reported on 11/24/2024 acetaminophen (Tylenol) 500 MG capsule Take 2 (two) capsules by mouth every 6 hours as needed for Fever or Pain 60 capsule 5 Active Additional Information Patient not taking.Reason: Other, Informant: Patient, Reported on 11/24/2024 docusate sodium (Colace) 100 MG capsule Take 1 (one) capsule by mouth once daily 60 capsule 5 Active Additional Information Patient not taking.Reason: Other, Informant: Patient, Reported on 11/24/2024 NIFEdipine CR 24hr (Adalat CC) 60 MG tablet Take 1 (one) tablet by mouth once daily 30 tablet 1 5 Active Additional Information Patient not taking.Reason: Other, Informant: Patient, Reported on 11/24/2024 Active Problems Patient Care Coordination No te Formatting of this note migh t be different from the original. 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 Her initial score at baseline was 1. Based off of her score of 1, Dianelys does not warrant follow up with [facility] aids social worker, Aliya Zelaya, within the week. Patient will continue to be screened throughout , at intervals no closer than two weeks, for continued surveillance and early identification of depression until delivery. Patient denies mental health history. Gestational hypertension, third trimester 10/08/2024 11/24/2024 Supervision of high risk pre gnancy, antepartum, unspecified trimester 09/28/20242024 [facility]: abnormality in pr egnancy (HCC) - Trisomy 18 08/11/2024 10/15/2024 Overview (10/13/2024): Images from the original note were not included. [facility] PATIENT--PLEASE CALL [phone] (ex 2) IF TRIAGED OR ADMITTED Care Provider: ANITA Cox [place] consultants involved: KAREN-Pérez; MFM- Dr. Le; Rn Imaging- Dr. Calderon Diagnosis: Trisomy 18 per Amniocentesis. 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 Umbilical artery Dopplers with persistent AEDF. MCA Doppler PI decreased consistent with cephalization.DV PI elevated. Severe growth with minimal interval growth Planned surveillance: 08.11.24: Patient offered appointments at [facility] but she is unsure if she wants to complete further evaluation/consultation; stated she will let us know; scheduled for initial [facility] appointment on 10/12 Delivery location: [facility] Delivery mode: unmonitored labor (EFM) with goal of vaginal delivery Desired Delivery GA: IOL 10/13/24 at [facility] due to Pre-eclampsia with a fetus with Trisomy 18 follow up: Plan for comfort care for the if born alive per Neonatology: Recommend delivery at [facility] hospital. Labor to be unmonitored Neonatology attending will be expected to be present at delivery solely for provision of comfort care. I offered to be present if possible for delivery for the sake of continuity, and mother requested this. Team can call or text me personally ([phone]) when delivery is imminent so I can be present. Comfort measures only will be provided to Tiff if she is born alive, with priority given to spending time with family. No interventions are to be provided unless they are solely meant for Tiff's comfort Pastoral care should be notified when delivery is imminent so that Tiff can be baptized if born alive, and for family support. Mother has declined autopsy for Tiff All family communication to be done through a qualified non food receiving clerk Autopsy indicated: Genetics note: Sonar Watchstander Concerns: Care plan based on evaluation and is subject to change based on assessment. See Images or Cardiac under Chart Review for US/ ECHO/ MRI reports. Abnormal chromosomal and gen etic finding on screening of mother 06/19/2024 11/24/2024 38 weeks gestation of 05/01/2021 08/11/2024 35 weeks gestation of 04/03/2021 08/11/2024 Poor growth, affecting management of mother, antepartum condition or complication 03/31/2021 11/24/2024 Left medial tibial plateau fracture 12/04/2017 11/24/2024 Closed displaced fracture of medial malleolus of left tibia with routine healing 06/14/201711/24 Pain in left ankle 03/18/2017 Encounters Date Type Department Care Team Description 03/02/2025 1:00 PM CDT - 03/02/2025 2:00 PM CDT Surgery [facility] [address] [place] [address] Sara Palacios MD Ercp+/-Eus 03/02/2025 1:00 PM CDT Hospital Encounter [facility] [address] [place] [address] Sara Palacios MD Surgery General 03/01/2025 Telephone [facility] [place] [address] Bee Vieira Procedure (External Referral, Ercp+/-Eus, Dr. Hernandez ) from Last 3 Months Immunizations Immunization Administration Dates Next Due MMR 10/15/2024(Deferred: See Comment s - Rubella Immune) Social History Tobacco Use Types Packs/Day Years Used Date Smoking Tobacco: Never Smokeless Tobacco: Never Tobacco Cessation:Counseling Given: Not Answered Alcohol Use Standard Drinks/Week Comments Never 0 (1 standard drink = 0.6 oz pur e alcohol) Overall Financial Resource Strain (CARDIA) Answe r Date Recorded How hard is it for you to pa y for the very basics like food, housing, medical care, and heating? Not very hard 11/24/2024 [facility] [place] [facility] Occupat ional Health - Occupational Stress Questionnaire Answer Date Recorded Do you feel stress - tense, restless, nervous, or anxious, or unable to sleep at night because your mind is troubled all the time - these days? Not at all 11/24/2024 Hunger Vital Sign Answer Date Recorded Within the past 12 months, y ou worried that your food would run out before you got the money to buy more. Never true 11/25/19 25 Within the past 12 months, t he food you bought just didn't last and you didn't have money to get more. Never true 11/24/2024 PRAPARE - Transportation Answer Date Re corded In the past 12 months, has l ack of transportation kept you from medical appointments or from getting medications? No 11/10 In the past 12 months, has l ack of transportation kept you from meetings, work, or from getting things needed for daily living? No 11/24/2024 [place] Depression Scale Answer Date Recorded [place] Depression Scale Total 0 11/24/2024 The thought of harming myself has occurred to me . Never 11/24/2024 Housing Stability Vital Sign Answer Fidel e Recorded In the last 12 months, was t here a time when you were not able to pay the mortgage or rent on time? No 11/24/2024 In the past 12 months, how m any times have you moved where you were living? 0 11/24/2024 At any time in the past 12 m [facility], were you homeless or living in a jail (including now)? 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 Gender Identity Not on file Sexual Orientation Not on file Last Filed Vital Signs Vital Sign Reading Time Taken Comments Blood Pressure 118/74 11/24/2024 9:31 AM CDT Pulse 82 11/24/2024 9:31 AM CDT Temperature 36.7 C (98.1 F) 10/16/2024 9:00 AM CDT Respiratory Rate 99 11/24/2024 9:31 AM CDT Oxygen Saturation 99% 11/24/2024 9:14 AM CDT Inhaled Oxygen Concentration - - Weight 61.7 kg (136 lb) 11/24/2024 9:31 AM CDT Height 149.9 cm (4' 11) 11/24/2024 9:31 AM CDT Body Mass Index 27.47 11/24/2024 9:31 AM CDT Plan of Treatment Scheduled Procedures Name Priority Associated Diagnoses Date/Ti me ENDOSCOPIC RETROGRADE CHOLANGIOPANCREATOGRAPHY (ERCP) Other specified diseases of biliary tract Calculus of gallbladder without cholecystitis with obstruction 03/02/2025 1:02 PM CDT ESOPHAGOGASTRODUODENOSCOPY ( EGD) /ESOPHAGOSCOPY WITH ULTRASOUND (EUS) Other specified diseases of biliary tract Calculus of gallbladder without cholecystitis with obstruction 03/02/2025 1:02 PM CDT Health Maintenance Due Date Last Done Comments HIV SCREENING 2009 HEPATITIS C SCREENING 08/31/2012 DTAP/TDAP/TD VACCINES (1 - Tdap) 2013 HEPATITIS B VACCINE (1 of 3 - 19+ 3-dose series) 2013 PAP SMEAR 09/06/2015 HPV VACCINE (1 - 3-dose SCDM series) 2021 DEPRESSION SCREENING 05/13/2024 COVID-19 VACCINE (1 - 2023-2 5 season) 2025 INFLUENZA VACCINE (#1) 2025 , 02/04/2017 ZOSTER VACCINE (1 of 2) 2044 HIB VACCINE Aged Out No longer eligi ble based on patient's age to complete this topic MENINGOCOCCAL (Group B) VACCINE SHARED DECISION-MAKING Aged Out No longer eligible based on patient's age to complete this topic MENINGOCOCCAL GROUPS A/C/Y/W VACCINE Aged Out No longer eligible b ased on patient's age to complete this topic PNEUMOCOCCAL VACCINE Aged Out No long er eligible based on patient's age to complete this topic Insurance [facility] Advance Directives * Full Code (Latest Code Status on File) Date Activated Date Inactivated Comments 10/13/2024 8:13 AM 10/16/2024 1:25 PM * Full Code Date Activated Date Inactivated Comments 10/08/2024 12:31 PM 10/09/2024 4:33 PM
--- OUTSIDE RECORDS SUMMARY | 2025-03-02 07:57 | XMS_ITS | Clinical Summary ---
Author Organization [facility] Address [address] [place] [address] Care Team Providers Care Farm Owner Operator Name Role Phone Candelario Walsham Primary Care Provid er Allergies No known active allergies Medications vit 25-hhek-duiqz-d weiss 27mg iron- 800 mcg-250 mg capsule [...] more drinks on one occasion? Never 05/05/2021 [place] Depression Scale Answer Date Recorded [place] Depression Scale Total 4 05/06/2021 The thought of harming myself has occurred to me . 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 Gender Identity Not on file Sexual Orientation [...] ,GIRL MATTHEW IA Iam forbes ck, Candelario armsa, DO Complications:Other (Comment ) Delivery Location:[facility] Main [facility] amp[facility] ([facility]) Last Filed Vital Signs Vital Sign Reading Time Taken Comments Blood Pressure 118/80 05/06/2021 4:14 PM SENIOR MOBILE DEVELOPER Pulse 78 05/06/2021 4:14 PM SENIOR MOBILE DEVELOPER Temperature 36.9 C (98.4 F) 05/06/2021 4:14 PM SENIOR MOBILE DEVELOPER Respiratory Rate 18 05/06/2021 4:14 PM SENIOR MOBILE DEVELOPER Oxygen Saturation 97% 05/06/2021 4:14 PM SENIOR MOBILE DEVELOPER Inhaled Oxygen Concentration - - Weight 60.8 kg (134 lb) 05/05/2021 8:38 AM SENIOR MOBILE DEVELOPER Height - - Body Mass Index - - Plan of Treatment Not on file Insurance [facility] Advance Directives For more information, please contact: [phone] * Full Code (Latest Code Status on File) Date Activated Date Inactivated Comments 05/05/2021 7:30 PM 05/06/2021 9:11 PM * Full Code Date Activated Date Inactivated Comments 05/05/2021 8:22 AM 05/05/2021 7:30 PM Full CPR i n case of cardiopulmonary arrest Care Teams Farm Owner Operator Relationship Specialty Start Date End Date Candelario Walsh DO [address] [place] [id number] PCP - General Obstetrics and Gynecology 05/05/21
--- OUTSIDE RECORDS SUMMARY | 2025-03-02 07:58 | XMS_ITS | Data Portability ---
Author Organization Dunia NAJERA Address [address] [facility], [place] [address] Care Team Providers Care Telecommunications Officer Name Role Phone FLORENCE WATKINS Solar Lab Technician Assessment No assessment recorded. Plan of Treatment Reminders Order Date Submit Date Provider Last Modified By Organization Details Last Modified Time Details Appointments None recorded. Lab test, urine 2024 025 [email or web address] In-Office Order, Internal Use Only DO Not Attach Compendium DO Not Attach Compendium, Do Not Delete/merge, [id number] 10:41:58 CBC w/ auto diff 2024 025 [email or web address] [facility], [address] [place] [address], [facility] [address], [place], [address], 5 14:40:18 culture, urine 2024 025 GENESIS [facility], [address] [place] [address], [facility] [address], [place], [address], 5 15:11:20 hemoglobi n (Hb) electroph oresis, blood 2024 025 [email or web address] [facility], [address] [place] [address], [address], [place], [address], 14:40:38 HIV 1 + 2, meaningfu l use set 2024 025 [email or web address] [facility], [address], [place], [address], 5 14:41:07 CFTR mutation, blood or tissue 2024 025 GENESIS Samaniego, [address], [address], [place], [address], 5 19:10:20 aneuploid y risk and X & Y analysis, chromosom e specific circulati ng cell free (CCF) DNA, maternal serum 2024 025 GENESIS Samaniego, [address], [address], [place], [address], 5 19:08:43 abo group + rh type, blood 2024 025 mio Ahncolicha, [address], [place], [address], 5 14:40:51 drug screen, 5 drugs, urine 2024 025 mio [facility], [address] [place] [address], [address], [address], 5 14:39:57 rubella IgG Ab, quant immunoass ay, serum or plasma 2024 025 mio Ahncolicha, [address], [place], [address], 5 14:40:58 RPR (rapid plasma reagin), serum 2024 025 mio Ahncolicha, [address], [place], [address], 5 14:41:22 varicella zoster virus IgG Ab, QL, IA, serum 2024 025 [email or web address] [facility], [address], [place], [address], 5 14:41:16 vaginal pathogens panel, RAJAN+probe , vaginal fluid 2024 025 [facility], [address], [place], [address], 5 14:40:09 hepatitis panel (A+B+C), acute, serum 2024 025 [email or web address] [facility], [address], [place], [address], 5 14:40:46 cytology report, thin prep, smear or scraping, cervical or vaginal 2024 025 MAYO [facility], [address] [facility], [address], [place], [address], 5 15:22:20 urinalysi s, dipstick 2024 025 [email or web address] In-Office Order, Internal Use Only DO Not Attach Compendium DO Not Attach Compendium, Do Not Delete/merge, [id number] 15:30:57 Referral maternal & medicine referral - Trisomy 18 2024 025 [facility], [address], [address], [place], [address], 5 09:24:44 Procedures None recorded. Surgeries None recorded. Imaging US, obstetric , 1st trimester 2024 025 [email or web address] [facility] (Radiology), [address], [place], [address], 5 16:33:38 Medication Orders Nexplanon 68 mg subdermal implant 2024 025 [email or web address] [facility], [address] [facility] [place], [address], 11:59:33 Patient TargetsNo targets recorded. Patient Instructions Encounter Date Encounter Id Patient Instructions Last Modified By Organization Details Last Modified Time 06/09/2024 [id number] A healthy lifestyle: care instructions [email or web address] Not available 06/09/2024 15:25:07 06/16/2024 [id number] A healthy lifestyle: care instructions [email or web address] Not available 06/16/2024 09:44:57 --Discussed with Dr. Sonya beal Not available 06/16/2024 16:08:20 12/01/2024 [id number] grief (actual/anticipat ed): care instructions [email or web address] Not available 12/01/2024 11:59:33 12/14/2024 [id number] A healthy lifestyle: care instructions [email or web address] Not available 12/14/2024 10:41:58 --Discussed with Dr. Sonya beal Not available 12/14/2024 12:00:54 01/19/2025 [id number] grief (actual/anticipat ed): care instructions Not available 01/19/2025 16:18:00 A healthy lifestyle: care instructions [email or web address] Not available 01/19/2025 16:18:[address] Sonya beal Not available 01/20/2025 12:22:55 Reason for Referral Maternal & Medicine [facility] for Chromosome abnormality screening Trisomy 18 Referring Physician: Aleksandr Garcia, Family Medicine, Encounter Date: 06/16/2024 Results Created Date Observation Date Name Description Value Unit Range Abnormal Flag Note LastModifiedBy Organization Detail LastModifiedTime 05/19/1905/19/2024 pregn augustus test, urine HCG positi ve Not Available In-Office Order Internal Use Only DO Not Attach Compendium DO Not Attach Compendium, Do Not Delete/merge, [id number] 05/19/2024 11:54:38 06/09/19 25 06/11/2024 URINE CULTU RE, ROUTI NE urine culture, routine FINAL REPORT Not Available [facility] ([facility]) [address] [facility], [place], [address], 06/11/2024 15:11:20 06/09/19 25 06/11/2024 URINE CULTU RE, ROUTI NE result 1 GERMAN Motta Mixed uroge nital lise 10,00 0-25, 000 colon y formi ng units per mL Not Available [facility] ([facility]) [address] [place], [address], 06/11/2024 15:11:20 06/09/19 25 06/12/2024 IGP, RFX APTIM A HPV ASCU diagnosis: GERMAN Motta NEGAT PEYTON FOR INTRA EPITH ELIAL LESIO N OR LESLEY MENDEZ . Not Available [facility] ([facility]) [address] [place], [address], 06/12/2024 15:22:20 06/09/19 25 06/12/2024 IGP, RFX APTIM A HPV ASCU specimen adequacy: GERMAN Motta Satis facto ry for evalu ation . Endoc ervic al and/o r squam ous metap lasti c cells (endo cervi ayden compo nent) are prese nt. Not Available [facility] ([facility]) [address] [place], [address], 06/12/2024 15:22:20 06/09/19 25 06/12/2024 IGP, RFX APTIM A HPV ASCU clinician provided ICD10: GERMAN Motta Z34.9 1 Not Available [facility] ([facility]) [address] [place], [address], 06/12/2024 15:22:20 06/09/19 25 06/12/2024 IGP, RFX APTIM A HPV ASCU performed by: GERMAN James er, Cytot karen motta (ASCP ) Not Available [facility] ([facility]) [address] [place], [address], 06/12/2024 15:22:20 06/09/19 25 06/12/2024 IGP, RFX APTIM A HPV ASCU . . Not Available [facility] ([facility]) [address] [place], [address], 06/12/2024 15:22:20 06/09/19 25 06/12/2024 IGP, RFX [...] ts do occur . Not Available [facility] ([facility]) [address] [facility], [place], [address], 06/12/2024 15:22:20 06/09/19 25 06/12/2024 IGP, RFX APTIM A HPV ASCU test methodology: COMMEN T This liqui d based ThinP rep(R ) pap test was scree kyler with the use of an image guide odalis armas. Not Available [facility] ([facility]) [address] [place], [address], 06/12/2024 15:22:20 06/09/19 25 06/12/2024 IGP, RFX APTIM A HPV ASCU . COMMEN T The HPV DNA refle x crite reagan were not met with this speci men resul t there fore, no HPV testi ng was perfo rmed. Not Available [facility] ([facility]) [address] [place], [address], 06/12/2024 15:22:20 06/09/19 25 06/13/2024 MATER NIT21 PLUS CORE gestation SINGLE TON Not Available [facility] ([facility]) [address] [place], [address], 06/13/2024 19:08:42 06/09/19 25 06/13/2024 MATER NIT21 PLUS CORE fraction 13% Not Available [facility] ([facility]) [address] [place], [address], 06/13/2024 19:08:42 06/09/19 25 06/13/2024 MATER NIT21 PLUS CORE gestational age > or = 9W: YES Not Available [facility] ([facility]) [address] [place], [address], 06/13/2024 19:08:42 06/09/19 25 06/13/2024 MATER NIT21 PLUS CORE test result POSITI VE abnormal Triso my 18 Not Available [facility] ([facility]) [address] [place], [address], 06/13/2024 19:08:42 06/09/19 25 06/13/2024 MATER NIT21 PLUS CORE labor relations supervisor comments GERMAN Motta This speci men showe d an incre ased repre senta tion of chrom osome 18, sugge stive of triso my 18 (Edwa rds syndr ome). Randy ic couns eling , confi rmato ry diagn ostic testi ng, and clini ayden corre latio n are recom puma d. Not Available [facility] ([facility]) [address] [place], [address], 06/13/2024 19:08:42 06/09/19 25 06/13/2024 MATER NIT21 PLUS CORE approved by GERMAN ruano MD, Direc tor, Seque nom Labor atori es Not Available [facility] ([facility]) [address] [place], [address], 06/13/2024 19:08:42 06/09/19 25 06/13/2024 MATER NIT21 PLUS CORE trisomy 21 (down syndrome) NEGATI VE Not Available [facility] ([facility]) [address] [place], [address], 06/13/2024 19:08:42 06/09/19 25 06/13/2024 MATER NIT21 PLUS CORE trisomy 18 (padilla syndrome) SEE BELOW: abnormal Posit peyton T18 PPV*: 14.7% Not Available [facility] ([facility]) [address] [place], [address], 06/13/2024 19:08:42 06/09/19 25 06/13/2024 MATER NIT21 PLUS CORE trisomy 13 (patau syndrome) NEGATI VE Not Available [facility] ([facility]) [address] [place], [address], 06/13/2024 19:08:42 06/09/19 25 06/13/2024 MATER NIT21 PLUS CORE sex COMMEN T Consi stent with Femal e Not Available [facility] ([facility]) [address] [facility], [place], [address], 06/13/2024 19:08:42 06/09/19 25 06/13/2024 MATER NIT21 PLUS CORE negative predictive value NOTE The Negat peyton Predi ctive Value (NPV) for triso my 21, 18, and 13 is great er than 99%. The NPV for SCA and ESS canno t be calcu lated as SCA and ESS are only repor marie when an abnor malit y is detec marie. Not Available [facility] ([facility]) [address] [facility], [place], [address], 06/13/2024 19:08:42 06/09/19 25 06/13/2024 MATER NIT21 [...] ) TRISO MY 18 Not Available [facility] ([facility]) [address] [facility], [place], [address], 06/13/2024 19:08:42 06/09/1906/13/2024 MATER NIT21 PLUS CORE [...] yet been valid ated. Not Available [facility] ([facility]) [address] [facility], [place], [address], 06/13/2024 19:08:42 06/09/1906/13/2024 MATER NIT21 PLUS CORE test method COMMEN T See Notes Circu latin g cell- free DNA was purif ied from the plasm a compo nent of mater nal blood . The extra cted DNA was then conve rted into a [employer] DNA jaky ry for aneup loidy rose [...] s 16 and 22. Not Available [facility] ([facility]) [address] [facility], [place], [address], 06/13/2024 19:08:42 06/09/19 25 06/13/2024 MATER NIT21 PLUS CORE performance COMMEN T The perfo rmanc e zee cteri stics of the Mater niT(R ) 21 PLUS labor atory -deve loped test (LDT) have been deter mined in a clini ayden valid ation study with pregn ant women at incre ased risk for chrom osoma l aneup loidy .[2-5 ] Not Available [facility] ([facility]) [address] [facility], [place], [address], 06/13/2024 19:08:42 06/09/19 25 06/13/2024 MATER NIT21 [...] ase nstd3 7 [http s://w dawn.nc bi.nl .[facility] .gov/ dbvar /stud ies/n std37 / [...] eton gesta tion only. Not Available [facility] ([facility]) [address] [facility], [place], [address], 06/13/2024 19:08:42 06/09/19 25 06/13/2024 MATER NIT21 [...] and Fragm in(R) ). Not Available [facility] ([facility]) [address] [facility], [place], [address], 06/13/2024 19:08:42 06/09/19 25 06/13/2024 MATER NIT21 PLUS CORE note COMMEN T See Notes [employer] is a subsi diary of Labor atory Corpo ratio n of Emil Chowi ngs, using the brand Lulu. This test was devel oped and its perfo rmanc e zee cteri stics deter mined by [employer]. It has not been clear ed or appro heriberto by the Food and Drug Admin istra tion. This labor atory is certi fied under the Clini ayden Labor atory Impro vemen t Amend ments (CLIA ) as quali fied to perfo rm high compl exity clini ayden labor atory testi ng and accre dited by the Colle ge of [employer] can Patho logis ts (CAP) . Not Available [facility] ([facility]) [address] [facility], [place], [address], 06/13/2024 19:08:42 06/09/1906/13/2024 MATER NIT21 PLUS CORE [...] Med. 2011; 13(11 ):913 -920. 6. ACOG/ [facility] Pract ice Bulle tin No. 226, Feb 2020. Not Available [facility] ([facility]) [address] [place], [address], 06/13/2024 19:08:42 06/09/1906/13/2024 MATER NIT21 PLUS CORE pdf . Not Available [facility] ([facility]) [address] [place], [address], 06/13/2024 19:08:42 06/09/1906/10/2024 HGB FRACT IONAT ION CASCA DE HGB F 0.0 % 0.0-2. 0 Not Available [facility] ([facility]) [address] [facility], [place], [address], 06/19/2024 19:10:16 06/09/1906/10/2024 HGB FRACT IONAT ION CASCA DE HGB A 97.4 % 96.4-9 8.8 Not Available [facility] ([facility]) [address] [place], [address], 06/19/2024 19:10:16 06/09/19 25 06/10/2024 HGB FRACT IONAT ION CASCA DE HGB A2 2.6 % 1.8-3. 2 Not Available [facility] ([facility]) [address] [facility], [place], [address], 06/19/2024 19:10:16 06/09/1906/10/2024 HGB FRACT IONAT ION CASCA DE HGB S 0.0 % 0.0 Not Available [facility] ([facility]) [address] [facility], [place], [address], 06/19/2024 19:10:16 06/09/1906/10/2024 HGB FRACT IONAT ION [...] Alpha -Thal assem ia DNA Rose sis (#[phone]). Not Available [facility] ([facility]) [address] [facility], [place], [address], 06/19/2024 19:10:16 06/09/1906/10/2024 ACUTE HEPAT ITIS hep A Ab, IgM NEGATI VE negati ve A negat peyton anti- HAV IgM resul t sugge sts no recen t or curre nt HAV infec tion. Not Available [facility] ([facility]) [address] [facility], [place], [address], 06/19/2024 19:10:17 06/09/1906/10/2024 ACUTE HEPAT ITIS HBsAg screen NEGATI VE negati ve Not Available [facility] ([facility]) [address] [facility], [place], [address], 06/19/2024 19:10:17 06/09/1906/10/2024 ACUTE HEPAT ITIS hep B core Ab, IgM NEGATI VE negati ve Not Available [facility] ([facility]) [address] [facility], [place], [address], 06/19/2024 19:10:17 06/09/19 25 06/10/2024 ACUTE HEPAT ITIS HCV Ab NON REACTI VE nonrea ctive Not Available [facility] ([facility]) [address] [facility], [place], [address], 06/19/2024 19:10:17 06/09/19 25 06/10/2024 INTER PRETA TION: interpretati on: Commen t Not infec marie with HCV unles s early or acute infec tion is suspe cted (whic h may be delay ed in an immun ocomp romis ed indiv idual ), or other evide nce exist s to indic ate HCV infec tion. Not Available [facility] ([facility]) [address] [facility], [place], [address], 06/19/2024 19:10:18 06/09/19 25 06/11/2024 NUSWA B VAGIN ITIS PLUS (VG+) atopobium vaginae LOW - 0 score Not Available [facility] ([facility]) [address] [facility], [place], [address], 06/19/2024 19:10:19 06/09/19 25 06/11/2024 NUSWA B VAGIN ITIS PLUS (VG+) bvab 2 LOW - 0 score Not Available [facility] ([facility]) [address] [place], [address], 06/19/2024 19:10:19 06/09/19 25 06/11/2024 NUSWA B [...] prese nce of BV. Not Available [facility] ([facility]) [address] [facility], [place], [address], 06/19/2024 19:10:19 06/09/19 25 06/12/2024 NUA B VAGIN ITIS PLUS (VG+) vale albicans, RAJAN NEGATI VE negati ve Not Available [facility] ([facility]) [address] [facility], [place], [address], 06/19/2024 19:10:19 06/09/1906/12/2024 NUA B VAGIN ITIS PLUS (VG+) vale glabrata, RAJAN POSITI VE negati ve abnormal Publi shed data demon strat e that up to 65% of Devi da glabr emanuel ident ified in cases of vagin al devi diasi s have decre ased susce ptibi lity to fluco nazol e. Not Available [facility] ([facility]) [address] [facility], [place], [address], 06/19/2024 19:10:19 06/09/1906/12/2024 NUA B VAGIN ITIS PLUS (VG+) trich vag by RAJAN NEGATI VE negati ve Not Available [facility] ([facility]) [address] [place], [address], 06/19/2024 19:10:19 06/09/1906/12/2024 NUSWA B VAGIN ITIS PLUS (VG+) chlamydia trachomatis, RAJAN NEGATI VE negati ve Not Available [facility] ([facility]) [address] [place], [address], 06/19/2024 19:10:19 06/09/19 25 06/12/2024 NUSWA B VAGIN ITIS PLUS (VG+) neisseria gonorrhoeae, RAJAN NEGATI VE negati ve Not Available [facility] ([facility]) [address] [facility], [place], [address], 06/19/2024 19:10:19 06/09/19 25 06/19/2024 CYSTI C FIBRO SIS, 97 VARIA NTS ethnicity COMMEN T Not Provi ded Not Available [facility] ([facility]) [address] [facility], [place], [address], 06/19/2024 19:10:20 06/09/19 25 06/19/2024 CYSTI C FIBRO SIS, 97 VARIA NTS specimen type COMMEN T Whole Blood Not Available [facility] ([facility]) [address] [facility], [place], [address], 06/19/2024 19:10:20 06/09/19 25 06/19/2024 CYSTI C FIBRO SIS, 97 VARIA NTS indication COMMEN T Kym er Test / Scree hetal Not Available [facility] ([facility]) [address] [facility], [place], [address], 06/19/2024 19:10:20 06/09/19 25 06/19/2024 CYSTI C FIBRO SIS, 97 VARIA NTS result: COMMEN T NEGAT PEYTON Not Available [facility] ([facility]) [address] [facility], [place], [address], 06/19/2024 19:10:20 06/09/19 25 06/19/2024 CYSTI C [...] su n Table . Not Available [facility] ([facility]) [address] [facility], [place], [address], 06/19/2024 19:10:20 06/09/1906/19/2024 CYSTI C FIBRO SIS, [...] ic Couns darvin murray e visit https ://[facility] .[facility] orp.c om/ge netic -coun juan g or call (917) -CA LLS ([phone]). Not Available [facility] ([facility]) [address] [facility], [place], [address], 06/19/2024 19:10:20 06/09/19 25 06/19/2024 CYSTI C FIBRO SIS, 97 VARIA NTS additional clinicalinfo rmation COMMEN T Cysti c fibro sis (CF) is an autos omal reces sive disor marla with varia ble sever ity and age at onset . Signs and sympt oms of class ic CF may inclu de eleva marie sweat chlor mattei level s, progr essiv e lung disea [...] ation may be indic ated. (PMID :2030 1420) . Not Available [facility] ([facility]) [address] [facility], [place], [address], 06/19/2024 19:10:20 06/09/19 25 06/19/2024 CYSTI C [...] teste d is avail able at https ://[facility] sherri .[facility] orp.c om. Not Available [facility] ([facility]) [address] [facility], [place], [address], 06/19/2024 19:10:20 06/09/19 25 06/19/2024 CYSTI C FIBRO SIS, 97 VARIA NTS methods/limi tations COMMEN T Next- gener ation Seque ncing (NGS) : Genom ic regio ns of inter est in the CFTR gene are selec marie using the Teez.mobi ience (R) hybri dizat ion captu re metho d and seque nced via the Doocuments(R ) NGS platf orm. Seque ncing reads [...] ards and guide lines (Rich ards, PMID: 53306 868; Elsy, PMID: 50658 774). Rose sis is restr icted to [...] e zee cteri stics deter mined by [employer]. It has not been clear ed or appro heriberto by the Food and Drug Admin istra tion. Not Available [facility] ([facility]) [address] [facility], [place], [address], 06/19/2024 19:10:20 06/09/1906/19/2024 CYSTI C FIBRO SIS, [...] ve risk estim ates. Not Available [facility] ([facility]) [address] [facility], [place], [address], 06/19/2024 19:10:20 06/09/1906/19/2024 CYSTI C FIBRO SIS, 97 VARIA NTS references COMMEN T Sherry baker JL, Astazar ry C, Cutti ng GR et al. CFTR varia nt testi ng: a techn ical stand ken of the [employer] brand Colle ge of Medic al Randy ics and Genom ics ([employer] ). Randy Med 22, 8926 (2020 ). PMID: 46547 922 Jim T, Balta milton SG, Inocente spence BA, et al. Cysti c Fibro sis and Conge nital Absen ce of the Vas Defer ens. 2000 [Upda marie 2016Jun 14]. In: Jamie MP, Justin wade HH, Viky RA, et al., nina vásquez. Aleida villafuerte(R) [Inte rnet] . PMID: 72836 428 Not Available [facility] ([facility]) [address] [facility], [place], [address], 06/19/2024 19:10:20 06/09/19 25 06/19/2024 CYSTI C FIBRO SIS, 97 VARIA NTS director review/relea se COMMEN T [place] nent Type Perfo rmed At Labor atory Direc tor Techn ical Labor atory Ester Barrettnavdeep , compo nent, Corpo ratio n of , PhD proce ssing [facility], [address] , [place], [address] Techn ical Labor atory Miryamnavdeep Nenanavdeep , compo nent, Corpo ratio n of , PhD rose sis eri nm, [address] , [place], [address] Profphyllis sims al Labor atory Omsan zhang compo nent Corpo ratio n of Vandana ferguson, , [facility], [address] [facility] , Zack rosen[place], [place], Elect jacintadinora oconnor relea sed by Osman Navarro, PhD, [facility] Not Available [facility] ([facility]) [address] [facility], [place], [address], 06/19/2024 19:10:20 06/09/19 25 06/19/2024 CYSTI C FIBRO SIS, 97 VARIA NTS pdf . Not Available [facility] ([facility]) [address] [facility], [place], [address], 06/19/2024 19:10:20 06/09/19 25 06/09/2024 [id number] 2 5 DRUG- SCR drug screen comment: [...] on is avail able at elissa mora @[facility] orp.c om, or call toll free [phone]. Not Available [facility] ([facility]) [address] [place], [address], 06/19/2024 19:10:22 06/09/19 25 06/10/2024 [id number] 2 5 DRUG- SCR amphetamines , urine NEGATI VE NG/mL cutoff =1000 Amphe tamin e test inclu jackie Amphe tamin e and Metha mphet amine . Not Available [facility] ([facility]) [address] [place], [address], 06/19/2024 19:10:22 06/09/19 25 06/10/2024 [id number] 2 5 DRUG- SCR cannabinoid NEGATI VE NG/mL cutoff =50 Not Available [facility] ([facility]) [address] [place], [address], 06/19/2024 19:10:22 06/09/19 25 06/10/2024 [id number] 2 5 DRUG- SCR cocaine (metab.) NEGATI VE NG/mL cutoff =300 Not Available [facility] ([facility]) [address] [place], [address], 06/19/2024 19:10:22 06/09/19 25 06/10/2024 [id number] 2 5 DRUG- SCR opiates NEGATI VE NG/mL cutoff =300 Opiat e test inclu jackie Codei ne, Morph ine, [place] morph one, [place] codon e. Not Available [facility] ([facility]) [address] [place], [address], 06/19/2024 19:10:22 06/09/19 25 06/10/2024 [id number] 2 5 DRUG- SCR phencyclidin e NEGATI VE NG/mL cutoff =25 Not Available [facility] ([facility]) [address] [facility], [place], [address], 06/19/2024 19:10:22 06/09/19 25 06/10/2024 CBC WITH DIFFE RENTI AL/PL ATELE T WBC 8.1 x10e3 /uL 3.4-10 .8 Not Available [facility] ([facility]) [address] [facility], [place], [address], 06/19/2024 19:10:23 06/09/19 25 06/10/2024 CBC WITH DIFFE RENTI AL/PL ATELE T RBC 3.91 x10e6 /uL 3.77-5 .28 Not Available [facility] ([facility]) [address] [facility], [place], [address], 06/19/2024 19:10:23 06/09/1906/10/2024 CBC WITH DIFFE RENTI AL/PL ATELE T hemoglobin 12.7 g/dL 11.1-1 5.9 Not Available [facility] ([facility]) [address] [facility], [place], [address], 06/19/2024 19:10:23 06/09/19 25 06/10/2024 CBC WITH DIFFE RENTI AL/PL ATELE T hematocrit 37.6 % 34.0-4 6.6 Not Available [facility] ([facility]) [address] [facility], [place], [address], 06/19/2024 19:10:23 06/09/1906/10/2024 CBC WITH DIFFE RENTI AL/PL ATELE T MCV 96 fL 79-97 Not Available [facility] ([facility]) [address] [facility], [place], [place], [id number], 06/19/2024 19:10:23 06/09/1906/10/2024 CBC WITH DIFFE RENTI AL/PL ATELE T MCH 32.5 pg 26.6-3 3.0 Not Available [facility] ([facility]) [address] [place], [address], 06/19/2024 19:10:23 06/09/19 25 06/10/2024 CBC WITH DIFFE RENTI AL/PL ATELE T MCHC 33.8 g/dL 31.5-3 5.7 Not Available [facility] ([facility]) [address] [facility], [place], [address], 06/19/2024 19:10:23 06/09/19 25 06/10/2024 CBC WITH DIFFE RENTI AL/PL ATELE T RDW 12.9 % 11.7-1 5.4 Not Available [facility] ([facility]) [address] [facility], [place], [address], 06/19/2024 19:10:23 06/09/19 25 06/10/2024 CBC WITH DIFFE RENTI AL/PL ATELE T platelets 300 x10e3 /uL 150-45 0 Not Available [facility] ([facility]) [address] [facility], [place], [address], 06/19/2024 19:10:23 06/09/19 25 06/10/2024 CBC WITH DIFFE RENTI AL/PL ATELE T neutrophils 62 % notest ab. Not Available [facility] ([facility]) [address] [facility], [place], [address], 06/19/2024 19:10:23 06/09/19 25 06/10/2024 CBC WITH DIFFE RENTI AL/PL ATELE T lymphs 28 % notest ab. Not Available [facility] ([facility]) [address] [facility], [place], [address], 06/19/2024 19:10:23 06/09/19 25 06/10/2024 CBC WITH DIFFE RENTI AL/PL ATELE T monocytes 8 % notest ab. Not Available [facility] ([facility]) [address] [facility], [place], [address], 06/19/2024 19:10:23 06/09/19 25 06/10/2024 CBC WITH DIFFE RENTI AL/PL ATELE T eos 2 % notest ab. Not Available [facility] ([facility]) [address] [facility], [place], [address], 06/19/2024 19:10:23 06/09/1906/10/2024 CBC WITH DIFFE RENTI AL/PL ATELE T basos 0 % notest ab. Not Available [facility] ([facility]) [address] [facility], [place], [address], 06/19/2024 19:10:23 06/09/1906/10/2024 CBC WITH DIFFE RENTI AL/PL ATELE T neutrophils (absolute) 5.0 x10e3 /uL 1.4-7. 0 Not Available [facility] ([facility]) [address] [facility], [place], [address], 06/19/2024 19:10:23 06/09/1906/10/2024 CBC WITH DIFFE RENTI AL/PL ATELE T lymphs (absolute) 2.3 x10e3 /uL 0.7-3. 1 Not Available [facility] ([facility]) [address] [place], [address], 06/19/2024 19:10:23 06/09/1906/10/2024 CBC WITH DIFFE RENTI AL/PL ATELE T monocytes(ab solute) 0.6 x10e3 /uL 0.1-0. 9 Not Available [facility] ([facility]) [address] [place], [address], 06/19/2024 19:10:23 06/09/1906/10/2024 CBC WITH DIFFE RENTI AL/PL ATELE T eos (absolute) 0.2 x10e3 /uL 0.0-0. 4 Not Available [facility] ([facility]) [address] [facility], [place], [address], 06/19/2024 19:10:23 06/09/1906/10/2024 CBC WITH DIFFE RENTI AL/PL ATELE T baso (absolute) 0.0 x10e3 /uL 0.0-0. 2 Not Available [facility] ([facility]) [address] [facility], [place], [address], 06/19/2024 19:10:23 06/09/19 25 06/10/2024 CBC WITH DIFFE RENTI AL/PL ATELE T immature granulocytes 0 % notest ab. Not Available [facility] ([facility]) [address] [facility], [place], [address], 06/19/2024 19:10:23 06/09/1906/10/2024 CBC WITH DIFFE RENTI AL/PL ATELE T immature grans (abs) 0.0 x10e3 /uL 0.0-0. 1 Not Available [facility] ([facility]) [address] [facility], [place], [address], 06/19/2024 19:10:23 06/09/1906/10/2024 ABO GROUP ING AND RHO(D ) TYPIN G ABO grouping O Not Available [facility] ([facility]) [address] [facility], [place], [address], 06/19/2024 19:10:24 06/09/19 25 06/10/2024 ABO GROUP ING AND RHO(D ) TYPIN G Rh factor POSITI VE Pleas e note: Prior recor ds for this patie nt's ABO / Rh type are not avail able for addit ional verif icati on. Not Available [facility] ([facility]) [address] [facility], [place], [address], 06/19/2024 19:10:24 06/09/1906/10/2024 RPR RPR NON REACTI VE nonrea ctive Not Available [facility] ([facility]) [address] [facility], [place], [address], 06/19/2024 19:10:25 06/09/19 25 06/10/2024 RUBEL LA ANTIB ODIES , IGG rubella antibodies, IgG 7.25 index immune >0.99 Non-i mmune <0.90 Equiv ocal 0.90 - 0.99 Immun e >0.99 Not Available [facility] ([facility]) [address] [facility], [place], [address], 06/19/2024 19:10:26 06/09/1906/10/2024 HIV AB/P2 4 AG WITH REFLE X HIV Ab/P24 Ag screen NON REACTI VE nonrea ctive HIV-1 /HIV- 2 antib odies and HIV-1 p24 antig en were NOT detec marie. There is no labor atory evide nce of HIV infec tion. HIV Negat [place] Not Available [facility] ([facility]) [address] [facility], [place], [address], 06/19/2024 19:10:27 06/09/19 25 06/10/2024 VARIC JESUS- [...] not been acqui red. Not Available [facility] ([facility]) [address] [facility], [place], [address], 06/19/2024 19:10:28 06/09/1906/09/2024 urina lysis , dipst ick Leukocytes Negati ve Not Available In-Office Order Internal Use Only DO Not Attach Compendium DO Not Attach Compendium, Do Not Delete/merge, [id number] 06/09/2024 15:14:36 06/09/1906/09/2024 urina lysis , dipst [...] 06/09/1906/09/2024 urina lysis , dipst ick Specific [place] 1.020 Not Available In-Off ice Order Internal [...] DO Not Attach Compendium, Do Not Delete/merge, [id number] 06/09/2024 15:14:36 06/09/19 25 06/09/2024 urina lysis , dipst ick Appearance Clear Not Available In-Offi ce Order Internal Use Only DO Not Attach Compendium DO Not Attach Compendium, Do Not Delete/merge, [id number] 06/09/2024 15:14:36 06/09/1906/09/2024 urina lysis , dipst ick Color Yellow Not Available In-Office Order Internal Use Only DO Not Attach Compendium DO Not Attach Compendium, Do Not Delete/merge, [id number] 06/09/2024 15:14:36 08/04/1908/03/2024 Urina lysis dipst ick [...] [place] Negat [place] 08/03 12:03 PM CDT [facility] Not Available Not Available 08/10/2024 [...] [place] Negat [place] 08/03 12:03 PM CDT [facility] Not Available Not Available 08/10/2024 12:33:10 08/04/19 25 08/03/2024 Urina lysis dipst ick panel - Urine by Autom ated test strip ketones [presence] in urine by test strip Negati ve text: negati ve [place] e UA POCT Negat [place] Negat [place] 08/03 12:03 PM CDT [facility] Not Available Not Available 08/10/2024 12:33:10 08/04/19 25 08/03/2024 Urina lysis dipst ick panel - Urine by Autom ated test strip bilirubin.to bob [presence] in urine by test strip Negati ve text: negati ve Bilir ubin UA POCT Negat [place] Negat [place] 08/03 12:03 PM CDT [facility] Not Available Not Available 08/10/2024 [...] Not Available 10/12/2024 15:22:31 08/25/19 25 08/24/2024 [facility] [place] [email or web address] [facility] 1999 panel - Serum or Plasm a carbon dioxide, total [moles/volum e] in serum or plasma 20 mmol/ L low: 22mmol /Lhigh : 29mmol /L low Not Available Not Available 10/12/2024 15:22:31 08/25/19 25 08/24/2024 [facility] [place] [facility] 1999 panel - Serum or Plasm a calcium [mass/volume ] in serum or plasma 9.1 mg/dL low: 8.4mg/ dLhigh : 10.4mg /dL Not Available Not Available 10/12/2024 15:22:31 08/25/19 25 08/24/2024 [facility] [place] [facility] 1999 panel - Serum or Plasm a anion gap in blood by calculation 7 mmol/ L low: 6mmol/ Lhigh: 16mmol /L Not Available Not Available 10/12/2024 15:22:31 08/25/19 25 08/24/2024 [facility] [place] [facility] 1999 panel - Serum or Plasm a urea nitrogen [mass/volume ] in serum or plasma 7 mg/dL low: 5.3mg/ dLhigh : 18.7mg /dL Not Available Not Available 10/12/2024 15:22:31 08/25/19 25 08/24/2024 [facility] [place] [address] panel - Serum or Plasm a creatinine [mass/volume ] in serum or plasma 0.54 mg/dL low: 0.57mg /dLhig h: 1.11mg /dL low Not Available Not Available 10/12/2024 15:22:31 08/25/19 25 08/24/2024 [facility] [place] [facility] 1999 panel - Serum or Plasm a alkaline phosphatase [enzymatic activity/vol ume] in serum or plasma 141 U/L low: 40U/Lh igh: 150U/L Not Available Not Available 10/12/2024 15:22:31 08/25/19 25 08/24/2024 [facility] [place] [address] panel - Serum or Plasm a alanine [...] Not Available 10/12/2024 15:22:58 09/08/19 25 09/07/2024 [facility] [employer] [place] [email or web address]lic 1999 panel - Serum or Plasm a sodium [moles/volum e] in serum or plasma 136 mmol/ L low: 136mmo l/Lhig h: 145mmo l/L Not Available Not Available 10/12/2024 15:22:58 09/08/19 25 09/07/2024 [facility] [place] [facility] 1999 panel - Serum or Plasm a potassium [moles/volum e] in serum or plasma 4 mmol/ L low: 3.5mmo l/Lhig h: 5.1mmo l/L Not Available Not Available 10/12/2024 15:22:58 09/08/19 25 09/07/2024 [facility] [employer] [place] metab [facility]lic 1999 panel - Serum or Plasm a chloride [moles/volum e] in serum or plasma 111 mmol/ L low: 98mmol /Lhigh : 107mmo l/L high Not Available Not Available 10/12/2024 15:22:58 09/08/19 25 09/07/2024 [facility] [employer] [place] [email or web address] ic 1999 panel - Serum or Plasm a carbon dioxide, total [moles/volum e] in serum or plasma 19 mmol/ L low: 22mmol /Lhigh : 29mmol /L low Not Available Not Available 10/12/2024 15:22:58 09/08/19 25 09/07/2024 [facility] [place] [email or web address] olic 1999 panel - Serum or Plasm a calcium [mass/volume ] in serum or plasma 8.7 mg/dL low: 8.4mg/ dLhigh : 10.4mg /dL Not Available Not Available 10/12/2024 15:22:58 09/08/19 25 09/07/2024 [facility] [place] [email or web address] olic 1999 panel - Serum or Plasm a anion gap in blood by calculation 6 mmol/ L low: 6mmol/ Lhigh: 16mmol /L Not Available Not Available 10/12/2024 15:22:58 09/08/19 25 09/07/2024 [facility] [employer] [place] [email or web address] olic 1999 panel - Serum or Plasm a urea nitrogen [mass/volume ] in serum or plasma 9 mg/dL low: 5.3mg/ dLhigh : 18.7mg /dL Not Available Not Available 10/12/2024 15:22:58 09/08/19 25 09/07/2024 [facility] [place] [facility] 1999 panel - Serum or Plasm a creatinine [mass/volume ] in serum or plasma 0.57 mg/dL low: 0.57mg /dLhig h: 1.11mg /dL Not Available Not Available 10/12/2024 15:22:58 09/08/19 25 09/07/2024 [facility] [place] [facility] 1999 panel - Serum or Plasm a alkaline phosphatase [enzymatic activity/vol ume] in serum or plasma 176 U/L low: 40U/Lh igh: 150U/L high Not Available Not Available 10/12/2024 15:22:58 09/08/19 25 09/07/2024 [facility] - Serum or Plasm a alanine aminotransfe rase [enzymatic activity/vol ume] in serum or plasma 51 U/L low: 6U/Lhi gh: 57U/L Not Available Not Available 10/12/2024 15:22:58 09/08/19 25 09/07/2024 [facility] [place] [facility] 1999 panel - Serum or Plasm a aspartate aminotransfe rase [enzymatic activity/vol ume] in serum or plasma 36 U/L low: 10U/Lh igh: 48U/L Not Available Not Available 10/12/2024 15:22:58 09/08/19 25 09/07/2024 [facility] [place] [facility] 1999 panel - Serum or Plasm a protein [mass/volume ] in serum or plasma 7.2 text: 6.4 - 8.3 gm/dL Not Available Not Available 10/12/2024 15:22:58 09/08/19 25 09/07/2024 [facility] [place] [facility] 1999 panel - Serum or Plasm a albumin [mass/volume ] in serum or plasma 2.9 text: 3.4 - 5.0 gm/dL low Not Available Not Available 10/12/2024 15:22:58 09/08/19 25 09/07/2024 [facility] [place] metab [facility]lic 2000 panel - Serum [...] Not Available 10/12/2024 15:22:58 09/08/19 25 09/07/2024 [facility] [employer] [place] metab [employer]lic 2000 panel - Serum [...] Not Available 15:24:48 09/15/19 25 09/14/2024 [facility] [employer] [place] [employer]lic 1999 panel - Serum [...] Not Available 10/12/2024 15:24:48 09/15/19 25 09/14/2024 [facility] [place] [facility] 1999 panel - Serum or Plasm a anion gap in blood by calculation 6 mmol/ L low: 6mmol/ Lhigh: 16mmol /L Not Available Not Available 10/12/2024 15:24:48 09/15/19 25 09/14/2024 [facility] [place] [facility] 1999 panel - Serum or Plasm a urea nitrogen [mass/volume ] in serum or plasma 7 mg/dL low: 5.3mg/ dLhigh : 18.7mg /dL Not Available Not Available 10/12/2024 15:24:48 09/15/19 25 09/14/2024 [facility] [place] [facility] 1999 panel - Serum or Plasm a creatinine [mass/volume ] in serum or plasma 0.58 mg/dL low: 0.57mg /dLhig h: 1.11mg /dL Not Available Not Available 10/12/2024 15:24:48 09/15/19 25 09/14/2024 [facility] [place] [facility] 1999 panel - Serum or Plasm a alkaline phosphatase [enzymatic activity/vol ume] in serum or plasma 179 U/L low: 40U/Lh igh: 150U/L high Not Available Not Available 10/12/2024 15:24:48 09/15/19 25 09/14/2024 [facility] [place] [facility] 1999 panel - Serum or Plasm a alanine aminotransfe rase [enzymatic activity/vol ume] in serum or plasma 46 U/L low: 6U/Lhi gh: 57U/L Not Available Not Available 10/12/2024 15:24:48 09/15/19 25 09/14/2024 [facility] [place] [email or web address] [facility] 1999 panel - Serum or Plasm a aspartate aminotransfe rase [enzymatic activity/vol ume] in serum or plasma 39 U/L low: 10U/Lh igh: 48U/L Not Available Not Available 10/12/2024 15:24:48 09/15/19 25 09/14/2024 [facility] [place] [facility] 1999 panel - Serum or Plasm a [...] Not Available 10/12/2024 15:24:53 09/22/19 25 09/21/2024 [facility] [place] metab [facility] 1999 panel - Serum or Plasm a carbon dioxide, total [moles/volum e] in serum or plasma 21 mmol/ L low: 22mmol /Lhigh : 29mmol /L low Not Available Not Available 10/12/2024 15:24:53 09/22/19 25 09/21/2024 [facility] [place] metab [facility] 1999 panel - Serum or Plasm a calcium [mass/volume ] in serum or plasma 8.9 mg/dL low: 8.4mg/ dLhigh : 10.4mg /dL Not Available Not Available 10/12/2024 15:24:53 09/22/19 25 09/21/2024 [facility] [place] [email or web address] [facility] 1999 panel - Serum or Plasm a anion gap in blood by calculation 7 mmol/ L low: 6mmol/ Lhigh: 16mmol /L Not Available Not Available 10/12/2024 15:24:53 09/22/19 25 09/21/2024 [facility] [place] [email or web address] [facility] 1999 panel - Serum or Plasm a urea nitrogen [mass/volume ] in serum or plasma 7 mg/dL low: 5.3mg/ dLhigh : 18.7mg /dL Not Available Not Available 10/12/2024 15:24:53 09/22/19 25 09/21/2024 [facility] [place] [email or web address] [facility] 1999 panel - Serum or Plasm a creatinine [mass/volume ] in serum or plasma 0.53 mg/dL low: 0.57mg /dLhig h: 1.11mg /dL low Not Available Not Available 10/12/2024 15:24:53 09/22/19 25 09/21/2024 [facility] [place] metab [facility] 1999 panel - Serum or Plasm a alkaline phosphatase [enzymatic activity/vol ume] in serum or plasma 198 U/L low: 40U/Lh igh: 150U/L high Not Available Not Available 10/12/2024 15:24:53 09/22/19 25 09/21/2024 [facility] [place] [facility] 1999 panel - Serum [...] 09/22/19 25 09/21/2024 [facility] ens [place] metab [facility] 1999 panel - Serum or Plasm a [...] 09/22/19 25 09/21/2024 Com[facility] ens [place] metab [facility] 1999 panel - Serum or Plasm a bilirubin.to bob [mass/volume ] in serum or plasma 0.3 mg/dL low: 0.2mg/ dLhigh : 1.2mg/ dL Not Available Not Available 10/12/2024 15:24:53 09/22/19 25 09/21/2024 Compr ens [place] metab [facility] 2000 panel - Serum or Plasm a [...] Not Available 10/12/2024 15:22:53 09/29/19 25 09/28/2024 [facility] [employer] [place] [email or web address] olic 1999 panel - Serum or Plasm a potassium [moles/volum e] in serum or plasma 4 mmol/ L low: 3.5mmo l/Lhig h: 5.1mmo l/L Not Available Not Available 10/12/2024 15:22:53 09/29/19 25 09/28/2024 [facility] [place] metab olic 1999 panel [...] Not Available 10/12/2024 15:22:53 09/29/19 25 09/28/2024 [facility] [employer] [place] [email or web address] olic 1999 panel - Serum or Plasm a calcium [mass/volume ] in serum or plasma 8.7 mg/dL low: 8.4mg/ dLhigh : 10.4mg /dL Not Available Not Available 10/12/2024 15:22:53 09/29/19 25 09/28/2024 [facility] [employer] [place] [email or web address] olic 1999 panel - Serum or Plasm a anion gap in blood by calculation 5 mmol/ L low: 6mmol/ Lhigh: 16mmol /L low Not Available Not Available 10/12/2024 15:22:53 09/29/19 25 09/28/2024 [facility] [employer] [place] [email or web address] olic 1999 panel - Serum or Plasm a urea nitrogen [mass/volume ] in serum or plasma 7 mg/dL low: 5.3mg/ dLhigh : 18.7mg /dL Not Available Not Available 10/12/2024 15:22:53 09/29/19 25 09/28/2024 [facility] [place] [email or web address] olic 1999 panel - Serum or Plasm [...] Available 10/12/2024 15:22:53 09/29/19 25 09/28/2024 [facility] [employer] [place] [email or web address] olic 1999 panel - Serum or Plasm a protein [mass/volume ] in serum or plasma 7 text: 6.4 - 8.3 gm/dL Not Available Not Available 10/12/2024 15:22:53 09/29/19 25 09/28/2024 [facility] [employer] [place] [email or web address] olic 1999 panel - Serum or Plasm a albumin [mass/volume ] in serum or plasma 2.7 text: 3.4 - 5.0 gm/dL low Not Available Not Available 10/12/2024 15:22:53 09/29/19 25 09/28/2024 [facility] [employer] [place] [email or web address]lic 1999 panel - Serum or Plasm a bilirubin.to bob [mass/volume ] in serum or plasma 0.4 mg/dL low: 0.2mg/ dLhigh : 1.2mg/ dL Not Available Not Available 10/12/2024 15:22:53 09/29/19 25 09/28/2024 Compr ehens [place] [email or web address] olic 2000 panel - Serum or Plasm [...] 15:21:46 10/09/19 25 10/08/2024 [facility] [place] [facility] 1999 panel - Serum or Plasm a carbon dioxide, total [moles/volum e] in serum or plasma 20 mmol/ L low: 22mmol /Lhigh : 29mmol /L low Not Available Not Available 10/12/2024 15:21:46 10/09/19 25 10/08/2024 [facility] [place] [facility] 1999 panel - Serum or Plasm a calcium [mass/volume ] in serum or plasma 8.6 mg/dL low: 8.4mg/ dLhigh : 10.4mg /dL Not Available Not Available 10/12/2024 15:21:46 10/09/19 25 10/08/2024 [facility] panel - Serum or Plasm a anion gap in blood by calculation 5 mmol/ L low: 6mmol/ Lhigh: 16mmol /L low Not Available Not Available 10/12/2024 15:21:46 10/09/19 25 10/08/2024 [facility] 1999 panel - Serum or Plasm a urea nitrogen [mass/volume ] in serum or plasma 7 mg/dL low: 5.3mg/ dLhigh : 18.7mg /dL Not Available Not Available 10/12/2024 15:21:46 10/09/19 25 10/08/2024 [place] [address] panel - Serum or Plasm a creatinine [mass/volume ] in serum or plasma 0.56 mg/dL low: 0.57mg /dLhig h: 1.11mg /dL low Not Available Not Available 10/12/2024 15:21:46 10/09/19 25 10/08/2024 [facility] [place] [id number] panel - Serum or Plasm a alkaline phosphatase [enzymatic activity/vol ume] in serum or plasma 208 U/L low: 40U/Lh igh: 150U/L high Not Available Not Available 10/12/2024 15:21:46 10/09/19 25 10/08/2024 [facility] [place] [id number] panel - Serum or Plasm a alanine [...] Available 10/12/2024 15:21:46 10/09/19 25 10/08/2024 [facility] [employer] [place] [email or web address]lic 2000 panel - Serum or Plasm [...] Available 15:20:01 10/10/1910/09/2024 [facility] metab [facility] 1999 panel - Serum or Plasm a glucose [mass/volume ] in serum or plasma 83 mg/dL low: 70mg/d Lhigh: 99mg/d L Not Available Not Available 10/12/2024 15:20:01 10/10/19 25 10/09/2024 [facility] [place] [facility] 1999 panel - Serum or Plasm a sodium [moles/volum e] in serum or plasma 135 mmol/ L low: 136mmo l/Lhig h: 145mmo l/L low Not Available Not Available 10/12/2024 15:20:01 10/10/19 25 10/09/2024 [facility] [place] [facility] 1999 panel - Serum or Plasm a potassium [moles/volum e] in serum or plasma 4.1 mmol/ L low: 3.5mmo l/Lhig h: 5.1mmo l/L Not Available Not Available 10/12/2024 15:20:01 10/10/19 25 10/09/2024 [facility] [place] [facility] 1999 panel - Serum or Plasm a chloride [moles/volum e] in serum or plasma 111 mmol/ L low: 98mmol /Lhigh : 107mmo l/L high Not Available Not Available 10/12/2024 15:20:01 10/10/19 25 10/09/2024 [facility] [place] [facility] 1999 panel - Serum or Plasm a carbon dioxide, total [moles/volum e] in serum or plasma 20 mmol/ L low: 22mmol /Lhigh : 29mmol /L low Not Available Not Available 10/12/2024 15:20:01 10/10/19 25 10/09/2024 [facility] [place] [facility] 1999 panel - Serum or Plasm a calcium [mass/volume ] in serum or plasma 8.1 mg/dL low: 8.4mg/ dLhigh : 10.4mg /dL low Not Available Not Available 10/12/2024 15:20:01 10/10/19 25 10/09/2024 [facility] [place] [facility] 1999 panel - Serum or Plasm a anion gap in blood by calculation 4 mmol/ L low: 6mmol/ Lhigh: 16mmol /L low Not Available Not Available 10/12/2024 15:20:01 10/10/19 25 10/09/2024 [facility] [employer] [place] [email or web address] [facility] 1999 panel - Serum or Plasm a urea nitrogen [mass/volume ] in serum or plasma 10 mg/dL low: 5.3mg/ dLhigh : 18.7mg /dL Not Available Not Available 10/12/2024 15:20:01 10/10/19 25 10/09/2024 [facility] [place] [email or web address] [facility] 1999 panel - Serum or Plasm a creatinine [mass/volume ] in serum or plasma 0.53 mg/dL low: 0.57mg /dLhig h: 1.11mg /dL low Not Available Not Available 10/12/2024 15:20:01 10/10/19 25 10/09/2024 [facility] [place] [email or web address] [facility] 1999 panel - Serum or Plasm a alkaline phosphatase [enzymatic activity/vol ume] in serum or plasma 221 U/L low: 40U/Lh igh: 150U/L high Not Available Not Available 10/12/2024 15:20:01 10/10/19 25 10/09/2024 [facility] [place] [email or web address] [facility] 1999 panel - Serum or Plasm a alanine aminotransfe rase [enzymatic activity/vol ume] in serum or plasma 33 U/L low: 6U/Lhi gh: 57U/L Not Available Not Available 10/12/2024 15:20:01 10/10/19 25 10/09/2024 [facility] [place] [email or web address] [facility] 1999 panel - Serum or Plasm a aspartate aminotransfe rase [enzymatic activity/vol ume] in serum or plasma 36 U/L low: 10U/Lh igh: 48U/L Not Available Not Available 10/12/2024 15:20:01 10/10/19 25 10/09/2024 [facility] [place] [email or web address] [facility] 1999 panel - Serum or Plasm a protein [mass/volume ] in serum or plasma 6.4 text: 6.4 - 8.3 gm/dL Not Available Not Available 10/12/2024 15:20:01 10/10/19 25 10/09/2024 [facility] [place] [email or web address] [facility] 1999 panel - Serum or Plasm a albumin [mass/volume ] in serum or plasma 2.7 text: 3.1 - 4.5 gm/dL low Not Available Not Available 10/12/2024 15:20:01 10/10/19 25 10/09/2024 Compr [employer] [place] [email or web address] ol 1999 panel - Serum or Plasm [...] Available 10/12/2024 15:20:01 10/10/19 25 10/09/2024 Compr [employer] [place] metab olic 2000 panel - Serum or Plasm a interpretati on and review of laboratory results Abnorm al Not Available Not Available 15:20:01 10/14/19 25 10/13/2024 [facility] [employer] [place] [email or web address] olic 1999 panel - Serum or Plasm [...] Not Available 10/28/2024 13:36:46 10/14/19 25 10/13/2024 [facility] [employer] [place] [email or web address] [facility] 1999 panel - Serum or Plasm a carbon dioxide, total [moles/volum e] in serum or plasma 19 mmol/ L low: 22mmol /Lhigh : 29mmol /L low Not Available Not Available 10/28/2024 13:36:46 10/14/19 25 10/13/2024 [facility] [place] [facility] 1999 panel - Serum or Plasm a calcium [mass/volume ] in serum or plasma 8.4 mg/dL low: 8.4mg/ dLhigh : 10.4mg /dL Not Available Not Available 10/28/2024 13:36:46 10/14/19 25 10/13/2024 [facility] [place] [email or web address] 1999 panel - Serum or Plasm a anion gap in blood by calculation 7 mmol/ L low: 6mmol/ Lhigh: 16mmol /L Not Available Not Available 10/28/2024 13:36:46 10/14/19 25 10/13/2024 [facility] [place] [email or web address] 1999 panel - Serum or Plasm a urea nitrogen [mass/volume ] in serum or plasma 9 mg/dL low: 5.3mg/ dLhigh : 18.7mg /dL Not Available Not Available 10/28/2024 13:36:46 10/14/19 25 10/13/2024 [facility] [place] [email or web address] 1999 panel - Serum or Plasm a creatinine [mass/volume ] in serum or plasma 0.54 mg/dL low: 0.57mg /dLhig h: 1.11mg /dL low Not Available Not Available 10/28/2024 13:36:46 10/14/19 25 10/13/2024 [facility] [place] [email or web address] 1999 panel - Serum or Plasm a alkaline phosphatase [enzymatic activity/vol ume] in serum or plasma 214 U/L low: 40U/Lh igh: 150U/L high Not Available Not Available 10/28/2024 13:36:46 10/14/19 25 10/13/2024 [facility] [employer] [place] metab olic 2000 panel - Serum [...] 10/14/19 25 10/13/2024 Compr [facility] [place] metab [facility] 1999 panel - Serum or Plasm a [...] 10/14/19 25 10/13/2024 Compr ens [place] metab [facility] 1999 panel - Serum or Plasm a bilirubin.to bob [mass/volume ] in serum or plasma 0.4 mg/dL low: 0.2mg/ dLhigh : 1.2mg/ dL Not Available Not Available 10/28/2024 13:36:46 10/14/19 25 10/13/2024 Compr [place] metab [facility] 2000 panel - Serum or Plasm a [...] Author indira Villagomez er: Madison Philippe MD [facility] marie: 2024 11:00 AM Orderi ng [...] 10/20/2024 Patho logy study pathologist location at [facility] Not Available Not Available 13:36:46 10/15/19 25 [...] feliz charac terist ic determ ined by [facility] , Depart ment of [facility] [...] Z3Bhcl xqZXhw YW5kXG 5veGxh dHRveW VuXGRl ZmYwe1 owr912 dGJse1 xmMCBB cmlhbD t9fXtc Y29sb3 J0Ymwg O31ccG [...] Z3Bhcl xqZXhw YW5kXG 5veGxh dHRveW VuXGRl ZmYwe1 rlz338 dGJse1 xmMCBB cmlhbD t9fXtc Y29sb3 J0Ymwg O31ccG [...] Z3Bhcl xqZXhw YW5kXG 5veGxh dHRveW VuXGRl ZmYwe1 krz739 dGJse1 xmMCBB cmlhbD t9fXtc Y29sb3 J0Ymwg O31ccG [...] Z3Bhcl xqZXhw YW5kXG 5veGxh dHRveW VuXGRl ZmYwe1 oxu012 dGJse1 xmMCBB cmlhbD t9fXtc Y29sb3 J0Ymwg O31ccG FwZXJ3 MTIyND BccGFw ZXJoMT U4NDBc bWFyZ2 wxODAw XG1hcm dyMTgw MFxtYX JndDE0 NDBcbW FyZ2Ix NDQwXG hlYWRl cnk3Mj BcZm9v dGVyeT cyMFxw YXJkXH BsYWlu XGZzMj AgTWlj cm9zY2 9waWMg ZXhhbW luYXRp b24gc3 Vic3Rh bnRpYX RlcyB0 aGUgYW JvdmUg ZGlhZ2 5vc2lz LlxwYX J9 Not Available Not Available 04:22:11 10/21/19 25 10/20/2024 Patho logy study pathologist location at [facility] Not Available Not Available 04:22:11 10/21/19 25 10/20/2024 Patho logy study service comment e1xydG YxXHNz dGVjZj IyMDAw XGFuc2 lcZGVm bGFuZz EwMzNc ZnRuYm pcdWMx XGRlZm Ywe1xm b250dG Jse1xm MCBcZn N3aXNz IEFyaW EdD112 XGYxIF xmc3dp c3MgXG ZjaGFy c2V0MC BBcmlh bDt9fX tcY29s b3J0Ym wgO1xy ZWQyNT VcZ3Jl ZW4yNT VcYmx1 ZTI1NS A7XHJl ZDBcZ3 JlZW4w XGJsdW UwIDt9 e1xzdH lsZXNo ZWV0e1 xmMFxm czIyIE 5vcm1h bDt9e1 xjczEg RGVmYX VsdCBQ YXJhZ3 JhcGgg Rm9udD t9fXtc KlxyZX Z0Ymx7 VW5rbm 93bjt9 fVxwYX Blcncx MjI0MF xwYXBl cmgxNT g0MFxt YXJnbD E4MDBc bWFyZ3 IxODAw XG1hcm d0MTQ0 MFxtYX JnYjE0 NDBcaG VhZGVy eTcyMF apj328 ZXJ5Nz IwXG5v Z3Jvd2 F1dG9m aXRcZG VmdGFi NzIwXG Zvcm1z aGFkZV xub2Zl YXR1cm V0aHJv dHRsZT FcZG50 Ymxuc2 JkYlxm ZXQ0XG FlbmRu b3Rlc1 xhZnRu bnJsY1 xwZ2Jy ZHJoZW FkXHBn YnJkcm Zvb3Rc c2VjdG RccGd3 c3huMT IyNDBc cGdoc3 huMTU4 NDBcZ3 V0dGVy c3huMF xtYXJn bHN4bj E4MDBc bWFyZ3 JzeG4x ODAwXG 1hcmd0 c3huMT Q0MFxt YXJnYn N4bjE0 NDBcaG VhZGVy eTcyMF dlt758 ZXJ5Nz IwXHNi a3BhZ2 VccGdu Y29udF xwZ25k ZWNccG [...] Not Available 12/01/2024 04:19:34 11/25/19 25 11/24/2024 [facility] [place] [email or web address] 1999 panel - Serum or Plasm a anion gap in blood by calculation 8 mmol/ L low: 6mmol/ Lhigh: 16mmol /L Not Available Not Available 12/01/2024 04:19:34 11/25/19 25 11/24/2024 [facility] [place] [facility] 1999 panel - Serum or Plasm a urea nitrogen [mass/volume ] in serum or plasma 7 mg/dL low: 5.3mg/ dLhigh : 18.7mg /dL Not Available Not Available 12/01/2024 04:19:34 11/25/19 25 11/24/2024 [facility] [place] [facility] 1999 panel - Serum or Plasm a creatinine [mass/volume ] in serum or plasma 0.54 mg/dL low: 0.57mg /dLhig h: 1.11mg /dL low Not Available Not Available 12/01/2024 04:19:34 11/25/19 25 11/24/2024 [facility] [place] [employer] 1999 panel - Serum or Plasm a alkaline phosphatase [enzymatic activity/vol ume] in serum or plasma 184 U/L low: 40U/Lh igh: 150U/L high Not Available Not Available 12/01/2024 04:19:34 11/25/19 25 11/24/2024 [facility] [place] [employer] 1999 panel - Serum or Plasm a alanine aminotransfe rase [enzymatic activity/vol ume] in serum or plasma 111 U/L low: 6U/Lhi gh: 57U/L high Not Available Not Available 12/01/2024 04:19:34 11/25/19 25 11/24/2024 [facility] [place] [employer] 1999 panel - Serum or Plasm a aspartate aminotransfe rase [enzymatic activity/vol ume] in serum or plasma 84 U/L low: 10U/Lh igh: 48U/L high Not Available Not Available 12/01/2024 04:19:34 11/25/19 25 11/24/2024 [facility] [place] [facility] 1999 panel - Serum or Plasm a [...] DO Not Attach Compendium, Do Not Delete/merge, [id number] 12/14/2024 10:32:32 03/01/20 25 02/28/2025 imagi ng/di agnos tic resul t No observ ation record ed. [facility] [address], [place], [address], 03/01/2025 13:47:45 03/01/20 25 03/01/2025 imagi ng/di agnos tic resul t No observ ation record ed. [facility] [address], [place], [address], 03/01/2025 16:37:56 Result Notes None recorded. Problems Name Problem SNOMED Code Status Onset Date Resolution Date Notes Provider Name and Address Organization Details Recorded Time Vitamin D deficien cy 38708677 Completed Amalia Childs [place] null, [place] [facility] 8 11:55:18 Candidia sis of vagina 55897146 Completed Amalia Child[place] [facility] 8 11:55:18 Vitamin D deficien cy 81785893 Completed 10/18/2020 Al Benitez [place] [facility] 1 11:33:08 Candidia sis of vagina 67676921 Completed 04/30/2019 KATHY CHOUDHURY Attn: Kapil gould,[address] [place], [address], [place] - [facility] 9 10:38:27 On examinat ion - short stature Completed Fariba Pinto MD Attn: Kapil golud,[address] [place], [address], [place] - [facility] 2 17:20:24 growth restrict ion 66210443 Completed [facility] US 04/10: IUGR. Reassuri ng dopplers /BPP. Continue antenata l testing. Fariba Pinto MD Attn: Kapil gould,[address] [place], [address], [place] [facility] 2 17:20:24 On examinat ion - short stature Completed RANDALL Rasheed, [place] - [facility] 8 11:55:18 On examinat ion - short stature Active Fariba Pinto MD Attn: Kapil gould,[address] [facility], [place], [address], [place] - [facility] 2 17:20:24 Pregnanc y 07624939 Completed 201604/08/2017 ALEKSANDR GARCIA PA-C Attn: Kapil gould,[address] [facility], [place], [address], [place] [facility] 5 11:43:01 Nausea and vomiting 02488260 Completed 201604/30/2019 KATHY CHOUDHURY Attn: Kapil gould,[address] [facility], [place], [address], [place] [facility] 9 10:38:44 Iron deficien cy anemia of pregnanc y 955836437 Completed 201604/30/2019 KATHY CHOUDHURY Attn: Kapil gould,[address] [facility], [place], [address], [place] [facility] 9 10:38:46 Injury of lower limb 783667959 Completed 2016 Amalia Childs [place] [facility] 8 11:55:18 Injury of lower limb 286981933 Completed 201604/30/2019 KATHY CHOUDHURY Attn: Kapil gould,[address] [facility], [place], [address], [place] [facility] 9 10:38:33 Pregnanc y 39990841 Completed 201807/20/2019 ALEKSANDR GARCIA PA-C Attn: Kapil gould,[address] [facility], [place], [address], [place] [facility] 5 11:43:01 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 48455897362 9109 Active 2018 Selvin [place]ers [place] [facility] 1 09:11:27 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 31557408640 9109 Completed 2018 Amalia Childs [place] [facility] 1 11:06:14 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 84678349053 9109 Completed 2018 Selvin Dee lucia [place] [facility] 1 10:56:21 Subchori onic hematoma 960192334 Completed 2019 Amalia Child[place] [facility] 1 11:06:14 Subchori onic hematoma 780842024 Active 2019 Fariba Pinto MD Attn: Kapil gould,[address] [facility], [place], [address], [place] [facility] 2 17:20:24 Subchori onic hematoma 498083968 Completed 2019 Fariba Pinto MD Attn: Kapil gould,[address] [facility], [place], [address], [place] [facility] 2 17:20:24 Abnormal progeste soraida 239629305 Active 2020 Selvin Schnaderb lucia [place] [facility] 1 09:11:27 Abnormal progeste soraida 408619452 Completed 2020 Selvin Schnaderb lucia [place] [facility] 1 10:56:21 Pregnanc y 82664714 Completed 202010/18/2020 ALEKSANDR GARCIA PA-C Attn: Kapil gould,[address] [facility], [place], [address], [place] [facility] 5 11:43:01 Pregnanc y 93707967 Completed 202412/01/2024 ALEKSANDR GARCIA PA-C Attn: Kapil gould,[address] [facility], [place], [address], [place] [facility] 5 11:43:01 Problem Notes None recorded. Procedures Surgical History Date Name Laterality Status Provider Name and Address Organization Details Recorded Time 5 Control Implant Insertion completed ALEKSANDR GARCIA PA-C Attn: Accounting,[address] [facility], [place], [address], [facility] - [facility] 12/14/2024 10:32:22 4 Control Implant Removal completed Eneida Cano MD Attn: Accounting,[address] [facility], [place], [address], [facility] - [facility] 10/14/2023 13:35:29 4 Date of Last Pap Smear completed Amalia Childs [place] - [facility] 10/14/2023 12:26:57 3 Control Implant Insertion completed KATHY SALCEDO Attn: Accounting,[address] [facility], [place], [address], [facility] - [facility] 11/15/2022 11:57:42 Imaging Results None recorded. Procedure [...] Updated DateTime 5 140.34 cm 30.2 kg/m2 14476.6 8 g 98 % 98 % 97 /min 98.8 [degF] 112/68 mm[Hg] Jessica Jarrell [place] - [facility] 5 14:44:18 Date Recorded Body height Body mass index (BMI) Body weight Body temperature Oxygen saturation Oxygen saturation in Arterial blood by Pulse oximetry Heart rate Systolic And Diastolic Provider Name and Address Organization Details Last Updated DateTime 5 140.34 cm 30 kg/m2 47506.4 5 g 98.5 [degF] 98 % 98 % 101 /min 128/78 mm[Hg] Jessica Jarrell [place] [facility] 09:06:25 Date Recorded Body height Provider Name an d Address Organization Details Last Updated DateTime 07/06/2024 140.34 cm Jessica Cagle MA [facility] 07/06/2024 10:37:50 Date Recorded Body mass index (BMI) Body weight Body temperature Oxygen saturation Oxygen saturation in Arterial blood by Pulse oximetry Heart rate Systolic And Diastolic Provider Name and Address Organization Details Last Updated DateTime 5 30.3 kg/m2 91065.0 5 g 98.8 [degF] 98 % 98 % 88 /min 124/76 mm[Hg] Olya Gaviriare [facility] 10:47:34 Date Recorded Body height Body mass index (BMI) Body weight Oxygen saturation Oxygen saturation in Arterial blood by Pulse oximetry Heart rate Body temperature Systolic And Diastolic Provider Name and Address Organization Details Last Updated DateTime 5 140.34 cm 31.3 kg/m2 79186.5 6 g 99 % 99 % 86 /min 99.3 [degF] 128/80 mm[Hg] Haily Heredia MA [facility] 11:39:05 Date Recorded Body height Body mass index (BMI) Body weight Oxygen saturation Oxygen saturation in Arterial blood by Pulse oximetry Heart rate Body temperature Systolic And Diastolic Provider Name and Address Organization Details Last Updated DateTime 5 140.34 cm 31.3 kg/m2 57820.5 6 g 99 % 99 % 93 /min 98.9 [degF] 116/70 mm[Hg] Haily Heredia MA [facility] 10:14:43 Date Recorded Body height Body mass index (BMI) Body weight Oxygen saturation Oxygen saturation in Arterial blood by Pulse oximetry Heart rate Systolic And Diastolic Provider Name and Address Organization Details Last Updated DateTime 5 140.34 cm 31.8 kg/m2 00980.4 7 g 98 % 98 % 92 /min 128/76 mm[Hg] Jessica Jarrell MA [facility] 15:57:35 Social History Question Answer Notes LastModified by Organizat ion Details LastModified Time Tobacco Smoking Status Never Smoker Zee Reich MA null, [facility] 10/10/2016 15:10:07 Do You Have An Advance [...] Or Recreational Drugs Have You Used? Denies [email or web address] Information not available 03/05/2017 Education Less Than 8th Grade Information not available 10/10/2016 What Is The Highest Grade Or Level Of School You Have Completed Or The Highest Degree You Have Received? [id number] Information not available 10/18/2020 Have There Been Any Changes To Your Family Or Social Situation? No Information not available 10/10/2016 Frequent Air Travel No Information not available 10/10/2016 Illicit Drugs Pre- Denies None [email or web address] Information not available 03/05/2017 How Many Years Have You Used Illicit Or Recreational Drugs? 0 [email or web address] Information not available 03/05/2017 Live Alone Or [...] How Much Tobacco Do You Smoke? No [email or web address] Information not available 03/05/2017 Smoking Pre- No [...] Many Years Have You Smoked Tobacco? 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 Information not available 10/10/2016 Do you [...] Problems N Kidney or Bladder Problems N GI Problems N Depression N Blood Clots N Lung Disease N Acne N Breast Problem N Eating Disorder N Anemia N Anesthesia Complications N Headaches/Migraines N Anxiety Disorder N Diabetes N Ovarian Cancer N Muscle, Joint, or Bone Problems N [...] Recorded Time Tdap 7 completed Not Available [facility] 05/30/2019 02:51:06 Influenza, split virus, quadrivalent, preservative 7 completed Not Available [facility] 05/30/2019 02:34:21 Tdap 1 completed RANDALL Nails, [place] [facility] 02/28/2021 11:20:54 Influenza, split virus, quadrivalent, PF 1 completed RANDALL Rasheed, [place] [facility] 03/14/2021 12:59:51 Past Encounters Encounter ID Performer Location Encounter Start Date Encounter Closed Date Diagnosis/Indication Diagnosis SNOMED-CT Code Diagnosis ICD10 Code Diagnosis IMO Codes Diagnosis Note [id number] Al Benitez MD [facility] ([facility] [employer]) [address] [place] [address] 10/10/2016 13:50:55 10/10/2016 15:46:27 Routine care 306832250 Z34.90 [id number] MD Tiffanie Viramontes ([employer]) [address] [place] [id number] 11/12/2016 11:34:31 11/12/2016 12:57:13 Routine care 044102133 Z34.90 [id number] MD Tiffanie Viramontes ([employer]) [address] [place] [id number] 12/03/2016 11:41:15 12/03/2016 13:20:24 Routine care 902479727 Z34.90 [id number] MD Tiffanie Viramontes ([employer]) [address] [place] [phone] 01/07/2017 11:58:23 01/07/2017 13:03:03 Routine care 824459917 Z34.90 Iron defic iency anemia of 873324251 O99.774 [id number] [facility] [address] [place] [phone] 02/04/2017 09:52:09 02/04/2017 12:54:26 Routine care 649714783 Z34.90 screening 2437 41053 Z36 Family melanie nning education 366767653 Z30.02 [id number] MD Tiffanie Viramontes ([employer]) [address] [place] [id number] 02/28/2017 14:47:09 02/28/2017 17:33:14 Routine care 870649524 Z34.93 [id number] MD Tiffanie Viramontes ([employer]) [address] [place] [phone] 03/05/2017 15:13:12 03/07/2017 12:30:02 Routine care 645726014 Z34.93 Traumatic injury during 336490624 T14.90XA left lower extremity [id number] MD Tiffanie Viramontes ([employer]) [address] [place] [id number] 03/19/2017 10:17:17 03/19/2017 14:20:11 Routine care 258074108 Z34.93 Injury of lower limb 127 722986 S89.92XD Patient out of LLLE brace and has been referred to PT once weekly. [id number] MD Tiffanie Viramontes ([employer]) [address] [place] [phone] 04/08/2017 16:13:15 04/09/2017 09:55:23 Routine care 478350440 Z34.93 Injury of lower limb 127 488072 S89.92XD Patient out of LLLE brace and has been referred to PT once weekly. [id number] MD Tiffanie Gómez ([employer]) [address] [place] [id number] 04/23/2017 11:05:39 04/23/2017 12:45:16 Routine care 559259829 Z34.83 Urinary tr act infectious disease 64712116 N39.0 COUNSELED ABOUT IT. [id number] MD Tiffanie Viramontes ([employer]) [address] [place] [id number] 06/17/2017 10:31:43 06/17/2017 12:44:20 care 702383615 Z39.2 ordered routine labs for postpatum pap smear Exposure t o sexually transmissible disorder 672075308 Z20.2 depression 58 804676 O99.345 educated about depression and started on sertraline 100mg [id number] MD Tiffanie Viramontes ([employer]) [address] [place] [id number] 07/01/2018 10:56:42 07/01/2018 14:31:27 Family planning surveillance 498281501 Z30.09 Gynecologi c examination 48359678 Z01.419 Z11.51 Exposure t o sexually transmissible disorder 601549259 Z20.2 [id number] [facility] [address] [place] [id number] 04/30/2019 09:24:59 04/30/2019 11:46:49 Routine care 599175871 Z34.90 Venereal d isease screening 020878747 Z11.3 screening 2437 36072 Z36.85 [id number] KATHY SALCEDO ([employer]) [address] [place] [phone] 05/28/2019 10:01:46 05/28/2019 11:21:32 Routine care 175465068 Z34.90 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 B12 injection 05/28 [id number] KATYH SALCEDO ([employer]) [address] [place] [id number] 06/26/2019 10:56:56 07/02/2019 11:48:01 heart sounds absent 006517125 O36.8399 heart tones absent on exam today. Pt sent for STAT US - results consistent with demise. thien se from miscarriage 8629040 O03.9 Per US: Intrauter ine with absence [...] All of patients questions and concerns addressed. [facility] and Dr. Benitez contacted and aware pt is coming today from office. [id number] MD Tiffanie Viramontes ([employer]) [address] [place] [id number] 07/20/2019 10:20:33 07/20/2019 11:39:05 Depressive disorder 47129911 F32.9 Gynecologi c examination 71602118 Z01.419 Z11.51 Family melanie nning surveillance 340463407 Z30.09 Irritable bowel syndrome 04766852 K58.9 [id number] KATHY VICTOR (Adult Med) [address] [place] [id number] 08/25/2019 13:48:26 09/03/2019 15:07:13 Strain of back muscle 459920474 S39.012A Complainin g of intermitte nt left [...] once back pain is gone. Depressive disorder 6621 5735 F32.9 She recently had a missed in 06/2019.She states she is still experienci ng sadness from the lost of her child but it is getting better everyday.S he has not picked up the anti-depre ssion medication yet that Dr. Benitez ordered for her. Plans to pick it up today.David leslie HI/SI.PHQ 2/9 was negative in office today (0 out of 27)- advised patient to diamond picker medication and start taking as prescribed [...] about your depression with people you trust. [id number] KATHY VICTOR (Adult Med) [address] [place] [address] 11/06/2019 09:42:27 11/09/2019 07:38:29 Low back pain 174800244 M54.5 Complainin g of low back pain x 6 days The pain is located bilaterall y between thoracic and lumbar region of back. The pain is constant, 7/10, and worse with certain movements. States the medication given for her back pain at last visit helped her symptoms until recently.Lucero gutiérrez does not work, she stays at home during the day with her children.A dmits to urinary frequency and mild pelvic pain.Denie s injury to back, heavy lifting, or [...] heat to area 3x/day, and gentle massage [id number] KATHY VICTOR [facility] (Adult Med) [address] [place] [id number] 05/26/2020 12:02:44 05/27/2020 10:27:49 Low back pain 682641209 M54.5 Complainin g today of intermitte nt [...] kidneys due chronicity of pain Vaginal discharge 323192 006 N89.8 Admits to mild pelvic pain [...] due to inflammati on of the cervix [id number] MD Tiffanie Viramontes ([employer]) [address] [place] [id number] 10/18/2020 10:21:59 10/22/2020 13:56:11 Routine care 481705079 Z34.93 Venereal d isease screening 518021213 Z11.3 screening 2437 45169 Z36.85 Homozygous methylenetetrahydrofo late reductase mutation 9991232208 67108 E72.12 Abnormal progesterone 13 3079698 R94.7 On examina tion - short stature 888094463 R62.52 Subchorionic hematoma 60 7786370 O41.8X99 [id number] KATHY SALCEDO ([employer]) [address] [place] [id number] 11/01/2020 10:42:39 11/10/2020 13:54:02 Routine care 579493057 Z34.90 LORRIE and ACOG at 12w3d. complicate d by MTHFR, low progestero ne, and subchorion ic hematoma. Test results reviewed. OB educationa l packet reviewed and provided to patient. U/S 10/30/2020 showed MARIO 05/12/2021 with 2 subchorion ic hematomas. Follow-up ultrasound in 3 weeks. 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 Continue ASA, Folic acid. B12 injection at next visit. Abnormal progesterone 13 1882966 R94.7 Low on initial labs (13.7). Continue supplement . Subchorionic hematoma 60 0881835 O41.8X99 U/S 10/30/2020 showed MARIO 05/12/2021 with 2 subchorion ic hematomas. Follow-up ultrasound in 3 weeks. Continue pelvic rest. 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 Abnormal progesterone 13 0957448 R94.7 On examina tion - short stature 372167213 R62.52 [id number] MD [facility] [address] [place] [id number] 12/14/2020 10:07:25 12/17/2020 12:50:31 Routine care 327854642 Z34.93 Homozygous methylenetetrahydrofo late reductase mutation [id number] 09689 E72.12 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 B12 given today. On examina tion - short stature 534184494 R62.52 Abnormal progesterone 13 9356020 R94.7 [id number] MD Tiffanie Viramontes ([employer]) [address] [place] [address] [phone] 02/13/2021 10:13:50 02/14/2021 10:33:12 Routine care 841809529 Z34.82 Z36.9 OBFU Packet given. 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 B12 given today. 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 Influenza vaccination declined 253048806 Z28.21 [id number] MD Tiffanie Viramontes ([employer]) [address] [place] [address] [phone] 0 03/14/2021 10:49:43 03/16/2021 07:08:19 Routine care 938108741 Z34.83 25 yo F with PMHx of recent missed and vit D deficiency presents for LORRIE at 31w4d. c/b MTHFR, FGR, and subchorion ic hematoma. No complaints . Will refer to [facility] for FGR as EFW at 9th percentile . 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 Subchorionic hematoma 60 8802132 O41.8X99 grow th restriction 03977939 O36.5999 EFW 9th percentile . Normal TANVI. Active or passive immunization 921489567 Z23 Flu shot given today. Pt not interested in COVID vaccinatio n until after delivery. [id number] SELVIN ROMAN CK, DO Tiffanie ([employer]) [address] [place] [address] [phone] 04/25/2021 15:05:18 05/01/2021 19:29:14 Routine care 309600288 Z34.93 No VB, VD, LOF, regular contractio ns, or decreased movement. She has not been seen in clinic for the last 6 weeks. Patient following with [facility] for IUGR. Last evaluated 04/10, she was to return for growth in 3 weeks after that visit. Vital importance of making her appointmen ts stressed to patient. Patient to see M 05/01 - will follow up on delivery rec's. RTC in 1 week. Nuswab and GBS collected today. [id number] DO Tiffanie CHING ([employer]) [address] [place] [address] [phone] 05/04/2021 09:58:07 05/08/2021 08:09:37 Routine care 096889444 Z34.93 No VB, VD, LOF, regular contractio ns, or decreased movement. Patient following with [facility] for IUGR. She was recently evaluated and [...] based on large LE on UA today. [id number] DO Tiffanie CHING ([employer]) [address] [place] [address] [phone] 06/01/2021 10:39:41 06/09/2021 08:47:04 care 649539338 Z39.2 visit. 014 who is 4 weeks s/p TSVDPregna ncy complicati ons: IUGR, UTI.EDPS reassuring Bottlefeed ingDiscuss ed R/B/I/A of multiple contracept peyton options. Educationa l materials provided and all questions and concerns were addressed. Patient desires contracept peyton patches.Kathy p - 07/01/2018 = NILM, HPV negRTC - In 1 year for well woman exam. [id number] KATHY SALCEDO ([employer]) [address] [place] [address] [phone] 0 07/27/2021 11:54:21 08/04/2021 11:18:14 care 374386705 Z39.2 25 yo female presenting for visit [...] in 3 months for Pap and prn. [id number] KATHY SALCEDO ([employer]) [address] [place] [address] [phone] 01/24/2022 11:21:48 01/25/2022 12:40:56 Contraception care 675737452 Z30.45 26 y/o indian speaking female who presents for control- Currently taking Xulane patch with complaints of grace, wants to switch to cheaper OCPs- Start 24 1mg-20mcg QD, counseled on use and SE- Pt wants to start TTC in 3-4 months- Return to clinic in one year or sooner if needed [id number] [facility] [address] [place] [address] [phone] 02/13/2022 11:24:39 02/14/2022 15:46:49 Gynecologic examination 02703169 Z01.419 Cervical cancer screening: last Pap 05/26/2020 NILM; Due for next Pap 05/26/2023. Breast cancer screening: Reviewed recommenda tions for initiation at age 40 with annual screening. Discussed SBEContrac eption: pt tolerating OCPs well, advised to continue as prescribed Diet/exerc ise: Counseled regarding importance of physical activity, healthy diet and appropriat e calcium intake.RTC in 1yr Pain in pelvis 51577746 R10.2 New onset, intermitte nt x 2 weeks. No other associated symptoms. PE unremarkab le. IBU and heat prn for pain. RTC if symptoms persist. [id number] MD Tiffanie Skaggs (Adult Med) [address] [place] [address] [phone] 08/31/2022 11:38:24 09/11/2022 13:58:04 Urinary incontinence 467688681 R32 Female uri dragan stress incontinence 47793248 N39.3 Symptoms consistent with stress incontinen ce. [...] infection due to trace leukocytes in UA. [id number] KATHY SALCEDO ([employer]) [address] [place] [address] [phone] 0 11/15/2022 11:17:24 11/16/2022 12:45:00 Implantation of subcutaneous contraceptive 669862142 Z30.9 Nexplanon inserted left upper extremity as detailed in procedure note, pt tolerated well. RTC 1 month [id number] MD Tiffanie Zamora ([employer]) [address] [place] [address] [phone] 10/14/2023 11:56:56 10/22/2023 15:52:08 Screening for malignant neoplasm of cervix 257267506 Z12.4 due for pap pt is 28 yo no need for hpv cotest at this timenexpla non insertedbr eak through bleedingr/ p Break-thro ugh bleeding 08831233 N92.1 pt had nexplanon inserted may 2023s/p 6 months with light spotting hcg urineremov e nexplanond efer starting 1 mo ocp since bleeding slight Obese 612668615 E66.9 bmi 30.9Discus sed diet at length including healthier food options, increase vegetable and fiber intake, reduce salt intake, incorporat e yoga/stret mel practices and exercise 30 min 5 x per week to improve cardiovasc ular health. Contraception care 79966 5000 Z30.40 patient tolerated junel wellwould like to restart for contracept ion Junel Rx Removal of subcutaneous contraceptive 928602102 Z30.46 removal of nexplanon which was inserted November 2022 due to persisting breakthrou gh bleeding > 9 months [id number] MD Tiffanie Skaggs (Adult Med) [address] [place] [address] [phone] 05/19/2024 11:41:55 05/20/2024 10:56:07 Missed period 29447124 N92.5 patient has missed 2 menstrual cycles 56799325 Z33.1 Will refer patient to Obstetrici an and start on daily vitamins. Advised her to avoid any medication s without contacting a provider first. Spotting p er vagina in 846306078 O26.859 Patient has had some light spotting since the end of April. No pain or heavy bleeding. I reassured her that light spotting in first trimester can be normal. I advised her to seek medical attention if she develops pain or heavy bleeding. She will follow up with an obstetrici an for an exam. [id number] MD Tiffanie Diaz (Adult Med) [address] [place] [address] [phone] 0 06/09/2024 14:19:40 06/10/2024 15:27:05 Routine care 456736446 Z34.91 New OB: 11.2 weeks gestationE DD 12/27/24Pap done todayNuswa b done todayNew OB labs todayDiscu ssed and labor precaution sC/W vitaminsIn itial OB U/S ordered todayRTC 4 weeks Obesity 849358971 E66.9 BMI 30.2 Depression screening 171 644716 Z13.31 PHQ9- Negative (0 out of 27) Mental hea lt screening 595463666 Z13.39 GAD7- Negative (0 out of 21) [id number] MD Tiffanie Diaz (Adult Med) [address] [place] [address] [phone] 0 06/16/2024 08:53:42 06/23/2024 10:56:33 Chromosome abnormality screening 472975843 Z13.79 Referral to [facility] for complete transfer Obesity 035176290 E66.9 BMI 30 [id number] MD Tiffanie Diallo (Adult Med) [address] [place] [address] [phone] 0 12/01/2024 11:25:03 12/02/2024 13:25:04 Depression screening 200950363 Z13.31 5142116 PHQ9- Negative (0 out of 27) Mental hea [facility] screening 866570732 Z13.30 3470370950 GAD7- Negative (0 out of 21) Pre-eclampsia 950587623 O14.90 596514 BP today 128/80Reso lvedRTC 6 weeks for BP check Grief finding 994301499 F43.21 Z63.4 7023141 Gave to child at 28 weeks gestation, born with trisomy 18, shortly afterGriev ing normally. Pt is doing wellPt does not want/need medication at this time Surveillan ce of subcutaneous contraceptive implant 035599941 Z30.46 [id number] Pt to schedule for nexplanon Insertion [id number] Quan Hassan MD [facility] (Adult Med) [address] [place] [address] [phone] 12/14/2024 09:56:57 12/15/2024 12:04:28 Implantation of subcutaneous contraceptive 070942520 Z30.017 [id number] Patient desires Nexplanon insertion. After discussing the [...] a more severe reaction. Obese class I 5635924393 40796 E66.811 E66.3 1417389074 BMI 31.3 [id number] Quan Hassan MD [facility] (Adult [facility]) [address] [place] [address] [phone] 01/19/2025 15:50:24 01/20/2025 15:12:03 Grief finding 432712280 F43.21 Z63.4 [id number] Gave to child at 28 weeks gestation, born with trisomy 18, shortly afterGriev ing normally. Pt is doing wellPt does not want/need medication at this time Pre-eclampsia 389822565 O14.90 016972 BP today 128/76Reso lved Depression screening 171 456775 Z13.31 1020873 PHQ9- Negative (0 out of 27) Mental hea lth screening 283555142 Z13.30 0770189513 GAD7- Negative (0 out of 21) Influenza vaccination declined 504820681 Z28.21 80651481 Obese class I 6667579934 34605 E66.811 E66.3 9926026172 BMI 31.8 Health Concerns Section Related Observation LastModified by Organization Detai ls LastModified Time None Recorded Concern Status LastModified by Organization Details LastModified Time None Recorded Advance Directives Directive N: Payers Insurance Date Sequence Insurance Name Policy Number Policy Membreno Covered Member ID Membreno Member ID Guarantor Name 12/01/2024 2 [facility] (MEDICAID HMO) [id number] Dianelys Don Spenser [id number] Dianelys Don Spenser 07/15/2024 SLIDING FEE SCHEDULE - DISCOUNT Dianelys Don Spenser 11/06/2019 SLIDING FEE SCHEDULE - DISCOUNT Dianelys Don Spenser 10/18/2020 2 *SELF PAY* Ce cilia Don Spenser 12/01/2024 1 [facility] (MEDICAID HMO) [id number] 0003 Dianelys Don [id number] Dianelys Don Spenser 06/26/2019 1 MEDICAID - MOVED-MGRHOLD - PENDING [id number] Dianelys Don Spenser 12/01/2024 1 [place]: [facility] [place] [facility] AID Dianelys Don [id number] Dianelys Don Spenser 06/09/2024 SLIDING FEE SCHEDULE - DISCOUNT Dianelys Don Spenser 06/23/2024 2 *SELF PAY* Ce cilia Don Spenser 12/01/2024 1 [employer] [facility] (MEDICAID HMO) Dianelys Don Spenser [id number] Dianelys Don Spenser 01/17/2025 1 [facility] (MEDICAID HMO) [id number] Dianelys Don [id number] Dianelys Don Spenser 11/12/2016 1 *SELF PAY* Ce cilia Don Spenser 01/07/2017 SLIDING FEE SCHEDULE - DISCOUNT Dianelys Don Spenser 11/12/2016 1 MEDICAID - MOVED-MGRHOLD - PENDING [id number] Dianelys Don Spenser 12/01/2024 3 MED[place]ID-[place]: [facility] [place] [facility] PUBLIC [facility] Dianelys Don [id number] Dianelys Don Spenser Notes Date Note Type Note Provider Name and Address Organization Details Recorded Time 06/09/2024 text/html ROS as noted in the HPI see OB worksheet ALEKSANDR GARCIA PA-C Attn: [address] [place], [address], [facility] 06/09/2024 15:31:45 06/16/2024 text/html ROS as noted in the HPI see OB worksheet Quan Hassan MD Attn: [address] [place], [address], [place] [facility] 06/16/2024 16:08:24 12/01/2024 text/html ROS as noted in the HPI 29 y/o F here for IM care. Pt was transferred to [facility] for after abnormal [email or web address] lab test. Pt was diagnosed with HTN during and was being managed with Nifedipine. She is a [facility] patient who is being followed for [...] children. ALEKSANDR GARCIA PA-C Attn: [address] [place], [address], [facility] 12/02/2024 10:08:01 12/14/2024 text/html ROS as noted in the HPI 29 y/o F here for nexplanon insertion. Pt denies any new problems or concerns at this time. Pt is not sexually active at this time. Quan Hassan MD Attn: [address] [facility], [place], [address], [facility] 12/14/2024 12:00:58 01/19/2025 text/html ROS [...] today. Quan Hassan MD Attn: [address] [place], [address], [facility] 01/20/2025 12:23:48 OBGyn Episode Ob Episode Information Episode Created Date Number of Fetuses Patient Bloodtype Patient rh Status Prepregnancy Weight lbs Domestic Partner Domestic Partner Phone Father Name Pipeliner Status 12/02/19 25 1 CLOSED Fetus Data First Name Last Name Admitted to NICU Weight (g) Sex Living Outcome Pediatric Complications Fetus ID Race Codes Race Delivery Type , Spontane ous 66497 Mario Calculation Initial Mario Date Initial Exam [...] Post Complications Tubal Sterilization Discharge Date Comments Discharge Information Feeding Method Contraceptive Method Maternal HG B and HCT Levels Ob Episode Information Episode Created Date Number of Fetuses Patient Bloodtype Patient rh Status Prepregnancy Weight lbs Domestic Partner Domestic Partner Phone Father Name Pipeliner Status 06/09/19 25 1 O Positive 131.3 Chery Johnson CLOSED Fetus Data First Name Last Name Admitted to NICU Weight (g) Sex Living Outcome Pediatric Complications Fetus ID Race Codes Race Delivery Type F 08300 Vaginal Mario Calculation Initial Mario Date Initial [...] in lbs Pre/Post Dialysis Refused With clothes 131.803420654160 BP Diastolic BP Location Tested BP Systolic [...] in lbs Pre/Post Dialysis Refused With clothes 130.852022094520 BP Diastolic BP Location Tested BP Systolic [...] in lbs Pre/Post Dialysis Refused With clothes 136.791463562638 BP Diastolic BP Location Tested BP Systolic [...] Estim ated Date of Delivery false Thalassemia (Omani, Uzbek, Mediterranean, Or Background): MCV < 80 false Neural Tube Defect (Meningomyelocele, Spina Bifi da, Or Anencephaly) false Congenital Heart Defect false Down Syndrome false Bossman-Sachs (eg, Lutheran, Cajun, Belarusian-Bulgarian) f alse Darion Disease false Sickle Cell Disease Or Trait () false Hemophilia Or Other Blood Disorders false Muscular Dystrophy false Cystic Fibrosis false Moore's Chorea false Mental Retardation/Autism false If Yes, [...] ed By 06/09/2024 Anticipated course of care [email or web address] 06/09/2024 Alcohol 06/09/2024 Intimate partner violence op erez46 06/09/2024 Environmental/work hazards o [email or web address] 06/09/2024 Screening for aneuploidy ope rez46 06/09/2024 Nutrition counseling ; special diet; dietary precautions (mercury, listeriosis) [email or web address] 06/09/2024 Childbirth classes/hospital facilities [email or web address] 06/09/2024 HIV and other routine tests [email or web address] 06/09/2024 Risk factors identif ied by history [email or web address] 06/09/2024 Weight gain counseling opere z46 06/09/2024 Exercise pvilxh14 06/09/2024 Teratogens [email or web address] 06/09/2024 Use of any medicatio ns (including supplements, vitamins, herbs, or OTC drugs) rintmf31 06/09/2024 06/09/2024 Sexual activity [email or web address] 06/09/2024 Tobacco/smoking cess ation counseling (ask, advise, assess, assist, and arrange) [email or web address] 06/09/2024 Illicit/recreational drugs o perez46 06/09/2024 Dental care [email or web address] 06/09/2024 Travel 06/09/2024 Seat belt use [email or web address] 06/09/2024 Indications for ultrasonography [email or web address] 06/09/2024 Avoidance of saunas or hot tubs oddtds90 06/09/2024 Toxoplasmosis precautions (cats/raw meat) wigyxs95 Second Trimester Discussed Date Discussion Item Discussion Note Discuss ed By Third Trimester Discussed Date Discussion Item Discussion Note Discuss ed By Delivery Information Delivery Date Delivery Type Labor Anesthesia Weeks Gestation Incision Type Labor Labor Length Hrs Delivered By Post Complications Tubal Sterilization Discharge Date Comments 29.3 28 weeks via vaginal delivery on 10/14/24. Trisomy 18- baby shortly after Discharge Information Feeding Method Contraceptive Method Maternal HG B and HCT Levels Ob Episode Information Episode Created Date Number of Fetuses Patient Bloodtype Patient rh Status Prepregnancy Weight lbs Domestic Partner Domestic Partner Phone Father Name Pipeliner Status 10/19/19 21 1 O Positive 112 CLOSED Fetus Data First Name Last Name Admitted to NICU Weight (g) Sex Living Outcome Pediatric Complications Fetus ID Race Codes Race Delivery Type Avis Zhu ement e false 2693.20 25 F true Full Term 48083 2106-3 White Standard Vaginal Delivery Problems Problem Notes Natural CB; plans to breastf eed; not sure about circumcision. [facility] TBD Problem Name Start Date End Date Resolution Snomed Code Not e Subchorionic hematoma 06/02/2019 1702818 04 growth restriction 15096273 MFM US 04/10: I UGR. Reassuring dopplers/BPP. Continue testing. On examination - short stature 171190917 Mario Calculation Initial Mario Date Initial Exam Date Initial Exam Provider Initial Ultrasound Date Last Menstrual Period Date Ultra Sound Weeks Gestation 05/12/2021 10/18/2020 [email or web address] 10/30/2020 08/06/2020 12 Eighteen To Twenty Week [...] in lbs Pre/Post Dialysis Refused With clothes 112.298388639875 BP Diastolic BP Location Tested BP Systolic BP Type 70 108 sitting Fetus Heart Rate Present Fetus Movement Comments NOB visit, B12, MTHFR treatm ent Flowsheet Date 11/01/2020 Ngo Score Blood Edema Fundus Height Fundus Units Glucose Ketones Leukocytes Nitrite Labor Signs Protein Cervic Dilation Cervic Effacement Cervic Station none 12 wks none Type Weight in lbs Pre/Post Dialysis Refused With clothes 113.835372134986 BP Diastolic BP Location Tested BP Systolic [...] Weight in lbs Pre/Post Dialysis Refused Weight 114.111406519774 BP Diastolic BP Location Tested BP Systolic [...] in lbs Pre/Post Dialysis Refused With clothes 117.503753346261 BP Diastolic BP Location Tested BP Systolic [...] in lbs Pre/Post Dialysis Refused With clothes 120.385189041784 BP Diastolic BP Location Tested BP Systolic [...] in lbs Pre/Post Dialysis Refused With clothes 123.306769538327 BP Diastolic BP Location Tested BP Systolic [...] in lbs Pre/Post Dialysis Refused With clothes 132.326305831575 BP Diastolic BP Location Tested BP Systolic BP Type 62 108 sitting Fetus Heart Rate Present A 145 Fetus Movement A No Comments No VB, VD, LOF, regular cont ractions, or decreased movement. She has not been seen in clinic for the last 6 weeks. Patient following with [facility] for IUGR. Last evaluated 04/10, she was to return for growth in 3 weeks after that visit. Vital importance of making her appointments stressed to patient. Patient to see [facility] 05/01 - will follow up on delivery rec's. RTC in 1 week. Nuswab and GBS collected today. Flowsheet Date 05/04/2021 Ngo Score Blood Edema Fundus Height Fundus Units Glucose Ketones Leukocytes Nitrite Labor Signs Protein Cervic Dilation Cervic Effacement Cervic Station neg none 38 none negative none trace Type Weight in lbs Pre/Post Dialysis Refused With clothes 133.265799106986 BP Diastolic BP Location Tested BP Systolic BP Type 66 112 sitting Fetus Heart Rate Present A 145 Fetus Movement A Yes Comments No VB, VD, LOF, regular cont ractions, or decreased movement. Patient following with [facility] for IUGR. She was recently evaluated and [...] in lbs Pre/Post Dialysis Refused With clothes 116.081016067766 BP Diastolic BP Location Tested BP Systolic [...] At Estimated Date of Delivery false Thalassemia (Omani, Uzbek, Mediterranean, Or Background): MCV < 80 false Neural Tube Defect (Meningom yelocele, Spina Bifida, Or Anencephaly) false Congenital Heart Defect false Down Syndrome false Bossman-Sachs (eg, Lutheran, Cajun , Belarusian-Bulgarian) false Darion Disease false Sickle Cell Disease Or Trait () false Hemophilia Or Other Blood Disorders false Muscular Dystrophy false Cystic Fibrosis false Moore's Chorea false Mental Retardation/Autism false If Yes, [...] (mercury, listeriosis) [email or web address] 11/10/2020 Childbirth classes/hospital facilities [place] [address] 11/10/2020 HIV and other routine tests [place] [address] 11/10/2020 Risk factors identif ied by history jcortopass 11/10/2020 Weight gain counseling jcort opass 11/10/2020 [facility] 11/10/2020 Teratogens [place] [address] 11/10/2020 Use of any medicatio ns (including supplements, vitamins, herbs, or OTC drugs) [place] [address] 11/10/2020 [place] [address] 11/10/2020 Sexual activity [place] [address] 11/10/2020 Tobacco/smoking cess ation counseling (ask, advise, assess, assist, and arrange) [place] [address] 11/10/2020 Illicit/recreational drugs [place] [address] 11/10/2020 Dental care [place] [address] 11/10/2020 Travel [place] [address] 11/10/2020 Seat belt use [place] [address] 11/10/2020 Indications for ultrasonography [place] [address] 11/10/2020 Avoidance of saunas or hot tubs [place] [address] 11/10/2020 Toxoplasmosis precautions (cats/raw meat) [place] [address] Second Trimester Discussed Date Discussion Item Discussion Note Discuss ed By Third Trimester Discussed Date Discussion Item Discussion Note Discuss ed By Delivery Information Delivery Date Delivery Type Labor Anesthesia Weeks Gestation Incision Type Labor Labor Length Hrs Delivered By Post Complications Tubal Sterilization Discharge Date Comments Induce d Regional-Ep idural 39 false 48 Dayan ck, Selvin DO None false 06/06/2021 Discharge Information Feeding Method Contraceptive Method Maternal HG B and HCT Levels undecided Ob Episode Information Episode Created Date Number of Fetuses Patient Bloodtype Patient rh Status Prepregnancy Weight lbs Domestic Partner Domestic Partner Phone Father Name Pipeliner Status 04/30/20 19 1 O Positive CLOSED Fetus Data First Name Last Name Admitted to NICU Weight (g) Sex Living Outcome Pediatric Complications Fetus ID Race Codes Race Delivery Type 59470 Problems Problem Notes yes to epidural, no to circu mcision of boy, , case liner unknown, PPBC Nexplanon Problem Name Start Date End Date Resolution Snomed Code Not e Subchorionic hematoma 06/02/2019 9066080 04 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 [id number] Mario Calculation Initial Mario Date Initial Exam [...] Gestation 0 [email or web address] 06/02/2019 12/05/19 20 0 Pre-bienvenido Flowsheet Flowsheet Date 04/30/2019 Ngo Score Blood Edema Fundus Height Fundus Units Glucose Ketones Leukocytes Nitrite Labor Signs Protein Cervic Dilation Cervic Effacement Cervic Station trace none 10 wks none negative neg 0cm 0% -4 Type Weight in lbs Pre/Post Dialysis Refused Weight 115.463761376650 BP Diastolic BP Location Tested BP Systolic [...] Weight in lbs Pre/Post Dialysis Refused Weight 115.117009294400 BP Diastolic BP Location Tested BP Systolic [...] Weight in lbs Pre/Post Dialysis Refused Weight 118.771774228256 BP Diastolic BP Location Tested BP Systolic BP Type 68 120 sitting Fetus Heart Rate Present A Absent Fetus Movement Comments heart tones absent on exam today. Last US 06/02 with viable intrauterine - HR 145 and gross movement, small subchorionic hemorrhage. Pt sent for STAT US and heart tones absent consistent with demise. EGA of 15w4d. Discussed with patient through migration agent and case discussed with Dr. Benitez. Plan to send pt over to [facility] for Cytotec induction of labor with possible D&C. Flowsheet Date 07/20/2019 Ngo Score Blood Edema Fundus Height Fundus Units Glucose Ketones Leukocytes Nitrite Labor Signs Protein Cervic Dilation Cervic Effacement Cervic Station Type Weight in lbs Pre/Post Dialysis Refused With clothes 114.414779162303 BP Diastolic BP Location Tested BP Systolic BP Type 70 R arm 118 sitting Fetus Heart Rate Present Fetus Movement Comments Flowsheet Date 10/18/2020 Ngo Score Blood Edema Fundus Height Fundus Units Glucose Ketones Leukocytes Nitrite Labor Signs Protein Cervic Dilation Cervic Effacement Cervic Station Type Weight in lbs Pre/Post Dialysis Refused With clothes 112.040117472500 BP Diastolic BP Location Tested BP Systolic BP Type Fetus Heart Rate Present Fetus Movement Comments Menstrual History Last Menstrual Date Menses Monthly On Bcp Conception Prior Menses Frequency Hcg Plus Date Menarche Onset Age 1002/19/2019 true false Genetic Screening And Infection History Question Response Note Patient's Age Will Be 35 Years Or Older At Estim ated Date of Delivery false Thalassemia (Omani, Uzbek, Mediterranean, Or Background): MCV < 80 false Neural Tube Defect (Meningomyelocele, Spina Bifi da, Or Anencephaly) false Congenital Heart Defect false Down Syndrome false Bossman-Sachs (eg, Lutheran, Cajun, Belarusian-Bulgarian) f alse Darion Disease false Sickle Cell Disease Or Trait () false Hemophilia Or Other Blood Disorders false Muscular Dystrophy false Cystic Fibrosis false Moore's Chorea false Mental Retardation/Autism false If Yes, [...] violence brittney [email or web address] 04/30/2019 Environmental/work hazards j [email or web address] 04/30/2019 Screening for aneuploidy jco [email or web address] 04/30/2019 Nutrition counseling ; special diet; dietary precautions (mercury, listeriosis) [email or web address] 04/30/2019 Childbirth classes/hospital facilities [email or web address] 04/30/2019 HIV and other routine tests [email or web address] 04/30/2019 Risk factors identif ied by history [email or web address] 04/30/2019 Weight gain counseling jcort [email or web address] 04/30/2019 Exercise [email or web address] 04/30/2019 Teratogens [email or web address] 04/30/2019 Use of any medicatio ns (including supplements, vitamins, herbs, or OTC drugs) [email or web address] 04/30/2019 [email or web address] 04/30/2019 Sexual activity [email or web address] 04/30/2019 Tobacco/smoking cess ation counseling (ask, advise, assess, assist, and arrange) [place] [address] 04/30/2019 Ill[facility]creational [facility] Dental care [email or web address] 04/30/2019 Travel [email or web address] 04/30/2019 Seat belt use [email or web address] 04/30/2019 Indications for ultrasonography [email or web address] 04/30/2019 Avoidance of saunas or hot tubs [email or web address] 04/30/2019 Toxoplasmosis precautions (cats/raw meat) [email or web address] Second Trimester Discussed Date Discussion Item Discussion [...] Domestic Partner Domestic Partner Phone Father Name Pipeliner Status 10/11/19 17 1 O Positive CLOSED Fetus Data First Name Last Name Admitted to NICU Weight (g) Sex Living Outcome Pediatric Complications Fetus ID Race Codes Race Delivery Type Lori Guido nte false 3118.44 5 F true Full Term 70200 2106-3 White Vaginal Problems Problem Notes girl per ultrasound, name is Codie, case liner is going to be [facility], PPBC is going to be [facility]. Ordered today. vaginal , ncb, gbs negative MSimpson [place] 04/23/2017 mds Problem Name Start Date End Date Resolution Snomed Code Not e On examination - short stature [id number] Vitamin D deficiency [id number] Candidiasis of vagina 50036040 Injury of lower limb 03/05/2017 [id number] 2 Mario Calculation Initial Mario Date Initial Exam Date Initial Exam Provider Initial Ultrasound Date Last Menstrual Period Date Ultra Sound Weeks Gestation 05/01/2017 10/10/2016 ousmane 11/12/2016 07/26/2016 15 Eighteen To Twenty Week Mario Update Ultra Sound Date Fundal Height At Umbil Quickening Date Ultra Sound Latest Weeks Gestation Final Mario Confirmed By Final Mario Confirmed Date Final Mario Date Ultra Sound [facility] Days [facility] 017 5 Pre-bienvenido Flowsheet Flowsheet Date 10/10/2016 Ngo Score Blood Edema Fundus Height Fundus Units Glucose Ketones Leukocytes Nitrite Labor Signs Protein Cervic Dilation Cervic Effacement Cervic Station neg none 10 wks none negative neg Type Weight in lbs Pre/Post Dialysis Refused 111.976353940145 BP Diastolic BP Location Tested BP Systolic BP Type 68 110 sitting Fetus Heart Rate Present Fetus Movement Comments NOB Flowsheet Date 11/12/2016 Ngo Score Blood Edema Fundus Height Fundus Units Glucose Ketones Leukocytes Nitrite Labor Signs Protein Cervic Dilation Cervic Effacement Cervic Station neg none 15 wks none negative none neg Type Weight in lbs Pre/Post Dialysis Refused 112.312995406674 BP Diastolic BP Location Tested BP Systolic [...] Type Weight in lbs Pre/Post Dialysis Refused 114.104936792496 BP Diastolic BP Location Tested BP Systolic [...] Type Weight in lbs Pre/Post Dialysis Refused 120.334334139905 BP Diastolic BP Location Tested BP Systolic [...] Type Weight in lbs Pre/Post Dialysis Refused 127.648700024734 BP Diastolic BP Location Tested BP Systolic [...] Type Weight in lbs Pre/Post Dialysis Refused 132.532137821532 BP Diastolic BP Location Tested BP Systolic [...] Type Weight in lbs Pre/Post Dialysis Refused 132.678235712471 BP Diastolic BP Location Tested BP Systolic BP Type 78 106 sitting Fetus Heart Rate Present A 175 Present Fetus Movement A Yes Comments Edema - see tayla note; sta ble on Tylenol #3, will refill total 15 tablets Flowsheet Date 03/19/2017 Ngo Score Blood Edema Fundus Height Fundus Units Glucose Ketones Leukocytes Nitrite Labor Signs Protein Cervic Dilation Cervic Effacement Cervic Station neg none 33 cm none negative none neg Type Weight in lbs Pre/Post Dialysis Refused 132.497010236350 BP Diastolic BP Location Tested BP Systolic [...] Type Weight in lbs Pre/Post Dialysis Refused 139.530327806676 BP Diastolic BP Location Tested BP Systolic [...] Type Weight in lbs Pre/Post Dialysis Refused 143.699654413445 BP Diastolic BP Location Tested BP Systolic [...] Type Weight in lbs Pre/Post Dialysis Refused 117.191723472689 BP Diastolic BP Location Tested BP Systolic [...] Estim ated Date of Delivery false Thalassemia (Omani, Uzbek, Mediterranean, Or Background): MCV < 80 false Neural Tube Defect (Meningomyelocele, Spina Bifi da, Or Anencephaly) false Congenital Heart Defect false Down Syndrome false Bossman-Sachs (eg, Lutheran, Cajun, Belarusian-Bulgarian) f alse Darion Disease false Sickle Cell [...] ed By 04/23/2017 Selecting a care provider [facility] 04/23/[address] anning/tubal sterilization [facility] 04/23/2017 Depression screening (when indicated) [facility] 04/23/2017 Abnormal lab values [facility] 04/23/2017 Signs and symptoms of labor [facility] 04/23/2017 Intimate partner violence [facility] 04/23/2017 Tobacco/smoking cess ation counseling (ask, advise, assess, assist, and arrange) [facility] Third Trimester Discussed Date Discussion Item Discussion Note Discuss ed By 04/23/2017 Intimate partner violence [facility] 04/23/2017 Anesthesia plans [facility] 04/23/2017 Maxbass education (n ewborn screening, jaundice, SIDS/safe sleeping position, car seat) [facility]2017 [facility] 04/23/2017 movement monitoring [facility] 04/23/2017 [facility] 04/23/2017 Family medical leave or disability forms [facility] 04/23/2017 Tobacco/smoking cess ation counseling (ask, advise, assess, assist, and arrange) [facility] 04/23/2017 Signs and symptoms of preeclampsia [facility] Delivery Information Delivery Date Delivery Type Labor Anesthesia Weeks Gestation Incision Type Labor Labor Length Hrs Delivered By Post Complications Tubal Sterilization Discharge Date Comments 7 Sponta neous Local 39 false susan None false Pediatr ic marilyn: EDUAR Moreno , Dr. Roselyn Johnson MD Discharge Information Feeding Method Contraceptive Method Maternal HG B and HCT Levels Breast none Ob Episode Information Episode Created Date Number of Fetuses Patient Bloodtype Patient rh Status Prepregnancy Weight lbs Domestic Partner Domestic Partner Phone Father Name Pipeliner Status 10/11/19 17 1 CLOSED Fetus Data First Name Last Name Admitted to NICU Weight (g) Sex Living Outcome Pediatric Complications Fetus ID Race Codes Race Delivery Type 1814.36 8 M Full Term 08342 Standard Vaginal Delivery Mario Calculation Initial Mario Date Initial Exam Date Initial Exam Provider Initial Ultrasound Date Last Menstrual Period Date Ultra Sound Weeks Gestation 0 Eighteen To Twenty Week Mario Update Ultra Sound Date Fundal Height At Umbil Quickening Date Ultra Sound Latest Weeks Gestation Final Mario Confirmed By Final Mraio Confirmed Date Final Mario Date Ultra Sound [...] None 40 false Baby was born in [place] Discharge Information Feeding Method Contraceptive Method Maternal HG B and HCT Levels Ob Episode Information Episode Created Date Number of Fetuses Patient Bloodtype Patient rh Status Prepregnancy Weight lbs Domestic Partner Domestic Partner Phone Father Name Pipeliner Status 10/11/19 17 1 CLOSED Fetus Data First Name Last Name Admitted to NICU Weight (g) Sex Living Outcome Pediatric Complications Fetus ID Race Codes Race Delivery Type 1360.77 6 M Full Term 89964 Standard Vaginal Delivery Mario Calculation Initial Mario [...] None 40 false Baby was born in [place] Discharge Information Feeding Method Contraceptive Method Maternal HG B and HCT Levels
--- OUTSIDE RECORDS SUMMARY | 2025-03-02 07:58 | XMS_ITS | Encounter Summary ---
Author Organization [facility] Address [address] [place] [address] Care Team Providers Care Duct Layer Helper Name Role Phone Unavailable Primary Care Provider Unavailabl e Reason for Referral * Procedure (Routine) - Open Specialty Diagnoses / Procedures Referred By Contac t Referred To Contact Gastroenterology Diagnoses Other specified diseases of biliary tract Calculus of gallbladder without cholecystitis without obstruction Procedures ERCP Sara Palacios MD [address] [place] [address] Phone: tel: fax: Referral ID Status Reason Start Date Expiration Date Visits Re quested Visits Authorized [id number] Open 03/01/2025 03/01/2026 1 1 * Procedure (Routine) - Open Specialty Diagnoses / Procedures Referred By Contac t Referred To Contact Gastroenterology Diagnoses Other specified diseases of biliary tract Calculus of gallbladder without cholecystitis without obstruction Procedures Upper Endoscopic Ultrasound Sara Palacios MD [address] [place] [address] Phone: tel: fax: Referral ID Status Reason Start Date Expiration Date Visits Re quested Visits Authorized [id number] Open 03/01/2025 03/01/2026 1 1 Reason for Visit * Reason Onset Date Comments Procedure 03/01/2025 External Referra l, Ercp+/-Eus, Dr. Hernandez Encounter Details Date Type Department Care Team (Late st Contact Info) Description 03/01/2025 Telephone [facility] ENDOSCOPY [address] [place] [address] Bee Vieira Procedure (External Referral, Ercp+/-Eus, Dr. Hernandez ) Social History Tobacco Use Types Packs/Day Years Used Date Smoking Tobacco: Never Smokeless Tobacco: Never Alcohol Use Standard Drinks/Week Comments Never 0 (1 standard drink = 0.6 oz pur e alcohol) Overall Financial Resource Strain (CARDIA) Answe r Date Recorded How hard is it for you to pa y for the very basics like food, housing, medical care, and heating? Not very hard 11/24/2024 [facility] of Occupat ional Health - Occupational Stress [...] things needed for daily living? No 11/24/2024 [place] Depression Scale Answer Date Recorded [place] Depression Scale Total 0 11/24/2024 The thought [...] any time in the past 12 m [facility], were you homeless or living in a long-term (including now)? 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 Answer Date of Assessment Author No 10/13/2024 11:00 AM [place] Celeste RN * Is person blind or have serious difficulty seeing? Answer Date of Assessment Author No 10/13/2024 11:00 AM [place] Celeste RN * Does person have serious difficulty walking/climbing stairs? Answer Date of Assessment Author No 10/13/2024 11:00 AM [place] Celeste RN * Does person have difficulty dressing/bathing? Answer Date of Assessment Author No 10/13/2024 11:00 AM [place] Celeste RN * Does person have difficulty doing errands alone? Answer Date of Assessment Author No 10/13/2024 11:00 AM [place] Celeste RN documented as of this encounter Mental Status * Does person have difficulty concentrating/remembering/making decisions? Answer Entry Date Author No 10/13/2024 11:00 AM [place] Celeste RN documented in this encounter Miscellaneous Notes * Telephone Encounter - Bee Vieira Jack - 03/01/2025 3:21 PM CDT Patient agreed to schedule procedure on 03/02/2025 at 1:00 pm at [facility]. Contact pt with the assistance of Portia barton [facility] Metallurgical Engineer Services Patient verbalized understanding of any prep instructions including NPO after midnight the day before procedure, needing to arrive 1 hour prior to procedure and the need for a regional intermodal truck driver to take them home after procedure. Patient is not taking anticoagulant (blood thinning) medication and has been instructed with the following recommended guidelines if applicable: Aspirin 81mg does not need to be held. For Aspirin doses greater that 81mg, patient advised to check with their prescribing provider for hold instructions. Patient was advised to contact their anticoagulant prescribing healthcare provider for hold clearance and for additional instructions. N/A Pt has no active infectious diseases at this time. Letter with procedure date / time and instructions sent to patient via email as requested. documented in this encounter Plan of Treatment Scheduled Orders Name Type Priority Associated Diagnoses Orde r Schedule Upper Endoscopic Ultrasound GI Routine Other specified diseases of biliary tract Calculus of gallbladder without cholecystitis without obstruction 1 Occurrences starting 03/01/2025 until 03/01/2026 ERCP GI Routine Other specified diseases of biliary tract Calculus of gallbladder without cholecystitis without obstruction 1 Occurrences starting 03/01/2025 until 03/01/2026 Scheduled Procedures Name Priority Associated Diagnoses Date/Ti me ENDOSCOPIC RETROGRADE CHOLANGIOPANCREATOGRAPHY (ERCP) Other specified diseases of biliary tract Calculus of gallbladder without cholecystitis with obstruction 03/02/2025 1:03 PM CDT ESOPHAGOGASTRODUODENOSCOPY ( EGD) /ESOPHAGOSCOPY WITH ULTRASOUND (EUS) Other specified diseases of biliary tract Calculus of gallbladder without cholecystitis with obstruction 03/02/2025 1:03 PM CDT documented as of this encounter Visit Diagnoses Diagnosis Other specified diseases of biliary tract- Primary Calculus of gallbladder without cholecystitis without obstruction Calculus of gallbladder without mention of cholecystitis or obstruction documented in this encounter
--- OUTSIDE RECORDS SUMMARY | 2025-03-02 13:00 | XMS_ITS | Encounter Summary ---
Author Organization [facility] Address [address] [place] [address] Care Team Providers Care Gas Engine Repairer Name Role Phone Unavailable Primary Care Provider Unavailabl e Reason for Visit * Auth/Cert Specialty Diagnoses / Procedures Referred By Samira t Referred To Contact Diagnoses Other specified diseases of biliary tract Calculus of gallbladder without cholecystitis with obstruction Other specified diseases of biliary tract [K83.8] Calculus of gallbladder without cholecystitis with obstruction [K80.21] Procedures DC ERCP DX W BRUSH WASH WHEN PERF DC ENDOSCOPIC ULTRASOUND EXAM Ercp+/-Eus ESOPHAGOGASTRODUODENOSCOPY (EGD) /ESOPHAGOSCOPY WITH ULTRASOUND (EUS) ENDOSCOPIC RETROGRADE CHOLANGIOPANCREATOGRAPHY (ERCP) ESOPHAGOGASTRODUODENOSCOPY (EGD) /ESOPHAGOSCOPY WITH ULTRASOUND (EUS) Referral ID Status Reason Start Date Expiration Date Visits Re quested Visits Authorized [id number] 1 1 Encounter Details Date Type Department Care Team (Latest Contact Info) Description 03/02/2025 1:00 PM T Hospital Encounter [facility] ENDOSCOPY [address] [place] [id number] Sara Palacios MD [address] [place] [phone] Surgery General Social History Tobacco Use Types Packs/Day Years [...] care, and heating? Not very hard 11/24/2024 [facility] [place] of Occupat ional Health - Occupational Stress [...] things needed for daily living? No 11/24/2024 [place] Depression Scale Answer Date Recorded [place] Depression Scale Total 0 11/24/2024 The thought [...] any time in the past 12 m [facility], were you homeless or living in a skilled nursing (including now)? 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 [...] [place] Celeste RN documented in this encounter Plan of Treatment Scheduled Procedures Name Priority Associated Diagnoses Date/Ti mi ENDOSCOPIC RETROGRADE CHOLANGIOPANCREATOGRAPHY (ERCP) Other specified diseases of biliary tract Calculus of gallbladder without cholecystitis with obstruction 03/02/2025 1:02 PM CDT ESOPHAGOGASTRODUODENOSCOPY ( EGD) /ESOPHAGOSCOPY WITH ULTRASOUND (EUS) Other specified diseases of biliary tract Calculus of gallbladder without cholecystitis with obstruction 03/02/2025 1:02 PM CDT documented as of this encounter Visit Diagnoses Diagnosis Preop examination- Primary Preoperative examination, unspecified documented in this encounter
--- OUTSIDE RECORDS SUMMARY | 2025-03-02 13:00 | XMS_ITS | Encounter Summary ---
Author Organization [facility] Address [address] [place] [address] Care Team Providers Care Vocal Music Teacher Name Role Phone Unavailable Primary Care Provider Unavailabl e Reason for Visit * Auth/Cert Specialty Diagnoses / Procedures Referred By Samira t Referred To Contact Diagnoses Other specified diseases of biliary tract Calculus of gallbladder without cholecystitis with obstruction Other specified diseases of biliary tract [K83.8] Calculus of gallbladder without cholecystitis with obstruction [K80.21] Procedures MT ERCP DX W BRUSH WASH WHEN PERF MT ENDOSCOPIC ULTRASOUND EXAM Ercp+/-Eus ESOPHAGOGASTRODUODENOSCOPY (EGD) /ESOPHAGOSCOPY WITH ULTRASOUND (EUS) ENDOSCOPIC RETROGRADE CHOLANGIOPANCREATOGRAPHY (ERCP) ESOPHAGOGASTRODUODENOSCOPY (EGD) /ESOPHAGOSCOPY WITH ULTRASOUND (EUS) Referral ID Status Reason Start Date Expiration Date Visits Re quested Visits Authorized [id number] 1 1 Encounter Details Date Type Department Care Team (Late st Contact Info) Description 03/02/2025 1:00 PM CDT - 03/02/2025 2:00 PM CDT Surgery [facility] ENDOSCOPY [address] [place] [phone] Sara Palacios MD [facility] [place] [address] Ercp+/-Eus Social History Tobacco Use Types Packs/Day Years [...] care, and heating? Not very hard 11/24/2024 [facility] [place] of Occupat ional Health - Occupational Stress [...] things needed for daily living? No 11/24/2024 [place] Depression Scale Answer Date Recorded [place] Depression Scale Total 0 11/24/2024 The thought [...] any time in the past 12 m [facility], were you homeless or living in a nursing home (including now)? 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 Gender Identity Not on file Sexual Orientation [...] Scheduled Procedures Name Priority Associated Diagnoses Date/Ti in ENDOSCOPIC RETROGRADE CHOLANGIOPANCREATOGRAPHY (ERCP) Other specified diseases of biliary tract Calculus of gallbladder without cholecystitis with obstruction 03/02/2025 1:02 PM CDT ESOPHAGOGASTRODUODENOSCOPY ( EGD) /ESOPHAGOSCOPY WITH ULTRASOUND (EUS) Other specified diseases of biliary tract Calculus of gallbladder without cholecystitis with obstruction 03/02/2025 1:02 PM CDT documented as of this encounter Visit Diagnoses Diagnosis Other specified diseases of biliary tract Calculus of gallbladder without cholecystitis with obstruction Calculus of gallbladder without mention of cholecystitis, with obstruction documented in this encounter
== END 2025-03-01 16:45 | disposition home or self-care (01) ==
LOC: ANHED 18:18 → ANH3MEDSUR 02-28 07:16
PROVIDERS: Emergency Medicine; Internal Medicine Gastroenterology; Nurse Practitioner Gerontology; Admitting Provider Internal Medicine; Emergency Provider Student in an Organized Health Care Education/Training Program; PCP Physician Assistant Medical; Visit Provider Internal Medicine
PROC: (CPT 43260; principal; 2025-03-01 11:30)
DX: K80.70 Calculus of gallbladder and bile duct without cholecystitis without obstruction (principal); K83.8 Other specified diseases of biliary tract; N39.0 Urinary tract infection, site not specified; R74.01 Elevation of levels of liver transaminase levels; I45.10 Unspecified right bundle-branch block; I10 Essential (primary) hypertension; Z87.59 Personal history of other complications of pregnancy, childbirth and the puerperium; Z79.82 Long term (current) use of aspirin
CPT/HCPCS: 43260; 36415; 71046; 74177; 74183; 74329; 76376; 76705; 80053; 80074; 81001; 81025; 83690; 84484; 85025; 85610; 85730; 87086; 93005; 96360; 96361; 99285; A9270; A9577; G0378; G0379; J0696; J1100; J2003; J2405; J2704; J7030; J7120; Q9966; Q9967

== ENCOUNTER 2025-03-08 13:34 | Emergency (ER) | payer OTHER, SELFPAY ==
--- NOTE | ~2025-03-08 | US_ITS ---
US abdomen limited Indication: RUQ pain Comparison: None Technique: Biswas-scale and color Doppler images were obtained. Findings: LIVER: Unremarkable, liver contours intact, no lesions. Normal echogenicity. . GALLBLADDER/BILIARY: There is cholelithiasis, gallbladder wall thickening, no pericholecystic fluid. CBD 9 mm. [place] sign negative. PANCREAS: Pancreas limited by bowel gas. Right Kidney: Right kidney was not imaged. Impression: Cholelithiasis. Dilated CBD concerning for choledocholithiasis. MRCP recommended Reviewed, dictated and finalized at location P. Impression: Cholelithiasis. Dilated CBD concerning for choledocholithiasis. MRCP recommende d
--- NOTE | ~2025-03-08 | XR_ITS ---
Clinical history:Right upper quadrant abdominal pain EXAM:X-ray chest 2 views TECHNIQUE:Frontal and lateral images of the chest were obtained Comparisons:02/27/2025 FINDINGS: Heart is not enlarged. No pneumothorax. No pleural effusion. No free air the diaphragm. Small opacities in lower lungs. IMPRESSION: 1.Small opacities in the mid and lower lungs which represents atelectasis/scarring or infiltrates. If symptoms persist or worsen, consider a short-term follow-up study or additional imaging for further assessment. Reviewed, dictated and finalized at location Q. IMPRESSION: 1.Small opacities in the mid and lower lungs which represents atelectasis/scarr ing or infiltrates. If symptoms persist or worsen, consider a short-term follow-up study or additio nal imaging for further assessment.
[2025-03-08 13:44] VITALS: BP 129/82; PULSE 105; RESP 20; TEMP 36.3; O2SAT 100
--- NOTE | 2025-03-08 13:52 | ED_ITS ---
HPI - Abdominal Pain General Chief Complaint: Abdominal Pain <YEYO Wan - Last Filed: 03/08/25 13:58> Stated Complaint: RUQ pain today <YEYO Wan - Last Filed: 03/08/25 13:58> Time Seen by Provider: 03/08/25 15:30 <YEYO Wan - Last Filed: 03/08/25 13:58> Focused HPI: Using assistance of java support engineer, the pt was asked pertinent questions regarding HPI. Complaints of having pain in the RUQ and radiates to the back. She was admitted last week and was told that she had Gall Stones and they wanted to follow up as outpt at that time. + N/V, no fevers. Has been taking Tylenol for pain with some relief. Appointment with surgeon as outpt is not yet scheduled. GENERAL: Well-appearing, well-nourished, and in no acute distress. HEAD: Normocephalic, atraumatic. CHEST: Clear to auscultation. ?No respiratory distress. HEART: Regular rate and rhythm.? NEURO: ?Alert and oriented x3. Patient screened in triage and initial orders placed.? ?Additional care and disposition to be based upon?diagnostic testing and treatment. <YEYO Wan - Last Filed: 03/08/25 13:58> Source: patient <YEYO Wan - Last Filed: 03/08/25 13:58> RN notes reviewed and old records reviewed <Shania Lundy MD - Last Filed: 03/08/25 22:18> Mode of arrival: ambulatory <YEYO Wan - Last Filed: 03/08/25 13:58> Limitations: no limitations <YEYO Wna - Last Filed: 03/08/25 13:58> language barrier (video java support engineer used) <Shania Lundy MD - Last Filed: 03/08/25 22:18> History of Present Illness HPI narrative: This is a 29 year female with history of cholelithiasis and choledocholithiasis who presents for evaluation of right upper abdominal pain. She was discharge from [place] 1 week ago after evaluation of cholethiasis and choledocholithiasis. She had MRCP done and she had ERCP attempted at [place]. GI here had technical difficulties so she was referred to [facility] GI for ERCP. Patient states that she went to [facility] last Saturday but she did not feel well. She was allowed to go home and she was told to reschedule. Her pain returned yesterday so she came to [place] since we are closer. She reports nausea but denies fever. She reports her pain is mild . She has been taking tylenol for her pain. <Shania Lundy MD - Last Filed: 03/08/25 22:18> Related Data Home Medications: Home Medications ?Medication ?Instructions ?Recorded ?Confirmed ?Last Taken ?Type aspirin 81 mg tablet,delayed 81 mg PO DAILY 02/28/25 1 02/26/25 History release Held on 03/01/25. Instructions: Resume on 03/08/25. <YEYO Wan - Last Filed: 03/08/25 13:58> Allergies/Adverse Reactions: Allergies Allergy/AdvReac Type Severity Reaction Status Date / Time No Known Allergies Allergy Verified 03/01/25 10:47 <YEYO Wan - Last Filed: 03/08/25 13:58> [facility] Past Medical History Medical History: Medical History (Updated 03/08/25 @ 22:11 by Shania Lundy MD) Choledocholithiasis Cholelithiasis Transaminitis Common bile duct dilatation <YEYO Wan - Last Filed: 03/08/25 13:58> Social History Social History: Social History Smoking status: Never smoker Alcohol intake: never Substance use: never Substance use type: does not use Lack of Transportation: No Lack of Food: Never True Current Housing: I Have Housing Concerned About Future Housing: No Difficulty Paying Gas/Electric Bills: No Difficulty Paying for Meds: No Currently Unemployed: No Education: Decline to Answer Difficulty w/ Childcare or Family Care: No Spiritual care concerns: Yes <Susie Dumont APN-C - Last Filed: 03/08/25 13:58> Exam 2 Const: General: no acute distress and alert <Shania Lundy MD - Last Filed: 03/08/25 22:18> Nutritional Appearance: well nourished <Shania Lundy MD - Last Filed: 03/08/25 22:18> Orientation/consciousness: patient oriented x3 <Shania Lundy MD - Last Filed: 03/08/25 22:18> HENMT: Head: normal to inspection <Shania Lundy MD - Last Filed: 03/08/25 22:18> Eyes: Conjunctivae: conjunctival abnormality bilateral conjunctival icterus <Shania Lundy MD - Last Filed: 03/08/25 22:18> EOM: EOMs intact bilaterally <Shania Lundy MD - Last Filed: 03/08/25 22:18> Chest: Chest palpation & inspection: normal inspection of the chest < Shania Lundy MD - Last Filed: 03/08/25 22:18> Resp: Effort & Inspection: normal respiratory effort <Shania Lundy MD - Last Filed: 03/08/25 22:18> Auscultation: clear to auscultation bilaterally <Shania Lundy MD - Last Filed: 03/08/25 22:18> Cardio: Rate: regular rate <Shania Lundy MD - Last Filed: 03/08/25 22:18> Rhythm: regular rhythm <Shania Lundy MD - Last Filed: 03/08/25 22:18> Heart sounds: no murmurs <Shania Lundy MD - Last Filed: 03/08/25 22:18> GI: GI Palp: Yes Soft to palpation, No Tenderness to palpation present (GI), No Guarding due to palpation present (GI) and No Rigid due to palpation < Shania Lundy MD - Last Filed: 03/08/25 22:18> Auscultation: normal bowel sounds <Shania Lundy MD - Last Filed: 03/08/25 22:18> Skin: General skin exam: normal color <Shania Lundy MD - Last Filed: 03/08/25 22:18> Rashes: no rashes <Shania Lundy MD - Last Filed: 03/08/25 22:18> Wounds: no wounds <Shania Lundy MD - Last Filed: 03/08/25 22:18> Neuro: General: patient oriented x3 and moves all extremities <Shania Lundy MD - Last Filed: 03/08/25 22:18> Cranial nerves: Yes Nystagmus not present <Shania Lundy MD - Last Filed: 03/08/25 22:18> Psych: Mental Status: mental status grossly normal <Shania Lundy MD - Last Filed: 03/08/25 22:18> Affect: normal affect <Shania Lundy MD - Last Filed: 03/08/25 22:18> Course Reevaluation(s) Reevaluation #1: PAtient states that she can not stay because she has to take her kids to school. She is in minimal pain. She has no fever. Her LFTS are elevated. [facility] offered [facility] to [facility] for [facility] but she states she can't. She will schedule ERCP as outpatient. <Shania Lundy MD - Last Filed: 03/08/25 22:18> Date: 03/08/25 <Shania Lundy MD - Last Filed: 03/08/25 22:18> Time: 19:09 <Shania Lundy MD - Last Filed: 03/08/25 22:18> Consultations Consultation #1: I spoke with Dr. Mateo Stafford who recommended talking to [facility] since patient was referred there. I Then spoke with Dr. Shabazz [facility] GI fellow. She states she will try to have scheduling to call patient to arrange for ERCP. < Shania Lundy MD - Last Filed: 03/08/25 22:18> Date: 03/08/25 <Shania Lundy MD - Last Filed: 03/08/25 22:18> Time: 19:08 <Shania Lundy MD - Last Filed: 03/08/25 22:18> Vital Signs Vital signs: Vital Signs Temperature 97.4 F L 03/08/25 13:44 Pulse Rate 105 H 03/08/25 13:44 Respiratory Rate 20 03/08/25 13:44 Blood Pressure 129/82 03/08/25 13:44 Pulse Oximetry 100 03/08/25 13:44 Oxygen Delivery Room Air 03/08/25 13:44 Temperature 97.4 F L 03/08/25 13:44 Pulse Rate 108 H 03/08/25 18:42 Respiratory Rate 16 03/08/25 18:42 Blood Pressure 134/93 H 03/08/25 18:42 Pulse Oximetry 99 03/08/25 18:42 Oxygen Delivery Room Air 03/08/25 13:44 <YEYO Wan - Last Filed: 03/08/25 13:58> Vital Signs Temperature 97.4 F L 03/08/25 13:44 Pulse Rate 105 H 03/08/25 13:44 Respiratory Rate 20 03/08/25 13:44 Blood Pressure 129/82 03/08/25 13:44 Pulse Oximetry 100 03/08/25 13:44 Oxygen Delivery Room Air 03/08/25 13:44 Temperature 97.4 F L 03/08/25 13:44 Pulse Rate 108 H 03/08/25 18:42 Respiratory Rate 16 03/08/25 18:42 Blood Pressure 134/93 H 03/08/25 18:42 Pulse Oximetry 99 03/08/25 18:42 Oxygen Delivery Room Air 03/08/25 13:44 <Shania Lundy MD - Last Filed: 03/08/25 22:18> MDM - Abdominal Pain Differential Diagnosis Differential diagnosis: Likely abdominal pain, pancreatitis and other (cholelithiasis, cholecystitis) <Shania Lundy MD - Last Filed: 03/08/25 22:18> Medical Records Attestation: I reviewed the patient's medical records. <Shania Lundy MD - Last Filed: 03/08/25 22:18> Lab Data Attestation: I reviewed the patient's lab results. <Shania Lundy MD - Last Filed: 03/08/25 22:18> Result diagrams: 03/08/25 14:50 03/08/25 14:50 <LINDA WanN-C - Last Filed: 03/08/25 13:58> Labs: Lab Results 03/08/25 03/08/25 Range/Units 14:47 14:50 WBC 6.2 (4.5-10.0) K/mm3 RBC 4.61 (4.2-5.4) M/mm3 Hgb 14.4 (12.0-15.0) g/dL Hct 43.6 (37.0-47.0) % MCV 94.6 (80-100) fl MCH 31.2 (26-34) pg MCHC 33.0 (32-36) g/dl RDW 13.9 (11.5-14.5) % Plt Count 367 (150-375) k/mm3 MPV 10.3 (7.4-10.4) fl Immature Gran % (Auto) 0.3 (0-0.5) % Neut % (Auto) 58.9 (45.5-73.1) % Lymph % (Auto) 31.6 (18.3-44.2) % Orange % (Auto) 7.4 (2.6-8.5) % Eos % (Auto) 1.8 (0-4.4) % Baso % (Auto) 0.0 L (0.2-1.2) % Lymph # (Auto) 1.96 (0.9-3.2) K/mm3 Orange # (Auto) 0.5 (0.1-0.6) K/mm3 Eos # (Auto) 0.1 (0-0.3) K/mm3 Baso # (Auto) 0.0 (0.0-0.1) K/mm3 Abs Immat Gran (auto) 0.02 (0.00-0.031) K/mm3 Absolute Neuts (auto) 3.7 (1.3-6.7) K/mm3 Absolute Nucleated RBC 0.000 (0.0-0.012) K/mm3 Nucleated RBC % 0.0 (0.0-0.2) % PT 12.8 (11.1-14.7) Seconds INR 1.0 APTT 28.5 (22.3-36.8) Seconds Sodium 139 (137-145) mmol/L Potassium 3.5 (3.4-5.0) mmol/L Chloride 103 (98-107) mmol/L Carbon Dioxide 27 (22-30) mmol/L Anion Gap 9 (4-12) mmol/L BUN 5 L (7-17) mg/dL Creatinine 0.56 L (0.7-1.0) mg/dL Estim Creat Clear Calc Not Reportable Estimated GFR > 60 (59 - ) Glucose 110 (65-110) mg/dL Lactic Acid 1.0 (0.7-2.0) mmol/L Calcium 9.3 (8.4-10.2) mg/dL Total Bilirubin 3.7 H (0.2-1.3) mg/dL AST 843 H (14-36) U/L ALT 1068 H (6-35) U/L Alkaline Phosphatase 407 H (38-126) U/L Total Protein 9.1 H (6.3-8.2) g/dL Albumin 4.7 (3.5-5.1) g/dL Lipase 138 (23-300) U/L Urine Color Dark yellow (Yellow) Urine Appearance Clear (Clear) Urine pH 6.5 (5.0-9.0) Ur Specific [place] 1.014 (1.001-1.035) Urine Protein Negative (Negative) mg/dL Urine Glucose (UA) Negative (Negative) mg/dL Urine Ketones Trace H (Negative) mg/dL Ur Blood (Man) Negative (Negative) Urine Nitrate Negative (Negative) Urine Bilirubin 2+ H (Negative) Urine Urobilinogen 1.0 (<2.0) mg/dL Add Ur Microanalysis Reviewed Leukocyte Esterase Rfl Trace H (Negative) HILTON/UL Urine RBC 6-10 H (0-2) /hpf Urine WBC 0-5 (0-3) /hpf Ur Squamous Epith Cells Occasional (Few) /hpf Urine Bacteria None seen /hpf Urine Casts 0-2 POC Urine HCG, Qual Negative (Negative) <Susie Dumont APN-Lilibeth - Last Filed: 03/08/25 13:58> Lab Results 03/08/25 03/08/25 Range/Units 14:47 14:50 WBC 6.2 (4.5-10.0) K/mm3 RBC 4.61 (4.2-5.4) M/mm3 Hgb 14.4 (12.0-15.0) g/dL Hct 43.6 (37.0-47.0) % MCV 94.6 (80-100) fl MCH 31.2 (26-34) pg MCHC 33.0 (32-36) g/dl RDW 13.9 (11.5-14.5) % Plt Count 367 (150-375) k/mm3 MPV 10.3 (7.4-10.4) fl Immature Gran % (Auto) 0.3 (0-0.5) % Neut % (Auto) 58.9 (45.5-73.1) % Lymph % (Auto) 31.6 (18.3-44.2) % Orange % (Auto) 7.4 (2.6-8.5) % Eos % (Auto) 1.8 (0-4.4) % Baso % (Auto) 0.0 L (0.2-1.2) % Lymph # (Auto) 1.96 (0.9-3.2) K/mm3 Orange # (Auto) 0.5 (0.1-0.6) K/mm3 Eos # (Auto) 0.1 (0-0.3) K/mm3 Baso # (Auto) 0.0 (0.0-0.1) K/mm3 Abs Immat Gran (auto) 0.02 (0.00-0.031) K/mm3 Absolute Neuts (auto) 3.7 (1.3-6.7) K/mm3 Absolute Nucleated RBC 0.000 (0.0-0.012) K/mm3 Nucleated RBC % 0.0 (0.0-0.2) % PT 12.8 (11.1-14.7) Seconds INR 1.0 APTT 28.5 (22.3-36.8) Seconds Sodium 139 (137-145) mmol/L Potassium 3.5 (3.4-5.0) mmol/L Chloride 103 (98-107) mmol/L Carbon Dioxide 27 (22-30) mmol/L Anion Gap 9 (4-12) mmol/L BUN 5 L (7-17) mg/dL Creatinine 0.56 L (0.7-1.0) mg/dL Estim Creat Clear Calc Not Reportable Estimated GFR > 60 (59 - ) Glucose 110 (65-110) mg/dL Lactic Acid 1.0 (0.7-2.0) mmol/L Calcium 9.3 (8.4-10.2) mg/dL Total Bilirubin 3.7 H (0.2-1.3) mg/dL AST 843 H (14-36) U/L ALT 1068 H (6-35) U/L Alkaline Phosphatase 407 H (38-126) U/L Total Protein 9.1 H (6.3-8.2) g/dL Albumin 4.7 (3.5-5.1) g/dL Lipase 138 (23-300) U/L Urine Color Dark yellow (Yellow) Urine Appearance Clear (Clear) Urine pH 6.5 (5.0-9.0) Ur Specific [place] 1.014 (1.001-1.035) Urine Protein Negative (Negative) mg/dL Urine Glucose (UA) Negative (Negative) mg/dL Urine Ketones Trace H (Negative) mg/dL Ur Blood (Man) Negative (Negative) Urine Nitrate Negative (Negative) Urine Bilirubin 2+ H (Negative) Urine Urobilinogen 1.0 (<2.0) mg/dL Add Ur Microanalysis Reviewed Leukocyte Esterase Rfl Trace H (Negative) HILTON/UL Urine RBC 6-10 H (0-2) /hpf Urine WBC 0-5 (0-3) /hpf Ur Squamous Epith Cells Occasional (Few) /hpf Urine Bacteria None seen /hpf Urine Casts 0-2 POC Urine HCG, Qual Negative (Negative) <Shania Lundy MD - Last Filed: 03/08/25 22:18> Imaging Data Radiologist's impression: ITS Impressions Chest X-Ray 03/08/25 15:12 IMPRESSION: 1.Small opacities in the mid and lower lungs which represents atelectasis/scarring or infiltrates. If symptoms persist or worsen, consider a short-term follow-up study or additional imaging for further assessment. Abdomen Ultrasound 03/08/25 16:59 Impression: Cholelithiasis. Dilated CBD concerning for choledocholithiasis. MRCP recommended <YEYO Wan - Last Filed: 03/08/25 13:58> ITS Impressions Chest X-Ray 03/08/25 15:12 IMPRESSION: 1.Small opacities in the mid and lower lungs which represents atelectasis/scarring or infiltrates. If symptoms persist or worsen, consider a short-term follow-up study or additional imaging for further assessment. Abdomen Ultrasound 03/08/25 16:59 Impression: Cholelithiasis. Dilated CBD concerning for choledocholithiasis. MRCP recommended <Shania Lundy MD - Last Filed: 03/08/25 22:18> Discharge Plan Discharge Clinical Impression: Choledocholithiasis, Transaminitis <YEYO Wan - Last Filed: 03/08/25 13:58> Patient Disposition: Home <YEYO Wan - Last Filed: 03/08/25 13:58> Condition: Stable <YEYO Wan - Last Filed: 03/08/25 13:58> Instructions: Antibiotic Form, Gallstones (ED) <YEYO Wan - Last Filed: 03/08/25 13:58> Additional Instructions: Please stop taking tylenol. call [facility] tomorrow to arrange for your procedure and follow up with GI. IF you develop vomiting, worsening pain, fever return to ER <YEYO Wan - Last Filed: 03/08/25 13:58> Patient Language: Brazilian <YEYO Wan - Last Filed: 03/08/25 13:58> Prescriptions: New ondansetron 4 mg tablet,disintegrating 4 mg PO Q6H PRN (Reason: nausea and vomiting) Qty: 14 0RF tramadol 50 mg tablet 50 mg PO Q6H PRN (Reason: pain) Qty: 14 0RF No Action aspirin 81 mg tablet,delayed release (DR/EC) 81 mg PO DAILY <YEYO Wan - Last Filed: 03/08/25 13:58> Follow-up/Referrals: Ha,KATHY Terrell [Primary Care Provider, Unknown] <YEYO Wan - Last Filed: 03/08/25 13:58>
--- NOTE | 2025-03-08 13:58 | ECG_ITS ---
Test Date: 2025-03-08 14:55:23 Measurements Intervals [place] Rate: 92 P: 14 DE: 104 QRS: 46 QRSD: 84 T: 41 QT: 349 QTc: 433 Interpretive Statements SINUS RHYTHM POSSIBLE RIGHT VENTRICULAR CONDUCTION DELAY BASELINE ARTIFACT- I, III, AVL BORDERLINE ECG Compared to ECG 02/27/2025 16:51:40 NO SIGNIFICANT CHANGE Electronically Signed On 03-08-2025 16:38:44 CDT by Ajay Suarez D.O.
[2025-03-08 14:49] LABS: BEDSIDEPREGUCG Negative (Negative)
[2025-03-08 15:04] LABS: Hematocrit 43.6 % (37.0-47.0); Hemoglobin 14.4 g/dL (12.0-15.0); Immature Granulocyte Percent A 0.3 % (0-0.5); Lymphocytes Absolute Auto 1.96 K/mm3 (0.9-3.2); Mean Corpuscular HGB Conc 33.0 g/dl (32-36); Mean Corpuscular Hemoglobin 31.2 pg (26-34); Mean Corpuscular Volume 94.6 fl (80-100); Nucleated Red Blood Cells Absolute Auto 0.000 K/mm3 (0.0-0.012); Nucleated Red Blood Cells Perc 0.0 % (0.0-0.2); Platelet Count Result 367 k/mm3 (150-375); Red Blood Count 4.61 M/mm3 (4.2-5.4); White Blood Count 6.2 K/mm3 (4.5-10.0)
[2025-03-08 15:13] LABS: Add Urine Microscopic? YES; Appearance Urine Clear (Clear); Glucose Urine UA Negative (Negative); Leukocyte Esterase Ur Trace LEU/UL (Negative); Need Manual Microscopic Reviewed; Nitrate Urine Negative (Negative); Non Pathogenic Casts 0-2; Specific Grav Ur 1.014 (1.001-1.035)
[2025-03-08 15:14] LABS: Albumin Level 4.7 g/dL (3.5-5.1); Alkaline Phosphatase 407 U/L (38-126); Anion Gap 9 mmol/L (4-12); Bilirubin,Total 3.7 mg/dL (0.2-1.3); Blood Urea Nitrogen 5 mg/dL (7-17); Calcium 9.3 mg/dL (8.4-10.2); Carbon Dioxide 27 mmol/L (22-30); Chloride 103 mmol/L (98-107); Estimated Glomerular Filt Rate > 60; Glucose 110 mg/dL (65-110); Lipase 138 U/L (23-300); Potassium 3.5 mmol/L (3.4-5.0); Sodium 139 mmol/L (137-145); Total Protein 9.1 g/dL (6.3-8.2)
--- OUTSIDE RECORDS SUMMARY | 2025-03-08 15:19 | XMS_ITS | Encounter Summary ---
Author Organization [facility] Health Address [address] [place] [address] Care Team Providers Care Field Assessor Name Role Phone Unavailable Primary Care Provider Unavailabl e Reason for Visit * Reason Onset Date Comments Appointment 03/08/2025 Called pt via in terpreter Vaughn Id # [id number] pt confirmed that she has burrows and was informed that [facility] is no longer accepting [place] after 03/12/2025 and that she would need to reach out to her referring md.- pt agreed.Clinic consult neededReceived: 6 days agoBee Vieira sent to Fior Dodd; Merly Chaudhary; Nilson LivingstonPlease schedule the pt to see Dr. Palacios in [facility] Encounter Details Date Type Department Care Team (Late st Contact Info) Description 03/08/2025 Telephone [facility] [address] [place] [address] Merly Chaudhary Appointment (Called pt via activity leader Vaughn Id # [id number] pt confirmed that she has burrows and was informed that [facility] / is no longer accepting [place] after 03/12/2025 and that she would need to reach out to her referring md.- pt agreed.///Clinic consult needed/Received: 6 days ago/Bee Vieira sent to Fior Dodd; Merly Chaudhary; Jena Livingston/Leanne//Please schedule the pt to see Dr. Palacios in clinic//Thank you/Bee/) Social History Tobacco Use Types Packs/Day Years [...] care, and heating? Not very hard 11/24/2024 [facility] [place] [facility] Occupat ional [facility] - Occupational Stress [...] things needed for daily living? No 11/24/2024 [place] Depression Scale Answer Date Recorded [place] Depression Scale Total 0 11/24/2024 The thought [...] any time in the past 12 [facility], were you homeless or living in a fci (including now)? 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
--- OUTSIDE RECORDS SUMMARY | 2025-03-08 15:20 | XMS_ITS | Clinical Summary ---
Author Organization [facility] Address [address] [place] [address] Care Team Providers Care Groundman Name Role Phone Candelario Walsham Primary Care Provid er Allergies No known active allergies Medications vit [id number] weiss 27mg iron- 800 mcg-250 mg capsule [...] more drinks on one occasion? Never 05/05/2021 [place] Depression Scale Answer Date Recorded [place] Depression Scale Total 4 05/06/2021 The thought of harming myself has occurred to me . 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 Gender Identity Not on file Sexual Orientation [...] g 9 9 JOSEPH NTERA MIREZ ,GIRL MATTHWE IA Iam forbes ck, Candelario armas, DO Complications:Other (Comment ) [facility] ([facility]) Last Filed Vital Signs Vital Sign Reading Time Taken Comments Blood Pressure 118/80 05/06/2021 4:14 PM CLIPPER MACHINE Pulse 78 05/06/2021 4:14 PM CLIPPER MACHINE Temperature 36.9 C (98.4 F) 05/06/2021 4:14 PM CLIPPER MACHINE Respiratory Rate 18 05/06/2021 4:14 PM CLIPPER MACHINE Oxygen Saturation 97% 05/06/2021 4:14 PM CLIPPER MACHINE Inhaled Oxygen Concentration - - Weight 60.8 kg (134 lb) 05/05/2021 8:38 AM CLIPPER MACHINE Height - - Body Mass Index - - Plan of Treatment Not on file Insurance [facility] Advance Directives For more information, please contact: [phone] * Full Code (Latest Code Status on File) Date Activated Date Inactivated Comments 05/05/2021 7:30 PM 05/06/2021 9:11 PM * Full Code Date Activated Date Inactivated Comments 05/05/2021 8:22 AM 05/05/2021 7:30 PM Full CPR i n case of cardiopulmonary arrest Care Teams Groundman Relationship Specialty Start Date End Date Candelario Walsh DO [address] [place] [id number] PCP - General Obstetrics and Gynecology 05/05/21
--- OUTSIDE RECORDS SUMMARY | 2025-03-08 15:20 | XMS_ITS | Clinical Summary ---
Author Organization [facility] Address [address] [place] [address] Care Team Providers Care Supervisor Feed House Name Role Phone Unavailable Primary Care Provider Unavailabl e Source Comments [facility],non-owned Affiliates and Associated Physician Practices is amultiple site organization consisting of ambulatory clinics and hospital sitesin [place], [place], [place] and [place]. This disclosure is being madepursuant to the Care Everywhere program and may not contain all information available regarding this patient. Last updated 18.[facility] Allergies No known active allergies Medications * Be aware that medications may not be up to date on this document. Alwaysverify current medications with the patient. Vit-Fe Fumarate-FA ( vitamin) 28-0.8 MG tablet Take 1 (one) tablet by mouth once daily 90 tablet 1 5 Active Additional Information Patient not taking.Reason: Patient adjusted, Reported on 03/02/2025 Blood Pressure Monitoring (Blood Pressure Cuff) MISC [...] screen 10/12/2024 10/15/2024 Overview (10/12/2024): 10/12/2024 Dianelys Silbey was screened for depression using the Dinosaur Depression Scale (EPDS) at her [facility] initial evaluation on 10/12/2024. Her initial score at baseline was 1. Based off of her score of 1, Dianelys does not warrant follow up with [facility] social studies department chair, Aliya Zelaya, within the week. Patient will continue to be screened throughout , at intervals no closer than two weeks, for continued surveillance and early identification of depression until delivery. Patient denies mental health history. Gestational hypertension, third trimester 10/08/2024 11/24/2024 Supervision of high risk pre gnancy, antepartum, unspecified trimester 09/28/20242024 [facility]: abnormality in pr egnancy (HCC) - Trisomy 18 08/11/2024 10/15/2024 Overview (10/13/2024): Images from the original note were not included. [facility] PATIENT--PLEASE CALL [phone] (ex 2) IF TRIAGED OR ADMITTED Care Provider: [facility] consultants involved: RN-Pérez; MFM- Dr. Le; Electric Dolly Operator- Dr. Calderon Diagnosis: Trisomy 18 per Amniocentesis. 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 Umbilical artery Dopplers with persistent AEDF. MCA Doppler PI decreased consistent with cephalization.DV PI elevated. Severe growth with minimal interval growth Planned surveillance: 08.11.24: Patient offered appointments at [facility] but she is unsure if she wants to complete further evaluation/consultation; stated she will let us know; scheduled for initial [facility] appointment on 10/12 Delivery location: [facility] Delivery mode: unmonitored labor (EFM) with goal of vaginal delivery Desired Delivery GA: IOL 10/13/24 at [facility] due to Pre-eclampsia with a fetus with Trisomy 18 follow up: Plan for comfort care for the infant if born alive per Neonatology: Recommend delivery at [facility] hospital. Labor to be unmonitored Neonatology attending will be expected to be present at delivery solely for provision of comfort care. I offered to be present if possible for delivery for the sake of continuity, and mother requested this. Team can call or text me personally ([phone]) when delivery is imminent so I can [...] communication to be done through a qualified mortuary beautician Autopsy indicated: Genetics note: Back End Web Developer Concerns: Care plan based on evaluation and [...] Encounters Date Type Department Care Team Description 03/08/2025 Telephone [facility] - [address] [place] [address] Merly Chaudhary Appointment (Called pt via wet machine tender Vaughn Id # [id number] pt confirmed that she has burrows and was informed that [facility] is no longer accepting [facility] after 03/12/2025 and that she would need to reach out to her referring md.- pt agreed.///Clinic consult needed/Received: 6 days ago/Bee Vieira sent to Fior Dodd; Merly Chaudhary; Jena Livingston/Leanne//Pl ease schedule the pt to see Dr. Palacios in clinic//Thank you/Bee/) 03/05/2025 Telephone [facility] - [address] [place] [address] Alejo Velázquez MD Appointment 03/05/2025 Travel 03/02/2025 1:00 PM CDT Anesthesia Event [facility] [address] [place] [address] Henrique Ruano MD 03/02/2025 1:00 PM CDT - 03/02/2025 2:00 PM CDT Surgery [facility] [address] [place] [address] Sara Palacios MD Not Performed Ercp+/-Eus 03/02/2025 11:07 AM CDT - 03/02/2025 12:35 PM CDT Hospital Encounter [facility] [address] [place] [address] Sara Palacios MD Surgery General Discharge Disposition: Home or Self Care 03/02/2025 Travel 03/01/2025 Telephone [facility] [address] [place] [address] Bee Vieira Procedure (External Referral, [...] care, and heating? Not very hard 11/24/2024 [facility] - Occupational Stress Questionnaire Answer Date Recorded [...] things needed for daily living? No 11/24/2024 Dinosaur Depression Scale Answer Date Recorded Dinosaur Depression Scale Total 0 11/24/2024 The thought [...] any time in the past 12 m [facility], were you homeless or living in a jail (including now)? No 11/24/2024 Comments No Sex and Gender Information Value Date Recorded Sex Assigned at Not on file Legal Sex Female 5:14 PM [employer] Gender Identity Not on file Sexual Orientation Not on file Last Filed Vital Signs Vital Sign Reading Time Taken Comments Blood Pressure 118/74 11/24/2024 9:31 AM CDT Pulse 82 11/24/2024 9:31 AM CDT Temperature 36.7 C (98.1 F) 10/16/2024 9:00 AM CDT Respiratory Rate 99 11/24/2024 9:31 AM CDT Oxygen Saturation 99% 11/24/2024 9:14 AM CDT Inhaled Oxygen Concentration - - Weight 62 kg (136 lb 11.2 oz) 03/02/2025 11:58 A M CDT Height 152.4 cm (5') 03/02/2025 11:58 AM CDT Body Mass Index 26.7 03/02/2025 11:58 AM CDT Plan of Treatment Health Maintenance Due Date Last Done Comments [...] on patient's age to complete this topic Procedures Procedure Name Priority Date/Time Associated Diagnosis Comments HCG URINE QUAL POCT NOTIFICATION STAT 03/02/2025 12:17 PM CDT Preop examination HCG URINE QUAL POCT NOTIFICATION STAT 03/02/2025 11:32 AM CDT Preop examination from Last 3 Months Results * HCG URINE QUAL POCT NOTIFICATION (03/02/2025 12:17 PM CDT) Only the most recent of2 resultswithin the time period is included. Comment Notification Label Only - See Separate Report 03/02/2025 1:31 PM CDT [facility] Urine URINE / Unknown 03/02/2025 1 2:17 PM CDT 03/02/2025 12:17 PM CDT Sara Palacios MD LAB - URINALYSIS ORDERABLES Alayna antonio Result Performing Organization Address City/State/[facility] Co de Phone Number [facility] [address] [place] [address], [facility] [phone] from Last 3 Months Insurance [facility] Advance Directives * Full Code (Latest Code Status on File) Date Activated Date Inactivated Comments 10/13/2024 8:13 AM 10/16/2024 1:25 PM * Full Code Date Activated Date Inactivated Comments 10/08/2024 12:31 PM 10/09/2024 4:33 PM
--- OUTSIDE RECORDS SUMMARY | 2025-03-08 15:21 | XMS_ITS | Data Portability ---
Author Organization Dunia NAJERA Address [address] [place] [place] [address] Care Team Providers Care Perfect Binder Setter Name Role Phone FLORENCE WATKINS Merchandise Buyer Assessment No assessment recorded. Plan of Treatment Reminders Order Date Submit Date Provider Last Modified By Organization Details Last Modified Time Details Appointments None recorded. Lab test, urine 2024 025 [email or web address] In-Office Order, Internal Use Only DO Not Attach Compendium DO Not Attach Compendium, Do Not Delete/merge, [id number] 10:41:58 CBC w/ auto diff 2024 025 [email or web address] [facility], [address] [place] [address], [facility] [address], [place], [address], 5 14:40:18 culture, urine 2024 025 GENESIS [facility], [address] [place] [address], [facility] [address], [place], [address], 5 15:11:20 hemoglobi n (Hb) electroph oresis, blood 2024 025 [email or web address] [facility], [address] [place] [address], [address], [place], [address], 14:40:38 HIV 1 + 2, meaningfu l use set 2024 025 [email or web address] [facility], [address], [place], [address], 5 14:41:07 CFTR mutation, blood or tissue 2024 025 GENESIS Samaniego, [address], [place], [address], 5 19:10:20 aneuploid y risk and X & Y analysis, chromosom e specific circulati ng cell free (CCF) DNA, maternal serum 2024 025 GENESIS Samaniego, [address], [place], [address], 5 19:08:43 abo group + rh type, blood 2024 025 mio Ahncolicha, [address], [place], [address], 5 14:40:51 drug screen, 5 drugs, urine 2024 025 mio [facility], [address] [place] [address], [address], [place], [address], 5 14:39:57 rubella IgG Ab, quant immunoass ay, serum or plasma 2024 025 mio Ahncolicha, [address], [place], [address], 5 14:40:58 RPR (rapid plasma reagin), serum 2024 025 mio Ahncolicha, [address], [place], [address], 5 14:41:22 varicella zoster virus IgG Ab, QL, IA, serum 2024 025 [email or web address] [facility], [address], [place], [address], 5 14:41:16 vaginal pathogens panel, RAJAN+probe , vaginal fluid 2024 025 [facility], [address], [place], [address], 5 14:40:09 hepatitis panel (A+B+C), acute, serum 2024 025 [email or web address] [facility], [address], [place], [address], 5 14:40:46 cytology report, thin prep, smear or scraping, cervical or vaginal 2024 025 BOZEMAN [facility], [address] [facility], [address], [place], [address], 5 15:22:20 urinalysi s, dipstick 2024 025 [email or web address] In-Office Order, Internal Use Only DO Not Attach Compendium DO Not Attach Compendium, Do Not Delete/merge, [id number] 15:30:57 Referral maternal & medicine referral - Trisomy 18 2024 025 [email or web address] [facility], [address], [address], [place], [address], 5 09:24:44 Procedures None recorded. Surgeries None recorded. Imaging US, obstetric , 1st trimester 2024 025 [email or web address] [facility] (Radiology), [address], [place], [address], 5 16:33:38 Medication Orders Nexplanon 68 mg subdermal implant 2024 025 [facility], [address] [place] [place], [address], 11:59:33 Patient TargetsNo targets recorded. Patient Instructions Encounter Date Encounter Id Patient Instructions Last Modified By Organization Details Last Modified Time 06/09/2024 [id number] A healthy lifestyle: care instructions [email or web address] Not available 06/09/2024 15:25:07 06/16/2024 [id number] A healthy lifestyle: care instructions [email or web address] Not available 06/16/2024 09:44:57 --Discussed with Dr. Sonya beal Not available 06/16/2024 16:08:20 12/01/2024 [id number] grief (actual/anticipat ed): care instructions [email or web address] Not available 12/01/2024 11:59:33 12/14/2024 [id number] A healthy lifestyle: care instructions [email or web address] Not available 12/14/2024 10:41:58 --Discussed with Dr. Sonya beal Not available 12/14/2024 12:00:54 01/19/2025 [id number] grief (actual/anticipat ed): care instructions Not available 01/19/2025 16:18:00 A healthy lifestyle: care instructions [email or web address] Not available 01/19/2025 16:18:[address] Sonya beal Not available 01/20/2025 12:22:55 Reason for Referral Maternal & Medicine [facility] for Chromosome abnormality screening Trisomy 18 Referring Physician: Aleksandr Garcia, Family Medicine, Encounter Date: 06/16/2024 Results Created Date Observation Date Name Description Value Unit Range Abnormal Flag Note LastModifiedBy Organization Detail LastModifiedTime 05/19/1905/19/2024 pregn augustus test, urine HCG positi ve Not Available In-Office Order Internal Use Only DO Not Attach Compendium DO Not Attach Compendium, Do Not Delete/merge, [id number] 05/19/2024 11:54:38 06/09/19 25 06/11/2024 URINE CULTU RE, ROUTI NE urine culture, routine FINAL REPORT Not Available [facility] ([facility]) [address] [facility], [place], [address], 06/11/2024 15:11:20 06/09/19 25 06/11/2024 URINE CULTU RE, ROUTI NE result 1 GERMAN Motta Mixed uroge nital lise 10,00 0-25, 000 colon y formi ng units per mL Not Available [facility] ([facility]) [address] [place], [address], 06/11/2024 15:11:20 06/09/19 25 06/12/2024 IGP, RFX APTIM A HPV ASCU diagnosis: GERMAN Motta NEGAT PEYTON FOR INTRA EPITH ELIAL LESIO N OR LESLEY MENDEZ . Not Available [facility] ([facility]) [address] [place], [address], 06/12/2024 15:22:20 06/09/19 25 06/12/2024 IGP, RFX APTIM A HPV ASCU specimen adequacy: GERMAN Motta Satis facto ry for evalu ation . Endoc ervic al and/o r squam ous metap lasti c cells (endo cervi ayden compo nent) are prese nt. Not Available [facility] ([facility]) [address] [place], [address], 06/12/2024 15:22:20 06/09/19 25 06/12/2024 IGP, RFX APTIM A HPV ASCU clinician provided ICD10: GERMAN Motta Z34.9 1 Not Available [facility] ([facility]) [address] [place], [address], 06/12/2024 15:22:20 06/09/19 25 06/12/2024 IGP, RFX APTIM A HPV ASCU performed by: GERMAN James er, Cytot karen motta (ASCP ) Not Available [facility] ([facility]) [address] [place], [address], 06/12/2024 15:22:20 06/09/19 25 06/12/2024 IGP, RFX APTIM A HPV ASCU . . Not Available [facility] ([facility]) [address] [place], [address], 06/12/2024 15:22:20 06/09/19 25 06/12/2024 IGP, RFX [...] ts do occur . Not Available [facility] ([facility]) [address] [facility], [place], [address], 06/12/2024 15:22:20 06/09/19 25 06/12/2024 IGP, RFX APTIM A HPV ASCU test methodology: COMMEN T This liqui d based ThinP rep(R ) pap test was scree kyler with the use of an image guide odalis armas. Not Available [facility] ([facility]) [address] [place], [address], 06/12/2024 15:22:20 06/09/19 25 06/12/2024 IGP, RFX APTIM A HPV ASCU . COMMEN T The HPV DNA refle x crite reagan were not met with this speci men resul t there fore, no HPV testi ng was perfo rmed. Not Available [facility] ([facility]) [address] [place], [address], 06/12/2024 15:22:20 06/09/19 25 06/13/2024 MATER NIT21 PLUS CORE gestation SINGLE TON Not Available [facility] ([facility]) [address] [place], [address], 06/13/2024 19:08:42 06/09/19 25 06/13/2024 MATER NIT21 PLUS CORE fraction 13% Not Available [facility] ([facility] [address] [place], [address], 06/13/2024 19:08:42 06/09/19 25 06/13/2024 MATER NIT21 PLUS CORE gestational age > or = 9W: YES Not Available [facility] ([facility] [address] [place], [address], 06/13/2024 19:08:42 06/09/19 25 06/13/2024 MATER NIT21 PLUS CORE test result POSITI VE abnormal Triso my 18 Not Available [facility] ([facility]) [address] [place], [address], 06/13/2024 19:08:42 06/09/19 25 06/13/2024 MATER NIT21 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 Randy ic couns eling , confi rmato ry diagn ostic testi ng, and clini ayden corre latio n are recom puma d. Not Available [facility] ([facility]) [address] [place], [address], 06/13/2024 19:08:42 06/09/19 25 06/13/2024 MATER NIT21 PLUS CORE approved by GERMAN ruano MD, Direc tor, Seque nom Labor atori es Not Available [facility] ([facility]) [address] [place], [address], 06/13/2024 19:08:42 06/09/19 25 06/13/2024 MATER NIT21 PLUS CORE trisomy 21 (down syndrome) NEGATI VE Not Available [facility] ([facility]) [address] [place], [address], 06/13/2024 19:08:42 06/09/19 25 06/13/2024 MATER NIT21 PLUS CORE trisomy 18 (padilla syndrome) SEE BELOW: abnormal Posit peyton T18 PPV*: 14.7% Not Available [facility] ([facility]) [address] [place], [address], 06/13/2024 19:08:42 06/09/19 25 06/13/2024 MATER NIT21 PLUS CORE trisomy 13 (patau syndrome) NEGATI VE Not Available [facility] ([facility]) [address] [place], [address], 06/13/2024 19:08:42 06/09/19 25 06/13/2024 MATER NIT21 PLUS CORE sex COMMEN T Consi stent with Femal e Not Available [facility] ([facility]) [address] [facility], [place], [address], 06/13/2024 19:08:42 06/09/19 25 06/13/2024 MATER NIT21 PLUS CORE negative predictive value NOTE The Negat peyton Predi ctive Value (NPV) for triso my 21, 18, and 13 is great er than 99%. The NPV for SCA and ESS canno t be calcu lated as SCA and ESS are only repor marie when an abnor malit y is detec marie. Not Available [facility] ([facility]) [address] [facility], [place], [address], 06/13/2024 19:08:42 06/09/19 25 06/13/2024 MATER NIT21 PLUS CORE positive predictive value NOTE * Posit peyton Predi ctive Value (PPV) estim ates the proba bilit y that a pregn augustus with a posit peyton test resul t is in fact an affec maire pregn augustus. The PPV for this patie [...] ) TRISO MY 18 Not Available [facility] ([facility]) [address] [facility], [place], [address], 06/13/2024 19:08:42 06/09/1906/13/2024 MATER NIT21 PLUS CORE [...] yet been valid ated. Not Available [facility] ([facility]) [address] [facility], [place], [address], 06/13/2024 19:08:42 06/09/1906/13/2024 MATER NIT21 PLUS CORE test method COMMEN T See Notes Circu latin g cell- free DNA was purif ied from the plasm a compo nent of mater nal blood . The extra cted DNA was then conve rted into a [employer] DNA jaky ry for aneup loidy rose [...] s 16 and 22. Not Available [facility] ([facility]) [address] [facility], [place], [address], 06/13/2024 19:08:42 06/09/19 25 06/13/2024 MATER NIT21 PLUS CORE performance COMMEN T The perfo rmanc e zee cteri stics of the Mater niT(R ) 21 PLUS labor atory -deve loped test (LDT) have been deter mined in a clini ayden valid ation study with pregn ant women at incre ased risk for chrom osoma l aneup loidy .[2-5 ] Not Available [facility] ([facility]) [address] [facility], [place], [address], 06/13/2024 19:08:42 06/09/19 25 06/13/2024 MATER NIT21 [...] ase nstd3 7 [http s://w [email or web address].nc bi.nl .[facility] .gov/ dbvar /stud ies/n std37 / ] [...] eton gesta tion only. Not Available [facility] ([facility]) [address] [facility], [place], [address], 06/13/2024 19:08:42 06/09/19 25 06/13/2024 MATER NIT21 [...] and Fragm in(R) ). Not Available [facility] ([facility]) [address] [facility], [place], [address], 06/13/2024 19:08:42 06/09/19 25 06/13/2024 MATER NIT21 PLUS CORE note COMMEN T See Notes [employer] is a subsi diary of Labor atory Corpo ratio n of Emil Chowi ngs, using the brand Nintu Oy. This test was devel oped and its perfo rmanc e zee cteri stics deter mined by [employer]. It has not been clear ed or appro heriberto by the Food and Drug Admin istra tion. This labor atory is certi fied under the Clini ayden Labor atory Impro vemen t Amend ments (CLIA ) as quali fied to perfo rm high compl exity clini ayden labor atory testi ng and accre dited by the Colle ge of CardioLogs can Patho logis ts (CAP) . Not Available [facility] ([facility]) [address] [facility], [place], [address], 06/13/2024 19:08:42 06/09/1906/13/2024 MATER NIT21 PLUS CORE [...] Med. 2011; 13(11 ):913 -920. 6. ACOG/ [facility] Pract ice Bulle tin No. 226, Feb 2020. Not Available [facility] ([facility]) [address] [place], [address], 06/13/2024 19:08:42 06/09/1906/13/2024 MATER NIT21 PLUS CORE pdf . Not Available [facility] ([facility]) [address] [place], [address], 06/13/2024 19:08:42 06/09/1906/10/2024 HGB FRACT IONAT ION CASCA DE HGB F 0.0 % 0.0-2. 0 Not Available [facility] ([facility]) [address] [facility], [place], [address], 06/19/2024 19:10:16 06/09/1906/10/2024 HGB FRACT IONAT ION CASCA DE HGB A 97.4 % 96.4-9 8.8 Not Available [facility] ([facility]) [address] [place], [address], 06/19/2024 19:10:16 06/09/19 25 06/10/2024 HGB FRACT IONAT ION CASCA DE HGB A2 2.6 % 1.8-3. 2 Not Available [facility] ([facility]) [address] [facility], [place], [address], 06/19/2024 19:10:16 06/09/1906/10/2024 HGB FRACT IONAT ION CASCA DE HGB S 0.0 % 0.0 Not Available [facility] ([facility]) [address] [facility], [place], [address], 06/19/2024 19:10:16 06/09/1906/10/2024 HGB FRACT IONAT ION [...] Alpha -Thal assem ia DNA Rose sis (#[phone]). Not Available [facility] ([facility]) [address] [facility], [place], [address], 06/19/2024 19:10:16 06/09/1906/10/2024 ACUTE HEPAT ITIS hep A Ab, IgM NEGATI VE negati ve A negat peyton anti- HAV IgM resul t sugge sts no recen t or curre nt HAV infec tion. Not Available [facility] ([facility]) [address] [facility], [place], [address], 06/19/2024 19:10:17 06/09/1906/10/2024 ACUTE HEPAT ITIS HBsAg screen NEGATI VE negati ve Not Available [facility] ([facility]) [address] [facility], [place], [address], 06/19/2024 19:10:17 06/09/1906/10/2024 ACUTE HEPAT ITIS hep B core Ab, IgM NEGATI VE negati ve Not Available [facility] ([facility]) [address] [facility], [place], [address], 06/19/2024 19:10:17 06/09/19 25 06/10/2024 ACUTE HEPAT ITIS HCV Ab NON REACTI VE nonrea ctive Not Available [facility] ([facility]) [address] [facility], [place], [address], 06/19/2024 19:10:17 06/09/19 25 06/10/2024 INTER PRETA TION: interpretati on: Commen t Not infec marie with HCV unles s early or acute infec tion is suspe cted (whic h may be delay ed in an immun ocomp romis ed indiv idual ), or other evide nce exist s to indic ate HCV infec tion. Not Available [facility] ([facility]) [address] [facility], [place], [address], 06/19/2024 19:10:18 06/09/19 25 06/11/2024 NUSWA B VAGIN ITIS PLUS (VG+) atopobium vaginae LOW - 0 score Not Available [facility] ([facility]) [address] [facility], [place], [address], 06/19/2024 19:10:19 06/09/19 25 06/11/2024 NUSWA B VAGIN ITIS PLUS (VG+) bvab 2 LOW - 0 score Not Available [facility] ([facility] [address] [place], [address], 06/19/2024 19:10:19 06/09/19 25 06/11/2024 NUSWA B [...] prese nce of BV. Not Available [facility] ([facility]) [address] [facility], [place], [address], 06/19/2024 19:10:19 06/09/19 25 06/12/2024 NUA B VAGIN ITIS PLUS (VG+) vale albicans, RAJAN NEGATI VE negati ve Not Available [facility] ([facility]) [address] [facility], [place], [address], 06/19/2024 19:10:19 06/09/1906/12/2024 NUA B VAGIN ITIS PLUS (VG+) vale glabrata, RAJAN POSITI VE negati ve abnormal Publi shed data demon strat e that up to 65% of Devi da glabr emanuel ident ified in cases of vagin al devi diasi s have decre ased susce ptibi lity to fluco nazol e. Not Available [facility] ([facility]) [address] [facility], [place], [address], 06/19/2024 19:10:19 06/09/1906/12/2024 NUA B VAGIN ITIS PLUS (VG+) trich vag by RAJAN NEGATI VE negati ve Not Available [facility] ([facility]) [address] [place], [address], 06/19/2024 19:10:19 06/09/1906/12/2024 NUSWA B VAGIN ITIS PLUS (VG+) chlamydia trachomatis, RAJAN NEGATI VE negati ve Not Available [facility] ([facility]) [address] [place], [address], 06/19/2024 19:10:19 06/09/19 25 06/12/2024 NUSWA B VAGIN ITIS PLUS (VG+) neisseria gonorrhoeae, RAJAN NEGATI VE negati ve Not Available [facility] ([facility]) [address] [facility], [place], [address], 06/19/2024 19:10:19 06/09/19 25 06/19/2024 CYSTI C FIBRO SIS, 97 VARIA NTS ethnicity COMMEN T Not Provi ded Not Available [facility] ([facility]) [address] [facility], [place], [address], 06/19/2024 19:10:20 06/09/19 25 06/19/2024 CYSTI C FIBRO SIS, 97 VARIA NTS specimen type COMMEN T Whole Blood Not Available [facility] ([facility]) [address] [facility], [place], [address], 06/19/2024 19:10:20 06/09/19 25 06/19/2024 CYSTI C FIBRO SIS, 97 VARIA NTS indication COMMEN T Kym er Test / Scree hetal Not Available [facility] ([facility]) [address] [facility], [place], [address], 06/19/2024 19:10:20 06/09/19 25 06/19/2024 CYSTI C FIBRO SIS, 97 VARIA NTS result: COMMEN T NEGAT PEYTON Not Available [facility] ([facility]) [address] [facility], [place], [address], 06/19/2024 19:10:20 06/09/19 25 06/19/2024 CYSTI C [...] c-spe cific risk ignacio ions see Infor us n Table . Not Available [facility] ([facility]) [address] [facility], [place], [address], 06/19/2024 19:10:20 06/09/1906/19/2024 CYSTI C FIBRO SIS, [...] ic Couns darvin murray e visit [email or web address] :[email or web address] .[facility] om/ge netic -coun juan g or call (701) -CA LLS ([phone]). Not Available [facility] ([facility]) [address] [facility], [place], [address], 06/19/2024 19:10:20 06/09/19 25 06/19/2024 CYSTI C [...] ation may be indic ated. (PMID :2030 1427) . Not Available [facility] ([facility]) [address] [facility], [place], [address], 06/19/2024 19:10:20 06/09/19 25 06/19/2024 CYSTI C [...] teste d is avail able at https :[email or web address] [email or web address] .[email or web address] om. Not Available [facility] ([facility]) [address] [facility], [place], [address], 06/19/2024 19:10:20 06/09/19 25 06/19/2024 CYSTI C FIBRO SIS, 97 VARIA NTS methods/limi tations COMMEN T Next- gener ation Seque ncing (NGS) : Genom ic regio ns of inter est in the CFTR gene are selec marie using the [employer] ience (R) hybri dizat ion captu re metho d and seque nced via the NTQ-Data(R ) NGS platf orm. Seque ncing reads [...] ards and guide lines (Rich ards, PMID: 49287 868; Elsy, PMID: 32279 774). Rose sis is restr icted to [...] e zee cteri stics deter mined by [employer]. It has not been clear ed or appro heriberto by the Food and Drug Admin istra tion. Not Available [facility] ([facility]) [address] [facility], [place], [address], 06/19/2024 19:10:20 06/09/1906/19/2024 CYSTI C FIBRO SIS, [...] ve risk estim ates. Not Available [facility] ([facility]) [address] [facility], [place], [address], 06/19/2024 19:10:20 06/09/1906/19/2024 CYSTI C FIBRO SIS, 97 VARIA NTS references COMMEN T Sherry baker JL, Astazar ry C, Cutti ng GR et al. CFTR varia nt testi ng: a techn ical stand ken of the [employer] Colle ge of Medic al Randy ics and Genom ics ([employer] ). Randy Med 22, 8522 (2020 ). PMID: 83514 922 Jim T, Balta milton SG, Inocente spence BA, et al. Cysti c Fibro sis and Conge nital Absen ce of the Vas Defer ens. 2000 [Upda marie 2016Jun 14]. In: Jamie MP, Justin wade HH, Viky RA, et al., nina vásquez. Aleida villafuerte(R) [Inte rnet] . PMID: 53644 428 Not Available [facility] ([facility]) [address] [facility], [place], [address], 06/19/2024 19:10:20 06/09/19 25 06/19/2024 CYSTI C FIBRO SIS, 97 VARIA NTS director review/relea se COMMEN T [place] nent Type Perfo rmed At Labor atory Direc tor Techn ical Labor atory Ester Barrettnavdeep , compo nent, Corpo ratio n of , PhD proce ssing [facility], [address] [employer] , [place], [address] Techn ical Labor atory Miryamnavdeep Nenanavdeep , compo nent, Corpo ratio n of , PhD rose sis eri ar, [address] [employer] , [place], [address] Profphyllis sims al Labor atory Osman zhang compo nent Corpo ratio n of Vandana ferguson, , [facility], [address] [facility] , [place], [place], Elect jacintadinora oconnor relea sed by Osman Navarro, PhD, [facility] Not Available [facility] ([facility]) [address] [facility], [place], [address], 06/19/2024 19:10:20 06/09/19 25 06/19/2024 CYSTI C FIBRO SIS, 97 VARIA NTS pdf . Not Available [facility] ([facility]) [address] [facility], [place], [address], 06/19/2024 19:10:20 06/09/19 25 06/09/2024 [id number] 2 5 DRUG- SCR drug screen comment: [...] on is avail able at elissa mora [email or web address] om, or call toll free [phone]. Not Available [facility] ([facility]) [address] [place], [address], 06/19/2024 19:10:22 06/09/19 25 06/10/2024 [id number] 2 5 DRUG- SCR amphetamines , urine NEGATI VE NG/mL cutoff =1000 Amphe tamin e test inclu jackie Amphe tamin e and Metha mphet amine . Not Available [facility] ([facility]) [address] [place], [address], 06/19/2024 19:10:22 06/09/19 25 06/10/2024 [id number] 2 5 DRUG- SCR cannabinoid NEGATI VE NG/mL cutoff =50 Not Available [facility] ([facility]) [address] [place], [address], 06/19/2024 19:10:22 06/09/19 25 06/10/2024 [id number] 2 5 DRUG- SCR cocaine (metab.) NEGATI VE NG/mL cutoff =300 Not Available [facility] ([facility]) [address] [place], [address], 06/19/2024 19:10:22 06/09/19 25 06/10/2024 [id number] 2 5 DRUG- SCR opiates NEGATI VE NG/mL cutoff =300 Opiat e test inclu jackie Codei ne, Morph ine, [place] morph one, [place] codon e. Not Available [facility] ([facility]) [address] [place], [address], 06/19/2024 19:10:22 06/09/19 25 06/10/2024 [id number] 2 5 DRUG- SCR phencyclidin e NEGATI VE NG/mL cutoff =25 Not Available [facility] ([facility]) [address] [facility], [place], [address], 06/19/2024 19:10:22 06/09/19 25 06/10/2024 CBC WITH DIFFE RENTI AL/PL ATELE T WBC 8.1 x10e3 /uL 3.4-10 .8 Not Available [facility] ([facility]) [address] [facility], [place], [address], 06/19/2024 19:10:23 06/09/19 25 06/10/2024 CBC WITH DIFFE RENTI AL/PL ATELE T RBC 3.91 x10e6 /uL 3.77-5 .28 Not Available [facility] ([facility]) [address] [facility], [place], [address], 06/19/2024 19:10:23 06/09/1906/10/2024 CBC WITH DIFFE RENTI AL/PL ATELE T hemoglobin 12.7 g/dL 11.1-1 5.9 Not Available [facility] ([facility]) [address] [facility], [place], [address], 06/19/2024 19:10:23 06/09/19 25 06/10/2024 CBC WITH DIFFE RENTI AL/PL ATELE T hematocrit 37.6 % 34.0-4 6.6 Not Available [facility] ([facility]) [address] [facility], [place], [address], 06/19/2024 19:10:23 06/09/1906/10/2024 CBC WITH DIFFE RENTI AL/PL ATELE T MCV 96 fL 79-97 Not Available [facility] ([facility]) [address] [facility], [place], [address], 06/19/2024 19:10:23 06/09/1906/10/2024 CBC WITH DIFFE RENTI AL/PL ATELE T MCH 32.5 pg 26.6-3 3.0 Not Available [facility] ([facility]) [address] [place], [address], 06/19/2024 19:10:23 06/09/19 25 06/10/2024 CBC WITH DIFFE RENTI AL/PL ATELE T MCHC 33.8 g/dL 31.5-3 5.7 Not Available [facility] ([facility]) [address] [facility], [place], [address], 06/19/2024 19:10:23 06/09/19 25 06/10/2024 CBC WITH DIFFE RENTI AL/PL ATELE T RDW 12.9 % 11.7-1 5.4 Not Available [facility] ([facility]) [address] [facility], [place], [address], 06/19/2024 19:10:23 06/09/19 25 06/10/2024 CBC WITH DIFFE RENTI AL/PL ATELE T platelets 300 x10e3 /uL 150-45 0 Not Available [facility] ([facility]) [address] [facility], [place], [address], 06/19/2024 19:10:23 06/09/19 25 06/10/2024 CBC WITH DIFFE RENTI AL/PL ATELE T neutrophils 62 % notest ab. Not Available [facility] ([facility]) [address] [facility], [place], [address], 06/19/2024 19:10:23 06/09/19 25 06/10/2024 CBC WITH DIFFE RENTI AL/PL ATELE T lymphs 28 % notest ab. Not Available [facility] ([facility]) [address] [facility], [place], [address], 06/19/2024 19:10:23 06/09/19 25 06/10/2024 CBC WITH DIFFE RENTI AL/PL ATELE T monocytes 8 % notest ab. Not Available [facility] ([facility]) [address] [facility], [place], [address], 06/19/2024 19:10:23 06/09/19 25 06/10/2024 CBC WITH DIFFE RENTI AL/PL ATELE T eos 2 % notest ab. Not Available [facility] ([facility]) [address] [facility], [place], [address], 06/19/2024 19:10:23 06/09/1906/10/2024 CBC WITH DIFFE RENTI AL/PL ATELE T basos 0 % notest ab. Not Available [facility] ([facility]) [address] [facility], [place], [address], 06/19/2024 19:10:23 06/09/1906/10/2024 CBC WITH DIFFE RENTI AL/PL ATELE T neutrophils (absolute) 5.0 x10e3 /uL 1.4-7. 0 Not Available [facility] ([facility]) [address] [facility], [place], [address], 06/19/2024 19:10:23 06/09/1906/10/2024 CBC WITH DIFFE RENTI AL/PL ATELE T lymphs (absolute) 2.3 x10e3 /uL 0.7-3. 1 Not Available [facility] ([facility]) [address] [place], [address], 06/19/2024 19:10:23 06/09/1906/10/2024 CBC WITH DIFFE RENTI AL/PL ATELE T monocytes(ab solute) 0.6 x10e3 /uL 0.1-0. 9 Not Available [facility] ([facility] [address] [place], [address], 06/19/2024 19:10:23 06/09/1906/10/2024 CBC WITH DIFFE RENTI AL/PL ATELE T eos (absolute) 0.2 x10e3 /uL 0.0-0. 4 Not Available [facility] ([facility]) [address] [facility], [place], [address], 06/19/2024 19:10:23 06/09/1906/10/2024 CBC WITH DIFFE RENTI AL/PL ATELE T baso (absolute) 0.0 x10e3 /uL 0.0-0. 2 Not Available [facility] ([facility]) [address] [facility], [place], [address], 06/19/2024 19:10:23 06/09/19 25 06/10/2024 CBC WITH DIFFE RENTI AL/PL ATELE T immature granulocytes 0 % notest ab. Not Available [facility] ([facility]) [address] [facility], [place], [address], 06/19/2024 19:10:23 06/09/1906/10/2024 CBC WITH DIFFE RENTI AL/PL ATELE T immature grans (abs) 0.0 x10e3 /uL 0.0-0. 1 Not Available [facility] ([facility]) [address] [facility], [place], [address], 06/19/2024 19:10:23 06/09/1906/10/2024 ABO GROUP ING AND RHO(D ) TYPIN G ABO grouping O Not Available [facility] ([facility]) [address] [facility], [place], [address], 06/19/2024 19:10:24 06/09/19 25 06/10/2024 ABO GROUP ING AND RHO(D ) TYPIN G Rh factor POSITI VE Pleas e note: Prior recor ds for this patie nt's ABO / Rh type are not avail able for addit ional verif icati on. Not Available [facility] ([facility]) [address] [facility], [place], [address], 06/19/2024 19:10:24 06/09/1906/10/2024 RPR RPR NON REACTI VE nonrea ctive Not Available [facility] ([facility]) [address] [facility], [place], [address], 06/19/2024 19:10:25 06/09/19 25 06/10/2024 RUBEL LA ANTIB ODIES , IGG rubella antibodies, IgG 7.25 index immune >0.99 Non-i mmune <0.90 Equiv ocal 0.90 - 0.99 Immun e >0.99 Not Available [facility] ([facility]) [address] [facility], [place], [address], 06/19/2024 19:10:26 06/09/1906/10/2024 HIV AB/P2 4 AG WITH REFLE X HIV Ab/P24 Ag screen NON REACTI VE nonrea ctive HIV-1 /HIV- 2 antib odies and HIV-1 p24 antig en were NOT detec marie. There is no labor atory evide nce of HIV infec tion. HIV Negat [place] Not Available [facility] ([facility]) [address] [facility], [place], [address], 06/19/2024 19:10:27 06/09/19 25 06/10/2024 VARIC JESUS- [...] not been acqui red. Not Available [facility] ([facility]) [address] [facility], [place], [address], 06/19/2024 19:10:28 06/09/1906/09/2024 urina lysis , dipst ick Leukocytes Negati ve Not Available In-Office Order Internal Use Only DO Not Attach Compendium DO Not Attach Compendium, Do Not Delete/merge, [id number] 06/09/2024 15:14:36 06/09/1906/09/2024 urina lysis , dipst [...] 06/09/1906/09/2024 urina lysis , dipst ick Specific [place] 1.020 Not Available In-Off ice Order Internal [...] DO Not Attach Compendium, Do Not Delete/merge, [id number] 06/09/2024 15:14:36 06/09/19 25 06/09/2024 urina lysis , dipst ick Appearance Clear Not Available In-Offi ce Order Internal Use Only DO Not Attach Compendium DO Not Attach Compendium, Do Not Delete/merge, [id number] 06/09/2024 15:14:36 06/09/1906/09/2024 urina lysis , dipst ick Color Yellow Not Available In-Office Order Internal Use Only DO Not Attach Compendium DO Not Attach Compendium, Do Not Delete/merge, [id number] 06/09/2024 15:14:36 08/04/1908/03/2024 Urina lysis dipst ick [...] [place] Negat [place] 08/03 12:03 PM CDT [facility] Not Available Not Available 08/10/2024 [...] [place] Negat [place] 08/03 12:03 PM CDT [facility] Not Available Not Available 08/10/2024 12:33:10 08/04/19 25 08/03/2024 Urina lysis dipst ick panel - Urine by Autom ated test strip ketones [presence] in urine by test strip Negati ve text: negati ve K[place] e UA POCT Negat [place] Negat [place] 08/03 12:03 PM CDT [facility] Not Available Not Available 08/10/2024 12:33:10 08/04/19 25 08/03/2024 Urina lysis dipst ick panel - Urine by Autom ated test strip bilirubin.to bob [presence] in urine by test strip Negati ve text: negati ve Bilir ubin UA POCT Negat [place] Negat [place] 08/03 12:03 PM CDT [facility] Not Available Not Available 08/10/2024 [...] Not Available 10/12/2024 15:22:31 08/25/19 25 08/24/2024 [facility] [place] [facility] 1999 panel - Serum or Plasm a carbon dioxide, total [moles/volum e] in serum or plasma 20 mmol/ L low: 22mmol /Lhigh : 29mmol /L low Not Available Not Available 10/12/2024 15:22:31 08/25/19 25 08/24/2024 [facility] [place] [facility] 1999 panel - Serum or Plasm a calcium [mass/volume ] in serum or plasma 9.1 mg/dL low: 8.4mg/ dLhigh : 10.4mg /dL Not Available Not Available 10/12/2024 15:22:31 08/25/19 25 08/24/2024 [facility] [place] [facility] panel - Serum or Plasm a anion gap in blood by calculation 7 mmol/ L low: 6mmol/ Lhigh: 16mmol /L Not Available Not Available 10/12/2024 15:22:31 08/25/19 25 08/24/2024 [facility] [place] [facility] 1999 panel - Serum or Plasm a urea nitrogen [mass/volume ] in serum or plasma 7 mg/dL low: 5.3mg/ dLhigh : 18.7mg /dL Not Available Not Available 10/12/2024 15:22:31 08/25/19 25 08/24/2024 [facility] [place] [address] [facility] - Serum or Plasm a creatinine [mass/volume ] in serum or plasma 0.54 mg/dL low: 0.57mg /dLhig h: 1.11mg /dL low Not Available Not Available 10/12/2024 15:22:31 08/25/19 25 08/24/2024 [facility] [place] [facility] 1999 panel - Serum or Plasm a alkaline phosphatase [enzymatic activity/vol ume] in serum or plasma 141 U/L low: 40U/Lh igh: 150U/L Not Available Not Available 10/12/2024 15:22:31 08/25/19 25 08/24/2024 [facility] [place] [address] panel - Serum or Plasm a alanine [...] Not Available 10/12/2024 15:22:58 09/08/19 25 09/07/2024 [facility] [place] [facility] 1999 panel - Serum or Plasm a sodium [moles/volum e] in serum or plasma 136 mmol/ L low: 136mmo l/Lhig h: 145mmo l/L Not Available Not Available 10/12/2024 15:22:58 09/08/19 25 09/07/2024 [facility] [place] [facility] panel - Serum or Plasm a potassium [moles/volum e] in serum or plasma 4 mmol/ L low: 3.5mmo l/Lhig h: 5.1mmo l/L Not Available Not Available 10/12/2024 15:22:58 09/08/19 25 09/07/2024 [facility] [place] [facility] 1999 panel - Serum or Plasm a chloride [moles/volum e] in serum or plasma 111 mmol/ L low: 98mmol /Lhigh : 107mmo l/L high Not Available Not Available 10/12/2024 15:22:58 09/08/19 25 09/07/2024 [facility] [place] [facility] panel - Serum or Plasm a carbon dioxide, total [moles/volum e] in serum or plasma 19 mmol/ L low: 22mmol /Lhigh : 29mmol /L low Not Available Not Available 10/12/2024 15:22:58 09/08/19 25 09/07/2024 [facility] [place] [facility] panel - Serum or Plasm a calcium [mass/volume ] in serum or plasma 8.7 mg/dL low: 8.4mg/ dLhigh : 10.4mg /dL Not Available Not Available 10/12/2024 15:22:58 09/08/19 25 09/07/2024 [facility] [employer] [place] [facility] 1999 panel - Serum or Plasm a anion gap in blood by calculation 6 mmol/ L low: 6mmol/ Lhigh: 16mmol /L Not Available Not Available 10/12/2024 15:22:58 09/08/19 25 09/07/2024 [facility] [place] [facility] 1999 panel - Serum or Plasm a urea nitrogen [mass/volume ] in serum or plasma 9 mg/dL low: 5.3mg/ dLhigh : 18.7mg /dL Not Available Not Available 10/12/2024 15:22:58 09/08/19 25 09/07/2024 [facility] [place] [facility] 1999 panel - Serum or Plasm a creatinine [mass/volume ] in serum or plasma 0.57 mg/dL low: 0.57mg /dLhig h: 1.11mg /dL Not Available Not Available 10/12/2024 15:22:58 09/08/19 25 09/07/2024 [facility] [place] [facility] 1999 panel - Serum or Plasm a alkaline phosphatase [enzymatic activity/vol ume] in serum or plasma 176 U/L low: 40U/Lh igh: 150U/L high Not Available Not Available 10/12/2024 15:22:58 09/08/19 25 09/07/2024 [facility] panel - Serum or Plasm a alanine aminotransfe rase [enzymatic activity/vol ume] in serum or plasma 51 U/L low: 6U/Lhi gh: 57U/L Not Available Not Available 10/12/2024 15:22:58 09/08/19 25 09/07/2024 [facility] [place] [facility] 1999 panel - Serum or Plasm a aspartate aminotransfe rase [enzymatic activity/vol ume] in serum or plasma 36 U/L low: 10U/Lh igh: 48U/L Not Available Not Available 10/12/2024 15:22:58 09/08/19 25 09/07/2024 [facility] [place] [facility] 1999 panel - Serum or Plasm a protein [mass/volume ] in serum or plasma 7.2 text: 6.4 - 8.3 gm/dL Not Available Not Available 10/12/2024 15:22:58 09/08/19 25 09/07/2024 [facility] [place] [facility] 1999 panel - Serum or Plasm a albumin [mass/volume ] in serum or plasma 2.9 text: 3.4 - 5.0 gm/dL low Not Available Not Available 10/12/2024 15:22:58 09/08/19 25 09/07/2024 [facility] [place] [facility] 2000 panel - [...] Not Available 10/12/2024 15:22:58 09/08/19 25 09/07/2024 [facility] [place] [facility] 2000 panel - Serum [...] Not Available 15:24:48 09/15/19 25 09/14/2024 [facility] [place] [facility] 1999 panel - Serum [...] Not Available 10/12/2024 15:24:48 09/15/19 25 09/14/2024 [facility] [place] [facility] panel - Serum or Plasm a anion gap in blood by calculation 6 mmol/ L low: 6mmol/ Lhigh: 16mmol /L Not Available Not Available 10/12/2024 15:24:48 09/15/19 25 09/14/2024 [facility] [place] [facility] 1999 panel - Serum or Plasm a urea nitrogen [mass/volume ] in serum or plasma 7 mg/dL low: 5.3mg/ dLhigh : 18.7mg /dL Not Available Not Available 10/12/2024 15:24:48 09/15/19 25 09/14/2024 [facility] [place] [facility] panel - Serum or Plasm a creatinine [mass/volume ] in serum or plasma 0.58 mg/dL low: 0.57mg /dLhig h: 1.11mg /dL Not Available Not Available 10/12/2024 15:24:48 09/15/19 25 09/14/2024 [facility] [place] [facility] 1999 panel - Serum or Plasm a alkaline phosphatase [enzymatic activity/vol ume] in serum or plasma 179 U/L low: 40U/Lh igh: 150U/L high Not Available Not Available 10/12/2024 15:24:48 09/15/19 25 09/14/2024 [facility] [place] [facility] 1999 panel - Serum or Plasm a alanine aminotransfe rase [enzymatic activity/vol ume] in serum or plasma 46 U/L low: 6U/Lhi gh: 57U/L Not Available Not Available 10/12/2024 15:24:48 09/15/19 25 09/14/2024 [facility] [place] [facility] 1999 panel - Serum or Plasm a aspartate aminotransfe rase [enzymatic activity/vol ume] in serum or plasma 39 U/L low: 10U/Lh igh: 48U/L Not Available Not Available 10/12/2024 15:24:48 09/15/19 25 09/14/2024 [facility] [place] [facility] panel - Serum or Plasm a [...] Not Available 10/12/2024 15:24:53 09/22/19 25 09/21/2024 [facility] [place] [facility] 1999 panel - Serum or Plasm a carbon dioxide, total [moles/volum e] in serum or plasma 21 mmol/ L low: 22mmol /Lhigh : 29mmol /L low Not Available Not Available 10/12/2024 15:24:53 09/22/19 25 09/21/2024 [facility] [place] [facility] 1999 panel - Serum or Plasm a calcium [mass/volume ] in serum or plasma 8.9 mg/dL low: 8.4mg/ dLhigh : 10.4mg /dL Not Available Not Available 10/12/2024 15:24:53 09/22/19 25 09/21/2024 [facility] [place] [facility] 1999 panel - Serum or Plasm a anion gap in blood by calculation 7 mmol/ L low: 6mmol/ Lhigh: 16mmol /L Not Available Not Available 10/12/2024 15:24:53 09/22/19 25 09/21/2024 [facility] [place] [facility] 1999 panel - Serum or Plasm a urea nitrogen [mass/volume ] in serum or plasma 7 mg/dL low: 5.3mg/ dLhigh : 18.7mg /dL Not Available Not Available 10/12/2024 15:24:53 09/22/19 25 09/21/2024 [facility] [place] [facility] 1999 panel - Serum or Plasm a creatinine [mass/volume ] in serum or plasma 0.53 mg/dL low: 0.57mg /dLhig h: 1.11mg /dL low Not Available Not Available 10/12/2024 15:24:53 09/22/19 25 09/21/2024 [facility] [place] [facility] 1999 panel - Serum or Plasm a alkaline phosphatase [enzymatic activity/vol ume] in serum or plasma 198 U/L low: 40U/Lh igh: 150U/L high Not Available Not Available 10/12/2024 15:24:53 09/22/19 25 09/21/2024 [facility] [place] [facility] 1999 panel - [...] 09/22/19 25 09/21/2024 [facility] [place] metab [facility] 1999 panel - Serum or [...] 09/22/19 25 09/21/2024 Compr ens [place] metab [facility] 1999 panel - Serum or Plasm a bilirubin.to bob [mass/volume ] in serum or plasma 0.3 mg/dL low: 0.2mg/ dLhigh : 1.2mg/ dL Not Available Not Available 10/12/2024 15:24:53 09/22/19 25 09/21/2024 Compr ens [place] metab [facility] 2000 panel - Serum or [...] Not Available 10/12/2024 15:22:53 09/29/19 25 09/28/2024 [facility] [place] [facility] 1999 panel - Serum or Plasm a potassium [moles/volum e] in serum or plasma 4 mmol/ L low: 3.5mmo l/Lhig h: 5.1mmo l/L Not Available Not Available 10/12/2024 15:22:53 09/29/19 25 09/28/2024 [facility] [place] [facility] 1999 panel - [...] Not Available 10/12/2024 15:22:53 09/29/19 25 09/28/2024 [facility] [place] [facility] 1999 panel - Serum or Plasm a calcium [mass/volume ] in serum or plasma 8.7 mg/dL low: 8.4mg/ dLhigh : 10.4mg /dL Not Available Not Available 10/12/2024 15:22:53 09/29/19 25 09/28/2024 [facility] [place] [facility] 1999 panel - Serum or Plasm a anion gap in blood by calculation 5 mmol/ L low: 6mmol/ Lhigh: 16mmol /L low Not Available Not Available 10/12/2024 15:22:53 09/29/19 25 09/28/2024 [facility] [place] [facility] 1999 panel - Serum or Plasm a urea nitrogen [mass/volume ] in serum or plasma 7 mg/dL low: 5.3mg/ dLhigh : 18.7mg /dL Not Available Not Available 10/12/2024 15:22:53 09/29/19 25 09/28/2024 [facility] [employer] [place] [facility] 1999 panel - Serum or Plasm [...] Available 10/12/2024 15:22:53 09/29/19 25 09/28/2024 [facility] [place] [facility] 1999 panel - Serum or Plasm a protein [mass/volume ] in serum or plasma 7 text: 6.4 - 8.3 gm/dL Not Available Not Available 10/12/2024 15:22:53 09/29/19 25 09/28/2024 [facility] [place] [facility] 1999 panel - Serum or Plasm a albumin [mass/volume ] in serum or plasma 2.7 text: 3.4 - 5.0 gm/dL low Not Available Not Available 10/12/2024 15:22:53 09/29/19 25 09/28/2024 [facility] [place] [facility] 1999 panel - Serum or Plasm a bilirubin.to bob [mass/volume ] in serum or plasma 0.4 mg/dL low: 0.2mg/ dLhigh : 1.2mg/ dL Not Available Not Available 10/12/2024 15:22:53 09/29/19 25 09/28/2024 Compr [facility] [place] [facility] 2000 panel - Serum or Plasm [...] 15:21:46 10/09/19 25 10/08/2024 [facility]pr [facility] [place] [facility] 1999 panel - Serum or Plasm a carbon dioxide, total [moles/volum e] in serum or plasma 20 mmol/ L low: 22mmol /Lhigh : 29mmol /L low Not Available Not Available 10/12/2024 15:21:46 10/09/19 25 10/08/2024 [facility] [place] [facility] 1999 panel - Serum or Plasm a calcium [mass/volume ] in serum or plasma 8.6 mg/dL low: 8.4mg/ dLhigh : 10.4mg /dL Not Available Not Available 10/12/2024 15:21:46 10/09/19 25 10/08/2024 [facility] panel - Serum or Plasm a anion gap in blood by calculation 5 mmol/ L low: 6mmol/ Lhigh: 16mmol /L low Not Available Not Available 10/12/2024 15:21:46 10/09/19 25 10/08/2024 [facility] 1999 panel - Serum or Plasm a urea nitrogen [mass/volume ] in serum or plasma 7 mg/dL low: 5.3mg/ dLhigh : 18.7mg /dL Not Available Not Available 10/12/2024 15:21:46 10/09/19 25 10/08/2024 [place] [address] panel - Serum or Plasm a creatinine [mass/volume ] in serum or plasma 0.56 mg/dL low: 0.57mg /dLhig h: 1.11mg /dL low Not Available Not Available 10/12/2024 15:21:46 10/09/19 25 10/08/2024 [facility] [place] [address] panel - Serum or Plasm a alkaline phosphatase [enzymatic activity/vol ume] in serum or plasma 208 U/L low: 40U/Lh igh: 150U/L high Not Available Not Available 10/12/2024 15:21:46 10/09/19 25 10/08/2024 [facility] [place] [address] panel - Serum or Plasm a alanine [...] Available 10/12/2024 15:21:46 10/09/19 25 10/08/2024 [facility] [place] [facility] 2000 panel - Serum or Plasm [...] Available 15:20:01 10/10/1910/09/2024 Compr [facility]hens [place] metab [facility] 1999 panel - Serum or Plasm a glucose [mass/volume ] in serum or plasma 83 mg/dL low: 70mg/d Lhigh: 99mg/d L Not Available Not Available 10/12/2024 15:20:01 10/10/19 25 10/09/2024 [facility] [place] [facility] 1999 panel - Serum or Plasm a sodium [moles/volum e] in serum or plasma 135 mmol/ L low: 136mmo l/Lhig h: 145mmo l/L low Not Available Not Available 10/12/2024 15:20:01 10/10/19 25 10/09/2024 [facility] [place] [facility] 1999 panel - Serum or Plasm a potassium [moles/volum e] in serum or plasma 4.1 mmol/ L low: 3.5mmo l/Lhig h: 5.1mmo l/L Not Available Not Available 10/12/2024 15:20:01 10/10/19 25 10/09/2024 [facility] [place] [facility] 1999 panel - Serum or Plasm a chloride [moles/volum e] in serum or plasma 111 mmol/ L low: 98mmol /Lhigh : 107mmo l/L high Not Available Not Available 10/12/2024 15:20:01 10/10/19 25 10/09/2024 [facility] [place] [facility] 1999 panel - Serum or Plasm a carbon dioxide, total [moles/volum e] in serum or plasma 20 mmol/ L low: 22mmol /Lhigh : 29mmol /L low Not Available Not Available 10/12/2024 15:20:01 10/10/19 25 10/09/2024 [facility] [place] [facility] 1999 panel - Serum or Plasm a calcium [mass/volume ] in serum or plasma 8.1 mg/dL low: 8.4mg/ dLhigh : 10.4mg /dL low Not Available Not Available 10/12/2024 15:20:01 10/10/19 25 10/09/2024 [facility] [place] [facility] 1999 panel - Serum or Plasm a anion gap in blood by calculation 4 mmol/ L low: 6mmol/ Lhigh: 16mmol /L low Not Available Not Available 10/12/2024 15:20:01 10/10/19 25 10/09/2024 [facility] [place] [facility] 1999 panel - Serum or Plasm a urea nitrogen [mass/volume ] in serum or plasma 10 mg/dL low: 5.3mg/ dLhigh : 18.7mg /dL Not Available Not Available 10/12/2024 15:20:01 10/10/19 25 10/09/2024 [facility] [place] [facility] 1999 panel - Serum or Plasm a creatinine [mass/volume ] in serum or plasma 0.53 mg/dL low: 0.57mg /dLhig h: 1.11mg /dL low Not Available Not Available 10/12/2024 15:20:01 10/10/19 25 10/09/2024 [facility] [place] [facility] 1999 panel - Serum or Plasm a alkaline phosphatase [enzymatic activity/vol ume] in serum or plasma 221 U/L low: 40U/Lh igh: 150U/L high Not Available Not Available 10/12/2024 15:20:01 10/10/19 25 10/09/2024 [facility] [place] [facility] 1999 panel - Serum or Plasm a alanine aminotransfe rase [enzymatic activity/vol ume] in serum or plasma 33 U/L low: 6U/Lhi gh: 57U/L Not Available Not Available 10/12/2024 15:20:01 10/10/19 25 10/09/2024 [facility] [place] [facility] 1999 panel - Serum or Plasm a aspartate aminotransfe rase [enzymatic activity/vol ume] in serum or plasma 36 U/L low: 10U/Lh igh: 48U/L Not Available Not Available 10/12/2024 15:20:01 10/10/19 25 10/09/2024 [facility] [place] [facility] 1999 panel - Serum or Plasm a protein [mass/volume ] in serum or plasma 6.4 text: 6.4 - 8.3 gm/dL Not Available Not Available 10/12/2024 15:20:01 10/10/19 25 10/09/2024 [facility] [place] [facility] 1999 panel - Serum or Plasm a albumin [mass/volume ] in serum or plasma 2.7 text: 3.1 - 4.5 gm/dL low Not Available Not Available 10/12/2024 15:20:01 10/10/19 25 10/09/2024 [facility] [place] [facility] 1999 panel - Serum or Plasm [...] Available 10/12/2024 15:20:01 10/10/19 25 10/09/2024 [facility] [place] [facility] 2000 panel - Serum or Plasm a interpretati on and review of laboratory results Abnorm al Not Available Not Available 15:20:01 10/14/19 25 10/13/2024 [facility] [place] [facility] 1999 panel - Serum or Plasm [...] Not Available 10/28/2024 13:36:46 10/14/19 25 10/13/2024 [facility] [place] [facility] 1999 panel - Serum or Plasm a carbon dioxide, total [moles/volum e] in serum or plasma 19 mmol/ L low: 22mmol /Lhigh : 29mmol /L low Not Available Not Available 10/28/2024 13:36:46 10/14/19 25 10/13/2024 [facility] [place] [facility] 1999 panel - Serum or Plasm a calcium [mass/volume ] in serum or plasma 8.4 mg/dL low: 8.4mg/ dLhigh : 10.4mg /dL Not Available Not Available 10/28/2024 13:36:46 10/14/19 25 10/13/2024 [facility] [place] [facility] [facility] 1999 panel - Serum or Plasm a anion gap in blood by calculation 7 mmol/ L low: 6mmol/ Lhigh: 16mmol /L Not Available Not Available 10/28/2024 13:36:46 10/14/19 25 10/13/2024 [facility] 1999 panel - Serum or Plasm a urea nitrogen [mass/volume ] in serum or plasma 9 mg/dL low: 5.3mg/ dLhigh : 18.7mg /dL Not Available Not Available 10/28/2024 13:36:46 10/14/19 25 10/13/2024 [facility] 1999 panel - Serum or Plasm a creatinine [mass/volume ] in serum or plasma 0.54 mg/dL low: 0.57mg /dLhig h: 1.11mg /dL low Not Available Not Available 10/28/2024 13:36:46 10/14/19 25 10/13/2024 [facility] 1999 panel - Serum or Plasm a alkaline phosphatase [enzymatic activity/vol ume] in serum or plasma 214 U/L low: 40U/Lh igh: 150U/L high Not Available Not Available 10/28/2024 13:36:46 10/14/19 25 10/13/2024 [facility] [place] [facility] 2000 panel - Serum [...] 10/14/19 25 10/13/2024 Compr ehens [place] [facility] 1999 panel - Serum or [...] 10/14/19 25 10/13/2024 Compr ens [place] [facility] 1999 panel - Serum or Plasm a bilirubin.to bob [mass/volume ] in serum or plasma 0.4 mg/dL low: 0.2mg/ dLhigh : 1.2mg/ dL Not Available Not Available 10/28/2024 13:36:46 10/14/19 25 10/13/2024 Compr ens [place] [facility] 2000 panel - Serum or [...] Author indira Villagomez er: Madison Philippe MD [facility] marie: 2024 11:00 AM Orderi ng Locati [...] 10/20/2024 Patho logy study pathologist location at [facility] Not Available Not Available 13:36:46 10/15/19 [...] feliz charac terist ic determ ined by [facility] , Depart ment of [facility] [...] Result s should be interp reted with edrrek farnsworth Not Available Not Available 13:36:46 10/15/19 [...] Z3Bhcl xqZXhw YW5kXG 5veGxh dHRveW VuXGRl ZmYwe1 dqg788 dGJse1 xmMCBB cmlhbD t9fXtc Y29sb3 J0Ymwg O31ccG [...] Z3Bhcl xqZXhw YW5kXG 5veGxh dHRveW VuXGRl ZmYwe1 hgl471 dGJse1 xmMCBB cmlhbD t9fXtc Y29sb3 J0Ymwg O31ccG [...] Z3Bhcl xqZXhw YW5kXG 5veGxh dHRveW VuXGRl ZmYwe1 tmk069 dGJse1 xmMCBB cmlhbD t9fXtc Y29sb3 J0Ymwg O31ccG [...] Z3Bhcl xqZXhw YW5kXG 5veGxh dHRveW VuXGRl ZmYwe1 rdt611 dGJse1 xmMCBB cmlhbD t9fXtc Y29sb3 J0Ymwg O31ccG FwZXJ3 MTIyND BccGFw ZXJoMT U4NDBc bWFyZ2 wxODAw XG1hcm dyMTgw MFxtYX JndDE0 NDBcbW FyZ2Ix NDQwXG hlYWRl cnk3Mj BcZm9v dGVyeT cyMFxw YXJkXH BsYWlu XGZzMj AgTWlj cm9zY2 9waWMg ZXhhbW luYXRp b24gc3 Vic3Rh bnRpYX RlcyB0 aGUgYW JvdmUg ZGlhZ2 5vc2lz LlxwYX J9 Not Available Not Available 04:22:11 10/21/19 25 10/20/2024 Patho logy study pathologist location at [facility] Not Available Not Available 04:22:11 10/21/19 25 10/20/2024 Patho logy study service comment e1xydG YxXHNz dGVjZj IyMDAw XGFuc2 lcZGVm bGFuZz EwMzNc ZnRuYm pcdWMx XGRlZm Ywe1xm b250dG Jse1xm MCBcZn N3aXNz IEFyaW NuJ316 XGYxIF xmc3dp c3MgXG ZjaGFy c2V0MC BBcmlh bDt9fX tcY29s b3J0Ym wgO1xy ZWQyNT VcZ3Jl ZW4yNT VcYmx1 ZTI1NS A7XHJl ZDBcZ3 JlZW4w XGJsdW UwIDt9 e1xzdH lsZXNo ZWV0e1 xmMFxm czIyIE 5vcm1h bDt9e1 xjczEg RGVmYX VsdCBQ YXJhZ3 JhcGgg Rm9udD t9fXtc KlxyZX Z0Ymx7 VW5rbm 93bjt9 fVxwYX Blcncx MjI0MF xwYXBl cmgxNT g0MFxt YXJnbD E4MDBc bWFyZ3 IxODAw XG1hcm d0MTQ0 MFxtYX JnYjE0 NDBcaG VhZGVy eTcyMF tas071 ZXJ5Nz IwXG5v Z3Jvd2 F1dG9m aXRcZG VmdGFi NzIwXG Zvcm1z aGFkZV xub2Zl YXR1cm V0aHJv dHRsZT FcZG50 Ymxuc2 JkYlxm ZXQ0XG FlbmRu b3Rlc1 xhZnRu bnJsY1 xwZ2Jy ZHJoZW FkXHBn YnJkcm Zvb3Rc c2VjdG RccGd3 c3huMT IyNDBc cGdoc3 huMTU4 NDBcZ3 V0dGVy c3huMF xtYXJn bHN4bj E4MDBc bWFyZ3 JzeG4x ODAwXG 1hcmd0 c3huMT Q0MFxt YXJnYn N4bjE0 NDBcaG VhZGVy eTcyMF mgf542 ZXJ5Nz IwXHNi a3BhZ2 VccGdu Y29udF xwZ25k ZWNccG [...] Not Available 12/01/2024 04:19:34 11/25/19 25 11/24/2024 [facility] 1999 panel - Serum or Plasm a anion gap in blood by calculation 8 mmol/ L low: 6mmol/ Lhigh: 16mmol /L Not Available Not Available 12/01/2024 04:19:34 11/25/19 25 11/24/2024 [facility] 1999 panel - Serum or Plasm a urea nitrogen [mass/volume ] in serum or plasma 7 mg/dL low: 5.3mg/ dLhigh : 18.7mg /dL Not Available Not Available 12/01/2024 04:19:34 11/25/19 25 11/24/2024 [facility] 1999 panel - Serum or Plasm a creatinine [mass/volume ] in serum or plasma 0.54 mg/dL low: 0.57mg /dLhig h: 1.11mg /dL low Not Available Not Available 12/01/2024 04:19:34 11/25/19 25 11/24/2024 [facility] 1999 panel - Serum or Plasm a alkaline phosphatase [enzymatic activity/vol ume] in serum or plasma 184 U/L low: 40U/Lh igh: 150U/L high Not Available Not Available 12/01/2024 04:19:34 11/25/19 25 11/24/2024 [facility] 1999 panel - Serum or Plasm a alanine aminotransfe rase [enzymatic activity/vol ume] in serum or plasma 111 U/L low: 6U/Lhi gh: 57U/L high Not Available Not Available 12/01/2024 04:19:34 11/25/19 25 11/24/2024 [facility] 1999 panel - Serum or Plasm a aspartate aminotransfe rase [enzymatic activity/vol ume] in serum or plasma 84 U/L low: 10U/Lh igh: 48U/L high Not Available Not Available 12/01/2024 04:19:34 11/25/19 25 11/24/2024 [facility] 1999 panel - Serum or [...] DO Not Attach Compendium, Do Not Delete/merge, [id number] 12/14/2024 10:32:32 03/01/20 25 02/28/2025 MR, chola ngiop ancre atogr am, w/wo contr ast No observ ation record ed. [address], [place], [address], 03/08/2025 09:10:59 03/01/20 25 03/01/2025 XR, chola ngiop ancre atogr am No observ ation record ed. [address], [place], [address], 03/08/2025 09:11:21 Result Notes None recorded. Problems Name Problem SNOMED Code Status Onset Date Resolution Date Notes Provider Name and Address Organization Details Recorded Time Vitamin D deficien cy 25410503 Completed Amalia Childs [place] null, [place] - [facility] 8 11:55:18 Candidia sis of vagina 00236522 Completed Amalia Childs [place], [place] [facility] 8 11:55:18 Vitamin D deficien cy 75871957 Completed 10/18/2020 Al Benitez null, [place] [facility] 1 11:33:08 Candidia sis of vagina 29344248 Completed 04/30/2019 KATHY CHOUDHURY Attn: Kapil gould,[address] [place], [address], [facility] - [facility] 9 10:38:27 On examinat ion - short stature Completed Fariba Pinto MD Attn: Kapil gould,[address] [place], [address], [facility] - [facility] 2 17:20:24 growth restrict ion 26435074 Completed [facility] [place] 04/10: IUGR. Reassuri ng dopplers /BPP. Continue antenata l testing. Fariba Pinto MD Attn: Kapil gould,[address] [place], [address], [facility] - [facility] 2 17:20:24 On examinat ion - short stature Completed Amalia Childs [place] [facility] 8 11:55:18 On examinat ion - short stature Active Fariba Pinto MD Attn: Kaipl gould,[address], [place], [address], [place] - [facility] 2 17:20:24 Pregnanc y 91493808 Completed 201604/08/2017 ALEKSANDR GARCIA PA-C Attn: Kapil gould,[address] [facility], [place], [address], [place] [facility] 5 11:43:01 Nausea and vomiting 45426371 Completed 201604/30/2019 KATHY CHOUDHURY Attn: Kapil gould,[address] [facility], [place], [address], [place] [facility] 9 10:38:44 Iron deficien cy anemia of pregnanc y 018160080 Completed 201604/30/2019 KATHY CHOUDHURY Attn: Kapil gould,[address] [facility], [place], [address], [place] [facility] 9 10:38:46 Injury of lower limb 445485553 Completed 2016 Amalia Childs [place] [facility] 8 11:55:18 Injury of lower limb 427727945 Completed 201604/30/2019 KATHY CHOUDHURY Attn: Kapil gould,[address] [facility], [place], [address], [place] [facility] 9 10:38:33 Pregnanc y 85335597 Completed 201807/20/2019 ALEKSANDR GARCIA PA-C Attn: Kapil g,[address] [facility], [place], [address], [place] [facility] 5 11:43:01 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 37711902093 9109 Active 2018 Selvin Dee lucia [place] [facility] 1 09:11:27 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 33208531887 9109 Completed 2018 Amalia Childs [place] [facility] 1 11:06:14 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 26197458410 9109 Completed 2018 Selvin Joneshillary lucia [place] [facility] 1 10:56:21 Subchori onic hematoma 422485238 Completed 2019 Amalia Child[place] [facility] 1 11:06:14 Subchori onic hematoma 400076863 Active 2019 Fariba Pinto MD Attn: Accountin g,[address] [facility], [place], [address], [place] [facility] 2 17:20:24 Subchori onic hematoma 909426548 Completed 2019 Fariba Pinto MD Attn: Accountin g,[address] [facility], [place], [address], [place] [facility] 2 17:20:24 Abnormal progeste soraida 875472859 Active 2020 Selvin Jonesnaderb lucia [place] [facility] 1 09:11:27 Abnormal progeste soraida 888617482 Completed 2020 Selvin Jonesnaderb lucia [place] [facility] 1 10:56:21 Pregnanc y 86454675 Completed 202010/18/2020 ALEKSANDR GARCIA PA-C Attn: Accountin g,[address] [facility], [place], [address], [place] [facility] 5 11:43:01 Pregnanc y 31437052 Completed 202412/01/2024 ALEKSANDR GARCIA PA-C Attn: Kapil g,[address] [facility], [place], [address], [place] [facility] 5 11:43:01 Problem Notes None recorded. Procedures Surgical History Date Name Laterality Status Provider Name and Address Organization Details Recorded Time 5 Control Implant Insertion completed ALEKSANDR GARCIA PA-C Attn: Accounting,[address] [facility], [place], [address], [facility] - SI 12/14/2024 10:32:22 4 Control Implant Removal completed Eneida Cano MD Attn: Accounting,[address] [facility], [place], [address], [facility] - [facility] 10/14/2023 13:35:29 4 Date of Last Pap Smear completed Amalia Childs [place] - [facility] 10/14/2023 12:26:57 3 Control Implant Insertion completed KATHY SALCEDO Attn: Accounting,[address] [facility], [place], [address], [facility] - [facility] 11/15/2022 11:57:42 Imaging Results None recorded. Procedure [...] Updated DateTime 5 140.34 cm 30.2 kg/m2 16631.6 8 g 98 % 98 % 97 /min 98.8 [degF] 112/68 mm[Hg] Jessica Jarrell [place] - [facility] 5 14:44:18 Date Recorded Body height Body mass index (BMI) Body weight Body temperature Oxygen saturation Oxygen saturation in Arterial blood by Pulse oximetry Heart rate Systolic And Diastolic Provider Name and Address Organization Details Last Updated DateTime 5 140.34 cm 30 kg/m2 00841.4 5 g 98.5 [degF] 98 % 98 % 101 /min 128/78 mm[Hg] Jessica Jarrell [place] [facility] 5 09:06:25 Date Recorded Body height Provider Name an d Address Organization Details Last Updated DateTime 07/06/2024 140.34 cm Jessica Cagle [facility] 07/06/2024 10:37:50 Date Recorded Body mass index (BMI) Body weight Body temperature Oxygen saturation Oxygen saturation in Arterial blood by Pulse oximetry Heart rate Systolic And Diastolic Provider Name and Address Organization Details Last Updated DateTime 5 30.3 kg/m2 52608.0 5 g 98.8 [degF] 98 % 98 % 88 /min 124/76 mm[Hg] Olya Ebonie [facility] 5 10:47:34 Date Recorded Body height Body mass index (BMI) Body weight Oxygen saturation Oxygen saturation in Arterial blood by Pulse oximetry Heart rate Body temperature Systolic And Diastolic Provider Name and Address Organization Details Last Updated DateTime 5 140.34 cm 31.3 kg/m2 26799.5 6 g 99 % 99 % 86 /min 99.3 [degF] 128/80 mm[Hg] Haily Heredia MA [facility] 5 11:39:05 Date Recorded Body height Body mass index (BMI) Body weight Oxygen saturation Oxygen saturation in Arterial blood by Pulse oximetry Heart rate Body temperature Systolic And Diastolic Provider Name and Address Organization Details Last Updated DateTime 5 140.34 cm 31.3 kg/m2 06257.5 6 g 99 % 99 % 93 /min 98.9 [degF] 116/70 mm[Hg] Haily Heredia MA [facility] SI 5 10:14:43 Date Recorded Body height Body mass index (BMI) Body weight Oxygen saturation Oxygen saturation in Arterial blood by Pulse oximetry Heart rate Systolic And Diastolic Provider Name and Address Organization Details Last Updated DateTime 5 140.34 cm 31.8 kg/m2 19079.4 7 g 98 % 98 % 92 /min 128/76 mm[Hg] Jessica Jarrell [facility] 5 15:57:35 Social History Question Answer Notes LastModified by Organizat ion Details LastModified Time Tobacco Smoking Status Never Smoker Zee Reich, [place], [place] - [facility] 10/10/2016 15:10:07 Do You Have An Advance [...] Or Recreational Drugs Have You Used? Denies [email or web address] Information not available 03/05/2017 Education Less Than 8th Grade Information not available 10/10/2016 What Is The Highest Grade Or Level Of School You Have Completed Or The Highest Degree You Have Received? [id number] Information not available 10/18/2020 Have There Been Any Changes To Your Family Or Social Situation? No Information not available 10/10/2016 Frequent Air Travel No Information not available 10/10/2016 Illicit Drugs Pre- Denies None Information not available 03/05/2017 How Many Years [...] How Much Tobacco Do You Smoke? No [email or web address] Information not available 03/05/2017 Smoking Pre- No [...] Many Years Have You Smoked Tobacco? 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 Information not available 10/10/2016 Do you or [...] Clots N GI Problems N Acne N Eating Disorder N Breast Problem N Anemia N Anesthesia Complications N Headaches/Migraines N Anxiety Disorder N Ovarian Cancer N Diabetes N Muscle, Joint, or Bone Problems N Blood Transfusions N Seizures/Epilepsy N Infertility N Polyps N Acid Reflux (GERD) N Cancer N [...] Recorded Time Tdap 7 completed Not Available [facility] 05/30/2019 02:51:06 Influenza, split virus, quadrivalent, preservative 7 completed Not Available [facility] 05/30/2019 02:34:21 Tdap 1 completed Haily Heredia [place] [facility] 02/28/2021 11:20:54 Influenza, split virus, quadrivalent, PF 1 completed Amalia Childs [place] [facility] 03/14/2021 12:59:51 Past Encounters Encounter ID Performer Location Encounter Start Date Encounter Closed Date Diagnosis/Indication Diagnosis SNOMED-CT Code Diagnosis ICD10 Code Diagnosis IMO Codes Diagnosis Note [id number] MD Tiffanie Viramontes ([facility]) [address] [place] [address] 0 10/10/2016 13:50:55 10/10/2016 15:46:27 Routine care 654515175 Z34.90 [id number] Al Benitez MD [facility] ([facility]) [address] [place] [phone] 0 11/12/2016 11:34:31 11/12/2016 12:57:13 Routine care 628994388 Z34.90 [id number] Al Benitez MD [facility] ([facility]) [address] [place] [address]993[address] 0 12/03/2016 11:41:15 12/03/2016 13:20:24 Routine care 295327505 Z34.90 [id number] Al Benitez MD [facility] ([facility]) [address] [place] [address] 0 01/07/2017 11:58:23 01/07/2017 13:03:03 Routine care 943677178 Z34.90 Iron defic iency anemia of 684227211 O99.808 [id number] Al Benitez MD [facility] ([facility]) [address] [place] [address]927 0 02/04/2017 09:52:09 02/04/2017 12:54:26 Routine care 451389752 Z34.90 screening 2437 31355 Z36 Family melanie nning education 938261166 Z30.02 [id number] [facility] [address] [place] [phone] 0 02/28/2017 14:47:09 02/28/2017 17:33:14 Routine care 010741942 Z34.93 [id number] MD Tiffanie Viramontes ([facility]) [address] [place] [address]390 0 03/05/2017 15:13:12 03/07/2017 12:30:02 Routine care 907575158 Z34.93 Traumatic injury during 943980463 T14.90XA left lower extremity [id number] MD [facility] ([facility]) [address] [place] [phone] 0 03/19/2017 10:17:17 03/19/2017 14:20:11 Routine care 247372741 Z34.93 Injury of lower limb 127 927734 S89.92XD Patient out of LLLE brace and has been referred to PT once weekly. [id number] MD [facility] ([facility]) [address] [place] [address] [phone] 0 04/08/2017 16:13:15 04/09/2017 09:55:23 Routine care 838054068 Z34.93 Injury of lower limb 127 064737 S89.92XD Patient out of LLLE brace and has been referred to PT once weekly. [id number] MD [facility] ([facility]) [address] [place] [address] 0 04/23/2017 11:05:39 04/23/2017 12:45:16 Routine care 675297989 Z34.83 Urinary tr act infectious disease 63220666 N39.0 COUNSELED ABOUT IT. [id number] MD [facility] ([facility]) [address] [place] [address] [id number] 0 06/17/2017 10:31:43 06/17/2017 12:44:20 care 307136307 Z39.2 ordered routine labs for postpatum pap smear Exposure t o sexually transmissible disorder 963470832 Z20.2 depression 58 783027 O99.345 educated about depression and started on sertraline 100mg [id number] MD [facility] ([facility]) [address] [place] [address]635 0 07/01/2018 10:56:42 07/01/2018 14:31:27 Family planning surveillance 733239130 Z30.09 Gynecologi c examination 00771364 Z01.419 Z11.51 Exposure t o sexually transmissible disorder 278133836 Z20.2 [id number] [facility]Y [facility]CEDO [facility] ([facility]) [address] [place] [id number] 0 04/30/2019 09:24:59 04/30/2019 11:46:49 Routine care 482139839 Z34.90 Venereal d isease screening 099467032 Z11.3 screening 2437 25131 Z36.85 [id number] KATHY SALCEDO ([facility]) [address] [place] [address] 0 05/28/2019 10:01:46 05/28/2019 11:21:32 Routine care 046638597 Z34.90 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 B12 injection 05/28 [id number] KATHY SALCEDO ([facility]) [address] [place] [address]143 0 06/26/2019 10:56:56 07/02/2019 11:48:01 heart sounds absent 529980886 O36.8399 heart tones absent on exam today. Pt sent for STAT US - results consistent with demise. thien se from miscarriage 4937251 O03.9 Per US: Intrauter ine with absence [...] All of patients questions and concerns addressed. [facility] and Dr. Benitez contacted and aware pt is coming today from office. [id number] MD [facility] ([facility]) [address] [place] [address]293[address]136 0 07/20/2019 10:20:33 07/20/2019 11:39:05 Depressive disorder 37214990 F32.9 Gynecologi c examination 21931924 Z01.419 Z11.51 Family melanie nning surveillance 132077109 Z30.09 Irritable bowel syndrome 57619606 K58.9 [id number] KATHY VICTOR (Adult Med) [address] [place] [address]4036[address] 0 08/25/2019 13:48:26 09/03/2019 15:07:13 Strain of back muscle 767414646 S39.012A Complainin g of intermitte nt left [...] once back pain is gone. 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 [id number] KATHY VICTOR (Adult Med) [address] [place] [address] 11/06/2019 09:42:27 11/09/2019 07:38:29 Low back pain 826424457 M54.5 Complainin g of low back pain [...] heat to area 3x/day, and gentle massage [id number] KATHY VICTOR (Adult Med) [address] [place] [phone] 0 05/26/2020 12:02:44 05/27/2020 10:27:49 Low back pain 028681925 M54.5 Complainin g today of intermitte nt [...] kidneys due chronicity of pain Vaginal discharge 297650 006 N89.8 Admits to mild pelvic pain [...] due to inflammati on of the cervix [id number] MD Tiffanie Viramontes ([facility]) [address] [place] [address]5731[address] 0 10/18/2020 10:21:59 10/22/2020 13:56:11 Routine care 615679234 Z34.93 Venereal d isease screening 528999808 Z11.3 screening 2437 46288 Z36.85 Homozygous methylenetetrahydrofo late reductase mutation 7610707270 73168 E72.12 Abnormal progesterone 13 3057329 R94.7 On examina tion - short stature 831033947 R62.52 Subchorionic hematoma 60 3015435 O41.8X99 [id number] KATHY SALCEDO ([facility]) [address] [place] [id number] 0 11/01/2020 10:42:39 11/10/2020 13:54:02 Routine care 822010821 Z34.90 LORRIE and ACOG at 12w3d. complicate d by MTHFR, low progestero ne, and subchorion ic hematoma. Test results reviewed. OB educationa l packet reviewed and provided to patient. U/S 10/30/2020 showed MARIO 05/12/2021 with 2 subchorion ic hematomas. Follow-up ultrasound in 3 weeks. 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 Continue ASA, Folic acid. B12 injection at next visit. Abnormal progesterone 13 6414018 R94.7 Low on initial labs (13.7). Continue supplement . Subchorionic hematoma 60 6188905 O41.8X99 U/S 10/30/2020 showed MARIO 05/12/2021 with 2 subchorion ic hematomas. Follow-up ultrasound in 3 weeks. Continue pelvic rest. 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 Abnormal progesterone 13 6704162 R94.7 On examina tion - short stature 627249155 R62.52 [id number] Al Benitez MD [facility] ([facility]) [address] [place] [address] 62701-627 0 12/14/2020 10:07:25 12/17/2020 12:50:31 Routine care 272456229 Z34.93 Homozygous methylenetetrahydrofo late reductase mutation 2840694700 63291 E72.12 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 B12 given today. On examina tion - short stature 613370361 R62.52 Abnormal progesterone 13 8299346 R94.7 [id number] MD Tiffanie Viramontes ([facility]) [address] [place] [address] 89321-463 0 02/13/2021 10:13:50 02/14/2021 10:33:12 Routine care 729446275 Z34.82 Z36.9 OBFU Packet given. 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 B12 given today. 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 Influenza vaccination declined 932266080 Z28.21 [id number] MD Tiffanie Viramontes ([facility]) [address] [place] [address] 64796[address] 0 03/14/2021 10:49:43 03/16/2021 07:08:19 Routine care [id number] Z34.83 25 yo F with PMHx of recent missed and vit D deficiency presents for LORRIE at 31w4d. c/b MTHFR, FGR, and subchorion ic hematoma. No complaints . Will refer to [facility] for FGR as EFW at 9th percentile . 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 Subchorionic hematoma 60 [id number] O41.8X99 grow th restriction [id number] O36.5999 EFW 9th percentile . Normal TANVI. Active or passive immunization [id number] Z23 Flu shot given today. Pt not interested in COVID vaccinatio n until after delivery. [id number] SELVIN ROMAN CK, DO Tiffanie ([facility]GG[facility]) [address] [place] [address] [phone] 04/25/2021 15:05:18 05/01/2021 19:29:14 Routine care [id number] Z34.93 No VB, VD, LOF, regular contractio ns, or decreased movement. She has not been seen in clinic for the last 6 weeks. Patient following with MF for IUGR. Last evaluated 04/10, she was to return for growth in 3 weeks after that visit. Vital importance of making her appointmen ts stressed to patient. Patient to see MFM 05/01 - will follow up on delivery rec's. RTC in 1 week. Nuswab and GBS collected today. [id number] DO Tiffanie CHING (BULLDOGGER) [address] [place] [address] [phone] 0 05/04/2021 09:58:07 05/08/2021 08:09:37 Routine care 896101510 Z34.93 No VB, VD, LOF, regular contractio ns, or decreased movement. Patient following with MF [...] based on large LE on UA today. [id number] DO Tiffanie CHING (BULLDOGGER) [address] [place] [address] [phone] 0 06/01/2021 10:39:41 06/09/2021 08:47:04 care 484748696 Z39.2 visit. 014 who is 4 weeks s/p TSVDPregna ncy complicati ons: IUGR, UTI.EDPS reassuring Bottlefeed ingDiscuss ed R/B/I/A of multiple contracept peyton options. Educationa l materials provided and all questions and concerns were addressed. Patient desires contracept peyton patches.Kathy p - 07/01/2018 = NILM, HPV negRTC - In 1 year for well woman exam. [id number] KATHY SALCEDO (BULLDOGGER) [address] [place] [address] [phone] 0 07/27/2021 11:54:21 08/04/2021 11:18:14 care 325054903 Z39.2 25 yo female presenting for visit [...] in 3 months for Pap and prn. [id number] KATHY SALCEDO (BULLDOGGER) [address] [place] [address] [phone] 0 01/24/2022 11:21:48 01/25/2022 12:40:56 Contraception care 225872798 Z30.45 26 y/o arabic speaking female who presents for control- Currently taking Xulane patch with complaints of grace, wants to switch to cheaper OCPs- Start 24 1mg-20mcg QD, counseled on use and SE- Pt wants to start TTC in 3-4 months- Return to clinic in one year or sooner if needed [id number] KATHY SALCEDO (BULLDOGGER) [address] [place] [address] [phone] 02/13/2022 11:24:39 02/14/2022 15:46:49 Gynecologic examination 16266488 Z01.419 Cervical cancer screening: last Pap 05/26/2020 NILM; Due for next Pap 05/26/2023. Breast cancer screening: Reviewed recommenda tions for initiation at age 40 with annual screening. Discussed SBEContrac eption: pt tolerating OCPs well, advised to continue as prescribed Diet/exerc ise: Counseled regarding importance of physical activity, healthy diet and appropriat e calcium intake.RTC in 1yr Pain in pelvis 56542916 R10.2 New onset, intermitte nt x 2 weeks. No other associated symptoms. PE unremarkab le. IBU and heat prn for pain. RTC if symptoms persist. [id number] MD Tiffanie Skaggs (Adult Med) [address] [place] [address] [phone] 0 08/31/2022 11:38:24 09/11/2022 13:58:04 Urinary incontinence 834309294 R32 Female uri nary stress incontinence 32995708 N39.3 Symptoms consistent with stress incontinen ce. [...] infection due to trace leukocytes in UA. [id number] KATHY SALCEDO (BULLDOGGER) [address] [place] [address] [phone] 11/15/2022 11:17:24 11/16/2022 12:45:00 Implantation of subcutaneous contraceptive 977817736 Z30.9 Nexplanon inserted left upper extremity as detailed in procedure note, pt tolerated well. RTC 1 month [id number] MD Tiffanie Zamora (BULLDOGGER) [address] [place] [address] [phone] 10/14/2023 11:56:56 10/22/2023 15:52:08 Screening for malignant neoplasm of cervix 386807523 Z12.4 due for pap pt is 28 yo no need for hpv cotest at this timenexpla non insertedbr eak through bleedingr/ p Break-thro ugh bleeding 76439433 N92.1 pt had nexplanon inserted may 2023s/p 6 months with light spotting hcg urineremov e nexplanond efer starting 1 mo ocp since bleeding slight Obese 774410874 E66.9 bmi 30.9Discus sed diet at length including healthier food options, increase vegetable and fiber intake, reduce salt intake, incorporat e yoga/stret mel practices and exercise 30 min 5 x per week to improve cardiovasc ular health. Contraception care 79270 8696 Z30.40 patient tolerated junel wellwould like to restart for contracept ion Junel Rx Removal of subcutaneous contraceptive 461760793 Z30.46 removal of nexplanon which was inserted November 2022 due to persisting breakthrou gh bleeding > 9 months [id number] MD Tiffanie Skaggs (Adult Med) [address] [place] [address] [phone] 05/19/2024 11:41:55 05/20/2024 10:56:07 Missed period 07905788 N92.5 patient has missed 2 menstrual cycles 28110202 Z33.1 Will refer patient to Obstetrici an and start on daily vitamins. Advised her to avoid any medication s without contacting a provider first. Spotting p er vagina in 990777024 O26.859 Patient has had some light spotting since the end of April. No pain or heavy bleeding. I reassured her that light spotting in first trimester can be normal. I advised her to seek medical attention if she develops pain or heavy bleeding. She will follow up with an obstetrici an for an exam. [id number] MD Tiffanie Diaz (Adult Med) [address] [place] [address] [phone] 06/09/2024 14:19:40 06/10/2024 15:27:05 Routine care 315691508 Z34.91 New OB: 11.2 weeks gestationE DD 12/27/24Pap done todayNuswa b done todayNew OB labs todayDiscu ssed and labor precaution sC/W vitaminsIn itial OB U/S ordered todayRTC 4 weeks Obesity 532169514 E66.9 BMI 30.2 Depression screening 171 987879 Z13.31 PHQ9- Negative (0 out of 27) Mental hea lth screening 258763136 Z13.39 GAD7- Negative (0 out of 21) [id number] MD Tiffanie Diaz (Adult Med) [address] [place] [address] [phone] 06/16/2024 08:53:42 06/23/2024 10:56:33 Chromosome abnormality screening 020767276 Z13.79 Referral to [facility] for complete transfer Obesity 892391364 E66.9 BMI 30 [id number] MD Tiffanie Diallo (Adult Med) [address] [place] [address] [phone] 12/01/2024 11:25:03 12/02/2024 13:25:04 Depression screening 814086931 Z13.31 7887902 PHQ9- Negative (0 out of 27) Mental hea [facility] screening 852896437 Z13.30 5551180019 GAD7- Negative (0 out of 21) Pre-eclampsia 448642088 O14.90 400437 BP today 128/80Reso lvedRTC 6 weeks for BP check Grief finding 048582540 F43.21 Z63.4 1226832 Gave to child at 28 weeks gestation, born with trisomy 18, shortly afterGriev ing normally. Pt is doing wellPt does not want/need medication at this time Surveillan ce of subcutaneous contraceptive implant 053325761 Z30.46 [id number] Pt to schedule for nexplanon Insertion [id number] Quan Hassan MD [facility] (Adult Med) [address] [place] [address] [phone] 12/14/2024 09:56:57 12/15/2024 12:04:28 Implantation of subcutaneous contraceptive 571624278 Z30.017 [id number] Patient desires Nexplanon insertion. After discussing the [...] a more severe reaction. Obese class I 9219275014 74807 E66.811 E66.3 8106788210 BMI 31.3 [id number] Quan Hassan MD [facility] (Adult Med) [address] [place] [address] [phone] 0 01/19/2025 15:50:24 01/20/2025 15:12:03 Grief finding 454217342 F43.21 Z63.4 7451602 Gave to child at 28 weeks gestation, born with trisomy 18, shortly afterGriev ing normally. Pt is doing wellPt does not want/need medication at this time Pre-eclampsia 332676594 O14.90 399826 BP today 128/76Reso lved Depression screening 171 281926 Z13.31 8524867 PHQ9- Negative (0 out of 27) Mental hea lth screening 693558584 Z13.30 7014409471 GAD7- Negative (0 out of 21) Influenza vaccination declined 833257730 Z28.21 76186125 Obese class I 0490136449 11489 E66.811 E66.3 0785894233 BMI 31.8 Health Concerns Section Related Observation LastModified by Organization Detai ls LastModified Time None Recorded Concern Status LastModified by Organization Details LastModified Time None Recorded Advance Directives Directive N: Payers Insurance Date Sequence Insurance Name Policy Number Policy Membreno Covered Member ID Membreno Member ID Guarantor Name 12/01/2024 2 [facility] (MEDICAID HMO) [id number] 0003 Dianelys Don Spenser [id number] Dianelys Don Spenser 07/15/2024 SLIDING FEE SCHEDULE - DISCOUNT Dianelys Don Spenser 11/06/2019 SLIDING FEE SCHEDULE - DISCOUNT Dianelys Don Spenser 10/18/2020 2 *SELF PAY* Ce cilia Don Spenser 12/01/2024 1 [facility] (MEDICAID HMO) [id number] 0003 Dianelys Don [id number] Dianelys Don Spenser 06/26/2019 1 MEDICAID - MOVED-MGRHOLD - PENDING [id number] Dianelys Don Spenser 12/01/2024 1 [place] [facility] Dianelys Don [id number] Dianelys Don Spenser 06/09/2024 SLIDING FEE SCHEDULE - DISCOUNT Dianelys Don Spenser 06/23/2024 2 *SELF PAY* Ce cilia Don Spenser 12/01/2024 1 [facility] (MEDICAID HMO) Dianelys Don Spenser [id number] Dianelys Don Spenser 01/17/2025 1 [facility] (MEDICAID HMO) [id number] 0003 Dianelys Don [id number] Dianelys Don Spenser 11/12/2016 1 *SELF PAY* Ce cilia Don Spenser 01/07/2017 SLIDING FEE SCHEDULE - DISCOUNT Dianelys Don Spenser 11/12/2016 1 MEDICAID - MOVED-MGRHOLD - PENDING [id number] Dianelys Don Spenser 12/01/2024 3 [place] [facility] Dianelys Don [id number] Dianelys Don Spenser Notes Date Note Type Note Provider Name and Address Organization Details Recorded Time 06/09/2024 text/html ROS as noted in the HPI see OB worksheet ALEKSANDR GARCIA PA-C Attn: [address] [place], [address], [facility] 06/09/2024 15:31:45 06/16/2024 text/html ROS as noted in the HPI see OB worksheet Quan Hassan MD Attn: [address] [place], [address], [facility] 06/16/2024 16:08:24 12/01/2024 text/html ROS as noted in the HPI 29 y/o F here for IM care. Pt was transferred to [facility] for after abnormal [id number] lab test. Pt was diagnosed with HTN during and was being managed with Nifedipine. She is a [facility] patient who is being followed for [...] children. ALEKSANDR GARCIA PA-C Attn: [address] [place], [address], [facility] 12/02/2024 10:08:01 12/14/2024 text/html ROS as noted in the HPI 29 y/o F here for nexplanon insertion. Pt denies any new problems or concerns at this time. Pt is not sexually active at this time. Quan Hassan MD Attn: [address] [facility], [place], [address], [facility] 12/14/2024 12:00:58 01/19/2025 text/html ROS as noted [...] today. Quan Hassan MD Attn: [address] [place], [address], [place] [facility] 01/20/2025 12:23:48 OBGyn Episode Ob Episode Information Episode Created Date Number of Fetuses Patient Bloodtype Patient rh Status Prepregnancy Weight lbs Domestic Partner Domestic Partner Phone Father Name Adjunct Psychology Professor Status 12/02/19 25 1 CLOSED Fetus Data First Name Last Name Admitted to NICU Weight (g) Sex Living Outcome Pediatric Complications Fetus ID Race Codes Race Delivery Type , Spontane ous 11667 Mario Calculation Initial Mario Date Initial Exam [...] Domestic Partner Domestic Partner Phone Father Name Adjunct Psychology Professor Status 06/09/19 25 1 O Positive 131.3 Chery Johnson CLOSED Fetus Data First Name Last Name Admitted to NICU Weight (g) Sex Living Outcome Pediatric Complications Fetus ID Race Codes Race Delivery Type F 04603 Vaginal Mario Calculation Initial Mario Date Initial [...] in lbs Pre/Post Dialysis Refused With clothes 131.617057179322 BP Diastolic BP Location Tested BP Systolic [...] in lbs Pre/Post Dialysis Refused With clothes 130.814858236248 BP Diastolic BP Location Tested BP Systolic [...] in lbs Pre/Post Dialysis Refused With clothes 136.152051180654 BP Diastolic BP Location Tested BP Systolic [...] Estim ated Date of Delivery false Thalassemia (Luxembourgish, Mozambican, Mediterranean, Or Background): MCV < 80 false Neural Tube Defect (Meningomyelocele, Spina Bifi da, Or Anencephaly) false Congenital Heart Defect false Down Syndrome false Bossman-Sachs (eg, Mormon, Cajun, Chinese-Congolese) f alse Darion Disease false Sickle Cell [...] ed By 06/09/2024 Anticipated course of care [email or web address] 06/09/2024 Alcohol [email or web address] 06/09/2024 Intimate partner violence op erez46 06/09/2024 Environmental/work hazards o perez46 06/09/2024 Screening for aneuploidy ope rez46 06/09/2024 Nutrition counseling ; special diet; dietary precautions (mercury, listeriosis) esswjr59 06/09/2024 Childbirth classes/hospital facilities ejkena27 06/09/2024 HIV and other routine tests pewkrz50 06/09/2024 Risk factors identif ied by history 06/09/2024 Weight gain counseling opere z46 06/09/2024 Exercise awkfov35 06/09/2024 Teratogens vreyiv64 06/09/2024 Use of any medicatio ns (including supplements, vitamins, herbs, or OTC drugs) vpfbte38 06/09/2024 gfysdv08 06/09/2024 Sexual activity ovdaaf93 06/09/2024 Tobacco/smoking cess ation counseling (ask, advise, assess, assist, and arrange) kpaatm23 06/09/2024 Illicit/recreational drugs o perez46 06/09/2024 Dental care 06/09/2024 Travel yygqrh07 06/09/2024 Seat belt use btbmau43 06/09/2024 Indications for ultrasonography cisgms28 06/09/2024 Avoidance of saunas or hot tubs oqfngr82 06/09/2024 Toxoplasmosis precautions (cats/raw meat) Second Trimester Discussed Date Discussion Item Discussion [...] Domestic Partner Domestic Partner Phone Father Name Adjunct Psychology Professor Status 10/19/19 21 1 O Positive 112 CLOSED Fetus Data First Name Last Name Admitted to NICU Weight (g) Sex Living Outcome Pediatric Complications Fetus ID Race Codes Race Delivery Type Avis Zhu ement e false 2693.20 24 F true Full Term 22324 2106-3 White Standard Vaginal Delivery Problems Problem Notes Natural CB; plans to breastf eed; not sure about circumcision. PPBC TBD Problem Name Start Date End Date Resolution Snomed Code Not e Subchorionic hematoma 06/02/2019 1232051 04 growth restriction 97912304 MFM US 04/10: I UGR. Reassuring dopplers/BPP. Continue testing. On examination - short stature 292068079 Mario Calculation Initial Mario Date Initial Exam [...] in lbs Pre/Post Dialysis Refused With clothes 112.703836594921 BP Diastolic BP Location Tested BP Systolic BP Type 70 108 sitting Fetus Heart Rate Present Fetus Movement Comments NOB visit, B12, MTHFR treatm ent Flowsheet Date 11/01/2020 Ngo Score Blood Edema Fundus Height Fundus Units Glucose Ketones Leukocytes Nitrite Labor Signs Protein Cervic Dilation Cervic Effacement Cervic Station none 12 wks none Type Weight in lbs Pre/Post Dialysis Refused With clothes 113.213490007717 BP Diastolic BP Location Tested BP Systolic [...] Weight in lbs Pre/Post Dialysis Refused Weight 114.213284737590 BP Diastolic BP Location Tested BP Systolic [...] in lbs Pre/Post Dialysis Refused With clothes 117.983560669288 BP Diastolic BP Location Tested BP Systolic [...] in lbs Pre/Post Dialysis Refused With clothes 120.507002114442 BP Diastolic BP Location Tested BP Systolic [...] in lbs Pre/Post Dialysis Refused With clothes 123.478154735342 BP Diastolic BP Location Tested BP Systolic [...] in lbs Pre/Post Dialysis Refused With clothes 132.151385679799 BP Diastolic BP Location Tested BP Systolic BP Type 62 108 sitting Fetus Heart Rate Present A 145 Fetus Movement A No Comments No VB, VD, LOF, regular cont ractions, or decreased movement. She has not been seen in clinic for the last 6 weeks. Patient following with [facility] for IUGR. Last evaluated 04/10, she was to return for growth in 3 weeks after that visit. Vital importance of making her appointments stressed to patient. Patient to see [facility] 05/01 - will follow up on delivery rec's. RTC in 1 week. Nuswab and GBS collected today. Flowsheet Date 05/04/2021 Ngo Score Blood Edema Fundus Height Fundus Units Glucose Ketones Leukocytes Nitrite Labor Signs Protein Cervic Dilation Cervic Effacement Cervic Station neg none 38 none negative none trace Type Weight in lbs Pre/Post Dialysis Refused With clothes 133.952413024527 BP Diastolic BP Location Tested BP Systolic BP Type 66 112 sitting Fetus Heart Rate Present A 145 Fetus Movement A Yes Comments No VB, VD, LOF, regular cont ractions, or decreased movement. Patient following with [facility] for IUGR. She was recently evaluated and [...] in lbs Pre/Post Dialysis Refused With clothes 116.796269039131 BP Diastolic BP Location Tested BP Systolic [...] At Estimated Date of Delivery false Thalassemia (Luxembourgish, Mozambican, Mediterranean, Or Background): MCV < 80 false Neural Tube Defect (Meningom yelocele, Spina Bifida, Or Anencephaly) false Congenital Heart Defect false Down Syndrome false Bossman-Sachs (eg, Mormon, Cajun , Chinese-Congolese) false Darion Disease false Sickle Cell Disease Or Trait () false Hemophilia Or Other Blood Disorders false Muscular Dystrophy false Cystic Fibrosis false Keo's Chorea false Mental Retardation/Autism false If Yes, [...] ed By 11/10/2020 Anticipated course of care jcortopass 11/10/2020 Alcohol jcortopass 11/10/2020 Intimate partner violence brittney ortopassi1 11/10/2020 Environmental/work hazards [place] [address] 11/10/2020 Screening for aneuploidy jco rtopass 11/10/2020 Nutrition counseling ; special diet; dietary precautions (mercury, listeriosis) [place] [address] 11/10/2020 Childbirth classes/hospital facilities [place] [address] 11/10/2020 HIV and other routine tests [place] [address] 11/10/2020 [facility] factors identif ied by history [facility] 11/10/2020 [facility] gain [facility] 11/10/2020 Exercise [place] [address] 11/10/2020 Teratogens [place] [address] 11/10/2020 Use of any medicatio ns (including supplements, vitamins, herbs, or OTC drugs) [place] [address] 11/10/2020 [place] [address] 11/10/2020 Sexual activity [place] [address] 11/10/2020 Tobacco/smoking cess ation counseling (ask, advise, assess, assist, and arrange) [place] [address] 11/10/2020 Illicit/recreational drugs [place] [address] 11/10/2020 Dental care [place] [address] 11/10/2020 Travel [place] [address] 11/10/2020 Seat belt use [place] [address] 11/10/2020 Indications for ultrasonography [place] [address] 11/10/2020 Avoidance of saunas or hot tubs [place] [address] 11/10/2020 Toxoplasmosis precautions (cats/raw meat) [place] [address] Second Trimester Discussed Date Discussion Item Discussion Note Discuss ed By Third Trimester Discussed Date Discussion Item Discussion Note Discuss ed By Delivery Information Delivery Date Delivery Type Labor Anesthesia Weeks Gestation Incision Type Labor Labor Length Hrs Delivered By Post Complications Tubal Sterilization Discharge Date Comments Induce d Regional-Ep idural 39 false 48 Dayan ckSelvin DO None false 06/06/2021 Discharge Information Feeding Method Contraceptive Method Maternal HG B and HCT Levels undecided Ob Episode Information Episode Created Date Number of Fetuses Patient Bloodtype Patient rh Status Prepregnancy Weight lbs Domestic Partner Domestic Partner Phone Father Name Adjunct Psychology Professor Status 04/30/20 19 1 O Positive CLOSED Fetus Data First Name Last Name Admitted to NICU Weight (g) Sex Living Outcome Pediatric Complications Fetus ID Race Codes Race Delivery Type 40045 Problems Problem Notes yes to epidural, no to circu mcision of boy, , homogenizer operator unknown, PPBC Nexplanon Problem Name Start Date End Date Resolution Snomed Code Not e Subchorionic hematoma 06/02/2019 3995512 04 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 Last US 06/02 with viable intrauterine - HR 145 and gross movement, small subchorionic hemorrhage. Pt sent for STAT US and heart tones absent consistent with demise. EGA of 15w4d. Discussed with patient through research pharmacist and case discussed with Dr. Benitez. Plan to send pt over to [facility] for Cytotec induction of labor with possible D&C. Flowsheet Date 07/20/2019 Ngo Score Blood Edema Fundus Height Fundus Units Glucose Ketones Leukocytes Nitrite Labor Signs Protein Cervic Dilation Cervic Effacement Cervic Station Type Weight in lbs Pre/Post Dialysis Refused With clothes 114.145967617575 BP Diastolic BP Location Tested BP Systolic BP Type 70 R arm 118 sitting Fetus Heart Rate Present Fetus Movement Comments Flowsheet Date 10/18/2020 Ngo Score Blood Edema Fundus Height Fundus Units Glucose Ketones Leukocytes Nitrite Labor Signs Protein Cervic Dilation Cervic Effacement Cervic Station Type Weight in lbs Pre/Post Dialysis Refused With clothes 112.272730027448 BP Diastolic BP Location Tested BP Systolic BP Type Fetus Heart Rate Present Fetus Movement Comments Menstrual History Last Menstrual Date Menses Monthly On Bcp Conception Prior Menses Frequency Hcg Plus Date Menarche Onset Age 1002/19/2019 true false Genetic Screening And Infection History Question Response Note Patient's Age Will Be 35 Years Or Older At Estim ated Date of Delivery false Thalassemia (Luxembourgish, Mozambican, Mediterranean, Or Background): MCV < 80 false Neural Tube Defect (Meningomyelocele, Spina Bifi da, Or Anencephaly) false Congenital Heart Defect false Down Syndrome false Bossman-Sachs (eg, Mormon, Cajun, Chinese-Congolese) f alse Darion Disease false Sickle Cell Disease Or Trait () false Hemophilia Or Other Blood Disorders false Muscular Dystrophy false Cystic Fibrosis false Keo's Chorea false Mental Retardation/Autism false If Yes, [...] (mercury, listeriosis) jcortopassi1 04/30/2019 Childbirth classes/hospital facilities jcortopai1 04/30/2019 HIV and other routine tests jcortopai1 04/30/2019 Risk factors identif ied by history jcortopassi1 04/30/2019 Weight gain counseling jcort opassi1 04/30/2019 Exercise jcortopassi1 04/30/2019 Teratogens jcortopassi1 04/30/2019 Use of any medicatio ns (including supplements, vitamins, herbs, or OTC drugs) jcortopassi1 04/30/2019 jcortopassi1 04/30/2019 Sexual activity jcortopai1 04/30/2019 Tobacco/smoking cess ation counseling (ask, advise, assess, assist, and arrange) [place] [address] 04/30/2019 [facility]recreational drugs [facility] 04/30/2019 Dental care jcortopassi1 04/30/2019 Travel jcortopai1 04/30/2019 Seat belt use jcortopai1 04/30/2019 Indications for ultrasonography jcortopai1 04/30/2019 Avoidance of saunas or hot tubs jcortopai1 04/30/2019 Toxoplasmosis precautions (cats/raw meat) [facility] Second Trimester Discussed Date Discussion Item Discussion [...] Domestic Partner Domestic Partner Phone Father Name Adjunct Psychology Professor Status 10/11/19 17 1 O Positive CLOSED Fetus Data First Name Last Name Admitted to NICU Weight (g) Sex Living Outcome Pediatric Complications Fetus ID Race Codes Race Delivery Type Lori Guido nte false 3118.44 5 F true Full Term 83594 2106-3 White Vaginal Problems Problem Notes girl per ultrasound, name is Codie, homogenizer operator is going to be [facility], PPBC is going to be [facility]. Ordered today. vaginal , ncb, gbs negative MSimpson MA 04/23/2017 mds Problem Name Start Date End Date Resolution Snomed Code Not e On examination - short stature 576078367 Vitamin D deficiency 03739718 Candidiasis of vagina 37214827 Injury of lower limb 03/05/2017 41090879 2 Mario Calculation Initial Mario Date Initial [...] Sound Latest Days Gestation 11/13/19 17 15 ousmane 12/03/2016 017 5 Pre- Flowsheet Flowsheet Date 10/10/2016 Ngo Score Blood Edema Fundus Height Fundus Units Glucose Ketones Leukocytes Nitrite Labor Signs Protein Cervic Dilation Cervic Effacement Cervic Station neg none 10 wks none negative neg Type Weight in lbs Pre/Post Dialysis Refused 111.981444140175 BP Diastolic BP Location Tested BP Systolic BP Type 68 110 sitting Fetus Heart Rate Present Fetus Movement Comments NOB Flowsheet Date 11/12/2016 Ngo Score Blood Edema Fundus Height Fundus Units Glucose Ketones Leukocytes Nitrite Labor Signs Protein Cervic Dilation Cervic Effacement Cervic Station neg none 15 wks none negative none neg Type Weight in lbs Pre/Post Dialysis Refused 112.365637606695 BP Diastolic BP Location Tested BP Systolic [...] Type Weight in lbs Pre/Post Dialysis Refused 114.604505847841 BP Diastolic BP Location Tested BP Systolic [...] Type Weight in lbs Pre/Post Dialysis Refused 120.770775310979 BP Diastolic BP Location Tested BP Systolic [...] Type Weight in lbs Pre/Post Dialysis Refused 127.696254675497 BP Diastolic BP Location Tested BP Systolic [...] Type Weight in lbs Pre/Post Dialysis Refused 132.344489434726 BP Diastolic BP Location Tested BP Systolic [...] Type Weight in lbs Pre/Post Dialysis Refused 132.210604406836 BP Diastolic BP Location Tested BP Systolic BP Type 78 106 sitting Fetus Heart Rate Present A 175 Present Fetus Movement A Yes Comments Edema - see jotter note; sta ble on Tylenol #3, will refill total 15 tablets Flowsheet Date 03/19/2017 Ngo Score Blood Edema Fundus Height Fundus Units Glucose Ketones Leukocytes Nitrite Labor Signs Protein Cervic Dilation Cervic Effacement Cervic Station neg none 33 cm none negative none neg Type Weight in lbs Pre/Post Dialysis Refused 132.982666743912 BP Diastolic BP Location Tested BP Systolic BP Type 68 104 Fetus Heart Rate Present A 150 Present Fetus Movement A Yes Comments Flowsheet Date 04/08/2017 Nog Score Blood Edema Fundus Height Fundus Units Glucose Ketones Leukocytes Nitrite Labor Signs Protein Cervic Dilation Cervic Effacement Cervic Station neg 2+ 36 cm none negative none neg 0cm 0% - 4 Type Weight in lbs Pre/Post Dialysis Refused 139.924055242632 BP Diastolic BP Location Tested BP Systolic [...] Type Weight in lbs Pre/Post Dialysis Refused 143.608242175340 BP Diastolic BP Location Tested BP Systolic [...] Type Weight in lbs Pre/Post Dialysis Refused 117.786561612566 BP Diastolic BP Location Tested BP Systolic [...] Estim ated Date of Delivery false Thalassemia (Luxembourgish, Mozambican, Mediterranean, Or Background): MCV < 80 false Neural Tube Defect (Meningomyelocele, Spina Bifi da, Or Anencephaly) false Congenital Heart Defect false Down Syndrome false Bossman-Sachs (eg, Mormon, Cajun, Chinese-Congolese) f alse Darion Disease false Sickle Cell Disease Or Trait () false Hemophilia Or Other Blood Disorders false Muscular Dystrophy false Cystic Fibrosis false Keo's Chorea false Mental Retardation/Autism false If Yes, [...] ed By 04/23/2017 Selecting a care provider uyluis carlosu 04/23/[address] anning/tubal sterilization [facility] 04/23/2017 Depression screening (when indicated) [facility] 04/23/2017 Abnormal lab values [facility] 04/23/2017 Signs and symptoms of labor uyyshawna 04/23/2017 Intimate partner violence uyyshawnau 04/23/2017 Tobacco/smoking cess ation counseling (ask, advise, assess, assist, and arrange) [facility] Third Trimester Discussed Date Discussion Item Discussion Note Discuss ed By 04/23/2017 Intimate partner violence uyyshawnau 04/23/2017 Anesthesia plans [facility] 04/23/2017 [place] education (n ewborn screening, jaundice, SIDS/safe sleeping position, car seat) [facility] 04/23/2017 Circumcision [facility] 04/23/2017 Postterm counseling [facility] 04/23/2017 movement [facility] 04/23/2017 [facility] 04/23/2017 Labor signs [facility] 04/23/2017 depression [facility] 04/23/2017 Family medical leave or disability forms [facility] 04/23/2017 Tobacco/smoking cess ation counseling (ask, advise, assess, assist, and arrange) [facility] 04/23/2017 Signs and symptoms of preeclampsia [facility] Delivery Information Delivery Date Delivery Type Labor [...] Domestic Partner Domestic Partner Phone Father Name Adjunct Psychology Professor Status 10/11/19 17 1 CLOSED Fetus Data First Name Last Name Admitted to NICU Weight (g) Sex Living Outcome Pediatric Complications Fetus ID Race Codes Race Delivery Type 1814.36 8 M Full Term 40487 Standard Vaginal Delivery Mario Calculation Initial Mario [...] None 40 false Baby was born in [place] Discharge Information Feeding Method Contraceptive Method Maternal HG B and HCT Levels Ob Episode Information Episode Created Date Number of Fetuses Patient Bloodtype Patient rh Status Prepregnancy Weight lbs Domestic Partner Domestic Partner Phone Father Name Adjunct Psychology Professor Status 10/11/19 17 1 CLOSED Fetus Data First Name Last Name Admitted to NICU Weight (g) Sex Living Outcome Pediatric Complications Fetus ID Race Codes Race Delivery Type 1360.77 6 M Full Term 45720 Standard Vaginal Delivery Mario Calculation Initial Mario [...] None 40 false Baby was born in [place] Discharge Information Feeding Method Contraceptive Method Maternal HG B and HCT Levels
[2025-03-08 15:52] LABS: Alanine Aminotransferase 1068 U/L (6-35); Aspartate Amino Transferase 843 U/L (14-36)
[2025-03-08 16:26] LABS: INR 1.0; Prothrombin Time 12.8 Seconds (11.1-14.7)
[2025-03-08 16:27] LABS: Partial Thromboplastin Time 28.5 Seconds (22.3-36.8)
--- OUTSIDE RECORDS SUMMARY | 2025-03-08 17:06 | XMS_ITS | Clinical Summary ---
Author Organization [facility] Address [address] [place] [address] Care Team Providers Care Tower Hoist Operator Name Role Phone Candelario Walsham Primary Care Provid er Allergies No known active allergies Medications vit [id number] weiss 27mg iron- 800 mcg-250 mg capsule [...] more drinks on one occasion? Never 05/05/2021 Bruce Depression Scale Answer Date Recorded Bruce Depression Scale Total 4 05/06/2021 The thought of harming myself has occurred to me . Never 05/06/2021 Personal Safety Answer Date Recorded Getting School Help Needed Not on file 07/13 Comments No Sex and Gender Information Value Date Recorded Sex Assigned at Not on file Legal Sex Female 7:54 AM JINGLE WRITER Gender Identity Not on file Sexual Orientation [...] Candelario armas, DO Complications:Other (Comment ) Delivery Location:[facility] Main C ampus ([facility]) Last Filed Vital Signs Vital Sign Reading Time Taken Comments Blood Pressure 118/80 05/06/2021 4:14 PM JINGLE WRITER Pulse 78 05/06/2021 4:14 PM JINGLE WRITER Temperature 36.9 C (98.4 F) 05/06/2021 4:14 PM JINGLE WRITER Respiratory Rate 18 05/06/2021 4:14 PM JINGLE WRITER Oxygen Saturation 97% 05/06/2021 4:14 PM JINGLE WRITER Inhaled Oxygen Concentration - - Weight 60.8 kg (134 lb) 05/05/2021 8:38 AM JINGLE WRITER Height - - Body Mass Index - - Plan of Treatment Not on file Insurance [facility] Advance Directives For more information, please contact: [phone] * Full Code (Latest Code Status on File) Date Activated Date Inactivated Comments 05/05/2021 7:30 PM 05/06/2021 9:11 PM * Full Code Date Activated Date Inactivated Comments 05/05/2021 8:22 AM 05/05/2021 7:30 PM Full CPR i n case of cardiopulmonary arrest Care Teams Tower Hoist Operator Relationship Specialty Start Date End Date Candelario Walsh DO [address] [place] [id number] PCP - General Obstetrics and Gynecology 05/05/21
--- OUTSIDE RECORDS SUMMARY | 2025-03-08 17:06 | XMS_ITS | Encounter Summary ---
Author Organization [facility] Address [address] [place] [address] Care Team Providers Care Engineering Specialist Name Role Phone Unavailable Primary Care Provider Unavailabl e Reason for Visit * Reason Onset Date Comments Appointment 03/08/2025 Called pt via in terpreter Vaughn Id # [id number] pt confirmed that she has burrows and was informed [facility] [place] after 03/12/2025 and that she would need to reach out to her referring md.- pt agreed.Clinic consult neededReceived: 6 days agoBee Vieira sent to Fior Dodd; Merly Chaudhary; Nilson LivingstonPlease schedule the pt to see Dr. Palacios in [facility] Encounter Details Date Type Department Care Team (Late st Contact Info) Description 03/08/2025 Telephone [facility] [address] [place] [address] Merly Chaudhary Appointment (Called pt via political anthropologist Vaughn Id # [id number] pt confirmed that she has burrows and was [facility] that [facility] [place] [...] care, and heating? Not very hard 11/24/2024 [facility] - Occupational Stress [...] things needed for daily living? No 11/24/2024 [place] Depression Scale Answer Date Recorded [place] Depression Scale Total 0 11/24/2024 The thought [...] any time in the past 12 m [facility], were you homeless or living in a usp (including now)? 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
--- OUTSIDE RECORDS SUMMARY | 2025-03-08 17:06 | XMS_ITS | Clinical Summary ---
Author Organization [facility] Address [address] [place] [id number] Care Team Providers Care Steel Layer Name Role Phone Unavailable Primary Care Provider Unavailabl e Source Comments [facility],non-owned Affiliates and Associated Physician Practices is amultiple site organization consisting of ambulatory clinics and hospital sitesin [place], [place], [place] and [place]. This disclosure is being madepursuant to the Care Everywhere program and may not contain all information available regarding this patient. Last updated 18.[facility] Allergies No known active allergies Medications * [...] Sibley was screened for depression using the [place] Depression Scale (EPDS) at her [facility] initial evaluation on 10/12/2024. Her initial score at baseline was 1. Based off of her score of 1, Dianelys does not warrant follow up with [facility] social worker school, Aliya Zelaya, within the week. Patient will continue to be screened throughout , at intervals no closer than two weeks, for continued surveillance and early identification of depression until delivery. Patient denies mental health history. Gestational hypertension, third trimester 10/08/2024 11/24/2024 Supervision of high risk pre gnancy, antepartum, unspecified trimester 09/28/20242024 [facility]: abnormality in pr egnancy (HCC) - Trisomy 18 08/11/2024 10/15/2024 Overview (10/13/2024): Images from the original note were not included. [facility] PATIENT--PLEASE CALL [phone] (ex 2) IF TRIAGED OR ADMITTED Care Provider: ANITA [facility] Care Dixon consultants involved: RN-Pérez; MFM- Dr. Le; Multimedia Programmer- Dr. Calderon Diagnosis: Trisomy 18 per Amniocentesis. 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 Umbilical artery Dopplers with persistent AEDF. MCA Doppler PI decreased consistent with cephalization.DV PI elevated. Severe growth with minimal interval growth Planned surveillance: 08.11.24: Patient offered appointments at [facility] but she is unsure if she wants to complete further evaluation/consultation; stated she will let us know; scheduled for initial [facility] appointment on 10/12 Delivery location: [facility] Delivery mode: unmonitored labor (EFM) with goal of vaginal delivery Desired Delivery GA: IOL 10/13/24 at [facility] due to Pre-eclampsia with a fetus with Trisomy 18 follow up: Plan for comfort care for the infant if born alive per Neonatology: Recommend delivery at [facility] hospital. Labor to be unmonitored Neonatology attending will be expected to be present at delivery solely for provision of comfort care. I offered to be present if possible for delivery for the sake of continuity, and mother requested this. 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 Concerns: Care plan based on evaluation and [...] 03/08/2025 Telephone [facility] - [address] [place] [address] Merly Chaudhary Appointment (Called pt via transitional living specialist Vaughn Id # [id number] pt confirmed that she has burrows and [...] 03/05/2025 Telephone [facility] - [address] [place] [address] Alejo Velázquez MD Appointment 03/05/2025 Travel 03/02/2025 1:00 PM CDT Anesthesia Event [facility] [address] [place] [address] Henrique Ruano MD 03/02/2025 1:00 PM CDT - 03/02/2025 2:00 PM CDT Surgery [facility] [address] [place] [address] Sara Palacios MD Not Performed Ercp+/-Eus 03/02/2025 11:07 AM CDT - 03/02/2025 12:35 PM CDT Hospital Encounter [facility] [address] [place] [address] Sara Palacios MD Surgery General Discharge Disposition: Home or Self Care 03/02/2025 Travel 03/01/2025 Telephone [facility] [address] [place] [address] Bee Vieira Procedure (External Referral, [...] care, and heating? Not very hard 11/24/2024 [facility] - Occupational Stress Questionnaire Answer Date Recorded [...] things needed for daily living? No 11/24/2024 [place] Depression Scale Answer Date Recorded [place] Depression Scale Total 0 11/24/2024 The thought [...] any time in the past 12 m [facility], were you homeless or living in a retirement (including now)? 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 [address] [place] [address], [facility] [phone] from Last 3 Months Insurance [facility] Advance Directives * Full Code (Latest Code Status on File) Date Activated Date Inactivated Comments 10/13/2024 8:13 AM 10/16/2024 1:25 PM * Full Code Date Activated Date Inactivated Comments 10/08/2024 12:31 PM 10/09/2024 4:33 PM
[2025-03-08 18:42] VITALS: BP 134/93; PULSE 108; RESP 16; O2SAT 99
--- NOTE | 2025-03-08 18:54 | PC.NURSE ---
Pt called out spinal surgeon light. RN to bedside, wet machine operator used. Pt states that she is the only one available to get her kids to school in the morning, and she is asking if she can leave tonight and have her appointment tomorrow morning after she takes her kids to school. RN spoke to MD Lundy, who stated we are still waiting to hear back from GI at [facility]. Using wet machine operator, pt informed of this, and that at this time we are unsure when the follow up can be scheduled for or whether she can be discharged tonight. Pt informed that RN will pass this information along to Dr. Lundy for when she speaks with U. Pt denies pain or nausea at this time, states both are resolved currently. Denies any further needs at this time. VS retaken and documented, pt informed of upcoming shift change, and that this RN would pass this information on to evening nurse, Iveth JONES, and that RN/MD Lundy will let patient know when the consult call is returned. Pt verbalized understanding. Call light in reach.
== END 2025-03-08 19:25 | disposition home or self-care (01) ==
PROVIDERS: Nurse Practitioner Adult Health; Emergency Provider General Practice; PCP Physician Assistant Medical
DX: R10.11 Right upper quadrant pain (principal); K80.50 Calculus of bile duct without cholangitis or cholecystitis without obstruction; R74.01 Elevation of levels of liver transaminase levels
CPT/HCPCS: 36415; 71046; 76705; 80053; 81001; 81025; 83605; 83690; 85025; 85610; 85730; 93005; 99284